=== PATIENT | male | born 1960 | race Caucasian/White ===

== ENCOUNTER 2017-12-13 16:54 | Emergency (ER) | payer OTHER ==
[2017-12-13 18:28] VITALS: BP 116/62; PULSE 91; RESP 16; TEMP 97.8; O2SAT 98
[2017-12-13] MEDS ORDERED: ACETAMINOPHEN/HYDROcodone 325 MG/10 MG TAB PO ONE (18:45)
--- NOTE | 2017-12-13 19:02 | PD ---
HPI Chief Complaint: Psychiatric Symptoms Time Seen by Provider: 18:27 Travel History International Travel<30 days: No Contact w/Intl Traveler<30days: No Traveled to known affect area: No History of Present Illness HPI 57-year-old male that presents to the ED for evaluation of Collins act. Patient was Collins acted by police after apparently he made suicidal statements to nursing staff that went to visit him at his home. Per patient his been in and out of [facility] normal and age secondary to having GI bleeds as well as stomach cancer. Per patient he was just released yesterday had home health given to him so he can have follow-up. Patient was seen today by the home health nurse and patient stated that he felt the present that he will hang himself with a rope that is outside. Per patient he stated that this was a joke. Per patient he knows he feels depressed secondary to his significant illness. Per patient he does not have a plan to actually and his life. He denies any fevers chills or sweats. He states that he's had transfusions recently and states that he denies any active bleeding at this time. He denies any chest pain or shortness of breath. Per patient he currently is not undergoing any chemotherapy. He does state that he takes Lortab for pain and he would like to have a dose of this as he does not have his medications with him secondary to his Collins act. He voices no complaints. Per patient this is all a misunderstanding. He denies any drug abuse or alcohol recently. [facility] Social History Tobacco Use: Yes Allergies-Medications (Allergen,Severity, Reaction): Coded Allergies: No Known Allergies (Unverified , 12/13/17) Review of Systems Except as stated in HPI: all other systems reviewed are Neg Physical Exam Narrative GENERAL: SKIN: Warm and dry. HEAD: Atraumatic. Normocephalic. EYES: Pupils equal and round. No scleral icterus. No injection or drainage. ENT: No nasal bleeding or discharge. Mucous membranes pink and moist. Tongue is midline. No uvula deviation. NECK: Trachea midline. No JVD. CARDIOVASCULAR: Regular rate and rhythm. No murmurs, S3, S4. RESPIRATORY: No accessory muscle use. Clear to auscultation. Breath sounds equal bilaterally. GASTROINTESTINAL: Abdomen soft, non-tender, nondistended. Hepatic and splenic margins not palpable. MUSCULOSKELETAL: Extremities without clubbing, cyanosis, or edema. No obvious deformities. Full range of motion of the upper and lower extremities bilaterally. 2+ pulses bilaterally. NEUROLOGICAL: Awake and alert. No obvious cranial nerve deficits. Motor grossly within normal limits. Five out of 5 muscle strength in the arms and legs. Normal speech. PSYCHIATRIC: Appropriate mood and affect; insight and judgment normal. Data Data Last Documented VS Vital Signs Date Time Temp Pulse Resp B/P (MAP) Pulse Ox O2 Delivery O2 Flow Rate FiO2 12/13/17 18:28 97.8 91 16 116/62 (80) 98 Room Air Orders Orders Complete Blood Count With Diff (12/13/17 18:16) Comprehensive Metabolic Panel (12/13/17 18:16) Thyroid Stimulating Hormone (12/13/17 18:16) Psych Screen (12/13/17 18:16) Drug Screen, Random Urine (12/13/17 18:16) Alcohol (Ethanol) (12/13/17 18:16) Salicylates (Aspirin) (12/13/17 18:16) Tylenol (Acetaminophen) (12/13/17 18:16) Acetamin-Hydrocod 325-10 Mg ([place] 10-32 (12/13/17 18:45) Labs Laboratory Tests Test 12/13/17 19:35 12/13/17 19:45 White Blood Count 5.1 TH/MM3 Red Blood Count 3.10 MIL/MM3 Hemoglobin 11.7 GM/DL Hematocrit 33.0 % Mean Corpuscular Volume 106.4 FL Mean Corpuscular Hemoglobin 37.7 PG Mean Corpuscular Hemoglobin Concent 35.4 % Red Cell Distribution Width 13.0 % Platelet Count 176 TH/MM3 Mean Platelet Volume 8.4 FL Neutrophils (%) (Auto) 66.7 % Lymphocytes (%) (Auto) 20.8 % Monocytes (%) (Auto) 6.3 % Eosinophils (%) (Auto) 5.5 % Basophils (%) (Auto) 0.7 % Neutrophils # (Auto) 3.4 TH/MM3 Lymphocytes # (Auto) 1.1 TH/MM3 Monocytes # (Auto) 0.3 TH/MM3 Eosinophils # (Auto) 0.3 TH/MM3 Basophils # (Auto) 0.0 TH/MM3 CBC Comment DIFF FINAL Differential Comment MDM Medical Decision Making Medical Screen Exam Complete: Yes Emergency Medical Condition: Yes Medical Record Reviewed: Yes Interpretation(s) CBC Diagram 12/13/17 19:45 Differential Diagnosis Depression versus suicidal ideation versus anxiety versus adjustment disorder versus mood disorder versus bipolar disorder versus schizophrenia versus paranoid disorder versus psychosis versus substance abuse versus alcohol abuse versus alcohol induced psychosis versus homicidality addition versus cutting versus personality disorder Narrative Course 57-year-old male that presents to the ED for evaluation of psych. Patient was properly examined and was found to have signs and symptoms consistent psychiatric illness. No sign of acute medical distress. Patient does appear to have a significant medical history including cancer per patient and ulcers. Labs were ordered. Patient will be medically clear. Okay to be seen by psych. Mental health screening was discussed with the patient. Diagnosis Primary Impression: Depression Qualified Codes: F33.1 - Major depressive disorder, recurrent, moderate Jeramie Mckeon Dec 13, 2017 19:02
[2017-12-13 20:24] LABS: AUTOMATED NEUTROPHIL # 3.4 TH/MM3 (1.8-7.7); BASOPHIL % 0.7 % (0.0-2.0); EOSINOPHIL # 0.3 TH/MM3 (0-0.4); EOSINOPHIL % 5.5 % (0.0-4.0); HEMOGLOBIN 11.7 GM/DL (13.0-17.0); LYMPH % 20.8 % (9.0-44.0); LYMPHOCYTE # 1.1 TH/MM3 (1.0-4.8); MEAN CELL VOLUME 106.4 FL (80.0-100.0); MEAN CORPUSCULAR HEMOGLOBIN 37.7 PG (27.0-34.0); MEAN CORPUSCULAR HGB CONC 35.4 % (32.0-36.0); MEAN PLATELET VOLUME 8.4 FL (7.0-11.0); MONO % 6.3 % (0.0-8.0); MONOCYTE # 0.3 TH/MM3 (0-0.9); NEUT % 66.7 % (16.0-70.0); PLATELET COUNT 176 TH/MM3 (150-450); WHITE BLOOD COUNT 5.1 TH/MM3 (4.0-11.0)
[2017-12-13 20:38] LABS: ALBUMIN 3.2 GM/DL (3.4-5.0); AST (GOT) 86 U/L (15-37); BLOOD UREA NITROGEN 4 MG/DL (7-18); CALCIUM 8.4 MG/DL (8.5-10.1); CHLORIDE 100 MEQ/L (98-107); CREATININE 0.73 MG/DL (0.60-1.30); GLOMERULAR FILTRATION RATE 112 ML/MIN (>89); GLUCOSE,RANDOM 85 MG/DL (74-106); SODIUM (NA) 132 MEQ/L (136-145)
[2017-12-13 20:40] LABS: ALT (GPT) 38 U/L (12-78)
[2017-12-13 20:49] LABS: ACETAMINOPHEN LESS THAN 2.0 MCG/ML (10.0-30.0); ALKALINE PHOSPHATASE 116 U/L (45-117); TOTAL BILIRUBIN ADULT 0.4 MG/DL (0.2-1.0); TOTAL PROTEIN 6.6 GM/DL (6.4-8.2)
[2017-12-13 23:47] VITALS: BP 126/72; PULSE 81; RESP 18; TEMP 98.9; O2SAT 96
[2017-12-14 10:25] VITALS: BP 157/76; PULSE 75; RESP 18; O2SAT 97
[2017-12-14] MEDS ORDERED: ACETAMINOPHEN/HYDROcodone 325 MG/10 MG TAB PO ONE (12:15)
--- NOTE | 2017-12-14 13:52 | PD ---
History of Present Illness Chief Complaint: Psychiatric Symptoms Time Seen by Provider: 13:45 Travel History International Travel<30 Days: No Contact w/Intl Traveler<30days: No Known affected area: No Legal Status Legal Status: Collins Act Collins Act Signed By: Lise Collins Act Comment: 12/13/2017 04:14 PM OFC. Morrsi BOYLE #[phone] History of Present Illness: 57-year-old male, recently hospitalized and diagnosed with stomach cancer, Karina acted after joking that he could hang himself. Apparently he made this joke with home health care nurses and they immediately called law enforcement, who Karina acted the patient. Patient states he was with his girlfriend at the time and both he and she were trying to convince the nurses and law enforcement that he was joking. He denies any suicidal or homicidal ideation, plan or intent at this time. He has no psychotic symptoms and his cognition is intact. He is verbally ana maria for safety and he is competent to do so. Psychiatric History Psychiatric History Hx Psychiatric Treatment: Denies History of Inpatient Treatment: No Guns or firearms in home: No Social History Hx Alcohol Use: Yes Hx Tobacco Use: Yes Hx Substance Use: Yes (alcohol) Substance Use Type: Alcohol Hx of Substance Use Treatment: No Allergies-Medications (Allergen,Severity, Reaction): Coded Allergies: No Known Allergies (Unverified , 12/13/17) Review of Systems Psychiatric: COMPLAINS OF: Anxiety Except as stated in HPI: all other systems reviewed are Neg Mental Status Examination Appearance: Appropriate Consciousness: Alert Orientation: x4 Motor Activity: Normal gait Speech: Unremarkable Language: Adequate Fund of Knowledge: Adequate Attention and Concentration: Adequate Memory: Unremarkable Mood: Anxious Affect: Appropriate Thought Process & Associations: Intact Thought Content: Appropriate Hallucination Type: None Delusion Type: None Suicidal Ideation: No Suicidal Plan: No Suicidal Intention: No Homicidal Ideation: No Homicidal Plan: No Homicidal Intention: No Insight: Adequate Judgment: Adequate MDM Medical Decision Making Medical Record Reviewed: Yes Assessment/Plan Patient interviewed at bedside. Electronic medical record reviewed. Case discussed with nurse Bahena and nurse Scotty. Patient does not meet criteria for Collins act and he does not meet criteria for involuntary psychiatric hospitalization. He would like to go home and this physician feels he is competent to make medical decisions. Patient's toxicology screen is noted to be positive for opiates and alcohol. Orders Orders Complete Blood Count With Diff (12/13/17 18:16) Comprehensive Metabolic Panel (12/13/17 18:16) Thyroid Stimulating Hormone (12/13/17 18:16) Psych Screen (12/13/17 18:16) Drug Screen, Random Urine (12/13/17 18:16) Alcohol (Ethanol) (12/13/17 18:16) Salicylates (Aspirin) (12/13/17 18:16) Tylenol (Acetaminophen) (12/13/17 18:16) Acetamin-Hydrocod 325-10 Mg ([place] 10-32 (12/13/17 18:45) Diet Regular Basic (12/14/17 Breakfast) Diet Regular Basic (12/14/17 Lunch) Acetamin-Hydrocod 325-10 Mg ([place] 10-32 (12/14/17 12:15) Results Vital Signs Date Time Temp Pulse Resp B/P (MAP) Pulse Ox O2 Delivery O2 Flow Rate FiO2 12/14/17 10:25 75 18 157/76 (103) 97 Room Air 12/13/17 23:47 98.9 81 18 126/72 (90) 96 Room Air 12/13/17 18:28 97.8 91 16 116/62 (80) 98 Room Air Laboratory Tests Test 12/13/17 19:35 12/13/17 19:45 Urine Opiates Screen POS Urine Barbiturates Screen NEG Urine Amphetamines Screen NEG Urine Benzodiazepines Screen NEG Urine Cocaine Screen NEG Urine Cannabinoids Screen NEG White Blood Count 5.1 Red Blood Count 3.10 Hemoglobin 11.7 Hematocrit 33.0 Mean Corpuscular Volume 106.4 Mean Corpuscular Hemoglobin 37.7 Mean Corpuscular Hemoglobin Concent 35.4 Red Cell Distribution Width 13.0 Platelet Count 176 Mean Platelet Volume 8.4 Neutrophils (%) (Auto) 66.7 Lymphocytes (%) (Auto) 20.8 Monocytes (%) (Auto) 6.3 Eosinophils (%) (Auto) 5.5 Basophils (%) (Auto) 0.7 Neutrophils # (Auto) 3.4 Lymphocytes # (Auto) 1.1 Monocytes # (Auto) 0.3 Eosinophils # (Auto) 0.3 Basophils # (Auto) 0.0 CBC Comment DIFF FINAL Differential Comment Blood Urea Nitrogen 4 Creatinine 0.73 Random Glucose 85 Total Protein 6.6 Albumin 3.2 Calcium Level 8.4 Alkaline Phosphatase 116 Aspartate Amino Transf (AST/SGOT) 86 Alanine Aminotransferase (ALT/SGPT) 38 Total Bilirubin 0.4 Sodium Level 132 Potassium Level 3.5 Chloride Level 100 Carbon Dioxide Level 23.0 Anion Gap 9 Estimat Glomerular Filtration Rate 112 Thyroid Stimulating Hormone 3rd Gen 1.220 Salicylates Level 9.6 Acetaminophen Level LESS THAN 2.0 Ethyl Alcohol Level 135 Diagnosis Primary Impression: Adjustment disorder with mixed disturbance of emotions and conduct Jason Brady MD Dec 14, 2017 13:52
--- NOTE | 2017-12-14 14:04 | PD ---
Physical Exam Time Seen by Provider: 14:[address] Brady has evaluated the patient, with Collins act, and cleared the patient for discharge. Data Data Last Documented VS Vital Signs Date Time Temp Pulse Resp B/P (MAP) Pulse Ox O2 Delivery O2 Flow Rate FiO2 12/14/17 10:25 75 18 157/76 (103) 97 Room Air 12/13/17 23:47 98.9 Orders Orders Complete Blood Count With Diff (12/13/17 18:16) Comprehensive Metabolic Panel (12/13/17 18:16) Thyroid Stimulating Hormone (12/13/17 18:16) Psych Screen (12/13/17 18:16) Drug Screen, Random Urine (12/13/17 18:16) Alcohol (Ethanol) (12/13/17 18:16) Salicylates (Aspirin) (12/13/17 18:16) Tylenol (Acetaminophen) (12/13/17 18:16) Acetamin-Hydrocod 325-10 Mg ([place] 10-32 (12/13/17 18:45) Diet Regular Basic (12/14/17 Breakfast) Diet Regular Basic (12/14/17 Lunch) Acetamin-Hydrocod 325-10 Mg ([place] 10-32 (12/14/17 12:15) Labs Laboratory Tests Test 12/13/17 19:35 12/13/17 19:45 Urine Opiates Screen POS Urine Barbiturates Screen NEG Urine Amphetamines Screen NEG Urine Benzodiazepines Screen NEG Urine Cocaine Screen NEG Urine Cannabinoids Screen NEG White Blood Count 5.1 TH/MM3 Red Blood Count 3.10 MIL/MM3 Hemoglobin 11.7 GM/DL Hematocrit 33.0 % Mean Corpuscular Volume 106.4 FL Mean Corpuscular Hemoglobin 37.7 PG Mean Corpuscular Hemoglobin Concent 35.4 % Red Cell Distribution Width 13.0 % Platelet Count 176 TH/MM3 Mean Platelet Volume 8.4 FL Neutrophils (%) (Auto) 66.7 % Lymphocytes (%) (Auto) 20.8 % Monocytes (%) (Auto) 6.3 % Eosinophils (%) (Auto) 5.5 % Basophils (%) (Auto) 0.7 % Neutrophils # (Auto) 3.4 TH/MM3 Lymphocytes # (Auto) 1.1 TH/MM3 Monocytes # (Auto) 0.3 TH/MM3 Eosinophils # (Auto) 0.3 TH/MM3 Basophils # (Auto) 0.0 TH/MM3 CBC Comment DIFF FINAL Differential Comment Blood Urea Nitrogen 4 MG/DL Creatinine 0.73 MG/DL Random Glucose 85 MG/DL Total Protein 6.6 GM/DL Albumin 3.2 GM/DL Calcium Level 8.4 MG/DL Alkaline Phosphatase 116 U/L Aspartate Amino Transf (AST/SGOT) 86 U/L Alanine Aminotransferase (ALT/SGPT) 38 U/L Total Bilirubin 0.4 MG/DL Sodium Level 132 MEQ/L Potassium Level 3.5 MEQ/L Chloride Level 100 MEQ/L Carbon Dioxide Level 23.0 MEQ/L Anion Gap 9 MEQ/L Estimat Glomerular Filtration Rate 112 ML/MIN Thyroid Stimulating Hormone 3rd Gen 1.220 uIU/ML Salicylates Level 9.6 MG/DL Acetaminophen Level LESS THAN 2.0 MCG/ML Ethyl Alcohol Level 135 MG/DL MDM Supervised Visit with PAT: No Narrative Course Dr. Brady has evaluated the patient, with Karina arias, and cleared the patient for discharge. Patient contracts safety. Denies suicidal or homicidal ideations. Patient will be provided community resource packet to /LUAN for follow-up. Has friends and family for support. Patient was medically cleared by alternate provider prior to psych screening. Patient has been evaluated by psychiatry and and is now cleared for discharge. Diagnosis Primary Impression: Adjustment disorder with mixed disturbance of emotions and conduct Referrals: LUAN (Out patient) [facility] Primary Care Physician Psychiatrist Terrance [facility]AS [facility] Patient Instructions: Disruptive Mood Dysregulation Disorder (ED), General Instructions, Mood Disorders (ED) Additional Instruction: Contract safety to your self and others Follow-up with psychiatry Follow-up with primary care provider Follow-up with Ousmane Jones Return to the emergency department immediately with worsening of symptoms Med/Other Pt SpecificInfo: No Change to Meds, No Meds Exist/No RX given Disposition: 01 DISCHARGE HOME Condition: Stable Laine Moralez Dec 14, 2017 14:04
== END 2017-12-14 14:57 | disposition home or self-care (01) ==
LOC: NEDAMB 16:54 → NEPJ 12-14 14:57
DX: F43.25 Adjustment disorder with mixed disturbance of emotions and conduct (principal); Z72.0 Tobacco use
CPT/HCPCS: 80053; 80307; 84443; 85025; 99283

== ENCOUNTER 2017-12-16 20:50 | Emergency (ER) | payer SELFPAY ==
[~2017-12-16] VITALS: Ht 177.8 cm; Wt 61.0 kg
[2017-12-16 21:07] VITALS: BP 165/90; PULSE 83; RESP 16; TEMP 98.7; O2SAT 96
[2017-12-16] MEDS ORDERED: SODIUM CHLOR 0.9% 1000 ML INJ 1,000 ML IV SCH (21:19)
[2017-12-16] MEDS ORDERED: HYDR-3583 PO (21:22)
[2017-12-16] MEDS ORDERED: PANT40TA3 PO (21:22)
--- NOTE | 2017-12-16 21:23 | PD ---
HPI Chief Complaint: GI Complaint Time Seen by Provider: 21:19 Travel History International Travel<30 days: No Contact w/Intl Traveler<30days: No Traveled to known affect area: No History of Present Illness HPI 57-year-old male patient with history of alcoholism, gastritis, opiate use, recently diagnosed with a GI malignancy for which she is currently being evaluated for further treatment, seen at [facility] yesterday for nausea and vomiting and black stools, was released, and is here today because of an ongoing nausea, vomiting, body aches, diarrhea, and states he did have black stools as well and states he had red blood in the stools. He states that he had ran out of his Lortabs as well. He apparently has had a recent refill the medications and has ran out as well. Modifying Factors: None Associated Signs & Symptoms: Nausea, vomiting, body aches, diarrhea, black stools Risk Factors: Gastritis, alcoholism, gastric cancer PFSH Past Medical History Diminished Hearing: No Gastrointestinal Disorders: Yes (pt states gastritis and stomach ca.) Tetanus Vaccination: > 5 Years Influenza Vaccination: No Past Surgical History Surgical History: No Previous Surgery Social History Alcohol Use: Yes (daily "a few beers today") Tobacco Use: Yes Substance Use: Yes (alcohol) Allergies-Medications (Allergen,Severity, Reaction): Coded Allergies: No Known Allergies (Unverified , 12/16/17) Reported Meds & Prescriptions Reported Meds & Active Scripts Active Reported Hydrocodone-Acetaminophen 10-325 mg Tab 1 Tab PO Q6H PRN Pantoprazole (Pantoprazole Sodium) 40 Mg Tab 40 Mg PO BID Review of Systems Except as stated in HPI: all other systems reviewed are Neg Physical Exam Narrative GENERAL: Well-developed middle-aged white male patient currently in mild distress. Awake and oriented 3. SKIN: Focused skin assessment warm/dry. HEAD: Atraumatic. Normocephalic. EYES: Pupils equal and round. No scleral icterus. No injection or drainage. ENT: No nasal bleeding or discharge. Mucous membranes pink and moist. NECK: Trachea midline. No JVD. Supple. CARDIOVASCULAR: Regular rate and rhythm. No murmur appreciated. RESPIRATORY: No accessory muscle use. Clear to auscultation. Breath sounds equal bilaterally. GASTROINTESTINAL: Abdomen soft, non-tender, nondistended. Hepatic and splenic margins not palpable. MUSCULOSKELETAL: No obvious deformities. No clubbing. No cyanosis. No edema. NEUROLOGICAL: Awake and alert. No obvious cranial nerve deficits. Motor grossly within normal limits. Normal speech. PSYCHIATRIC: Appropriate mood and affect; insight and judgment normal. Data Data Last Documented VS Vital Signs Date Time Temp Pulse Resp B/P (MAP) Pulse Ox O2 Delivery O2 Flow Rate FiO2 12/16/17 21:07 98.7 83 16 165/90 (115) 96 Orders Orders Complete Blood Count With Diff (12/16/17 21:19) Comprehensive Metabolic Panel (12/16/17 21:19) Lipase (12/16/17 21:19) Urinalysis - C+S If Indicated (12/16/17 21:19) Abdomen, Flat & Upright (12/16/17 ) Iv Access Insert/Monitor (12/16/17 21:19) Ecg Monitoring (12/16/17 21:19) Oximetry (12/16/17 21:19) Ondansetron Inj (Zofran Inj) (12/16/17 21:30) Pantoprazole Inj (Protonix Inj) (12/16/17 21:30) Sodium Chlor 0.9% 1000 Ml Inj (Ns 1000 M (12/16/17 21:19) Sodium Chloride 0.9% Flush (Ns Flush) (12/16/17 21:30) Acetaminophen (Tylenol) (12/16/17 22:15) Sodium Chlor 0.9% 1000 Ml Inj (Ns 1000 M (12/16/17 23:30) Morphine Inj (Morphine Inj) (12/16/17 23:30) Labs Laboratory Tests Test 12/16/17 21:30 12/16/17 22:10 White Blood Count 4.5 TH/MM3 Red Blood Count 3.24 MIL/MM3 Hemoglobin 12.2 GM/DL Hematocrit 34.7 % Mean Corpuscular Volume 107.0 FL Mean Corpuscular Hemoglobin 37.5 PG Mean Corpuscular Hemoglobin Concent 35.1 % Red Cell Distribution Width 13.2 % Platelet Count 334 TH/MM3 Mean Platelet Volume 7.9 FL Neutrophils (%) (Auto) 80.4 % Lymphocytes (%) (Auto) 15.5 % Monocytes (%) (Auto) 3.1 % Eosinophils (%) (Auto) 0.2 % Basophils (%) (Auto) 0.8 % Neutrophils # (Auto) 3.6 TH/MM3 Lymphocytes # (Auto) 0.7 TH/MM3 Monocytes # (Auto) 0.1 TH/MM3 Eosinophils # (Auto) 0.0 TH/MM3 Basophils # (Auto) 0.0 TH/MM3 CBC Comment DIFF FINAL Differential Comment Blood Urea Nitrogen 4 MG/DL Creatinine 0.71 MG/DL Random Glucose 92 MG/DL Total Protein 6.6 GM/DL Albumin 3.3 GM/DL Calcium Level 8.4 MG/DL Alkaline Phosphatase 108 U/L Aspartate Amino Transf (AST/SGOT) 93 U/L Alanine Aminotransferase (ALT/SGPT) 47 U/L Total Bilirubin 0.3 MG/DL Sodium Level 128 MEQ/L Potassium Level 3.9 MEQ/L Chloride Level 96 MEQ/L Carbon Dioxide Level 20.3 MEQ/L Anion Gap 12 MEQ/L Estimat Glomerular Filtration Rate 115 ML/MIN Lipase 294 U/L Urine Color LIGHT-YELLOW Urine Turbidity CLEAR Urine pH 6.0 Urine Specific [place] 1.003 Urine Protein NEG mg/dL Urine Glucose (UA) NEG mg/dL Urine Ketones NEG mg/dL Urine Occult Blood NEG Urine Nitrite NEG Urine Bilirubin NEG Urine Urobilinogen LESS THAN 2.0 MG/DL Urine Leukocyte Esterase NEG Urine RBC 1 /hpf Urine Mucus FEW /lpf Microscopic Urinalysis Comment CULT NOT INDICATED MDM Medical Decision Making Medical Screen Exam Complete: Yes Emergency Medical Condition: Yes Medical Record Reviewed: Yes Interpretation(s) Laboratory Tests Test 12/16/17 21:30 12/16/17 22:10 Red Blood Count 3.24 MIL/MM3 (4.50-5.90) Hemoglobin 12.2 GM/DL (13.0-17.0) Hematocrit 34.7 % (39.0-51.0) Mean Corpuscular Volume 107.0 FL (80.0-100.0) Mean Corpuscular Hemoglobin 37.5 PG (27.0-34.0) Neutrophils (%) (Auto) 80.4 % (16.0-70.0) Lymphocytes # (Auto) 0.7 TH/MM3 (1.0-4.8) Blood Urea Nitrogen 4 MG/DL (7-18) Albumin 3.3 GM/DL (3.4-5.0) Calcium Level 8.4 MG/DL (8.5-10.1) Aspartate Amino Transf (AST/SGOT) 93 U/L (15-37) Sodium Level 128 MEQ/L (136-145) Chloride Level 96 MEQ/L (98-107) Carbon Dioxide Level 20.3 MEQ/L (21.0-32.0) Urine Mucus FEW /lpf (OCC) Last 24 hours Impressions Abdomen X-Ray 12/16/17 0000 Signed Impressions: Service Date/Time: Saturday, December 16, 2017 21:55 - CONCLUSION: Nonspecific bowel gas pattern with suggestion for possible ileus in the proper clinical setting. No point of obstruction seen. Sebastien Brooks MD Differential Diagnosis Nausea, vomiting, abdominal discomfort, diarrhea, black stools: GI bleed versus gastritis versus pancreatitis versus dehydration versus metabolic issues versus alcohol withdrawal versus opiate withdrawals Narrative Course Abdomen is fairly benign and x-ray did show some signs of ileus although I think that some of this may be secondary to opiate withdrawals. He was given IV fluids, Zofran in the ER, and Protonix. On reevaluation at 11:20 PM, he is much more comfortable and he is no longer vomiting. His sodium is low and it had been low in a previous visit as well. Additional IV fluids were given. Hemoccult was negative and I'm not suspecting a ongoing GI bleeding in this case. H&H is stable. Vital signs are stable. He does have several GI issues and will need follow-up for all of them. Patient has a GI doctor already that he is following up with and he should continue to see them. We have attempted to obtain his paperwork from the other facility as well but was not successful. At this point, my plan would be to release him with further symptomatic relief for nausea and vomiting. I suspect he may have an element of opiate withdrawal as well. Morphine was given per patient's multiple request. However , I have talked him about the fact that we will not be giving him any further pain medications and he will need to follow-up with his primary care physician and GI doctor regarding this problem. He should return for any worsening in vomiting or new symptoms as needed. The plan has been discussed with him and he states understanding. [facility] Point of Care Internal Pos. & Neg. Controls: Passed Fecal Specimen Occult Blood: Negative Diagnosis Primary Impression: Nausea and vomiting Additional Impression: Hyponatremia Med/Other Pt SpecificInfo: Prescription(s) given Scripts Ondansetron Odt (Zofran Odt) 4 Mg Tab 4 MG SL Q6HR Y for Nausea/Vomiting, #10 TAB 0 Refills Prov: Bebo Zacarias MD 12/16/17 Disposition: 01 DISCHARGE HOME Condition: Stable Bebo Zacarias MD Dec 16, 2017 21:23
[2017-12-16] MEDS ORDERED: SODIUM CHLORIDE 0.9% FLUSH 10 ML FLUSH IV FLUSH PRN (21:30)
[2017-12-16] MEDS ORDERED: PANTOPRAZOLE SODIUM 40 MG VIAL IVP ONE (21:30)
[2017-12-16] MEDS ORDERED: ONDANSETRON HCL 4 MG/2 ML VIAL IVP ONE (21:30)
[2017-12-16] MEDS ORDERED: ACETAMINOPHEN 325 MG TAB PO ONE (22:15)
--- NOTE | 2017-12-16 22:19 | RADRPT ---
EXAM DATE/TIME: 12/16/2017 21:55 [facility] COMPARISON: No previous studies available for comparison. INDICATIONS : Abdominal pain, vomiting MEDICAL HISTORY : None. SURGICAL HISTORY : None. ENCOUNTER: Initial ACUITY: 1 week PAIN SCORE: 0/10 LOCATION: abdomen FINDINGS: Air-filled small and large bowel of diffusely over limits of normal caliber noted suggesting an ileus . No abrupt caliber changes are seen. No free air. CONCLUSION: Nonspecific bowel gas pattern with suggestion for possible ileus in the proper clinical setting. No p oint of obstruction seen. Sebastien Brooks MD on December 16, 2017 at 22:15 Board Certified Radiologist. This report was verified electronically.
[2017-12-16 22:29] LABS: AUTOMATED NEUTROPHIL # 3.6 TH/MM3 (1.8-7.7); BASOPHIL % 0.8 % (0.0-2.0); EOSINOPHIL % 0.2 % (0.0-4.0); HEMATOCRIT 34.7 % (39.0-51.0); HEMOGLOBIN 12.2 GM/DL (13.0-17.0); LYMPH % 15.5 % (9.0-44.0); LYMPHOCYTE # 0.7 TH/MM3 (1.0-4.8); MEAN CORPUSCULAR HEMOGLOBIN 37.5 PG (27.0-34.0); MEAN CORPUSCULAR HGB CONC 35.1 % (32.0-36.0); MEAN PLATELET VOLUME 7.9 FL (7.0-11.0); MONO % 3.1 % (0.0-8.0); MONOCYTE # 0.1 TH/MM3 (0-0.9); NEUT % 80.4 % (16.0-70.0); PLATELET COUNT 334 TH/MM3 (150-450); RED BLOOD COUNT 3.24 MIL/MM3 (4.50-5.90); RED CELL DISTRIBUTION WIDTH 13.2 % (11.6-17.2); WHITE BLOOD COUNT 4.5 TH/MM3 (4.0-11.0)
[2017-12-16 22:39] LABS: BILIRUBIN, URINE NEG (NEG); BLOOD, URINE NEG (NEG); GLUCOSE,URINE NEG (NEG); KETONE, URINE NEG (NEG); MUCUS URINE FEW /lpf (OCC); NITRITE,URINE NEG (NEG); URINE COLOR LIGHT-YELLOW (YELLW/STRAW); URINE LEUKOCYTE ESTERASE NEG (NEG)
[2017-12-16 22:46] LABS: ALBUMIN 3.3 GM/DL (3.4-5.0); AST (GOT) 93 U/L (15-37); BICARBONATE 20.3 MEQ/L (21.0-32.0); BLOOD UREA NITROGEN 4 MG/DL (7-18); CALCIUM 8.4 MG/DL (8.5-10.1); CHLORIDE 96 MEQ/L (98-107); CREATININE 0.71 MG/DL (0.60-1.30); GLOMERULAR FILTRATION RATE 115 ML/MIN (>89); GLUCOSE,RANDOM 92 MG/DL (74-106); LIPASE 294 U/L (73-393); SODIUM (NA) 128 MEQ/L (136-145)
[2017-12-16 22:47] LABS: ALT (GPT) 47 U/L (12-78)
[2017-12-16 22:49] LABS: ALKALINE PHOSPHATASE 108 U/L (45-117); TOTAL BILIRUBIN ADULT 0.3 MG/DL (0.2-1.0); TOTAL PROTEIN 6.6 GM/DL (6.4-8.2)
[2017-12-16] MEDS ORDERED: SODIUM CHLOR 0.9% 1000 ML INJ 1,000 ML IV ONE (23:30)
[2017-12-16] MEDS ORDERED: MORPHINE SULFATE 2 MG/ML INJ IV PUSH ONE (23:30)
[2017-12-16] MEDS ORDERED: ZOFR4TAB3 SL (23:32)
== END 2017-12-17 01:42 | disposition home or self-care (01) ==
LOC: NEPC 20:50
DX: C16.9 Malignant neoplasm of stomach, unspecified (principal); R11.2 Nausea with vomiting, unspecified; E87.1 Hypo-osmolality and hyponatremia
CPT/HCPCS: 74019; 80053; 81001; 83690; 85025; 96361; 96374; 96375; 99284; C9113; J2270; J2405; J7030

== ENCOUNTER 2017-12-24 21:51 | Emergency (ER) | payer SELFPAY ==
[~2017-12-24] VITALS: Ht 170.2 cm; Wt 60.0 kg
[~2017-12-24 21:51] MED LIST: HYDR-3583 PO; PANT40TA3 PO; ZOFR4TAB3 SL
[2017-12-24 22:01] VITALS: BP 138/87; PULSE 87; RESP 18; O2SAT 98
--- NOTE | 2017-12-24 22:11 | PD ---
HPI Chief Complaint: Abdominal Pain Time Seen by Provider: 22:07 Travel History International Travel<30 days: No Contact w/Intl Traveler<30days: No Traveled to known affect area: No History of Present Illness HPI 57 YO M with PMH of alcoholism, gastritis, opiate use, recently diagnosed gastric CA presents to the ED via EMS for evaluation of 3 day history of nausea , vomiting, melena. Patient states last bowel movement was yesterday, dark and sticky. He endorses last episode of coffee-ground emesis early this morning. Also complains of 10 /10 pain, states that "every bone in my body aches." He has to be prompted to explain his abdominal pain. He endorses drinking a few beers today and states that he took 10 aspirin tablets to treat his pain. States that he took a Lortab which is prescribed by his chronic pain provider but is out of the medication. He states that he was evaluated for the same symptoms at [facility] and discharged last night. He denies illicit drug use. He states that he has a focuser but is unable to provide his name. PFSH Past Medical History Diminished Hearing: No Gastrointestinal Disorders: Yes (pt states gastritis and stomach ca.) Social History Alcohol Use: Yes (daily "a few beers today") Tobacco Use: Yes Substance Use: Yes (alcohol) Allergies-Medications (Allergen,Severity, Reaction): Coded Allergies: No Known Allergies (Unverified , 12/16/17) Reported Meds & Prescriptions Reported Meds & Active Scripts Active Zofran Odt (Ondansetron Odt) 4 Mg Tab 4 Mg SL Q6HR PRN Reported Hydrocodone-Acetaminophen 10-325 mg Tab 1 Tab PO Q6H PRN Pantoprazole (Pantoprazole Sodium) 40 Mg Tab 40 Mg PO BID Review of Systems Except as stated in HPI: all other systems reviewed are Neg Physical Exam Narrative GENERAL: Well-nourished, well-developed white male in no acute distress. SKIN: Focused skin assessment warm/dry. HEAD: Normocephalic. EYES: No scleral icterus. No injection or drainage. NECK: Supple, trachea midline. No JVD or lymphadenopathy. CARDIOVASCULAR: Regular rate and rhythm without murmurs, gallops, or rubs. RESPIRATORY: Breath sounds equal bilaterally. Wheezing in bilateral lung tejeda. No accessory muscle use. GASTROINTESTINAL: Abdomen soft, non-tender, nondistended. Active bowel sounds. No epigastric tenderness to palpation. RECTAL EXAM: No masses or tenderness, stool is brown. Guaiac negative. MUSCULOSKELETAL: No cyanosis, or edema. BACK: Nontender without obvious deformity. No CVA tenderness. Data Data Last Documented VS Vital Signs Date Time Temp Pulse Resp B/P (MAP) Pulse Ox O2 Delivery O2 Flow Rate FiO2 12/25/17 00:19 73 18 139/79 (99) 100 Room Air Orders Orders Salicylates (Aspirin) (12/24/17 22:19) Acetamin-Hydrocod 325-5 Mg ([place] 5-325 (12/24/17 23:00) Ed Discharge Order (12/24/17 23:41) Labs Laboratory Tests Test 12/24/17 22:26 Salicylates Level 19.5 MG/DL MDM Medical Decision Making Medical Screen Exam Complete: Yes Emergency Medical Condition: Yes Differential Diagnosis Malingering versus chronic pain versus opiate withdrawal versus other Narrative Course 57 YO M with PMH of alcoholism, gastritis, opiate use, recently diagnosed gastric CA presents to the ED via EMS for evaluation of 3 day history of nausea , vomiting, melena. LBM yesterday, dark and sticky. Last episode of coffee- ground emesis early this morning. Endorses drinking a few beers today and states that he took 10 aspirin tablets to treat his pain. States that he took a Lortab which is prescribed by his chronic pain provider but is out of the medication. He states that he was evaluated for the same symptoms at [facility] and discharged last night. He denies illicit drug use. He states that he has a focuser but is unable to provide his name. Vitals reviewed. On exam the patient is in no distress. Abdominal exam is completely benign. Stool is brown, guaiac-negative on rectal exam. I reviewed the patient 's record and he presented approximately one week ago with similar complaints. I reviewed E[facility]SE and found no evidence of recent pain medication prescription. He has a bottle at bedside for #120 10mg [place], prescribed in mid November. I suspect malingering 2/2 pain medication misuse. We'll draw a salicylate level before discharge. The patient is requesting morphine. On recheck he is sleeping. He's had no further episodes of emesis and is tolerating PO liquids. He is stable and discharged to follow up with his focuser. HemaPrompt Point of Care Internal Pos. & Neg. Controls: Passed Fecal Specimen Occult Blood: Negative Diagnosis Primary Impression: Chronic abdominal pain Additional Impression: Misuse of analgesic Referrals: Progress Worker Patient Instructions: Abdominal Pain (ED), General Instructions Additional Instructions: Take Zofran as prescribed. Follow up with your focuser. DO NOT TAKE ASPIRIN as it can worsen GI bleeding. Return to the ED for any urgent or emergent medical condition. Med/Other Pt SpecificInfo: Prescription(s) given Disposition: DISCHARGE HOME Condition: Stable Mary Schaefer Dec 24, 2017 22:11
[2017-12-24] MEDS ORDERED: ACETAMINOPHEN/HYDROcodone 325 MG/5 MG TAB PO ONE (23:00)
[2017-12-25 00:19] VITALS: BP 139/79; PULSE 73; RESP 18; O2SAT 100
== END 2017-12-25 00:31 | disposition home or self-care (01) ==
LOC: NEPE 21:51
DX: R10.9 Unspecified abdominal pain (principal); G89.29 Other chronic pain; F55.8 Abuse of other non-psychoactive substances; R11.2 Nausea with vomiting, unspecified; K92.1 Melena; C16.9 Malignant neoplasm of stomach, unspecified; Z87.19 Personal history of other diseases of the digestive system; Z72.0 Tobacco use; Z79.899 Other long term (current) drug therapy
CPT/HCPCS: 80307; 99283

== ENCOUNTER 2018-01-28 19:43 | Emergency (ER) | payer SELFPAY ==
[~2018-01-28] VITALS: Ht 180.3 cm; Wt 65.0 kg
[2018-01-28 20:17] VITALS: BP_SYST 148; BP_SYST 154; BP_DIAS 83; BP_DIAS 99; PULSE 128; PULSE 93; RESP 16; TEMP 97.8; TEMP 98.5; O2SAT 98; O2SAT 99
[2018-01-28] MEDS ORDERED: SODIUM CHLORIDE 0.9% FLUSH 10 ML FLUSH IV FLUSH PRN (21:30)
[2018-01-28] MEDS ORDERED: ALUMINUM/MAGNESIUM/SIMETH 30 ML CUP PO ONE (21:30)
[2018-01-28] MEDS ORDERED: PANTOPRAZOLE SODIUM 40 MG VIAL IVP ONE (21:30)
[2018-01-28] MEDS ORDERED: LIDOCAINE VISCOUS 2% SOLN 15 ML UDC PO ONE (21:30)
[2018-01-28 21:34] VITALS: BP 160/97; PULSE 85; RESP 16; O2SAT 84
[2018-01-28] MEDS ORDERED: LEVE500T8 PO (21:34)
--- NOTE | 2018-01-28 21:41 | PD ---
HPI Chief Complaint: Abdominal Pain Time Seen by Provider: 21:13 Travel History International Travel<30 days: No Contact w/Intl Traveler<30days: No Traveled to known affect area: No History of Present Illness HPI Patient is a 57-year-old male presenting to the emergency evaluation of abdominal pain, dark stools, nausea, vomiting. Patient states that the abdominal pain has been intermittent over the last 3 months. He reports that it started getting worse a few days ago when he ran out of his Protonix. He states his pain is a 10 out of 10 reports as aching and cramping. He reports dark emesis as well. Patient stated that he has endoscopy 1 month ago at [facility], he states he had holes in his stomach. Symptom onset is gradual yet chronic appearing in nature. Symptom severity is mild to moderate, there are no alleviating factors. Pain is exacerbated with alcohol. Patient states he was told not to drink any alcohol and he reports that he is doing better. He states he had one beer today. PFSH Past Medical History Anxiety: Yes Cancer: Yes (STOMACH CA) Diabetes: Yes Gastrointestinal Disorders: Yes (pt states gastritis and stomach ca.) GERD: Yes Influenza Vaccination: No Social History Alcohol Use: Yes (daily "a few beers today") Tobacco Use: Yes Substance Use: Yes (alcohol) Allergies-Medications (Allergen,Severity, Reaction): Coded Allergies: No Known Allergies (Unverified , 01/28/18) Reported Meds & Prescriptions Reported Meds & Active Scripts Active Zofran Odt (Ondansetron Odt) 4 Mg Tab 4 Mg SL Q6HR PRN Reported Levetiracetam 500 Mg Tab 500 Mg PO BID Hydrocodone-Acetaminophen 10-325 mg Tab 1 Tab PO Q6H PRN Pantoprazole (Pantoprazole Sodium) 40 Mg Tab 40 Mg PO BID Review of Systems Except as stated in HPI: all other systems reviewed are Neg Gastrointestinal: Positive: Nausea, Vomiting, Abdominal Pain, Other (Melena) Physical Exam Narrative GENERAL: Well-developed, well-nourished, alert male. Presenting in no acute distress. SKIN: Warm and dry. HEAD: Atraumatic. Normocephalic. EYES: Pupils equal and round. No scleral icterus. No injection or drainage. ENT: No nasal bleeding or discharge. Mucous membranes pink and moist. NECK: Trachea midline. No JVD. CARDIOVASCULAR: Regular rate and rhythm. RESPIRATORY: No accessory muscle use. Clear to auscultation. Breath sounds equal bilaterally. GASTROINTESTINAL: Abdomen soft, nontender, nondistended. Hepatic and splenic margins not palpable. Positive bowel sounds, no rebound, no guarding. RECTAL EXAM: No masses or tenderness, stool is brown. MUSCULOSKELETAL: Extremities without clubbing, cyanosis, or edema. No obvious deformities. NEUROLOGICAL: Awake and alert. No obvious cranial nerve deficits. Motor grossly within normal limits. Five out of 5 muscle strength in the arms and legs. Normal speech. PSYCHIATRIC: Appropriate mood and affect; insight and judgment normal. Data Data Last Documented VS Vital Signs Date Time Temp Pulse Resp B/P (MAP) Pulse Ox O2 Delivery O2 Flow Rate FiO2 01/28/18 21:34 85 16 160/97 (118) 84 Room Air 01/28/18 20:17 98.5 Orders Orders Complete Blood Count With Diff (01/28/18 21:24) Comprehensive Metabolic Panel (01/28/18 21:24) Lipase (01/28/18 21:24) Prothrombin Time / Inr (Pt) (01/28/18 21:24) Act Partial Throm Time (Ptt) (01/28/18 21:24) Iv Access Insert/Monitor (01/28/18 21:24) Ecg Monitoring (01/28/18 21:24) Oximetry (01/28/18 21:24) Pantoprazole Inj (Protonix Inj) (01/28/18 21:30) Sodium Chloride 0.9% Flush (Ns Flush) (01/28/18 21:30) Al-Mag Hy-Si 40-40-4 Mg/Ml Liq (Mag-Al P (01/28/18 21:30) Lidocaine 2% Viscous (Xylocaine 2% Visco (01/28/18 21:30) Ct Abd/Pel W Iv Contrast(Rout) (01/28/18 ) Labs Laboratory Tests Test 01/28/18 21:36 White Blood Count 9.4 TH/MM3 Red Blood Count 3.01 MIL/MM3 Hemoglobin 11.1 GM/DL Hematocrit 31.9 % Mean Corpuscular Volume 105.9 FL Mean Corpuscular Hemoglobin 36.9 PG Mean Corpuscular Hemoglobin Concent 34.9 % Red Cell Distribution Width 12.9 % Platelet Count 248 TH/MM3 Mean Platelet Volume 7.3 FL Neutrophils (%) (Auto) 80.9 % Lymphocytes (%) (Auto) 10.5 % Monocytes (%) (Auto) 5.7 % Eosinophils (%) (Auto) 2.6 % Basophils (%) (Auto) 0.3 % Neutrophils # (Auto) 7.6 TH/MM3 Lymphocytes # (Auto) 1.0 TH/MM3 Monocytes # (Auto) 0.5 TH/MM3 Eosinophils # (Auto) 0.2 TH/MM3 Basophils # (Auto) 0.0 TH/MM3 CBC Comment DIFF FINAL Differential Comment Prothrombin Time 9.8 SEC Prothromb Time International Ratio 1.0 RATIO Activated Partial Thromboplast Time 26.4 SEC Blood Urea Nitrogen 3 MG/DL Creatinine 0.79 MG/DL Random Glucose 74 MG/DL Total Protein 6.4 GM/DL Albumin 3.2 GM/DL Calcium Level 8.2 MG/DL Alkaline Phosphatase 93 U/L Aspartate Amino Transf (AST/SGOT) 79 U/L Alanine Aminotransferase (ALT/SGPT) 38 U/L Total Bilirubin 0.3 MG/DL Sodium Level 137 MEQ/L Potassium Level 3.4 MEQ/L Chloride Level 105 MEQ/L Carbon Dioxide Level 24.6 MEQ/L Anion Gap 7 MEQ/L Estimat Glomerular Filtration Rate 102 ML/MIN Lipase 218 U/L MDM Medical Decision Making Medical Screen Exam Complete: Yes Emergency Medical Condition: Yes Interpretation(s) Vital Signs Date Time Temp Pulse Resp B/P (MAP) Pulse Ox O2 Delivery O2 Flow Rate FiO2 01/28/18 21:34 85 16 160/97 (118) 84 Room Air 01/28/18 20:17 98.5 93 16 148/83 (104) 98 Differential Diagnosis GI bleed versus anemia versus metabolic abnormality versus malingering versus other Narrative Course Patient is a 57-year-old male presented to the emergency room for evaluation of abdominal pain, nausea, vomiting and dark tarry like stools. Patient reports that this is chronic in nature however it has been exacerbated for the last several days because he is out of his medications. Stools positive for occult blood. Labs and imaging ordered and pending. CBC with a hemoglobin of 11.1/31.9, this is slightly lower than prior in November. Chemistry with no acute findings. Lipase is 218 Coags are unremarkable Patient was given Zofran, Protonix, GI cocktail. He reports improvement in his symptoms. Discussed with my attending physician, we will obtain a CT scan of the abdomen and pelvis. This test is pending, care patient transferred to my attending physician at the end of my shift. She will determine patient's disposition based on imaging. HemaPrompt Point of Care Fecal Specimen Occult Blood: Positive Bhavya Naranjo Jan 28, 2018 21:41
[2018-01-28 22:01] LABS: AUTOMATED NEUTROPHIL # 7.6 TH/MM3 (1.8-7.7); BASOPHIL % 0.3 % (0.0-2.0); EOSINOPHIL # 0.2 TH/MM3 (0-0.4); EOSINOPHIL % 2.6 % (0.0-4.0); HEMATOCRIT 31.9 % (39.0-51.0); HEMOGLOBIN 11.1 GM/DL (13.0-17.0); LYMPH % 10.5 % (9.0-44.0); MEAN CELL VOLUME 105.9 FL (80.0-100.0); MEAN CORPUSCULAR HEMOGLOBIN 36.9 PG (27.0-34.0); MEAN CORPUSCULAR HGB CONC 34.9 % (32.0-36.0); MEAN PLATELET VOLUME 7.3 FL (7.0-11.0); MONO % 5.7 % (0.0-8.0); MONOCYTE # 0.5 TH/MM3 (0-0.9); NEUT % 80.9 % (16.0-70.0); PLATELET COUNT 248 TH/MM3 (150-450); RED BLOOD COUNT 3.01 MIL/MM3 (4.50-5.90); RED CELL DISTRIBUTION WIDTH 12.9 % (11.6-17.2); WHITE BLOOD COUNT 9.4 TH/MM3 (4.0-11.0)
[2018-01-28 22:26] LABS: ALBUMIN 3.2 GM/DL (3.4-5.0); AST (GOT) 79 U/L (15-37); BICARBONATE 24.6 MEQ/L (21.0-32.0); BLOOD UREA NITROGEN 3 MG/DL (7-18); CALCIUM 8.2 MG/DL (8.5-10.1); CHLORIDE 105 MEQ/L (98-107); CREATININE 0.79 MG/DL (0.60-1.30); GLOMERULAR FILTRATION RATE 102 ML/MIN (>89); GLUCOSE,RANDOM 74 MG/DL (74-106); SODIUM (NA) 137 MEQ/L (136-145)
[2018-01-28 22:27] LABS: ALT (GPT) 38 U/L (12-78)
[2018-01-28 22:29] LABS: ALKALINE PHOSPHATASE 93 U/L (45-117); TOTAL BILIRUBIN ADULT 0.3 MG/DL (0.2-1.0); TOTAL PROTEIN 6.4 GM/DL (6.4-8.2)
[2018-01-28 22:33] LABS: PROTHROMBIN TIME - PATIENT 9.8 SEC (9.8-11.6)
[2018-01-28 23:08] VITALS: BP 162/98; PULSE 90; RESP 16; O2SAT 97
[2018-01-28] MEDS ORDERED: IOHEXOL 350 MG/ML 10 ML VIAL (for RAD DIAG) IVCONTRAST ONE (23:20)
--- NOTE | 2018-01-28 23:28 | RADRPT ---
EXAM DATE/TIME: 01/28/2018 23:16 [facility] COMPARISON: No previous studies available for comparison. INDICATIONS : Abdominal pain. IV CONTRAST: 82 cc Omnipaque 350 (iohexol) IV ORAL CONTRAST: No oral contrast ingested. RADIATION DOSE: 5.73 CTDIvol (mGy) MEDICAL HISTORY : Gastritis, ETOH abuse, Diabetes SURGICAL HISTORY : None. ENCOUNTER: Initial ACUITY: 1 day PAIN SCALE: 5/10 LOCATION: abdomen TECHNIQUE: Volumetric scanning of the abdomen and pelvis was performed. Using automated exposure control and ad justment of the mA and/or kV according to patient size, radiation dose was kept as low as reasonably achievable to obtain optimal diagnostic quality images. DICOM format image data is available electro nically for review and comparison. FINDINGS: LOWER LUNGS: The visualized lower lungs are clear. There is circumferential wall thickening involving the lower th oracic esophagus. LIVER: Homogeneous density without lesion. There is no dilation of the biliary tree. No calcified gallston es. SPLEEN: Normal size without lesion. PANCREAS: Within normal limits. KIDNEYS: Normal in size and shape. There is no mass, stone or hydronephrosis. ADRENAL GLANDS: Within normal limits. VASCULAR: There is no aortic aneurysm. BOWEL/MESENTERY: The stomach, small bowel, and colon demonstrate no acute abnormality. There is no free intraperitone al air or fluid. ABDOMINAL WALL: Within normal limits. RETROPERITONEUM: There is no lymphadenopathy. BLADDER: No wall thickening or mass. REPRODUCTIVE: Within normal limits. INGUINAL: There is no lymphadenopathy or hernia. MUSCULOSKELETAL: Within normal limits for patient age. CONCLUSION: 1. Wall thickening involving the lower thoracic esophagus. Although this could relate to acute inflam mation I cannot completely exclude an infiltrating mass. 2. Otherwise, unremarkable exam. Jaun Nguyen Jr., MD on January 28, 2018 at 23:24 Board Certified Radiologist. This report was verified electronically.
--- NOTE | 2018-01-29 00:40 | PD ---
Physical Exam Narrative I, Dr. Garcia, have reviewed the advance practice practitioner's documentation and am in agreement, met with the patient face to face, made the diagnosis, and the medical decision making was done by me. *My assessment and Findings: Gastritis vs. pancreatitis vs. peptic ulcer disease vs. colitis 57yo M with abdominal pain for 3 months. Labs reviewed, no leukocytosis. H/H low at 11.1/31.9, this is at baseline. CMP unremarkable. Lipase normal. CT a/ p showed wall thickening involving lower thoracic esophagus. Although this could be related to acute inflammation, I cannot completely exclude an infiltrating mass. Otherwise, unremarkable exam. Pt just had an endoscopy a month ago and did not show a mass so I doubt it is an infiltrating mass. However, pt has GI physician to follow up with so informed him about result and gave him a copy of his CT report. Pt given pantoprazole, GI cocktail. Pt is tolerating PO and requesting lortab for pain. Pt given 1 dose of lortab and pain has resolved. He has pain management that he follows as outpatient. Denies any chest pain or sob. Return precautions given. Data Data Last Documented VS Vital Signs Date Time Temp Pulse Resp B/P (MAP) Pulse Ox O2 Delivery O2 Flow Rate FiO2 01/29/18 00:54 93 16 178/99 (125) 97 Room Air 01/28/18 20:17 98.5 Orders Orders Complete Blood Count With Diff (01/28/18 21:24) Comprehensive Metabolic Panel (01/28/18 21:24) Lipase (01/28/18 21:24) Prothrombin Time / Inr (Pt) (01/28/18 21:24) Act Partial Throm Time (Ptt) (01/28/18 21:24) Iv Access Insert/Monitor (01/28/18 21:24) Ecg Monitoring (01/28/18 21:24) Oximetry (01/28/18 21:24) Pantoprazole Inj (Protonix Inj) (01/28/18 21:30) Sodium Chloride 0.9% Flush (Ns Flush) (01/28/18 21:30) Al-Mag Hy-Si 40-40-4 Mg/Ml Liq (Mag-Al P (01/28/18 21:30) Lidocaine 2% Viscous (Xylocaine 2% Visco (01/28/18 21:30) Ct Abd/Pel W Iv Contrast(Rout) (01/28/18 ) Iohexol 350 Inj (Omnipaque 350 Inj) (01/28/18 23:20) Acetamin-Hydrocod 325-10 Mg ([place] 10-32 (01/29/18 00:45) Ondansetron Inj (Zofran Inj) (01/29/18 00:45) Labs Laboratory Tests Test 01/28/18 21:36 White Blood Count 9.4 TH/MM3 Red Blood Count 3.01 MIL/MM3 Hemoglobin 11.1 GM/DL Hematocrit 31.9 % Mean Corpuscular Volume 105.9 FL Mean Corpuscular Hemoglobin 36.9 PG Mean Corpuscular Hemoglobin Concent 34.9 % Red Cell Distribution Width 12.9 % Platelet Count 248 TH/MM3 Mean Platelet Volume 7.3 FL Neutrophils (%) (Auto) 80.9 % Lymphocytes (%) (Auto) 10.5 % Monocytes (%) (Auto) 5.7 % Eosinophils (%) (Auto) 2.6 % Basophils (%) (Auto) 0.3 % Neutrophils # (Auto) 7.6 TH/MM3 Lymphocytes # (Auto) 1.0 TH/MM3 Monocytes # (Auto) 0.5 TH/MM3 Eosinophils # (Auto) 0.2 TH/MM3 Basophils # (Auto) 0.0 TH/MM3 CBC Comment DIFF FINAL Differential Comment Prothrombin Time 9.8 SEC Prothromb Time International Ratio 1.0 RATIO Activated Partial Thromboplast Time 26.4 SEC Blood Urea Nitrogen 3 MG/DL Creatinine 0.79 MG/DL Random Glucose 74 MG/DL Total Protein 6.4 GM/DL Albumin 3.2 GM/DL Calcium Level 8.2 MG/DL Alkaline Phosphatase 93 U/L Aspartate Amino Transf (AST/SGOT) 79 U/L Alanine Aminotransferase (ALT/SGPT) 38 U/L Total Bilirubin 0.3 MG/DL Sodium Level 137 MEQ/L Potassium Level 3.4 MEQ/L Chloride Level 105 MEQ/L Carbon Dioxide Level 24.6 MEQ/L Anion Gap 7 MEQ/L Estimat Glomerular Filtration Rate 102 ML/MIN Lipase 218 U/L [facility] Supervised Visit with PAT: Yes Diagnosis Primary Impression: Abdominal pain Qualified Codes: R10.84 - Generalized abdominal pain Patient Instructions: General Instructions Departure Forms: Tests/Procedures Additional Instruction: Please follow up with your macaroni press operator as soon as possible for possible infiltrating mass in lower esophagus seen on CT scan. Please return to the ED if symptoms worsen. Med/Other Pt SpecificInfo: No Change to Meds Disposition: 01 DISCHARGE HOME Condition: Stable RadhaSavannah DO Jan 29, 2018 00:40
[2018-01-29] MEDS ORDERED: ACETAMINOPHEN/HYDROcodone 325 MG/10 MG TAB PO ONE (00:45)
[2018-01-29] MEDS ORDERED: ONDANSETRON HCL 4 MG/2 ML VIAL IV PUSH ONE (00:45)
[2018-01-29 00:54] VITALS: BP 178/99; PULSE 93; RESP 16; O2SAT 97
== END 2018-01-29 02:41 | disposition home or self-care (01) ==
LOC: NEPC 19:43
DX: R10.84 Generalized abdominal pain (principal); R11.2 Nausea with vomiting, unspecified; K21.9 Gastro-esophageal reflux disease without esophagitis; Z72.0 Tobacco use
CPT/HCPCS: 74177; 80053; 83690; 85025; 85610; 85730; 96374; 96375; 99284; C9113; J2405; Q9967

== ENCOUNTER 2018-02-04 20:19 | Inpatient (IN) | payer SELFPAY ==
[~2018-02-04] VITALS: Ht 180.3 cm; Wt 72.9 kg
[~2018-02-04 20:19] MED LIST changes: +GADODIAMIDE PF 287 MG/ML 5 ML VIAL (for RAD MRI) IV PUSH ONE; +LEVE500T8 PO
[2018-02-04 20:40] VITALS: BP 155/100; PULSE 89; RESP 18; TEMP 98; O2SAT 98
--- NOTE | 2018-02-04 20:53 | PD ---
HPI Chief Complaint: General Weakness Time Seen by Provider: 20:53 Travel History International Travel<30 days: No Contact w/Intl Traveler<30days: No Traveled to known affect area: No History of Present Illness HPI 57-year-old male came to the emergency room brought in by EMS for syncopal episode. Patient says that he fell and hit his head real hard 3 days ago from a truck as he was helping some friends unload. He also bruised the back of his legs during the fall. Since then he has been dizzy and passing out. Patient drinks alcohol but says for past few days he's been trying to minimize his consumption to 1 beer a day. He has history of gastric ulcer and GI bleed and has been asked not to drink alcohol. He supposed to be on Protonix and some other medications but has ran out of the medications. He also ran out of his pain medication. He is asking for pain medication now although when I went in the room patient was fast asleep and it took me a while to wake him up and answer questions. Vital signs are relatively stable. Once patient is awake he is answering questions appropriately. He is complaining of bilateral lower extremity pain although he has been ambulatory in the past 3 days. He says his pain is getting worse as the days of going by. REPLACED BY [facility] Past Medical History Narrative Medical List of his past medical, surgical, social and family history is reviewed from the nursing note. Anxiety: Yes Cancer: Yes (STOMACH CA) Diabetes: Yes Patient Takes Glucophage: No Diminished Hearing: No Gastrointestinal Disorders: Yes (pt states gastritis and stomach ca.) GERD: Yes Tetanus Vaccination: < 5 Years Influenza Vaccination: No Past Surgical History Other Surgery: Yes ("they cauterizes holes in my stomach") Social History Alcohol Use: Yes (daily) Tobacco Use: Yes Substance Use: Yes (alcohol) Allergies-Medications (Allergen,Severity, Reaction): Coded Allergies: No Known Allergies (Unverified , 02/04/18) Comments No known drug allergies. Reported Meds & Prescriptions Reported Meds & Active Scripts Active Zofran Odt (Ondansetron Odt) 4 Mg Tab 4 Mg SL Q6HR PRN Reported Levetiracetam 500 Mg Tab 500 Mg PO BID Hydrocodone-Acetaminophen 10-325 mg Tab 1 Tab PO Q6H PRN Pantoprazole (Pantoprazole Sodium) 40 Mg Tab 40 Mg PO BID Narrative Medication List of his home medications reviewed from the nursing note. Review of Systems Except as stated in HPI: all other systems reviewed are Neg Neurologic: Positive: Dizziness, Syncope Physical Exam Narrative GENERAL: Fast sleep but woke up after calling his name few times. No obvious distress. Answering questions appropriately SKIN: Focused skin assessment warm/dry. Ecchymosis on the posterior aspect of both lower extremity HEAD: Atraumatic. Normocephalic. EYES: Pupils equal and round. No scleral icterus. No injection or drainage. ENT: No nasal bleeding or discharge. Mucous membranes pink and moist. NECK: Trachea midline. No JVD. CARDIOVASCULAR: Regular rate and rhythm. No murmur appreciated. RESPIRATORY: No accessory muscle use. Clear to auscultation. Breath sounds equal bilaterally. GASTROINTESTINAL: Abdomen soft, non-tender, nondistended. Hepatic and splenic margins not palpable. MUSCULOSKELETAL: No obvious deformities. No clubbing. No cyanosis. No edema. NEUROLOGICAL: GCS of 15. No obvious cranial nerve deficits. Motor grossly within normal limits. Normal speech. PSYCHIATRIC: Appropriate mood and affect; insight and judgment normal. Data Data Last Documented VS Orders Orders Complete Blood Count With Diff (02/04/18 21:05) Basic Metabolic Panel (Bmp) (02/04/18 21:05) Creatine Kinase (Cpk) (02/04/18 21:05) Ct Brain W/O Iv Contrast(Rout) (02/04/18 ) Sodium Chlorid 0.9% 500 Ml Inj (Ns 500 M (02/04/18 21:15) Alcohol (Ethanol) (02/04/18 21:05) Type And Screen (02/04/18 21:05) Prothrombin Time / Inr (Pt) (02/04/18 21:05) Electrocardiogram (02/04/18 ) Troponin I (02/04/18 23:15) Blood Glucose (02/04/18 23:15) Mri Brain W&W/O Contrast (02/05/18 ) Mra Brain W/O Contrast (Cow) (02/05/18 ) Gadodiamide Pf Inj (Omniscan Pf Inj) (02/04/18 01:45) Admit Order (Ed Use Only) (02/05/18 03:39) Labs Laboratory Tests Test 02/04/18 21:20 White Blood Count 8.1 TH/MM3 Red Blood Count 2.96 MIL/MM3 Hemoglobin 10.9 GM/DL Hematocrit 31.2 % Mean Corpuscular Volume 105.2 FL Mean Corpuscular Hemoglobin 36.7 PG Mean Corpuscular Hemoglobin Concent 34.9 % Red Cell Distribution Width 12.9 % Platelet Count 283 TH/MM3 Mean Platelet Volume 7.7 FL Neutrophils (%) (Auto) 72.3 % Lymphocytes (%) (Auto) 15.9 % Monocytes (%) (Auto) 6.6 % Eosinophils (%) (Auto) 3.9 % Basophils (%) (Auto) 1.3 % Neutrophils # (Auto) 5.8 TH/MM3 Lymphocytes # (Auto) 1.3 TH/MM3 Monocytes # (Auto) 0.5 TH/MM3 Eosinophils # (Auto) 0.3 TH/MM3 Basophils # (Auto) 0.1 TH/MM3 CBC Comment DIFF FINAL Differential Comment Prothrombin Time 10.1 SEC Prothromb Time International Ratio 1.0 RATIO Blood Urea Nitrogen 2 MG/DL Creatinine 0.68 MG/DL Random Glucose 70 MG/DL Calcium Level 8.2 MG/DL Sodium Level 138 MEQ/L Potassium Level 3.6 MEQ/L Chloride Level 104 MEQ/L Carbon Dioxide Level 19.6 MEQ/L Anion Gap 14 MEQ/L Estimat Glomerular Filtration Rate 121 ML/MIN Total Creatine Kinase 284 U/L Troponin I LESS THAN 0.02 NG/ML Ethyl Alcohol Level 73 MG/DL MDM Medical Decision Making Medical Screen Exam Complete: Yes Emergency Medical Condition: Yes Medical Record Reviewed: Yes Interpretation(s) Twelve-lead EKG was reviewed by me. Normal sinus rhythm, normal axis, nonspecific ST-T wave changes. Heart rate of 89 bpm. Differential Diagnosis Intracranial bleed, left right abnormality, EtOH intoxication Narrative Course 11:11 PM blood test results of back and the blood glucoses mildly low. Patient is getting IV fluid bolus and he's been given some orange juice. A repeat blood glucose will be done in half an hour. Awaiting for head CT to be done and resulted. If the CAT scan is negative patient will be discharged home. 12:[address] scan is finally done and read as some hypodensity which is questioned as a possible mass and the radiologist has recommended an MRI. This has been ordered. Awaiting for the MRI to be done and resulted. 3:19 AM MRI is suggestive of 2 subacute hematomas. Since patient is still symptomatic and having recurrent syncopal episode I would like to admit him at this point. Awaiting for the hospitalist and the neurosurgeon to call back. Procedures EKG Prior to Arrival: No Physician Communication Physician Communication Dr. López Diagnosis Primary Impression: Syncope Qualified Codes: R55 - Syncope and collapse Additional Impression: Subdural hematoma Admitting Information Admitting Physician Requests: Admit Godfrey Iniguez MD Feb 04, 2018 20:53
[2018-02-04] MEDS ORDERED: SODIUM CHLORID 0.9% 500 ML INJ 500 ML IV ONE (21:15)
[2018-02-04 21:59] LABS: AUTOMATED NEUTROPHIL # 5.8 TH/MM3 (1.8-7.7); BASOPHIL # 0.1 TH/MM3 (0-0.2); BASOPHIL % 1.3 % (0.0-2.0); EOSINOPHIL # 0.3 TH/MM3 (0-0.4); EOSINOPHIL % 3.9 % (0.0-4.0); HEMATOCRIT 31.2 % (39.0-51.0); HEMOGLOBIN 10.9 GM/DL (13.0-17.0); LYMPH % 15.9 % (9.0-44.0); LYMPHOCYTE # 1.3 TH/MM3 (1.0-4.8); MEAN CELL VOLUME 105.2 FL (80.0-100.0); MEAN CORPUSCULAR HEMOGLOBIN 36.7 PG (27.0-34.0); MEAN CORPUSCULAR HGB CONC 34.9 % (32.0-36.0); MEAN PLATELET VOLUME 7.7 FL (7.0-11.0); MONO % 6.6 % (0.0-8.0); MONOCYTE # 0.5 TH/MM3 (0-0.9); NEUT % 72.3 % (16.0-70.0); PLATELET COUNT 283 TH/MM3 (150-450); RED BLOOD COUNT 2.96 MIL/MM3 (4.50-5.90); RED CELL DISTRIBUTION WIDTH 12.9 % (11.6-17.2); WHITE BLOOD COUNT 8.1 TH/MM3 (4.0-11.0)
[2018-02-04 22:12] LABS: PROTHROMBIN TIME - PATIENT 10.1 SEC (9.8-11.6)
[2018-02-04 22:33] LABS: BICARBONATE 19.6 MEQ/L (21.0-32.0); CALCIUM 8.2 MG/DL (8.5-10.1); CREATININE 0.68 MG/DL (0.60-1.30)
[2018-02-04 23:31] VITALS: BP 135/80; PULSE 76; RESP 16; TEMP 98; O2SAT 95
[2018-02-05] VITALS (11 sets, daily range): BP systolic 127–199; BP diastolic 82–112; PULSE 60–92; RESP 16–20; TEMP 97.5–97.8; O2SAT 95–99
--- NOTE | 2018-02-05 00:31 | RADRPT ---
EXAM DATE/TIME: 02/05/2018 00:09 [facility] COMPARISON: No previous studies available for comparison. INDICATIONS : Syncope. RADIATION DOSE: 34.70 CTDIvol (mGy) MEDICAL HISTORY : Diabetes mellitus type 2. Substance abuse SURGICAL HISTORY : None. ENCOUNTER: Initial ACUITY: 1 day PAIN SCALE: 0/10 LOCATION: cranial TECHNIQUE: Multiple contiguous axial images were obtained of the head. Using automated exposure control and adj ustment of the mA and/or kV according to patient size, radiation dose was kept as low as reasonably a chievable to obtain optimal diagnostic quality images. DICOM format image data is available electro nically for review and comparison. FINDINGS: CEREBRUM: The ventricles are normal in size and are symmetric in appearance. There is focal asymmetric hypoden sity in the cortex of the low convexity left frontoparietal region measuring up to 2 cm in size. The re is no effacement of the frontal horn or effacement of the adjacent sulci. No evidence of acute bl ood products. No extra-axial fluid collections. There is good shoemaker-white matter differentiation in the remainder of the supratentorial brain. In the suprasellar cistern, there is a 1.2 cm spontaneous ly hyperdense area in the midline which could represent an enlarged pituitary or aneurysm. POSTERIOR FOSSA: The cerebellum and brainstem are intact. The 4th ventricle is midline. The cerebellopontine angle i s unremarkable. EXTRACRANIAL: The visualized portion of the orbits is intact. SKULL: The calvaria is intact. No evidence of skull fracture. CONCLUSION: 1. Asymmetric hypodensity in the low convexity frontoparietal cortex. Recommend MRI imaging to inclu de diffusion-weighted sequences and intravenous contrast to evaluate for possible mass or stroke.. 2. 1.2 cm round area of homogeneous hyperdensity in the suprasellar midline, differential considerati ons include aneurysm and pituitary. This can also be further evaluated during MRI. Jaun Albright MD on February 05, 2018 at 0:22 Board Certified Radiologist. This report was verified electronically.
--- NOTE | 2018-02-05 03:15 | RADRPT ---
EXAM DATE/TIME: 02/05/2018 01:35 [facility] COMPARISON: MRA BRAIN W/O CONTRAST, February 05, 2018, 1:35. CT BRAIN W/O CONTRAST, February 05, 2018, 0:09. INDICATIONS : Abnormal CT scan. Hx of head trauma 3 days ago. CONTRAST: 12 cc Omniscan (gadodiamide) IV MEDICAL HISTORY : Gastroesophageal reflux disease. Diabetes mellitus type 2. SURGICAL HISTORY : Ulcer. ENCOUNTER: Initial ACUITY: 3 day PAIN SCORE: 5/10 LOCATION: head TECHNIQUE: Multiplanar, multisequence MRI of the brain was performed both prior to and following the administrat ion of paramagnetic contrast. FINDINGS: CEREBRUM: There are 2 focal signal abnormalities, located in anterior left temporal tip measuring 1.3 cm and in the left frontoparietal supraorbital region measuring 1.7 cm. There is evidence of restricted diffu florentin in both of these lesions and there is evidence of T1 shortening and T2 prolongation. This combi nation of signal alteration suggests hematomas in the right subacute phase with a combination of both intracellular and extracellular methemoglobin. There is a mild amount of surrounding edema about th e frontoparietal hematoma and no edema about the temporal hematoma. The ventricles are normal in siz e. No evidence of midline shift. The pituitary gland has an abnormal appearance, measures 1.5 cm in superior/inferior extent, extends out of the sella and comes in contact with the optic chiasm; signa l characteristics are moderately bright on T1 and intermediate on T2. On the postcontrast scan it is difficult to confirm the presence of contrast enhancement in the left hematomas or the pituitary bec ause of the T1 shortening on the noncontrast T1 sequences. POSTERIOR FOSSA: The cerebellum and brainstem are intact. The 4th ventricle is midline. The cerebellopontine angle is unremarkable. The cerebellar tonsils are normal in position. EXTRACRANIAL: The visualized portions of the orbits and paranasal sinuses are unremarkable. Moderate severity T2 p rolongation throughout the left mastoids no signal abnormality in the right mastoids. CONCLUSION: 1. 2 focal abnormalities on the left side, temporal tip and frontoparietal region, both exhibiting si milar signal alterations that suggest late subacute hematomas. 2. Abnormal appearance to the pituitary gland with enlargement into the suprasellar cistern, T1 short ening and intermediate signal on T2 suggesting either pituitary hemorrhage or mass. 3. Left mastoid disease. Jaun Albright MD on February 05, 2018 at 2:52 Board Certified Radiologist. This report was verified electronically.
--- NOTE | 2018-02-05 03:16 | RADRPT ---
EXAM DATE/TIME: 02/05/2018 01:35 [facility] COMPARISON: No previous studies available for comparison. INDICATIONS : Abnormal CT scan. Hx of head trauma 3 days ago. MEDICAL HISTORY : Gastroesophageal reflux disease. Diabetes mellitus type 2. SURGICAL HISTORY : Ulcer. ENCOUNTER: Initial ACUITY: 3 day PAIN SCORE: 5/10 LOCATION: head Please note a normal MRA of the brain does not entirely exclude the possibility of a small aneurysm, nor the possibility of distal intracranial vessel disease. TECHNIQUE: 3D time of flight MRA was performed. Source images, multiplanar STS MIP, and 3D volume MIP reconstru ctions were reviewed. FINDINGS: There is excellent visualization of the major intracranial arteries out to the second-order branch ve ssels. There is no evidence for aneurysm, vessel truncation or stenosis, and no evidence for vascula r malformation. No flow is seen in either PCOM or in the anterior to indicating artery. The sellar mass comes in contact with the inferior margin of the A1 segment bilaterally, but does not cause disp lacement. CONCLUSION: No evidence of aneurysm or vessel truncation. Jaun Albright MD on February 05, 2018 at 3:14 Board Certified Radiologist. This report was verified electronically.
[2018-02-05] MEDS ORDERED: ACETAMINOPHEN 325 MG TAB PO PRN (04:15)
[2018-02-05] MEDS ORDERED: HALOPERIDOL LACTATE 5 MG/ML AMP IM PRN (04:15)
[2018-02-05] MEDS ORDERED: LORazepam 2 MG/ML VIAL IV PUSH PRN ×3 (04:15)
[2018-02-05] MEDS ORDERED: NALOXONE HCL 0.4 MG/ML AMP IV PUSH PRN (04:15)
[2018-02-05] MEDS ORDERED: FLUMAZENIL 0.5 MG/5 ML VIAL IV PUSH PRN (04:15)
--- NOTE | 2018-02-05 05:02 | HHI.HP ---
[facility] No Primary Care Physician Admission Diagnosis Recurrent syncope, subacute intracranial hematoma Diagnoses: Travel History International Travel<30 Days: No Contact w/Intl Traveler <30 Da: No Traveled to Known Affected Are: No History of Present Illness 57-year-old male with a past medical history significant for history of recent GI bleed, seizure disorder, chronic back pain and alcohol abuse presents to the emergency department for evaluation of dizziness, frequent falls and loss of consciousness. The patient reports that 3 days ago he fell out of a truck and hit his head while helping some of his friends move. He states that since that time he has been consistently dizzy and passing out frequently. The patient reports he was at a friend's house earlier in the day when he passed out and she called 911. He denies any chest pain or shortness of breath. No nausea/ vomiting/diarrhea. No lateralizing signs/symptoms. Review of Systems Except as stated in HPI: all other systems reviewed are Neg Past Family Social History Past Medical History Seizure disorder History of GI bleed Chronic back pain Alcohol abuse Past Surgical History EGD Reported Medications Reported Meds & Active Scripts Active Zofran Odt (Ondansetron Odt) 4 Mg Tab 4 Mg SL Q6HR PRN Reported Levetiracetam 500 Mg Tab 500 Mg PO BID Hydrocodone-Acetaminophen 10-325 mg Tab 1 Tab PO Q6H PRN Pantoprazole (Pantoprazole Sodium) 40 Mg Tab 40 Mg PO BID Allergies: Coded Allergies: No Known Allergies (Unverified , 02/04/18) Family History Father with diabetes mellitus Social History Smokes approximately 2 packs per day. Drinks 2-3 beers daily which has decreased over the past week from an 18 pack per day. Denies illicit drugs. Physical Exam Vital Signs Vital Signs Date Time Temp Pulse Resp B/P (MAP) Pulse Ox O2 Delivery O2 Flow Rate FiO2 02/04/18 23:31 98.0 76 16 135/80 (98) 95 Room Air 02/04/18 20:40 98.0 89 18 155/100 (118) 98 Physical Exam GENERAL: Thin, male lying in bed, sleepy SKIN: Bruising on the bilateral hamstrings, no active wounds are bleeding HEAD: Atraumatic. Normocephalic. EYES: Pupils sluggish. Extraocular motions intact. No scleral icterus. No injection or drainage. ENT: Nose without bleeding, purulent drainage or septal hematoma. Throat without erythema, tonsillar hypertrophy or exudate. Uvula midline. Airway patent. NECK: Trachea midline. No JVD or lymphadenopathy. Supple, nontender, no meningeal signs. CARDIOVASCULAR: Regular rate and rhythm without murmurs, gallops, or rubs. RESPIRATORY: Clear to auscultation. Breath sounds equal bilaterally. No wheezes , rales, or rhonchi. GASTROINTESTINAL: Abdomen soft, non-tender, nondistended. No hepato-splenomegaly , or palpable masses. MUSCULOSKELETAL: Extremities without clubbing, cyanosis, or edema. No joint tenderness, effusion, or edema noted. No calf tenderness. NEUROLOGICAL: Awake and alert. Cranial nerves II through XII intact. Motor and sensory grossly within normal limits. Normal speech. Laboratory Laboratory Tests Test 02/04/18 21:20 White Blood Count 8.1 Red Blood Count 2.96 Hemoglobin 10.9 Hematocrit 31.2 Mean Corpuscular Volume 105.2 Mean Corpuscular Hemoglobin 36.7 Mean Corpuscular Hemoglobin Concent 34.9 Red Cell Distribution Width 12.9 Platelet Count 283 Mean Platelet Volume 7.7 Neutrophils (%) (Auto) 72.3 Lymphocytes (%) (Auto) 15.9 Monocytes (%) (Auto) 6.6 Eosinophils (%) (Auto) 3.9 Basophils (%) (Auto) 1.3 Neutrophils # (Auto) 5.8 Lymphocytes # (Auto) 1.3 Monocytes # (Auto) 0.5 Eosinophils # (Auto) 0.3 Basophils # (Auto) 0.1 CBC Comment DIFF FINAL Differential Comment Prothrombin Time 10.1 Prothromb Time International Ratio 1.0 Blood Urea Nitrogen 2 Creatinine 0.68 Random Glucose 70 Calcium Level 8.2 Sodium Level 138 Potassium Level 3.6 Chloride Level 104 Carbon Dioxide Level 19.6 Anion Gap 14 Estimat Glomerular Filtration Rate 121 Total Creatine Kinase 284 Troponin I LESS THAN 0.02 Ethyl Alcohol Level 73 Result Diagram: 02/04/18211902/04/182119 Caprini VTE Risk Assessment Caprini VTE Risk Assessment: No/Low Risk (score <= 1) Caprini Risk Assessment Model Point Value = 1 Point Value = 2 Point Value = 3 Point Value = 5 Age 41-60 Minor surgery BMI > 25 kg/m2 Swollen legs Varicose veins or History of unexplained or recurrent spontaneous Oral contraceptives or hormone replacement Sepsis (< 1 month) Serious lung disease, including pneumonia (< 1 month) Abnormal pulmonary function Acute myocardial infarction Congestive heart failure (< 1 month) History of inflammatory bowel disease Medical patient at bed rest Age 61-74 Arthroscopic surgery Major open surgery (> 45 min) Laparoscopic surgery (> 45 min) Malignancy Confined to bed (> 72 hours) Immobilizing plaster cast Central venous access Age >= 75 History of VTE Family history of VTE Factor V Leiden Prothrombin [id number] Lupus anticoagulant Anticardiolipin antibodies Elevated serum homocysteine Heparin-induced thrombocytopenia Other congenital or acquired thrombophilia Stroke (< 1 month) Elective arthroplasty Hip, pelvis, or leg fracture Acute spinal cord injury (< 1 month) Prophylaxis Regimen Total Risk Factor Score Risk Level Prophylaxis Regimen 0-1 Low Early ambulation 2 Moderate Order ONE of the following: *Sequential Compression Device (SCD) *Heparin 5000 units SQ BID 3-4 Higher Order ONE of the following medications: *Heparin 5000 units SQ TID *Enoxaparin/Lovenox 40 mg SQ daily (WT < 150 kg, CrCl > 30 mL/min) *Enoxaparin/Lovenox 30 mg SQ daily (WT < 150 kg, CrCl > 10-29 mL/min) *Enoxaparin/Lovenox 30 mg SQ BID (WT < 150 kg, CrCl > 30 mL/min) AND/OR *Sequential Compression Device (SCD) 5 or more Highest Order ONE of the following medications: *Heparin 5000 units SQ TID (Preferred with Epidurals) *Enoxaparin/Lovenox 40 mg SQ daily (WT < 150 kg, CrCl > 30 mL/min) *Enoxaparin/Lovenox 30 mg SQ daily (WT < 150 kg, CrCl > 10-29 mL/min) *Enoxaparin/Lovenox 30 mg SQ BID (WT < 150 kg, CrCl > 30 mL/min) AND *Sequential Compression Device (SCD) Assessment and Plan Assessment and Plan Assessment/plan: 1. Syncope/dizziness/left sided subacute hematomas CT of the head significant for hypodensity in the frontoparietal cortex, MRI recommended MRI brain showed 2 focal abnormalities on the left side suggestive of subacute hematomas with an abnormal appearance of the pituitary gland consistent with the pituitary hemorrhage versus mass Neurosurgery consulted, appreciate recommendations Neuro checks Seizure precautions 2. Alcohol abuse Thiamine CIWA protocol Monitor for signs of withdrawal 3. History of GI bleed Continue home Protonix 4. Seizure disorder Continue home Keppra Seizure precautions 5. Chronic pain Holding home pain medications as patient lethargic at this time FEN NPO Electrolytes: Monitor and replete when necessary NS at 80 cc/hour Holding pharmacologic anticoagulation for subacute hemorrhage Physician Certification 2 Midnight Certification Type: Admission for Inpatient Services Order for Inpatient Services The services are ordered in accordance with Medicare regulations or non- Medicare payer requirements, as applicable. In the case of services not specified as inpatient-only, they are appropriately provided as inpatient services in accordance with the 2-midnight benchmark. Estimated LOS (days): 2 2 days is the estimated time the patient will need to remain in the hospital, assuming treatment plan goals are met and no additional complications. Post-Hospital Plan: Not yet determined Marta Lance MD Feb 05, 2018 05:02
[2018-02-05] MEDS: ONDANSETRON HCL 4 MG/2 ML VIAL IVP PRN (05:09)
[2018-02-05] MEDS: SODIUM CHLOR 0.9% 1000 ML INJ 1,000 ML IV SCH ×2 (05:13→06:45)
[2018-02-05] MEDS: THIAMINE INJ 100 MG in SODIUM CHLORIDE 0.9% INJ 100 ML IV SCH (06:45)
[2018-02-05] MEDS: SODIUM CHLORIDE 0.9% FLUSH 10 ML FLUSH IV FLUSH SCH ×2 (07:59→21:38)
[2018-02-05] MEDS: LORazepam 2 MG/ML VIAL IV PUSH PRN ×3 (08:03→10:52)
[2018-02-05] MEDS: levETIRAcetam 500 MG TAB PO SCH ×2 (09:12→21:38)
[2018-02-05] MEDS: PANTOPRAZOLE SOD 40 MG DELAYED RELEASE TAB PO SCH ×2 (09:12→21:38)
--- NOTE | 2018-02-05 11:24 | EKG ---
Date Performed: 02/04/2018 Time Performed: 23:25:02 PTAGE: 57 years EKG: Sinus rhythm NORMAL ECG NO PREVIOUS TRACING DOCTOR: Cora Martines Interpretating Date/Time 02/05/2018 11:22:47
[2018-02-05] MEDS ORDERED: IOHEXOL 350 MG/ML 10 ML VIAL (for RAD DIAG) IVCONTRAST ONE (11:50)
--- NOTE | 2018-02-05 12:06 | RADRPT ---
EXAM DATE/TIME: 02/05/2018 11:33 [facility] COMPARISON: No previous studies available for comparison. INDICATIONS : Neoplasm. IV CONTRAST: 83 cc Omnipaque 350 (iohexol) IV ; Cumulative dose for multiple exams. RADIATION DOSE: 13.64 CTDIvol (mGy) ; Combined studies - Thorax/Abdomen/Pelvis MEDICAL HISTORY : Carcinoma, gastric. SURGICAL HISTORY : None. ENCOUNTER: Initial ACUITY: 1 day PAIN SCALE: Non-responsive LOCATION: chest TECHNIQUE: Volumetric scanning of the chest was performed. Using automated exposure control and adjustment of t he mA and/or kV according to patient size, radiation dose was kept as low as reasonably achievable to obtain optimal diagnostic quality images. DICOM format image data is available electronically for review and comparison. Follow-up recommendations for detected pulmonary nodules are based at a minimum on nodule size and pa tient risk factors according to Fleischner Society Guidelines. FINDINGS: LUNGS: There is a nonspecific 1 cm nodular infiltrate/density in the right upper lung. Otherwise, the lungs are clear and well-aerated. No acute pulmonary infiltrates are demonstrated. There are some bullous c hanges in both apices, right greater than left. PLEURA: There is no pleural thickening or pleural effusion. MEDIASTINUM: The heart and great vessels demonstrate no acute abnormality. There is no mediastinal or hilar lymph adenopathy. AXILLAE: Within normal limits. No lymphadenopathy. SKELETAL: Primary or degenerative changes. MISCELLANEOUS: The visualized upper abdominal organs demonstrate no acute abnormality. CONCLUSION: 1. There is a nonspecific 1 cm nodular density/infiltrate in the right upper lung. Recommend PET/CT t o evaluate for focal hypermetabolic activity. 2. There are bullous changes in both apices, right greater than left. 3. Otherwise, the rest of the CT thorax is grossly unremarkable for patient's age.. Brian Sierra MD on February 05, 2018 at 11:59 Board Certified Radiologist. This report was verified electronically.
--- NOTE | 2018-02-05 12:08 | RADRPT ---
EXAM DATE/TIME: 02/05/2018 11:33 [facility] COMPARISON: CT ABDOMEN & PELVIS W CONTRAST, January 28, 2018, 23:16. INDICATIONS : Neoplasm IV CONTRAST: 83 cc Omnipaque 350 (iohexol) IV ; Cumulative dose for multiple exams. ORAL CONTRAST: No oral contrast ingested. RADIATION DOSE: 13.46 CTDIvol (mGy) ; Combined studies - Thorax/Abdomen/Pelvis MEDICAL HISTORY : Carcinoma, gastric. SURGICAL HISTORY : None. ENCOUNTER: Initial ACUITY: 1 day PAIN SCALE: Non-responsive LOCATION: abdomen TECHNIQUE: Volumetric scanning of the abdomen and pelvis was performed. Using automated exposure control and ad justment of the mA and/or kV according to patient size, radiation dose was kept as low as reasonably achievable to obtain optimal diagnostic quality images. DICOM format image data is available electro nically for review and comparison. FINDINGS: LOWER LUNGS: The visualized lower lungs are clear. LIVER: Homogeneous density without lesion. There is no dilation of the biliary tree. No calcified gallston es. SPLEEN: Normal size without lesion. PANCREAS: Within normal limits. KIDNEYS: Normal in size and shape. There is no mass, stone or hydronephrosis. ADRENAL GLANDS: Within normal limits. VASCULAR: There is no aortic aneurysm. BOWEL/MESENTERY: The stomach, small bowel, and colon demonstrate no acute abnormality. There is no free intraperitone al air or fluid. On the previous exam there was some apparent thickening involving the distal esophag us. This is not definitely present on today's study. ABDOMINAL WALL: Within normal limits. RETROPERITONEUM: There is no lymphadenopathy. BLADDER: No wall thickening or mass. REPRODUCTIVE: Within normal limits. INGUINAL: There is no lymphadenopathy or hernia. MUSCULOSKELETAL: Within normal limits for patient age. CONCLUSION: Essentially unremarkable and stable CT scan of the abdomen and pelvis compared to the prior examinati on of 01/28/2018. The previously noted possible thickening involving the distal esophagus is not demon strated on today's study. No new or significant changes are demonstrated. Brian Sierra MD on February 05, 2018 at 12:05 Board Certified Radiologist. This report was verified electronically.
--- NOTE | 2018-02-05 15:23 | PD.CONS ---
(Rob Sheehan) HPI Service Neurosurgery Consult Requested By Marta Lance MD Reason for Consult Subacute hematomas with pituitary hemorrhage vs mass Primary Care Physician No Primary Care Physician History of Present Illness The patient is a poor historian. He does confirm that he fell three days ago and since then he has had headaches, dizziness and has been falling. He denies any fall before that. He did not report any syncope but in the EMR it is noted that he did pass out earlier. He states that he is having trouble keeping track of everything since the fall. (Rob Sheehan) Review of Systems HEENT: Pain to the left side of the head. Difficulty seeing but unable to say whether blurry or double vision or something else. NEUROLOGICAL: Headache, dizziness, frequent falls, confusion. All other systems negative. (Rob Sheehan) Past Family Social History Allergies: Coded Allergies: No Known Allergies (Unverified , 02/04/18) Past Medical History Seizure disorder History of GI bleed Chronic low back pain Alcohol abuse Past Surgical History EGD Reported Medications Levetiracetam 500 Mg Tab 500 Mg PO BID Hydrocodone-Acetaminophen 10-325 mg Tab 1 Tab PO Q6H PRN Pantoprazole (Pantoprazole Sodium) 40 Mg Tab 40 Mg PO BID Active Ordered Medications Current Medications Medications (Trade) Dose Ordered Sig/Marilyn Route Start Time Stop Time Status Last Admin (NS Flush) 2 ml UNSCH PRN IV FLUSH 02/05/18 04:15 (NS Flush) 2 ml BID IV FLUSH 02/05/18 09:00 (Tylenol) 650 mg Q4H PRN PO 02/05/18 04:15 (Zofran Inj) 4 mg Q6H PRN IVP 02/05/18 04:15 02/05/18 05:09 (Narcan Inj) 0.4 mg UNSCH PRN IV PUSH 02/05/18 04:15 Thiamine HCl 100 mg/Sodium Chloride 101 ml @ 100 mls/hr Q24H IV 02/05/18 06:15 02/08/18 06:14 02/05/18 06:45 (Romazicon Inj) 0.2 mg Q1M PRN IV PUSH 02/05/18 04:15 (Ativan) 1 mg Q4H PRN PO 02/05/18 04:15 (Ativan Inj) 1 mg Q4H PRN IV PUSH 02/05/18 04:15 (Ativan) 2 mg Q2H PRN PO 02/05/18 04:15 (Ativan Inj) 2 mg Q2H PRN IV PUSH 02/05/18 04:15 02/05/18 05:09 (Ativan Inj) 2 mg Q1H PRN IV PUSH 02/05/18 04:15 02/05/18 10:52 (Ativan Inj) 2 mg Q15M PRN IV PUSH 02/05/18 04:15 (Haldol Inj) 2 mg Q15M PRN IM 02/05/18 04:15 (Keppra) 500 mg BID PO 02/05/18 09:00 02/05/18 09:12 (Protonix) 40 mg BID PO 02/05/18 09:00 02/05/18 09:12 Sodium Chloride 1,000 ml @ 80 mls/hr [id number] IV 02/05/18 05:00 02/05/18 06:45 Family History Diabetes - Father Social History Smokes approximately 2 PPD. Drinks 2-3 beers/day, down from 18/day. Denies any illicit drug use. (Rob Sheehan) Physical Exam Vital Signs Vital Signs Date Time Temp Pulse Resp B/P (MAP) Pulse Ox O2 Delivery O2 Flow Rate FiO2 02/05/18 12:35 70 02/05/18 08:23 02/05/18 08:18 97.5 87 20 182/103 (129) 98 02/05/18 07:53 92 18 138/94 (109) 98 Room Air 02/05/18 05:09 90 16 130/89 (103) 97 Room Air 02/05/18 02:05 86 16 127/82 (97) 97 Room Air 02/04/18 23:31 98.0 76 16 135/80 (98) 95 Room Air 02/04/18 20:40 98.0 89 18 155/100 (118) 98 Physical Exam GENERAL: Thin male who appears slightly older than his stated age. His affect is flat. He does require some coaxing in order to interact. He is not in any apparent distress. HEENT: Left parietoccipital region mildly TTP. PERRLA 3 mm sluggish, EOM appear intact. TMs clear, no otorrhea, no external canal lesions noted. Nares moist & pink, no rhinorrhea. MMM & pink, tongue midline to protrusion, no evident oral lesions. NECK: Midline cervical spine NTTP. Neck supple. No JVD. Trachea midline. CARDIOVASCULAR: S1S2 w/RRR w/o M/G/R, cap refill < 2 sec. RESPIRATORY: CTAB w/o W/R/R, equal excursion, nonlaboured, on RA. GASTROINTESTINAL: Abdomen soft, nontender, no palpable masses or organomegaly, positive bowel sounds. MUSCULOSKELETAL: ESCAMILLA purposefully. Extremities NTTP. No evident clubbing or deformity. NEUROLOGICAL: Asleep but awakens to voice. Oriented to person, being in hospital and year, unable to state which hospital and what month. Voice intermittently garbled. Moderate dysarthria. Slow to respond to questions. Unable to find some words. Follows some simple commands with coaxing and demonstration but others he doesn' t do correctly. Apparent double vision to right eye o/w CN II through XII appear grossly intact. Unable to describe what his vision is like. He did say at one point he saw two fingers when only one was held. Second time tested he said "I think I see one" when one finger was held up. Sensation intact to light touch to all extremities. Motor strength appears to be strong to all major flexion & extension muscle groups although patient in have some difficulty in understanding commands when being tested. Laboratory Laboratory Tests Test 02/04/18 21:20 White Blood Count 8.1 Red Blood Count 2.96 Hemoglobin 10.9 Hematocrit 31.2 Mean Corpuscular Volume 105.2 Mean Corpuscular Hemoglobin 36.7 Mean Corpuscular Hemoglobin Concent 34.9 Red Cell Distribution Width 12.9 Platelet Count 283 Mean Platelet Volume 7.7 Neutrophils (%) (Auto) 72.3 Lymphocytes (%) (Auto) 15.9 Monocytes (%) (Auto) 6.6 Eosinophils (%) (Auto) 3.9 Basophils (%) (Auto) 1.3 Neutrophils # (Auto) 5.8 Lymphocytes # (Auto) 1.3 Monocytes # (Auto) 0.5 Eosinophils # (Auto) 0.3 Basophils # (Auto) 0.1 CBC Comment DIFF FINAL Differential Comment Prothrombin Time 10.1 Prothromb Time International Ratio 1.0 Blood Urea Nitrogen 2 Creatinine 0.68 Random Glucose 70 Calcium Level 8.2 Sodium Level 138 Potassium Level 3.6 Chloride Level 104 Carbon Dioxide Level 19.6 Anion Gap 14 Estimat Glomerular Filtration Rate 121 Total Creatine Kinase 284 Troponin I LESS THAN 0.02 Ethyl Alcohol Level 73 (SissyRobzaida CALI) Result Diagram: 02/04/18211902/04/182119 Imaging Recent Impressions Head Magnetic Resonance Angiography 02/05/18 0000 Signed Impressions: Service Date/Time: Monday, February 05, 2018 01:35 - CONCLUSION: No evidence of aneurysm or vessel truncation. Jaun Albright MD Chest CT 02/05/18 0000 Signed Impressions: Service Date/Time: Monday, February 05, 2018 11:33 - CONCLUSION: 1. There is a nonspecific 1 cm nodular density/infiltrate in the right upper lung. Recommend PET/CT to evaluate for focal hypermetabolic activity. 2. There are bullous changes in both apices, right greater than left. 3. Otherwise, the rest of the CT thorax is grossly unremarkable for patient's age.. Brian Sierra MD Brain MRI 02/05/18 0000 Signed Impressions: Service Date/Time: Monday, February 05, 2018 01:35 - CONCLUSION: 1. 2 focal abnormalities on the left side, temporal tip and frontoparietal region, both exhibiting similar signal alterations that suggest late subacute hematomas. 2. Abnormal appearance to the pituitary gland with enlargement into the suprasellar cistern, T1 shortening and intermediate signal on T2 suggesting either pituitary hemorrhage or mass. 3. Left mastoid disease. Jaun Albright MD Abdomen/Pelvis CT 02/05/18 0000 Signed Impressions: Service Date/Time: Monday, February 05, 2018 11:33 - CONCLUSION: Essentially unremarkable and stable CT scan of the abdomen and pelvis compared to the prior examination of 01/28/2018. The previously noted possible thickening involving the distal esophagus is not demonstrated on today's study. No new or significant changes are demonstrated. Brian Sierra MD Head CT 02/04/18 0000 Signed Impressions: Service Date/Time: Monday, February 05, 2018 00:09 - CONCLUSION: 1. Asymmetric hypodensity in the low convexity frontoparietal cortex. Recommend MRI imaging to include diffusion-weighted sequences and intravenous contrast to evaluate for possible mass or stroke.. 2. 1.2 cm round area of homogeneous hyperdensity in the suprasellar midline, differential considerations include aneurysm and pituitary. This can also be further evaluated during MRI. Jaun Albright MD (Rob Sheehan) Assessment and Plan Assessment and Plan Impression: Fall from pickup truck Left-sided late subacute subdural haematomas Abnormal appearing pituitary gland w/enlargement on MRI Pituitary haemorrhage vs mass Patient w/confusion and slow thought processes. Visual difficulty to right eye, diplopia possibly, but unable to ascertain since patient is not able to really describe. Plan: Primary management per Hospitalist. Neuro checks. Stat CT brain for any decline in neuro status. Hold pharmacologic DVT prophylaxis. Mechanical DVT prophylaxis. Mobilise patient w/assistance. Physical Therapy eval & tx. CT brain w/o contrast now. (Rob Sheehan) Attending Statement The exam, history, and the medical decision-making described in the above note were completed with the assistance of the mid-level provider. I reviewed and agree with the findings presented. I attest that I had a [id number] encounter with the patient on the same day, and personally performed and documented my assessment and findings in the medical record. Patient's examination today as noted above. Moderate lethargy and dysarthria. No significant focal sensory or motor deficit The patient's CT and MRI imaging studies have been reviewed by the undersigned Appears to have subacute left frontotemporal parenchymal hemorrhages with relatively mild mass effect. Pituitary lesion appears to be also most likely a hemorrhage, cannot totally rule out neoplasm. Nothing on CT scan of the chest and abdomen report to indicate metastatic lesions. Continue close monitoring of neurologic function Advance diet and activity as tolerated Follow-up CT scan of the head in the next few days to assess for evolution of apparent hemorrhages. At risk for alcohol withdrawal. (Ricki López MD) Rob Sheehan Feb 05, 2018 15:23 Ricki López MD Feb 05, 2018 23:05
[2018-02-05] MEDS: LORazepam 2 MG TAB PO PRN ×3 (15:53→21:38)
--- NOTE | 2018-02-05 16:34 | HHI.PR ---
Subjective Remarks The patient complains of a headache, dizziness. States he has pain in his back and legs. Objective Vitals Vital Signs Date Time Temp Pulse Resp B/P (MAP) Pulse Ox O2 Delivery O2 Flow Rate FiO2 02/05/18 12:35 70 02/05/18 08:23 02/05/18 08:18 97.5 87 20 182/103 (129) 98 02/05/18 07:53 92 18 138/94 (109) 98 Room Air 02/05/18 05:09 90 16 130/89 (103) 97 Room Air 02/05/18 02:05 86 16 127/82 (97) 97 Room Air 02/04/18 23:31 98.0 76 16 135/80 (98) 95 Room Air 02/04/18 20:40 98.0 89 18 155/100 (118) 98 I/O 02/04/18 02/04/18 02/04/18 02/05/18 02/05/18 02/05/18 06:59 14:59 22:59 06:59 14:59 22:59 Intake Total 1600 ml Output Total 420 ml Balance 1180 ml Intake IV Total 1600 ml Output Urine Total 420 ml # Voids 1 Result Diagram: 02/04/18211902/04/182119 Imaging Last Impressions Head Magnetic Resonance Angiography 02/05/18 0000 Signed Impressions: Service Date/Time: Monday, February 05, 2018 01:35 - CONCLUSION: No evidence of aneurysm or vessel truncation. Jaun Albright MD Chest CT 02/05/18 0000 Signed Impressions: Service Date/Time: Monday, February 05, 2018 11:33 - CONCLUSION: 1. There is a nonspecific 1 cm nodular density/infiltrate in the right upper lung. Recommend PET/CT to evaluate for focal hypermetabolic activity. 2. There are bullous changes in both apices, right greater than left. 3. Otherwise, the rest of the CT thorax is grossly unremarkable for patient's age.. Brian Sierra MD Brain MRI 02/05/18 0000 Signed Impressions: Service Date/Time: Monday, February 05, 2018 01:35 - CONCLUSION: 1. 2 focal abnormalities on the left side, temporal tip and frontoparietal region, both exhibiting similar signal alterations that suggest late subacute hematomas. 2. Abnormal appearance to the pituitary gland with enlargement into the suprasellar cistern, T1 shortening and intermediate signal on T2 suggesting either pituitary hemorrhage or mass. 3. Left mastoid disease. Jaun Albright MD Abdomen/Pelvis CT 02/05/18 0000 Signed Impressions: Service Date/Time: Monday, February 05, 2018 11:33 - CONCLUSION: Essentially unremarkable and stable CT scan of the abdomen and pelvis compared to the prior examination of 01/28/2018. The previously noted possible thickening involving the distal esophagus is not demonstrated on today's study. No new or significant changes are demonstrated. Brian Sierra MD Head CT 02/04/18 0000 Signed Impressions: Service Date/Time: Monday, February 05, 2018 00:09 - CONCLUSION: 1. Asymmetric hypodensity in the low convexity frontoparietal cortex. Recommend MRI imaging to include diffusion-weighted sequences and intravenous contrast to evaluate for possible mass or stroke.. 2. 1.2 cm round area of homogeneous hyperdensity in the suprasellar midline, differential considerations include aneurysm and pituitary. This can also be further evaluated during MRI. Jaun Albright MD Objective Remarks AAox3 nad Bruises in BL thighs Clear lungs BL S1S2 RRR, no MRG abdomen is soft, nt, nt Cranial nerves II through XII grossly intact, muscle strength 5.5 in all extremities. Sensation intact in all extremities. Medications and IVs Current Medications Medications (Trade) Dose Ordered Sig/Marilyn Route Start Time Stop Time Status Last Admin (NS Flush) 2 ml UNSCH PRN IV FLUSH 02/05/18 04:15 (NS Flush) 2 ml BID IV FLUSH 02/05/18 09:00 (Tylenol) 650 mg Q4H PRN PO 02/05/18 04:15 (Zofran Inj) 4 mg Q6H PRN IVP 02/05/18 04:15 02/05/18 05:09 (Narcan Inj) 0.4 mg UNSCH PRN IV PUSH 02/05/18 04:15 Thiamine HCl 100 mg/Sodium Chloride 101 ml @ 100 mls/hr Q24H IV 02/05/18 06:15 02/08/18 06:14 02/05/18 06:45 (Romazicon Inj) 0.2 mg Q1M PRN IV PUSH 02/05/18 04:15 (Ativan) 1 mg Q4H PRN PO 02/05/18 04:15 (Ativan Inj) 1 mg Q4H PRN IV PUSH 02/05/18 04:15 (Ativan) 2 mg Q2H PRN PO 02/05/18 04:15 02/05/18 15:53 (Ativan Inj) 2 mg Q2H PRN IV PUSH 02/05/18 04:15 02/05/18 05:09 (Ativan Inj) 2 mg Q1H PRN IV PUSH 02/05/18 04:15 02/05/18 10:52 (Ativan Inj) 2 mg Q15M PRN IV PUSH 02/05/18 04:15 (Haldol Inj) 2 mg Q15M PRN IM 02/05/18 04:15 (Keppra) 500 mg BID PO 02/05/18 09:00 02/05/18 09:12 (Protonix) 40 mg BID PO 02/05/18 09:00 02/05/18 09:12 Sodium Chloride 1,000 ml @ 80 mls/hr [id number] IV 02/05/18 05:00 02/05/18 06:45 (Catapres) 0.1 mg Q6H PRN PO 02/05/18 16:15 UNV A/P Problem List: (1) Syncope ICD Code: R55 - Syncope and collapse Status: Acute Plan: CT of the head significant for hypodensity in the frontoparietal cortex, MRI recommended MRI brain showed 2 focal abnormalities on the left side suggestive of subacute hematomas with an abnormal appearance of the pituitary gland consistent with the pituitary hemorrhage versus mass Neurosurgery consulted, appreciate recommendations Neuro checks Seizure precautions (2) Subdural hematoma ICD Code: I62.00 - Nontraumatic subdural hemorrhage, unspecified Status: Acute (3) Alcohol abuse ICD Code: F10.10 - Alcohol abuse, uncomplicated Plan: Thiamine [place] protocol Monitor for signs of withdrawal (4) Seizure disorder ICD Code: G40.909 - Epilepsy, unspecified, not intractable, without status epilepticus (5) Chronic pain ICD Code: G89.29 - Other chronic pain Plan: The patient states that he sees a pain management doctor as an outpatient. Patient is not complaining of pain in the back and lower extremities. (6) HTN (hypertension) ICD Code: I10 - Essential (primary) hypertension Plan: The patient now has severe elevated blood pressure with a systolic blood pressure in the 180s. This could be secondary to pain I will resume home pain medications. I will also start on clonidine 0.1 mg p.o. every 6 hours as needed as needed for systolic blood pressure more than 160. Assessment and Plan DVT prophylaxis: SCDs, no chemoprophylaxis given subdural hematomas. Problem Qualifiers (1) Syncope: Qualified Codes: R55 - Syncope and collapse (2) Chronic pain: Qualified Codes: G89.4 - Chronic pain syndrome (3) HTN (hypertension): Qualified Codes: I10 - Essential (primary) hypertension Eliceo Suggs MD Feb 05, 2018 16:34
[2018-02-05] MEDS: cloNIDine HCL 0.1 MG TAB PO PRN ×2 (17:28→23:58)
--- NOTE | 2018-02-05 17:29 | RADRPT ---
EXAM DATE/TIME: 02/05/2018 17:04 [facility] COMPARISON: MRI BRAIN W & W/O CONTRAST, February 05, 2018, 1:35. CT BRAIN W/O CONTRAST, February 05, 2018, 0:09. INDICATIONS : Altered mental status. Evaluate hematomas. RADIATION DOSE: 56.35 CTDIvol (mGy) MEDICAL HISTORY : Diabetes. Carcinoma, gastric. SURGICAL HISTORY : None. ENCOUNTER: Subsequent ACUITY: 2 days PAIN SCALE: 0/10 LOCATION: cranial TECHNIQUE: Multiple contiguous axial images were obtained of the head. Using automated exposure control and adj ustment of the mA and/or kV according to patient size, radiation dose was kept as low as reasonably a chievable to obtain optimal diagnostic quality images. DICOM format image data is available electro nically for review and comparison. FINDINGS: Ventricles are normal size. There is no parenchymal hemorrhage, acute infarction or mass lesion. Th ere are no extra-axial fluid collections appreciated. Posterior fossa is unremarkable with midline fourth ventricle Prominent hyperdense mass is seen in the pituitary fossa measuring 1.2 cm probably prominent pituitar y. The pituitary hemorrhage cannot be excluded. MRI could be used for further evaluation. CONCLUSION: Abnormal pituitary unchanged from 02/05/18. This could be post posttraumatic. Kaden Leggett MD FACR on February 05, 2018 at 17:23 Board Certified Radiologist. This report was verified electronically.
[2018-02-05] MEDS: LORazepam 1 MG TAB PO PRN (23:58)
[2018-02-06] VITALS (7 sets, daily range): BP systolic 108–176; BP diastolic 18–98; PULSE 67–96; RESP 16–20; TEMP 97.4–98.8; O2SAT 95–99
[2018-02-06] MEDS: LORazepam 1 MG TAB PO PRN ×4 (03:18→21:59)
[2018-02-06] MEDS: SODIUM CHLOR 0.9% 1000 ML INJ 1,000 ML IV SCH ×2 (03:18→09:18)
[2018-02-06] MEDS: THIAMINE INJ 100 MG in SODIUM CHLORIDE 0.9% INJ 100 ML IV SCH (06:06)
[2018-02-06 07:45] LABS: AUTOMATED NEUTROPHIL # 3.8 TH/MM3 (1.8-7.7); BASOPHIL # 0.1 TH/MM3 (0-0.2); BASOPHIL % 1.4 % (0.0-2.0); EOSINOPHIL # 0.4 TH/MM3 (0-0.4); EOSINOPHIL % 6.6 % (0.0-4.0); HEMATOCRIT 32.5 % (39.0-51.0); HEMOGLOBIN 11.1 GM/DL (13.0-17.0); LYMPH % 17.8 % (9.0-44.0); MEAN CELL VOLUME 106.6 FL (80.0-100.0); MEAN CORPUSCULAR HEMOGLOBIN 36.4 PG (27.0-34.0); MEAN CORPUSCULAR HGB CONC 34.1 % (32.0-36.0); MEAN PLATELET VOLUME 7.6 FL (7.0-11.0); MONO % 5.5 % (0.0-8.0); MONOCYTE # 0.3 TH/MM3 (0-0.9); NEUT % 68.7 % (16.0-70.0); PLATELET COUNT 279 TH/MM3 (150-450); RED BLOOD COUNT 3.05 MIL/MM3 (4.50-5.90); RED CELL DISTRIBUTION WIDTH 13.1 % (11.6-17.2); WHITE BLOOD COUNT 5.6 TH/MM3 (4.0-11.0)
[2018-02-06] MEDS: SODIUM CHLORIDE 0.9% FLUSH 10 ML FLUSH IV FLUSH SCH ×2 (08:18→21:00)
[2018-02-06 08:27] LABS: ALBUMIN 2.6 GM/DL (3.4-5.0); AST (GOT) 26 U/L (15-37); BICARBONATE 22.3 MEQ/L (21.0-32.0); BLOOD UREA NITROGEN 4 MG/DL (7-18); CALCIUM 8.3 MG/DL (8.5-10.1); CHLORIDE 111 MEQ/L (98-107); CREATININE 0.68 MG/DL (0.60-1.30); GLOMERULAR FILTRATION RATE 121 ML/MIN (>89); GLUCOSE,RANDOM 71 MG/DL (74-106); SODIUM (NA) 143 MEQ/L (136-145)
[2018-02-06 08:28] LABS: ALT (GPT) 24 U/L (12-78)
[2018-02-06 08:30] LABS: ALKALINE PHOSPHATASE 88 U/L (45-117); TOTAL BILIRUBIN ADULT 0.6 MG/DL (0.2-1.0); TOTAL PROTEIN 5.4 GM/DL (6.4-8.2)
[2018-02-06] MEDS: PANTOPRAZOLE SOD 40 MG DELAYED RELEASE TAB PO SCH ×2 (09:18→20:43)
[2018-02-06] MEDS: levETIRAcetam 500 MG TAB PO SCH ×2 (09:18→20:43)
--- NOTE | 2018-02-06 16:21 | HHI.PR ---
Subjective Remarks Deferred entry, the patient was seen at 12:15 p.m. The patient states he feels very dizzy and states that he is heading the spinning. The patient also complains of headache. Complains also to diffuse body aches. Objective Vitals Vital Signs Date Time Temp Pulse Resp B/P (MAP) Pulse Ox O2 Delivery O2 Flow Rate FiO2 02/06/18 12:00 97.7 87 20 140/98 (112) 95 02/06/18 08:00 97.4 77 20 163/93 (116) 98 02/06/18 04:00 97.9 69 16 176/87 (116) 97 02/06/18 04:00 Room Air 02/06/18 03:41 67 02/06/18 00:00 98.1 81 16 163/97 (119) 99 02/06/18 00:00 Room Air 02/05/18 23:42 80 02/05/18 20:00 97.6 61 16 159/87 (111) 95 02/05/18 20:00 Room Air 02/05/18 19:47 60 I/O 02/05/18 02/05/18 02/05/18 02/06/18 02/06/18 02/06/18 07:00 15:00 23:00 07:00 15:00 23:00 Intake Total 1600 ml 0 ml 240 ml Output Total 420 ml 400 ml 200 ml Balance 1180 ml -400 ml 40 ml Intake Oral 0 ml 240 ml IV Total 1600 ml Output Urine Total 420 ml 400 ml 200 ml # Voids 1 2 # Bowel Movements 0 Result Diagram: 02/06/18 0605 02/06/18 0605 Imaging Last Impressions Head Magnetic Resonance Angiography 02/05/18 0000 Signed Impressions: Service Date/Time: Monday, February 05, 2018 01:35 - CONCLUSION: No evidence of aneurysm or vessel truncation. Jaun Albright MD Head CT 02/05/18 0000 Signed Impressions: Service Date/Time: Monday, February 05, 2018 17:04 - CONCLUSION: Abnormal pituitary unchanged from 02/05/18. This could be post posttraumatic. Kaden Leggett MD FACR Chest CT 02/05/18 0000 Signed Impressions: Service Date/Time: Monday, February 05, 2018 11:33 - CONCLUSION: 1. There is a nonspecific 1 cm nodular density/infiltrate in the right upper lung. Recommend PET/CT to evaluate for focal hypermetabolic activity. 2. There are bullous changes in both apices, right greater than left. 3. Otherwise, the rest of the CT thorax is grossly unremarkable for patient's age.. Brian Sierra MD Brain MRI 02/05/18 0000 Signed Impressions: Service Date/Time: Monday, February 05, 2018 01:35 - CONCLUSION: 1. 2 focal abnormalities on the left side, temporal tip and frontoparietal region, both exhibiting similar signal alterations that suggest late subacute hematomas. 2. Abnormal appearance to the pituitary gland with enlargement into the suprasellar cistern, T1 shortening and intermediate signal on T2 suggesting either pituitary hemorrhage or mass. 3. Left mastoid disease. Jaun Albright MD Abdomen/Pelvis CT 02/05/18 0000 Signed Impressions: Service Date/Time: Monday, February 05, 2018 11:33 - CONCLUSION: Essentially unremarkable and stable CT scan of the abdomen and pelvis compared to the prior examination of 01/28/2018. The previously noted possible thickening involving the distal esophagus is not demonstrated on today's study. No new or significant changes are demonstrated. Brian Sierra MD Objective Remarks AAox3 nad Bruises in BL thighs Clear lungs BL S1S2 RRR, no MRG abdomen is soft, nt, nt Cranial nerves II through XII grossly intact, muscle strength 5.5 in all extremities. Sensation intact in all extremities. Medications and IVs Current Medications Medications (Trade) Dose Ordered Sig/Marilyn Route Start Time Stop Time Status Last Admin (NS Flush) 2 ml UNSCH PRN IV FLUSH 02/05/18 04:15 (NS Flush) 2 ml BID IV FLUSH 02/05/18 09:00 02/06/18 08:18 (Tylenol) 650 mg Q4H PRN PO 02/05/18 04:15 02/06/18 09:20 (Zofran Inj) 4 mg Q6H PRN IVP 02/05/18 04:15 02/05/18 05:09 (Narcan Inj) 0.4 mg UNSCH PRN IV PUSH 02/05/18 04:15 Thiamine HCl 100 mg/Sodium Chloride 101 ml @ 100 mls/hr Q24H IV 02/05/18 06:15 02/08/18 06:14 02/06/18 06:06 (Romazicon Inj) 0.2 mg Q1M PRN IV PUSH 02/05/18 04:15 (Ativan) 1 mg Q4H PRN PO 02/05/18 04:15 02/06/18 06:06 (Ativan Inj) 1 mg Q4H PRN IV PUSH 02/05/18 04:15 (Ativan) 2 mg Q2H PRN PO 02/05/18 04:15 02/05/18 21:38 (Ativan Inj) 2 mg Q2H PRN IV PUSH 02/05/18 04:15 02/05/18 05:09 (Ativan Inj) 2 mg Q1H PRN IV PUSH 02/05/18 04:15 02/05/18 10:52 (Ativan Inj) 2 mg Q15M PRN IV PUSH 02/05/18 04:15 (Haldol Inj) 2 mg Q15M PRN IM 02/05/18 04:15 (Keppra) 500 mg BID PO 02/05/18 09:00 02/06/18 09:18 (Protonix) 40 mg BID PO 02/05/18 09:00 02/06/18 09:18 Sodium Chloride 1,000 ml @ 80 mls/hr [id number] IV 02/05/18 05:00 02/06/18 09:18 (Catapres) 0.1 mg Q6H PRN PO 02/05/18 16:15 02/05/18 23:58 Urinary Catheter: No Vascular Central Line Catheter: No A/P Problem List: (1) Syncope ICD Code: R55 - Syncope and collapse Status: Acute (2) Subdural hematoma ICD Code: I62.00 - Nontraumatic subdural hemorrhage, unspecified Status: Acute (3) Alcohol abuse ICD Code: F10.10 - Alcohol abuse, uncomplicated (4) Seizure disorder ICD Code: G40.909 - Epilepsy, unspecified, not intractable, without status epilepticus (5) Chronic pain ICD Code: G89.29 - Other chronic pain Plan: The patient states that he sees a pain management doctor as an outpatient. Patient is not complaining of pain in the back and lower extremities. Resume [place]. (6) HTN (hypertension) ICD Code: I10 - Essential (primary) hypertension Plan: The patient now has severe elevated blood pressure with a systolic blood pressure in the 180s. This could be secondary to pain I will resume home pain medications. I will also start on clonidine 0.1 mg p.o. every 6 hours as needed as needed for systolic blood pressure more than 160. Assessment and Plan 1) Syncope Plan: CT of the head significant for hypodensity in the frontoparietal cortex, MRI recommended MRI brain showed 2 focal abnormalities on the left side suggestive of subacute hematomas with an abnormal appearance of the pituitary gland consistent with the pituitary hemorrhage versus mass Neurosurgery consulted, appreciate recommendations Neuro checks Seizure precautions 02/06 as part of the syncope evaluation I will order carotid Dopplers and 2D echocardiogram. (2) Subdural hematoma ICD Code: I62.00 - Nontraumatic subdural hemorrhage, unspecified Status: Acute Patient states he hit his head on the floor when he passed out. Neurosurgery following. Follow-up recommendations. (3) Alcohol abuse Plan: Thiamine CIWA protocol Monitor for signs of withdrawal (4) Seizure disorder 02/06 no evidence of seizure disorder. Continue Keppra 500 mg p.o. twice daily. (5) Chronic pain Plan: The patient states that he sees a pain management doctor as an outpatient. Patient is not complaining of pain in the back and lower extremities. (6) HTN (hypertension) Plan: The patient now has severe elevated blood pressure with a systolic blood pressure in the 180s. This could be secondary to pain I will resume home pain medications. I will also start on clonidine 0.1 mg p.o. every 6 hours as needed as needed for systolic blood pressure more than 160. 02/06 blood pressure still seems to be severely elevated in the 160s. Continue clonidine as needed. Will resume home [place]. DVT prophylaxis: SCDs, no chemoprophylaxis given subdural hematomas. Discharge Planning Continue to monitor on the medical floor. Needs neurosurgery clearance. Problem Qualifiers (1) Syncope: Qualified Codes: R55 - Syncope and collapse (2) Chronic pain: Qualified Codes: G89.4 - Chronic pain syndrome (3) HTN (hypertension): Qualified Codes: I10 - Essential (primary) hypertension Eliceo Suggs MD Feb 06, 2018 16:21
[2018-02-06] MEDS: ACETAMINOPHEN/HYDROcodone 325 MG/5 MG TAB PO PRN ×2 (16:47→20:44)
[2018-02-06] MEDS: ONDANSETRON HCL 4 MG/2 ML VIAL IVP PRN (18:40)
--- NOTE | 2018-02-06 18:42 | HHI.NSPN ---
History Chief Complaint: Headache and dizziness Interval History 02/05: The patient is a poor historian. He does confirm that he fell three days ago and since then he has had headaches, dizziness and has been falling. He denies any fall before that. He did not report any syncope but in the EMR it is noted that he did pass out earlier. He states that he is having trouble keeping track of everything since the fall. 02/06: When seen this evening the patient is awake and alert. He is more interactive and readily verbalises. He is confused as to time but understands he is in the hospital for evaluation due to his frequent falls recently. He does say he has a headache and intermittent dizziness. He also has had nausea that was relieved with Zofran. He denies any pain, numbness, tingling or weakness to the extremities but does say he has difficulty ambulating. No sensorimotor deficits are noted upon examination. His speech is slow and moderately dysarthritic. The patient believes that he had his MRI and CT done today and not yesterday. Exam Results 02/05/18 02/05/18 02/06/18 02/06/18 02/07/18 02/07/18 06:00 18:00 06:00 18:00 06:00 18:00 Intake Total 1600 ml 240 ml Output Total 820 ml 200 ml Balance 780 ml 40 ml Intake Oral 0 ml 240 ml IV Total 1600 ml Output Urine Total 820 ml 200 ml # Voids 1 2 # Bowel Movements 0 Vital Signs Date Time Temp Pulse Resp B/P (MAP) Pulse Ox O2 Delivery O2 Flow Rate FiO2 02/06/18 12:00 97.7 87 20 140/98 (112) 95 02/06/18 08:00 97.4 77 20 163/93 (116) 98 02/06/18 04:00 97.9 69 16 176/87 (116) 97 02/06/18 04:00 Room Air 02/06/18 03:41 67 02/06/18 00:00 98.1 81 16 163/97 (119) 99 02/06/18 00:00 Room Air 02/05/18 23:42 80 02/05/18 20:00 97.6 61 16 159/87 (111) 95 02/05/18 20:00 Room Air 02/05/18 19:47 60 02/05/18 16:00 97.6 73 20 194/112 (139) 97 02/05/18 15:30 74 02/05/18 12:35 70 02/05/18 12:00 97.8 78 20 199/106 (137) 99 02/05/18 08:23 02/05/18 08:18 97.5 87 20 182/103 (129) 98 02/05/18 07:53 92 18 138/94 (109) 98 Room Air 02/05/18 05:09 90 16 130/89 (103) 97 Room Air 02/05/18 02:05 86 16 127/82 (97) 97 Room Air 02/04/18 23:31 98.0 76 16 135/80 (98) 95 Room Air 02/04/18 20:40 98.0 89 18 155/100 (118) 98 Physical Examination GENERAL: Awake & alert sitting up in bed watching TV. His affect slightly flat and he readily interacts. He is not in any apparent distress. HEENT: Left parietoccipital region mildly TTP. PERRLA 3 mm sluggish, EOMI. MMM & pink, tongue midline to protrusion. MUSCULOSKELETAL: ESCAMILLA purposefully. Extremities NTTP. Ecchymosis to the right posterior thigh. No evident clubbing or deformity. NEUROLOGICAL: AA&O to person & place, but not time, thinks it is December 2016 and not sure who the president is, " Rosemary or the other miracle." Speech clear and essentially appropriate. Slow thought process and moderate dysarthria. Thinks that he had his MRI and CT done today and not yesterday. Follows simple commands but does require demonstration at times. CN II through XII appear grossly intact. Sensation intact to light touch to all extremities. Motor strength is 5/5 to all major flexion & extension muscle groups of the extremities, to include wrist flexors & extensors and hand intrinsics & extrinsics. Lab, Micro, Other Results Recent Impressions Head Magnetic Resonance Angiography 02/05/18 0000 Signed Impressions: Service Date/Time: Monday, February 05, 2018 01:35 - CONCLUSION: No evidence of aneurysm or vessel truncation. Jaun Albright MD Head CT 02/05/18 0000 Signed Impressions: Service Date/Time: Monday, February 05, 2018 17:04 - CONCLUSION: Abnormal pituitary unchanged from 02/05/18. This could be post posttraumatic. Kaden Leggett MD FACR Chest CT 02/05/18 0000 Signed Impressions: Service Date/Time: Monday, February 05, 2018 11:33 - CONCLUSION: 1. There is a nonspecific 1 cm nodular density/infiltrate in the right upper lung. Recommend PET/CT to evaluate for focal hypermetabolic activity. 2. There are bullous changes in both apices, right greater than left. 3. Otherwise, the rest of the CT thorax is grossly unremarkable for patient's age.. Brian Sierra MD Brain MRI 02/05/18 0000 Signed Impressions: Service Date/Time: Monday, February 05, 2018 01:35 - CONCLUSION: 1. 2 focal abnormalities on the left side, temporal tip and frontoparietal region, both exhibiting similar signal alterations that suggest late subacute hematomas. 2. Abnormal appearance to the pituitary gland with enlargement into the suprasellar cistern, T1 shortening and intermediate signal on T2 suggesting either pituitary hemorrhage or mass. 3. Left mastoid disease. Jaun Albright MD Abdomen/Pelvis CT 02/05/18 0000 Signed Impressions: Service Date/Time: Monday, February 05, 2018 11:33 - CONCLUSION: Essentially unremarkable and stable CT scan of the abdomen and pelvis compared to the prior examination of 01/28/2018. The previously noted possible thickening involving the distal esophagus is not demonstrated on today's study. No new or significant changes are demonstrated. Brian Sierra MD Head CT 02/04/18 0000 Signed Impressions: Service Date/Time: Monday, February 05, 2018 00:09 - CONCLUSION: 1. Asymmetric hypodensity in the low convexity frontoparietal cortex. Recommend MRI imaging to include diffusion-weighted sequences and intravenous contrast to evaluate for possible mass or stroke.. 2. 1.2 cm round area of homogeneous hyperdensity in the suprasellar midline, differential considerations include aneurysm and pituitary. This can also be further evaluated during MRI. Jaun Albright MD Laboratory Tests Test 02/04/18 21:20 02/05/18 18:16 02/06/18 06:05 White Blood Count 8.1 TH/MM3 5.6 TH/MM3 Red Blood Count 2.96 MIL/MM3 3.05 MIL/MM3 Hemoglobin 10.9 GM/DL 11.1 GM/DL Hematocrit 31.2 % 32.5 % Mean Corpuscular Volume 105.2 FL 106.6 FL Mean Corpuscular Hemoglobin 36.7 PG 36.4 PG Mean Corpuscular Hemoglobin Concent 34.9 % 34.1 % Red Cell Distribution Width 12.9 % 13.1 % Platelet Count 283 TH/MM3 279 TH/MM3 Mean Platelet Volume 7.7 FL 7.6 FL Neutrophils (%) (Auto) 72.3 % 68.7 % Lymphocytes (%) (Auto) 15.9 % 17.8 % Monocytes (%) (Auto) 6.6 % 5.5 % Eosinophils (%) (Auto) 3.9 % 6.6 % Basophils (%) (Auto) 1.3 % 1.4 % Neutrophils # (Auto) 5.8 TH/MM3 3.8 TH/MM3 Lymphocytes # (Auto) 1.3 TH/MM3 1.0 TH/MM3 Monocytes # (Auto) 0.5 TH/MM3 0.3 TH/MM3 Eosinophils # (Auto) 0.3 TH/MM3 0.4 TH/MM3 Basophils # (Auto) 0.1 TH/MM3 0.1 TH/MM3 CBC Comment DIFF FINAL DIFF FINAL Differential Comment Prothrombin Time 10.1 SEC Prothromb Time International Ratio 1.0 RATIO Blood Urea Nitrogen 2 MG/DL 4 MG/DL Creatinine 0.68 MG/DL 0.68 MG/DL Random Glucose 70 MG/DL 71 MG/DL Calcium Level 8.2 MG/DL 8.3 MG/DL Sodium Level 138 MEQ/L 143 MEQ/L Potassium Level 3.6 MEQ/L 3.9 MEQ/L Chloride Level 104 MEQ/L 111 MEQ/L Carbon Dioxide Level 19.6 MEQ/L 22.3 MEQ/L Anion Gap 14 MEQ/L 10 MEQ/L Estimat Glomerular Filtration Rate 121 ML/MIN 121 ML/MIN Total Creatine Kinase 284 U/L Troponin I LESS THAN 0.02 NG/ML Ethyl Alcohol Level 73 MG/DL Thyroid Stimulating Hormone 3rd Gen 1.720 uIU/ML Random Cortisol 13.1 MCG/DL Total Protein 5.4 GM/DL Albumin 2.6 GM/DL Alkaline Phosphatase 88 U/L Aspartate Amino Transf (AST/SGOT) 26 U/L Alanine Aminotransferase (ALT/SGPT) 24 U/L Total Bilirubin 0.6 MG/DL Medical Decision Making Impression and Plan Impression: Fall from pickup truck Left-sided late subacute subdural haematomas Abnormal appearing pituitary gland w/enlargement on MRI Pituitary haemorrhage vs mass Per Dr López, appears to have subacute left frontotemporal parenchymal hemorrhages with relatively mild mass effect. Pituitary lesion appears to be also most likely a hemorrhage, cannot totally rule out neoplasm. Patient more awake and alert today. Still with confusion but understands he is in the hospital due to frequent falls after the fall from a pickup truck. No evident sensorimotor deficits. Still with moderate dysarthria. Plan: Primary management per Hospitalist. Neuro checks. Stat CT brain for any decline in neuro status. Hold pharmacologic DVT prophylaxis. Mechanical DVT prophylaxis. Mobilise patient w/assistance. Physical Therapy eval & tx. Repeat CT scan in a few days. Rob Sheehan Feb 06, 2018 18:42
[2018-02-07] VITALS: BP 136/99; PULSE 71; PULSE 82; RESP 20; TEMP 98; O2SAT 98
[2018-02-07] MEDS: ACETAMINOPHEN/HYDROcodone 325 MG/5 MG TAB PO PRN ×6 (01:05→21:46)
[2018-02-07] MEDS: LORazepam 1 MG TAB PO PRN ×3 (02:20→21:45)
[2018-02-07] MEDS: cloNIDine HCL 0.1 MG TAB PO PRN ×2 (03:42→18:58)
[2018-02-07 04:00] VITALS: BP 166/104; PULSE 75; PULSE 77; RESP 20; TEMP 97.7; O2SAT 96
[2018-02-07] MEDS: THIAMINE INJ 100 MG in SODIUM CHLORIDE 0.9% INJ 100 ML IV SCH (05:02)
[2018-02-07] MEDS: SODIUM CHLOR 0.9% 1000 ML INJ 1,000 ML IV SCH ×2 (07:00→21:46)
[2018-02-07 08:00] VITALS: BP 161/98; PULSE 68; RESP 18; TEMP 97.6; O2SAT 98
[2018-02-07] MEDS: SODIUM CHLORIDE 0.9% FLUSH 10 ML FLUSH IV FLUSH SCH ×2 (09:00→21:00)
[2018-02-07] MEDS: PANTOPRAZOLE SOD 40 MG DELAYED RELEASE TAB PO SCH ×2 (09:23→21:46)
[2018-02-07] MEDS: levETIRAcetam 500 MG TAB PO SCH ×2 (09:23→21:46)
[2018-02-07 12:00] VITALS: BP 148/85; PULSE 75; PULSE 81; RESP 18; TEMP 98.8; O2SAT 97
[2018-02-07 16:00] VITALS: BP 163/95; PULSE 75; PULSE 85; RESP 18; TEMP 97.5; O2SAT 95
--- NOTE | 2018-02-07 16:33 | HHI.NSPN ---
(SissyRob) History Chief Complaint: Headache and dizziness (Negrito Sheehanzaida CALI) Interval History 02/05: The patient is a poor historian. He does confirm that he fell three days ago and since then he has had headaches, dizziness and has been falling. He denies any fall before that. He did not report any syncope but in the EMR it is noted that he did pass out earlier. He states that he is having trouble keeping track of everything since the fall. 02/06: When seen this evening the patient is awake and alert. He is more interactive and readily verbalises. He is confused as to time but understands he is in the hospital for evaluation due to his frequent falls recently. He does say he has a headache and intermittent dizziness. He also has had nausea that was relieved with Zofran. He denies any pain, numbness, tingling or weakness to the extremities but does say he has difficulty ambulating. No sensorimotor deficits are noted upon examination. His speech is slow and moderately dysarthritic. The patient believes that he had his MRI and CT done today and not yesterday. 02/07: This afternoon the patient is awake and alert watching TV in bed. He complains of a headache and said his blood pressure was up. He also had some dizziness when he gets up. He asked for a nicotine patch since he is a smoker. His neuro exam remains unchanged from yesterday. (SissyRob CALI) Exam Results 02/05/18 02/05/18 02/06/18 02/06/18 02/07/18 02/07/18 06:00 18:00 06:00 18:00 06:00 18:00 Intake Total 1600 ml 240 ml 0 ml 1001 ml 280 ml Output Total 820 ml 200 ml 600 ml Balance 780 ml 40 ml 0 ml 1001 ml -320 ml Intake Oral 0 ml 240 ml 0 ml 280 ml IV Total 1600 ml 1001 ml Output Urine Total 820 ml 200 ml 600 ml # Voids 1 2 2 # Bowel Movements 0 0 0 Vital Signs Date Time Temp Pulse Resp B/P (MAP) Pulse Ox O2 Delivery O2 Flow Rate FiO2 02/07/18 12:00 98.8 75 18 148/85 (106) 97 02/07/18 08:00 68 02/07/18 08:00 97.6 68 18 161/98 (119) 98 02/07/18 07:00 Room Air 02/07/18 04:00 77 02/07/18 04:00 Room Air 02/07/18 04:00 97.7 75 20 166/104 (124) 96 02/07/18 00:18 Room Air 02/07/18 00:00 71 02/07/18 00:00 98.0 82 20 136/99 (111) 98 02/06/18 20:00 97.7 94 19 108/18 (48) 95 02/06/18 20:00 96 02/06/18 16:00 98.8 92 20 127/87 (100) 97 02/06/18 16:00 94 02/06/18 12:00 75 02/06/18 12:00 97.7 87 20 140/98 (112) 95 02/06/18 08:00 71 02/06/18 08:00 97.4 77 20 163/93 (116) 98 02/06/18 04:00 97.9 69 16 176/87 (116) 97 02/06/18 04:00 Room Air 02/06/18 03:41 67 02/06/18 00:00 98.1 81 16 163/97 (119) 99 02/06/18 00:00 Room Air 02/05/18 23:42 80 02/05/18 20:00 97.6 61 16 159/87 (111) 95 02/05/18 20:00 Room Air 02/05/18 19:47 60 02/05/18 16:00 97.6 73 20 194/112 (139) 97 02/05/18 15:30 74 02/05/18 12:35 70 02/05/18 12:00 97.8 78 20 199/106 (137) 99 02/05/18 08:23 02/05/18 08:18 97.5 87 20 182/103 (129) 98 02/05/18 07:53 92 18 138/94 (109) 98 Room Air 02/05/18 05:09 90 16 130/89 (103) 97 Room Air 02/05/18 02:05 86 16 127/82 (97) 97 Room Air 02/04/18 23:31 98.0 76 16 135/80 (98) 95 Room Air 02/04/18 20:40 98.0 89 18 155/100 (118) 98 (Rob Sheehan) Results GENERAL: Awake & alert sitting up in bed watching TV. His affect is slightly flat. Readily interacts. No apparent distress. HEENT: Left parietoccipital region mildly TTP. PERRLA 3 mm sluggish, EOMI. MMM & pink, tongue midline to protrusion. MUSCULOSKELETAL: ESCAMILLA purposefully. Extremities NTTP. Ecchymosis to the right posterior thigh. No evident clubbing or deformity. NEUROLOGICAL: AA&O to person & place, but not time. Speech clear and essentially appropriate. Slow thought process and moderate dysarthria. Follows simple commands. States some facial numbness to left zoroastrianism o/w CN II through XII appear grossly intact. Sensation intact to light touch to all extremities. Motor strength is 5/5 to all major flexion & extension muscle groups of the extremities. Skin warm and dry (Kash Aguirre MD) Physical Examination GENERAL: Awake & alert sitting up in bed watching TV. His affect is slightly flat. Readily interacts. No apparent distress. HEENT: Left parietoccipital region mildly TTP. PERRLA 3 mm sluggish, EOMI. MMM & pink, tongue midline to protrusion. MUSCULOSKELETAL: ESCAMILLA purposefully. Extremities NTTP. Ecchymosis to the right posterior thigh. No evident clubbing or deformity. NEUROLOGICAL: AA&O to person & place, but not time. Speech clear and essentially appropriate. Slow thought process and moderate dysarthria. Follows simple commands. States some facial numbness to left zoroastrianism o/w CN II through XII appear grossly intact. Sensation intact to light touch to all extremities. Motor strength is 5/5 to all major flexion & extension muscle groups of the extremities. (Rob Sheehan) Lab, Micro, Other Results Recent Impressions Head Magnetic Resonance Angiography 02/05/18 0000 Signed Impressions: Service Date/Time: Monday, February 05, 2018 01:35 - CONCLUSION: No evidence of aneurysm or vessel truncation. Jaun Albright MD Head CT 02/05/18 0000 Signed Impressions: Service Date/Time: Monday, February 05, 2018 17:04 - CONCLUSION: Abnormal pituitary unchanged from 02/05/18. This could be post posttraumatic. Kaden Leggett MD FACR Chest CT 02/05/18 0000 Signed Impressions: Service Date/Time: Monday, February 05, 2018 11:33 - CONCLUSION: 1. There is a nonspecific 1 cm nodular density/infiltrate in the right upper lung. Recommend PET/CT to evaluate for focal hypermetabolic activity. 2. There are bullous changes in both apices, right greater than left. 3. Otherwise, the rest of the CT thorax is grossly unremarkable for patient's age.. Brian Sierra MD Brain MRI 02/05/18 0000 Signed Impressions: Service Date/Time: Monday, February 05, 2018 01:35 - CONCLUSION: 1. 2 focal abnormalities on the left side, temporal tip and frontoparietal region, both exhibiting similar signal alterations that suggest late subacute hematomas. 2. Abnormal appearance to the pituitary gland with enlargement into the suprasellar cistern, T1 shortening and intermediate signal on T2 suggesting either pituitary hemorrhage or mass. 3. Left mastoid disease. Jaun Albright MD Abdomen/Pelvis CT 02/05/18 0000 Signed Impressions: Service Date/Time: Monday, February 05, 2018 11:33 - CONCLUSION: Essentially unremarkable and stable CT scan of the abdomen and pelvis compared to the prior examination of 01/28/2018. The previously noted possible thickening involving the distal esophagus is not demonstrated on today's study. No new or significant changes are demonstrated. Brian Sierra MD Laboratory Tests Test 02/04/18 21:20 02/05/18 18:16 02/06/18 06:05 White Blood Count 8.1 TH/MM3 5.6 TH/MM3 Red Blood Count 2.96 MIL/MM3 3.05 MIL/MM3 Hemoglobin 10.9 GM/DL 11.1 GM/DL Hematocrit 31.2 % 32.5 % Mean Corpuscular Volume 105.2 FL 106.6 FL Mean Corpuscular Hemoglobin 36.7 PG 36.4 PG Mean Corpuscular Hemoglobin Concent 34.9 % 34.1 % Red Cell Distribution Width 12.9 % 13.1 % Platelet Count 283 TH/MM3 279 TH/MM3 Mean Platelet Volume 7.7 FL 7.6 FL Neutrophils (%) (Auto) 72.3 % 68.7 % Lymphocytes (%) (Auto) 15.9 % 17.8 % Monocytes (%) (Auto) 6.6 % 5.5 % Eosinophils (%) (Auto) 3.9 % 6.6 % Basophils (%) (Auto) 1.3 % 1.4 % Neutrophils # (Auto) 5.8 TH/MM3 3.8 TH/MM3 Lymphocytes # (Auto) 1.3 TH/MM3 1.0 TH/MM3 Monocytes # (Auto) 0.5 TH/MM3 0.3 TH/MM3 Eosinophils # (Auto) 0.3 TH/MM3 0.4 TH/MM3 Basophils # (Auto) 0.1 TH/MM3 0.1 TH/MM3 CBC Comment DIFF FINAL DIFF FINAL Differential Comment Prothrombin Time 10.1 SEC Prothromb Time International Ratio 1.0 RATIO Blood Urea Nitrogen 2 MG/DL 4 MG/DL Creatinine 0.68 MG/DL 0.68 MG/DL Random Glucose 70 MG/DL 71 MG/DL Calcium Level 8.2 MG/DL 8.3 MG/DL Sodium Level 138 MEQ/L 143 MEQ/L Potassium Level 3.6 MEQ/L 3.9 MEQ/L Chloride Level 104 MEQ/L 111 MEQ/L Carbon Dioxide Level 19.6 MEQ/L 22.3 MEQ/L Anion Gap 14 MEQ/L 10 MEQ/L Estimat Glomerular Filtration Rate 121 ML/MIN 121 ML/MIN Total Creatine Kinase 284 U/L Troponin I LESS THAN 0.02 NG/ML Ethyl Alcohol Level 73 MG/DL Thyroid Stimulating Hormone 3rd Gen 1.720 uIU/ML Random Cortisol 13.1 MCG/DL Total Protein 5.4 GM/DL Albumin 2.6 GM/DL Alkaline Phosphatase 88 U/L Aspartate Amino Transf (AST/SGOT) 26 U/L Alanine Aminotransferase (ALT/SGPT) 24 U/L Total Bilirubin 0.6 MG/DL (Rob Sheehan) Lab, Micro, Other Results Current Medications Sodium Chloride 500 ml @ 500 mls/hr BOLUS ONCE IV Last administered on at 21:37; Start 02/04/18 at 21:15; Stop 02/04/18 at 22:14; Status DC Gadodiamide (Omniscan Pf Inj) 12 ml STK-MED ONCE IV PUSH Last administered on at 01:45; Start 02/04/18 at 01:45; Stop 02/05/18 at 02:20; Status DC Sodium Chloride (NS Flush) 2 ml UNSCH PRN IV FLUSH FLUSH AFTER USING IV ACCESS ; Start 02/05/18 at 04:15 Sodium Chloride (NS Flush) 2 ml BID IV FLUSH Last administered on 02/10/18at 10: 34; Start 02/05/18 at 09:00 Acetaminophen (Tylenol) 650 mg Q4H PRN PO TEMP > 100.4 Last administered on at 09:20; Start 02/05/18 at 04:15 Ondansetron HCl (Zofran Inj) 4 mg Q6H PRN IVP NAUSEA OR VOMITING Last administered on 02/10/18at 10:30; Start 02/05/18 at 04:15 Naloxone HCl (Narcan Inj) 0.4 mg UNSCH PRN IV PUSH SEE LABEL COMMENTS; Start at 04:15 Thiamine HCl 100 mg/Sodium Chloride 101 ml @ 100 mls/hr Q24H IV Last administered on 02/07/18at 05:02; Start 02/05/18 at 06:15; Stop 02/08/18 at 06:14 ; Status DC Flumazenil (Romazicon Inj) 0.2 mg Q1M PRN IV PUSH SEE LABEL COMMENTS; Start at 04:15 Lorazepam (Ativan) 1 mg Q4H PRN PO CIWA 8 - 10 Last administered on 02/08/18at 06:09; Start 02/05/18 at 04:15 Lorazepam (Ativan Inj) 1 mg Q4H PRN IV PUSH CIWA 8 - 10; Start 02/05/18 at 04: 15 Lorazepam (Ativan) 2 mg Q2H PRN PO CIWA 11-14 Last administered on 02/05/18at 21 :38; Start 02/05/18 at 04:15 Lorazepam (Ativan Inj) 2 mg Q2H PRN IV PUSH CIWA 11-14 Last administered on at 05:09; Start 02/05/18 at 04:15 Lorazepam (Ativan Inj) 2 mg Q1H PRN IV PUSH CIWA 15-20 Last administered on at 10:52; Start 02/05/18 at 04:15 Lorazepam (Ativan Inj) 2 mg Q15M PRN IV PUSH CIWA > 20; Start 02/05/18 at 04:15 Haloperidol Lactate (Haldol Inj) 2 mg Q15M PRN IM SEE LABEL COMMENTS; Start at 04:15 Levetriacetam (Keppra) 500 mg BID PO Last administered on 02/10/18at 10:33; Start 02/05/18 at 09:00 Pantoprazole Sodium (Protonix) 40 mg BID PO Last administered on 02/10/18at 10: 33; Start 02/05/18 at 09:00 Sodium Chloride 1,000 ml @ 80 mls/hr [id number] IV Last administered on at 21:04; Start 02/05/18 at 05:00; Stop 02/09/18 at 00:46; Status DC Iohexol (Omnipaque 350 Inj) 83 ml STK-MED ONCE IVCONTRAST Last administered on 02/05/18at 11:50; Start 02/05/18 at 11:50; Stop 02/05/18 at 11:51; Status DC Clonidine (Catapres) 0.1 mg Q6H PRN PO SYS BP GREATER THAN 160 MMHG Last administered on 02/09/18at 09:10; Start 02/05/18 at 16:15 Acetaminophen/ Hydrocodone Bitart ([place] 5-325 Mg) 1 tab Q4H PRN PO PAIN SCALE 1 TO 4; Start 02/06/18 at 16:30 Acetaminophen/ Hydrocodone Bitart ([place] 5-325 Mg) 2 tab Q4H PRN PO PAIN SCALE 5 TO 10 Last administered on 02/10/18at 10:33; Start 02/06/18 at 16:30 Pneumococcal Polyvalent Vaccine (Pneumovax-23 Inj) 25 mcg ONCE ONCE IM ; Start 02/08/18 at 10:00; Stop 02/08/18 at 10:01; Status DC Influenza Virus Vaccine (Flu (Quadrivalent) Vaccine Inj) 0.5 ml ONCE ONCE IM ; Start 02/08/18 at 10:00; Stop 02/08/18 at 10:01; Status DC Nicotine (Habitrol 14 Mg Patch.24 Hr) 1 patch DAILY T-DERMAL Last administered on 02/10/18 10:36; Start 02/08/18 at 09:00 Miscellaneous Information 1 HS T-DERMAL Last administered on 02/09/18 21:33; Start 02/07/18 at 21:00 Amlodipine Besylate (Norvasc) 5 mg DAILY PO Last administered on 02/09/18 09: 10; Start 02/09/18 at 09:00; Stop 02/09/18 at 11:39; Status DC Amlodipine Besylate (Norvasc) 10 mg DAILY PO Last administered on 02/10/18 10: 33; Start 02/10/18 at 09:00 Amlodipine Besylate (Norvasc) 5 mg ONCE ONCE PO Last administered on 12:03; Start 02/09/18 at 11:45; Stop 02/09/18 at 11:57; Status DC Ketorolac Tromethamine (Toradol) 10 mg Q6H PRN PO HEADACHE; Start 02/09/18 at 11:45; Stop 02/09/18 at 12:11; Status DC Lisinopril (Prinivil) 20 mg DAILY PO Last administered on 02/10/18 10:33; Start 02/09/18 at 12:00 Morphine Sulfate (Morphine Inj) 4 mg ONCE ONCE IV PUSH Last administered on 13:01; Start 02/09/18 at 12:15; Stop 02/09/18 at 12:19; Status DC Meclizine HCl (Antivert) 25 mg ONCE ONCE PO Last administered on 02/10/18 13: 11; Start 02/10/18 at 13:00; Stop 02/10/18 at 13:03; Status DC Prochlorperazine Edisylate (Compazine Inj) 5 mg ONCE ONCE IV PUSH Last administered on 02/10/18 13:15; Start 02/10/18 at 13:00; Stop 02/10/18 at 13:03 ; Status DC Prochlorperazine Edisylate (Compazine Inj) 5 mg Q4H PRN IV PUSH NAUSEA OR VOMITING; Start 02/10/18 at 13:00 Polyethylene Glycol (Miralax) 17 gm ONCE ONCE PO Last administered on 3/24/ 18at 13:11; Start 02/10/18 at 13:00; Stop 02/10/18 at 13:03; Status DC (Kash Aguirre MD) Medical Decision Making Impression and Plan Impression: Fall from pickup truck Left-sided late subacute subdural haematomas Abnormal appearing pituitary gland w/enlargement on MRI Pituitary haemorrhage vs mass Per Dr López, appears to have subacute left frontotemporal parenchymal hemorrhages with relatively mild mass effect. Pituitary lesion appears to be also most likely a hemorrhage, cannot totally rule out neoplasm. Patient doing well. Confusion still present. Headache. No evident sensorimotor deficits. Still with moderate dysarthria. Intermittent hypertension. Plan: Primary management per Hospitalist. Neuro checks. Stat CT brain for any decline in neuro status. Hold pharmacologic DVT prophylaxis. Mechanical DVT prophylaxis. Mobilise patient w/assistance. Physical Therapy eval & tx. Repeat CT brain in AM. Nicoderm patch QD. (Rob Sheehan) Attending Statement As above Neuro. Continue neuro checks in a serial fashion. Pulmonary. Continue aggressive pulmonary toilette, nasotracheal suction, and breathing treatments with nebulizers. Daily PT and OT Renal. Continue to monitor closely urine output, BUN and creatinine Endocrine. Continue to Monitor serial Acu checks and SSI as needed in detail ID continue to monitor for signs of infection Continue Protonix for stress ulcer prophylaxis Continue Sal hose and SCD's for DVT prophylaxis Further recommendations will be provided depending on the patient's clinical evaluation and follow up studies. The exam, history, and the medical decision-making described in the above note were completed with the assistance of the mid-level provider. I reviewed and agree with the findings presented. I attest that I had a [id number] encounter with the patient on the same day, and personally performed and documented my assessment and findings in the medical record. (Kash Aguirre MD) Rob Sheehan Feb 07, 2018 16:33 Kash Aguirre MD Feb 10, 2018 14:58
--- NOTE | 2018-02-07 17:45 | HHI.PR ---
Subjective Remarks Deferred entry, patient seen earlier at 11:20 AM. The patient denies chest pain or shortness of breath. States that still has headache however it has improved, describes it as throbbing. States felt very dizzy upon standing and trying to walk to the bathroom. Objective Vitals Vital Signs Date Time Temp Pulse Resp B/P (MAP) Pulse Ox O2 Delivery O2 Flow Rate FiO2 02/07/18 16:00 97.5 85 18 163/95 (117) 95 02/07/18 12:00 98.8 75 18 148/85 (106) 97 02/07/18 08:00 68 02/07/18 08:00 97.6 68 18 161/98 (119) 98 02/07/18 07:00 Room Air 02/07/18 04:00 77 02/07/18 04:00 Room Air 02/07/18 04:00 97.7 75 20 166/104 (124) 96 02/07/18 00:18 Room Air 02/07/18 00:00 71 02/07/18 00:00 98.0 82 20 136/99 (111) 98 02/06/18 20:00 97.7 94 19 108/18 (48) 95 02/06/18 20:00 96 I/O 02/06/18 02/06/18 02/06/18 02/07/18 02/07/18 02/07/18 07:00 15:00 23:00 07:00 15:00 23:00 Intake Total 240 ml 0 ml 1281 ml Output Total 200 ml 600 ml Balance 40 ml 0 ml 681 ml Intake Oral 240 ml 0 ml 280 ml IV Total 1001 ml Output Urine Total 200 ml 600 ml # Voids 2 2 # Bowel Movements 0 0 Result Diagram: 02/06/18 0605 02/06/18 0605 Imaging Last Impressions Head Magnetic Resonance Angiography 02/05/18 0000 Signed Impressions: Service Date/Time: Monday, February 05, 2018 01:35 - CONCLUSION: No evidence of aneurysm or vessel truncation. Jaun Albright MD Head CT 02/05/18 0000 Signed Impressions: Service Date/Time: Monday, February 05, 2018 17:04 - CONCLUSION: Abnormal pituitary unchanged from 02/05/18. This could be post posttraumatic. Kaden Leggett MD FACR Chest CT 02/05/18 0000 Signed Impressions: Service Date/Time: Monday, February 05, 2018 11:33 - CONCLUSION: 1. There is a nonspecific 1 cm nodular density/infiltrate in the right upper lung. Recommend PET/CT to evaluate for focal hypermetabolic activity. 2. There are bullous changes in both apices, right greater than left. 3. Otherwise, the rest of the CT thorax is grossly unremarkable for patient's age.. Brian Sierra MD Brain MRI 02/05/18 0000 Signed Impressions: Service Date/Time: Monday, February 05, 2018 01:35 - CONCLUSION: 1. 2 focal abnormalities on the left side, temporal tip and frontoparietal region, both exhibiting similar signal alterations that suggest late subacute hematomas. 2. Abnormal appearance to the pituitary gland with enlargement into the suprasellar cistern, T1 shortening and intermediate signal on T2 suggesting either pituitary hemorrhage or mass. 3. Left mastoid disease. Jaun Albright MD Abdomen/Pelvis CT 02/05/18 0000 Signed Impressions: Service Date/Time: Monday, February 05, 2018 11:33 - CONCLUSION: Essentially unremarkable and stable CT scan of the abdomen and pelvis compared to the prior examination of 01/28/2018. The previously noted possible thickening involving the distal esophagus is not demonstrated on today's study. No new or significant changes are demonstrated. Brian Sierra MD Objective Remarks AAox3 nad Bruises in BL thighs Clear lungs BL S1S2 RRR, no MRG abdomen is soft, nt, nt Cranial nerves II through XII grossly intact, muscle strength 5.5 in all extremities. Sensation intact in all extremities. Medications and IVs Current Medications Medications (Trade) Dose Ordered Sig/Marilyn Route Start Time Stop Time Status Last Admin (NS Flush) 2 ml UNSCH PRN IV FLUSH 02/05/18 04:15 (NS Flush) 2 ml BID IV FLUSH 02/05/18 09:00 02/06/18 21:00 (Tylenol) 650 mg Q4H PRN PO 02/05/18 04:15 02/06/18 09:20 (Zofran Inj) 4 mg Q6H PRN IVP 02/05/18 04:15 02/06/18 18:40 (Narcan Inj) 0.4 mg UNSCH PRN IV PUSH 02/05/18 04:15 Thiamine HCl 100 mg/Sodium Chloride 101 ml @ 100 mls/hr Q24H IV 02/05/18 06:15 02/08/18 06:14 02/07/18 05:02 (Romazicon Inj) 0.2 mg Q1M PRN IV PUSH 02/05/18 04:15 (Ativan) 1 mg Q4H PRN PO 02/05/18 04:15 02/07/18 09:57 (Ativan Inj) 1 mg Q4H PRN IV PUSH 02/05/18 04:15 (Ativan) 2 mg Q2H PRN PO 02/05/18 04:15 02/05/18 21:38 (Ativan Inj) 2 mg Q2H PRN IV PUSH 02/05/18 04:15 02/05/18 05:09 (Ativan Inj) 2 mg Q1H PRN IV PUSH 02/05/18 04:15 02/05/18 10:52 (Ativan Inj) 2 mg Q15M PRN IV PUSH 02/05/18 04:15 (Haldol Inj) 2 mg Q15M PRN IM 02/05/18 04:15 (Keppra) 500 mg BID PO 02/05/18 09:00 02/07/18 09:23 (Protonix) 40 mg BID PO 02/05/18 09:00 02/07/18 09:23 Sodium Chloride 1,000 ml @ 80 mls/hr [id number] IV 02/05/18 05:00 02/07/18 07:00 (Catapres) 0.1 mg Q6H PRN PO 02/05/18 16:15 02/07/18 03:42 ([place] 5-325 Mg) 1 tab Q4H PRN PO 02/06/18 16:30 ([place] 5-325 Mg) 2 tab Q4H PRN PO 02/06/18 16:30 02/07/18 13:56 (Pneumovax-23 Inj) 25 mcg ONCE ONCE IM 02/08/18 10:00 02/08/18 10:01 (Flu (Quadrivalent) Vaccine Inj) 0.5 ml ONCE ONCE IM 02/08/18 10:00 02/08/18 10:01 (Habitrol 14 Mg Patch.24 Hr) 1 patch DAILY T-DERMAL 3/22/18 09:00 Miscellaneous Information 1 HS T-DERMAL 02/07/18 21:00 A/P Problem List: (1) Syncope ICD Code: R55 - Syncope and collapse Status: Acute (2) Subdural hematoma ICD Code: I62.00 - Nontraumatic subdural hemorrhage, unspecified Status: Acute (3) Alcohol abuse ICD Code: F10.10 - Alcohol abuse, uncomplicated (4) Seizure disorder ICD Code: G40.909 - Epilepsy, unspecified, not intractable, without status epilepticus (5) Chronic pain ICD Code: G89.29 - Other chronic pain (6) HTN (hypertension) ICD Code: I10 - Essential (primary) hypertension (7) Concussion ICD Code: S06.0X9A - Concussion with loss of consciousness of unspecified duration, initial encounter Plan: Patient suffered a concussion from traumatic injury after syncopal episode. Continue with [place] for headaches. Continue to monitor neurological status. (8) Abnormal chest CT ICD Code: R93.8 - Abnormal findings on diagnostic imaging of other specified body structures Plan: CT abdomen and pelvis and CT of the chest were obtained to look for neoplasm. CT abdomen and pelvis is unremarkable as described above. CT of the chest however reviewed by me showed a nonspecific 1 cm nodular density /infiltrate in the right upper lung. There are bullous changes in both apices, right greater than left. We will order a PET/CT scan to look for hypermetabolic activity. Assessment and Plan 1) Syncope Plan: CT of the head significant for hypodensity in the frontoparietal cortex, MRI recommended MRI brain showed 2 focal abnormalities on the left side suggestive of subacute hematomas with an abnormal appearance of the pituitary gland consistent with the pituitary hemorrhage versus mass Neurosurgery consulted, appreciate recommendations Neuro checks Seizure precautions 02/07 as part of the syncope evaluation I will order carotid Dopplers and 2D echocardiogram. (2) Subdural hematoma ICD Code: I62.00 - Nontraumatic subdural hemorrhage, unspecified Status: Acute Patient states he hit his head on the floor when he passed out. Neurosurgery following. Follow-up recommendations. 02/[address] of the brain without IV contrast in a.m. (3) Alcohol abuse Plan: Thiamine CIWA protocol Monitor for signs of withdrawal -no evidence of alcohol withdrawal now. (4) Seizure disorder 02/06 no evidence of seizure disorder. Continue Keppra 500 mg p.o. twice daily. (5) Chronic pain Plan: The patient states that he sees a pain management doctor as an outpatient. Patient is not complaining of pain in the back and lower extremities. Continue [place]. (6) HTN (hypertension) Plan: The patient now has severe elevated blood pressure with a systolic blood pressure in the 180s. This could be secondary to pain I will resume home pain medications. I will also start on clonidine 0.1 mg p.o. every 6 hours as needed as needed for systolic blood pressure more than 160. 02/06 blood pressure still seems to be severely elevated in the 160s. Continue clonidine as needed. Will resume home [place]. 02/07 blood pressure still elevated. Start the patient on amlodipine 5 mg p.o. daily since systolic blood pressure has been severely elevated in the 160 systolic. Continue clonidine as needed. DVT prophylaxis: SCDs, no chemoprophylaxis given subdural hematomas. Discharge Planning Continue to monitor on the medical floor. Needs neurosurgery clearance. Problem Qualifiers (1) Syncope: Qualified Codes: R55 - Syncope and collapse (2) Chronic pain: Qualified Codes: G89.4 - Chronic pain syndrome (3) HTN (hypertension): Qualified Codes: I10 - Essential (primary) hypertension (4) Concussion: Eliceo Suggs MD Feb 07, 2018 17:45
[2018-02-07] MEDS: ONDANSETRON HCL 4 MG/2 ML VIAL IVP PRN (18:11)
[2018-02-07 20:00] VITALS: BP 158/104; PULSE 79; PULSE 88; RESP 18; TEMP 98; O2SAT 98
[2018-02-07] MEDS: REMOVE OLD PATCH T-DERMAL SCH (21:00)
--- NOTE | 2018-02-07 23:41 | RADRPT ---
EXAM DATE/TIME: 02/07/2018 22:21 [facility] COMPARISON: No previous studies available for comparison. INDICATIONS : Syncope. MEDICAL HISTORY : Seizures. Migraines. COPD. Dyspnea. Carcinoma, stomach. Gastritis. Sciatica. Hypoglycemia. GERD. Depr ession. Anxiety. SURGICAL HISTORY : Stomach hole cauterization. Blood transfusions. ENCOUNTER: Initial ACUITY: 1 day PAIN SCORE: 1/10 LOCATION: Bilateral neck PEAK SYSTOLIC VELOCITIES (cm/sec): ICA/CCA RATIO: Right: 1.3 Left: 1.0 ICA: Right: 99 Left: 103 CCA: Right: 74 Left: 110 ECA: Right: 84 Left: 126 VERTEBRAL: Right: 62 antegrade Left: 57 antegrade Elevated flow velocities and ICA/CCA ratios have been found to correlate with increased degrees of vessel stenosis, calculated as percentage of diameter relative to a normal segment of distal ICA/CCA FINDINGS: RIGHT CAROTID: Mild calcified plaque in the carotid bulb and proximal internal carotid artery. The waveforms are wi thin normal limits. LEFT CAROTID: Mild calcified plaque in the carotid bulb. The waveforms are within normal limits. VERTEBRAL ARTERIES: Antegrade flow is seen in both vertebral arteries. MISCELLANEOUS: None. CONCLUSION: Bilateral carotid plaque with hemodynamic parameters characteristic of less than 50% stenosis. Jaun Albright MD on February 07, 2018 at 23:38 Board Certified Radiologist. This report was verified electronically.
[2018-02-08] VITALS (7 sets, daily range): BP systolic 138–160; BP diastolic 87–104; PULSE 63–81; RESP 16–18; TEMP 97.2–98.1; O2SAT 97–99
[2018-02-08] MEDS: LORazepam 1 MG TAB PO PRN ×2 (01:47→06:09)
[2018-02-08] MEDS: ACETAMINOPHEN/HYDROcodone 325 MG/5 MG TAB PO PRN ×6 (01:47→22:42)
[2018-02-08] MEDS: cloNIDine HCL 0.1 MG TAB PO PRN ×2 (01:47→09:42)
[2018-02-08] MEDS: ONDANSETRON HCL 4 MG/2 ML VIAL IVP PRN ×3 (06:38→15:55)
[2018-02-08] MEDS: SODIUM CHLOR 0.9% 1000 ML INJ 1,000 ML IV SCH ×2 (08:00→21:04)
--- NOTE | 2018-02-08 09:17 | RADRPT ---
EXAM DATE/TIME: 02/08/2018 08:37 [facility] COMPARISON: MRI BRAIN W & W/O CONTRAST, February 05, 2018, 1:35. CT BRAIN W/O CONTRAST, February 05, 2018, 17:04. INDICATIONS : Follow uup subdural hematoma. RADIATION DOSE: 35.55 CTDIvol (mGy) MEDICAL HISTORY : Chronic obstructive pulmonary disease. Seizures. SURGICAL HISTORY : None. ENCOUNTER: Subsequent ACUITY: 3 days PAIN SCALE: 0/10 LOCATION: cranial TECHNIQUE: Multiple contiguous axial images were obtained of the head. Using automated exposure control and adj ustment of the mA and/or kV according to patient size, radiation dose was kept as low as reasonably a chievable to obtain optimal diagnostic quality images. DICOM format image data is available electro nically for review and comparison. FINDINGS: Evolving contusion in the anterior left temporal region and in the posterior floor of the left anteri or cranial fossa are noted. 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 No new acute findings are prese nt. CONCLUSION: Evolving left frontal and temporal parenchymal injuries. Pituitary mass. Sebastien Reed MD on February 08, 2018 at 9:11 Board Certified Radiologist. This report was verified electronically.
[2018-02-08] MEDS: PANTOPRAZOLE SOD 40 MG DELAYED RELEASE TAB PO SCH ×2 (09:43→21:03)
[2018-02-08] MEDS: levETIRAcetam 500 MG TAB PO SCH ×2 (09:43→21:03)
[2018-02-08] MEDS: SODIUM CHLORIDE 0.9% FLUSH 10 ML FLUSH IV FLUSH SCH ×2 (09:43→21:00)
[2018-02-08] MEDS: NICOTINE 14 MG/24 HR PATCH T-DERMAL SCH (09:44)
[2018-02-08] MEDS ORDERED: INFLUENZA VIRUS VACCINE (QUADRIVALENT) 0.5 ML SYR IM ONE (10:00)
[2018-02-08] MEDS ORDERED: PNEUMOCOCCAL POLYVALENT INJ 25 MCG/0.5 ML SYR IM ONE (10:00)
--- NOTE | 2018-02-08 14:19 | HHI.PR ---
Subjective Remarks still c/o headache and dizziness. Denies cp/sob Objective Vitals Vital Signs Date Time Temp Pulse Resp B/P (MAP) Pulse Ox O2 Delivery O2 Flow Rate FiO2 02/08/18 12:00 97.8 81 18 138/94 (109) 99 02/08/18 08:00 97.3 71 18 150/95 (113) 97 02/08/18 04:00 Room Air 02/08/18 04:00 97.2 63 18 160/104 (122) 97 02/08/18 04:00 65 02/08/18 00:00 97.8 75 18 160/102 (121) 97 02/08/18 00:00 72 02/08/18 00:00 Room Air 02/07/18 20:00 Room Air 02/07/18 20:00 79 02/07/18 20:00 98.0 88 18 158/104 (122) 98 02/07/18 16:00 97.5 85 18 163/95 (117) 95 02/07/18 16:00 75 I/O 02/07/18 02/07/18 02/07/18 02/08/18 02/08/18 02/08/18 07:00 15:00 23:00 07:00 15:00 23:00 Intake Total 1281 ml 2560 ml 701 ml Output Total 600 ml Balance 681 ml 2560 ml 701 ml Intake Oral 280 ml 600 ml IV Total 1001 ml 1960 ml 701 ml Output Urine Total 600 ml # Voids 4 # Bowel Movements 0 Result Diagram: 02/06/18 0605 02/06/18 0605 Objective Remarks AAox3 nad Bruises in BL thighs Clear lungs BL S1S2 RRR, no MRG abdomen is soft, nt, nt Cranial nerves II through XII grossly intact, muscle strength 5.5 in all extremities. Sensation intact in all extremities. Medications and IVs Current Medications Medications (Trade) Dose Ordered Sig/Marilyn Route Start Time Stop Time Status Last Admin (NS Flush) 2 ml UNSCH PRN IV FLUSH 02/05/18 04:15 (NS Flush) 2 ml BID IV FLUSH 02/05/18 09:00 02/08/18 09:43 (Tylenol) 650 mg Q4H PRN PO 02/05/18 04:15 02/06/18 09:20 (Zofran Inj) 4 mg Q6H PRN IVP 02/05/18 04:15 02/08/18 15:55 (Narcan Inj) 0.4 mg UNSCH PRN IV PUSH 02/05/18 04:15 (Romazicon Inj) 0.2 mg Q1M PRN IV PUSH 02/05/18 04:15 (Ativan) 1 mg Q4H PRN PO 02/05/18 04:15 02/08/18 06:09 (Ativan Inj) 1 mg Q4H PRN IV PUSH 02/05/18 04:15 (Ativan) 2 mg Q2H PRN PO 02/05/18 04:15 02/05/18 21:38 (Ativan Inj) 2 mg Q2H PRN IV PUSH 02/05/18 04:15 02/05/18 05:09 (Ativan Inj) 2 mg Q1H PRN IV PUSH 02/05/18 04:15 02/05/18 10:52 (Ativan Inj) 2 mg Q15M PRN IV PUSH 02/05/18 04:15 (Haldol Inj) 2 mg Q15M PRN IM 02/05/18 04:15 (Keppra) 500 mg BID PO 02/05/18 09:00 02/08/18 21:03 (Protonix) 40 mg BID PO 02/05/18 09:00 02/08/18 21:03 Sodium Chloride 1,000 ml @ 80 mls/hr [id number] IV 02/05/18 05:00 02/08/18 21:04 (Catapres) 0.1 mg Q6H PRN PO 02/05/18 16:15 02/08/18 09:42 ([place] 5-325 Mg) 1 tab Q4H PRN PO 02/06/18 16:30 ([place] 5-325 Mg) 2 tab Q4H PRN PO 02/06/18 16:30 02/08/18 22:42 (Habitrol 14 Mg Patch.24 Hr) 1 patch DAILY T-DERMAL 02/08/18 09:00 02/08/18 09:44 Miscellaneous Information 1 HS T-DERMAL 02/07/18 21:00 02/08/18 21:06 A/P Problem List: (1) Syncope ICD Code: R55 - Syncope and collapse Status: Acute (2) Subdural hematoma ICD Code: I62.00 - Nontraumatic subdural hemorrhage, unspecified Status: Acute (3) Alcohol abuse ICD Code: F10.10 - Alcohol abuse, uncomplicated (4) Seizure disorder ICD Code: G40.909 - Epilepsy, unspecified, not intractable, without status epilepticus (5) Chronic pain ICD Code: G89.29 - Other chronic pain (6) HTN (hypertension) ICD Code: I10 - Essential (primary) hypertension (7) Concussion ICD Code: S06.0X9A - Concussion with loss of consciousness of unspecified duration, initial encounter Plan: Patient suffered a concussion from traumatic injury after syncopal episode. Continue with [place] for headaches. Continue to monitor neurological status. (8) Abnormal chest CT ICD Code: R93.8 - Abnormal findings on diagnostic imaging of other specified body structures Plan: CT abdomen and pelvis and CT of the chest were obtained to look for neoplasm. CT abdomen and pelvis is unremarkable as described above. CT of the chest however reviewed by me showed a nonspecific 1 cm nodular density /infiltrate in the right upper lung. There are bullous changes in both apices, right greater than left. 02/08 PET scan not available at this institution. Patient will need to have it as an outpatient. Assessment and Plan 1) Syncope Plan: CT of the head significant for hypodensity in the frontoparietal cortex, MRI recommended MRI brain showed 2 focal abnormalities on the left side suggestive of subacute hematomas with an abnormal appearance of the pituitary gland consistent with the pituitary hemorrhage versus mass Neurosurgery consulted, appreciate recommendations Neuro checks Seizure precautions 02/07 as part of the syncope evaluation I will order carotid Dopplers and 2D echocardiogram. 02/08 BL carotids with plaques with less than 50% stenosis. 2D echo with normal ef 60 - 65% and trace TR. (2) Subdural hematoma ICD Code: I62.00 - Nontraumatic subdural hemorrhage, unspecified Status: Acute Patient states he hit his head on the floor when he passed out. Neurosurgery following. Follow-up recommendations. 02/[address] of the brain without IV contrast in a.m. 02/[address] shows evolving left frontal and temporal parenchymal injuries. (3) Alcohol abuse Plan: Thiamine [place] protocol Monitor for signs of withdrawal -no evidence of alcohol withdrawal now. (4) Seizure disorder 02/06 no evidence of seizure disorder. Continue Keppra 500 mg p.o. twice daily. (5) Chronic pain Plan: The patient states that he sees a pain management doctor as an outpatient. Patient is not complaining of pain in the back and lower extremities. Continue [place]. (6) HTN (hypertension) Plan: The patient now has severe elevated blood pressure with a systolic blood pressure in the 180s. This could be secondary to pain I will resume home pain medications. I will also start on clonidine 0.1 mg p.o. every 6 hours as needed as needed for systolic blood pressure more than 160. 02/06 blood pressure still seems to be severely elevated in the 160s. Continue clonidine as needed. Will resume home [place]. 02/08 blood pressure still elevated. Start the patient on amlodipine 5 mg p.o. daily since systolic blood pressure has been severely elevated in the 160 systolic. Continue clonidine as needed. DVT prophylaxis: SCDs, no chemoprophylaxis given subdural hematomas. Discharge Planning Continue to monitor on the medical floor. Needs neurosurgery clearance. Problem Qualifiers (1) Syncope: Qualified Codes: R55 - Syncope and collapse (2) Chronic pain: Qualified Codes: G89.4 - Chronic pain syndrome (3) HTN (hypertension): Qualified Codes: I10 - Essential (primary) hypertension (4) Concussion: Eliceo Suggs MD Feb 08, 2018 14:19
--- NOTE | 2018-02-08 14:58 | ECHRPT ---
Indication: Syncope CONCLUSIONS Normal left ventricular size. Wall thickness is normal. The left ventricular systolic function is normal with an estimated ejection fraction in the range of 60-65%. Trace mitral valve regurgitation. There is trace tricuspid valve regurgitation. BP: 160 / 104 HR: 65 Rhythm: MEASUREMENTS (Male / Female) Normal Values Technical Quality:Good 2D ECHO LV Diastolic Diameter PLAX 4.5 cm 4.2 - 5.9 / 3.9 - 5.3 cm LV Systolic Diameter PLAX 3.2 cm IVS Diastolic Thickness 1.0 cm 0.6 - 1.0 / 0.6 - 0.9 cm LVPW Diastolic Thickness 0.8 cm 0.6 - 1.0 / 0.6 - 0.9 cm LV Relative Wall Thickness 0.4 M-MODE Aortic Root Diameter MM 3.6 cm AV Cusp Separation MM 1.9 cm DOPPLER Mitral E Point Velocity 70.6 cm/s Mitral A Point Velocity 71.1 cm/s Mitral E to A Ratio 1.0 TR Peak Velocity 231.0 cm/s TR Peak Gradient 21.3 mmHg FINDINGS LEFT VENTRICLE Normal left ventricular size. Wall thickness is normal. The left ventricular systolic function is normal with an estimated ejection fraction in the range of 60-65%. RIGHT VENTRICLE Normal right ventricular size and systolic function. LEFT ATRIUM The left atrial size is normal. RIGHT ATRIUM The right atrial size is normal. ATRIAL SEPTUM Normal atrial septal thickness without atrial level shunting by limited color doppler interrogation. AORTA The aortic root and proximal ascending aorta are normal in size on limited imaging. MITRAL VALVE Trace mitral valve regurgitation. AORTIC VALVE Trileaflet aortic valve. No aortic valve stenosis or regurgitation. TRICUSPID VALVE There is trace tricuspid valve regurgitation. PULMONARY VALVE The pulmonary valve is not well visualized. VESSELS The inferior vena cava is normal in size. PERICARDIUM No pericardial effusion. Shen Pittman MD, FACC, [facility] [place] (Electronically Signed) Final Date:08 February 2018 14:58
[2018-02-08] MEDS: REMOVE OLD PATCH T-DERMAL SCH (21:06)
[2018-02-09] VITALS (11 sets, daily range): BP systolic 145–194; BP diastolic 87–94; PULSE 60–73; RESP 16–19; TEMP 97.5–98.5; O2SAT 97–99
[2018-02-09] MEDS: ACETAMINOPHEN/HYDROcodone 325 MG/5 MG TAB PO PRN ×6 (02:49→22:49)
[2018-02-09] MEDS ORDERED: amLODIPine BESYLATE 5 MG TAB PO SCH (09:00)
[2018-02-09] MEDS: levETIRAcetam 500 MG TAB PO SCH ×2 (09:10→21:32)
[2018-02-09] MEDS: PANTOPRAZOLE SOD 40 MG DELAYED RELEASE TAB PO SCH ×2 (09:10→21:32)
[2018-02-09] MEDS: cloNIDine HCL 0.1 MG TAB PO PRN (09:10)
[2018-02-09] MEDS: NICOTINE 14 MG/24 HR PATCH T-DERMAL SCH (09:10)
[2018-02-09] MEDS: SODIUM CHLORIDE 0.9% FLUSH 10 ML FLUSH IV FLUSH SCH ×2 (09:11→21:33)
[2018-02-09] MEDS: ONDANSETRON HCL 4 MG/2 ML VIAL IVP PRN ×2 (09:17→18:23)
[2018-02-09] MEDS ORDERED: amLODIPine BESYLATE 5 MG TAB PO ONE (11:45)
[2018-02-09] MEDS ORDERED: KETOROLAC TROMETHAMINE 10 MG TAB PO PRN (11:45)
[2018-02-09] MEDS: LISINOPRIL 20 MG TAB PO SCH (12:03)
[2018-02-09] MEDS ORDERED: MORPHINE SULFATE 4 MG/ML INJ IV PUSH ONE (12:15)
--- NOTE | 2018-02-09 17:11 | HHI.NSPN ---
History Chief Complaint: Headache and dizziness Interval History Patient reports severe headache on the right side of the head. Feels it was due to elevated blood pressure at 193/103. He was given medication to lower his blood pressure now feels improved. Denies any other issues. Reports she walked to the bathroom with physical therapy with a walker. System Review Comments No change Exam Results Vital Signs Date Time Temp Pulse Resp B/P (MAP) Pulse Ox O2 Delivery O2 Flow Rate FiO2 02/09/18 12:06 66 02/09/18 12:00 99 Nasal Cannula 02/09/18 12:00 97.5 18 154/89 (110) Intake and Output 02/09/18 02/09/18 02/10/18 08:00 16:00 00:00 Intake Total 1095 ml Output Total 1200 ml Balance -105 ml Physical Examination Alert and awake. Sitting in bed. Follows commands well. Fluent speech. Oriented 3. Moves all extremities well Lab, Micro, Other Results Previous MRI and CT reviewed Medical Decision Making Impression and Plan Patient appears stable and somewhat improved. Plan as per Dr. López. Continue neurological observation Erwin Wilburn MD Feb 09, 2018 17:11
--- NOTE | 2018-02-09 17:42 | HHI.PR ---
Subjective Remarks Deferred entry, the patient seen earlier at 11:30 AM. The patient states that he is still experiencing throbbing frontal headache which does not allow him to sleep well at night. The patient states he did not sleep much last night. Nursing reported blood patient with severely elevated blood pressure in the 190 systolic. Patient is a febrile. Denies nausea vomiting, double vision, blurry vision. Objective Vitals Vital Signs Date Time Temp Pulse Resp B/P (MAP) Pulse Ox O2 Delivery O2 Flow Rate FiO2 02/09/18 12:06 66 02/09/18 12:00 99 Nasal Cannula 02/09/18 12:00 97.5 64 18 154/89 (110) 99 02/09/18 08:00 97.6 63 18 194/94 (127) 98 02/09/18 08:00 98 Room Air 02/09/18 07:58 73 02/09/18 04:00 64 02/09/18 03:44 97.7 60 16 152/87 (108) 98 02/09/18 00:35 98.5 70 16 157/92 (113) 98 02/09/18 00:01 70 02/08/18 21:00 98.1 76 16 153/87 (109) 97 02/08/18 20:34 72 02/08/18 19:00 Room Air I/O 02/08/18 02/08/18 02/08/18 02/09/18 02/09/18 02/09/18 07:00 15:00 23:00 07:00 15:00 23:00 Intake Total 701 ml 1096 ml 1095 ml Output Total 960 ml 1200 ml Balance 701 ml 136 ml -105 ml Intake Oral 1096 ml 480 ml IV Total 701 ml 615 ml Output Urine Total 960 ml 1200 ml # Bowel Movements 1 1 0 Result Diagram: 02/06/18 0605 02/06/18 0605 Imaging Last [address] 02/08/18 0600 Signed Impressions: Service Date/Time: January 08:37 - CONCLUSION: Evolving left frontal and temporal parenchymal injuries. Pituitary mass. Sebastien Reed MD Carotid Artery Ultrasound 02/07/18 0000 Signed Impressions: Service Date/Time: Wednesday, February 07, 2018 22:21 - CONCLUSION: Bilateral carotid plaque with hemodynamic parameters characteristic of less than 50%% stenosis. Jaun Albright MD Objective Remarks AAox3 nad Bruises in BL thighs Clear lungs BL S1S2 RRR, no MRG abdomen is soft, nt, nt Cranial nerves II through XII grossly intact, muscle strength 5.5 in all extremities. Sensation intact in all extremities. Procedures None Medications and IVs Current Medications Medications (Trade) Dose Ordered Sig/Marilyn Route Start Time Stop Time Status Last Admin (NS Flush) 2 ml UNSCH PRN IV FLUSH 02/05/18 04:15 (NS Flush) 2 ml BID IV FLUSH 02/05/18 09:00 02/09/18 09:11 (Tylenol) 650 mg Q4H PRN PO 02/05/18 04:15 02/06/18 09:20 (Zofran Inj) 4 mg Q6H PRN IVP 02/05/18 04:15 02/09/18 09:17 (Narcan Inj) 0.4 mg UNSCH PRN IV PUSH 02/05/18 04:15 (Romazicon Inj) 0.2 mg Q1M PRN IV PUSH 02/05/18 04:15 (Ativan) 1 mg Q4H PRN PO 02/05/18 04:15 02/08/18 06:09 (Ativan Inj) 1 mg Q4H PRN IV PUSH 02/05/18 04:15 (Ativan) 2 mg Q2H PRN PO 02/05/18 04:15 02/05/18 21:38 (Ativan Inj) 2 mg Q2H PRN IV PUSH 02/05/18 04:15 02/05/18 05:09 (Ativan Inj) 2 mg Q1H PRN IV PUSH 02/05/18 04:15 02/05/18 10:52 (Ativan Inj) 2 mg Q15M PRN IV PUSH 02/05/18 04:15 (Haldol Inj) 2 mg Q15M PRN IM 02/05/18 04:15 (Keppra) 500 mg BID PO 02/05/18 09:00 02/09/18 09:10 (Protonix) 40 mg BID PO 02/05/18 09:00 02/09/18 09:10 (Catapres) 0.1 mg Q6H PRN PO 02/05/18 16:15 02/09/18 09:10 ([place] 5-325 Mg) 1 tab Q4H PRN PO 02/06/18 16:30 ([place] 5-325 Mg) 2 tab Q4H PRN PO 02/06/18 16:30 02/09/18 14:24 (Habitrol 14 Mg Patch.24 Hr) 1 patch DAILY T-DERMAL 02/08/18 09:00 02/09/18 09:10 Miscellaneous Information 1 HS T-DERMAL 02/07/18 21:00 02/08/18 21:06 (Norvasc) 10 mg DAILY PO 02/10/18 09:00 (Prinivil) 20 mg DAILY PO 02/09/18 12:00 02/09/18 12:03 A/P Problem List: (1) Syncope ICD Code: R55 - Syncope and collapse Status: Acute (2) Subdural hematoma ICD Code: I62.00 - Nontraumatic subdural hemorrhage, unspecified Status: Acute (3) Alcohol abuse ICD Code: F10.10 - Alcohol abuse, uncomplicated (4) Seizure disorder ICD Code: G40.909 - Epilepsy, unspecified, not intractable, without status epilepticus (5) Chronic pain ICD Code: G89.29 - Other chronic pain (6) HTN (hypertension) ICD Code: I10 - Essential (primary) hypertension (7) Concussion ICD Code: S06.0X9A - Concussion with loss of consciousness of unspecified duration, initial encounter Plan: Patient suffered a concussion from traumatic injury after syncopal episode. Continue with [place] for headaches. Continue to monitor neurological status. 02/09 and ketorolac for headaches. Patient still with pounding headaches and some dizziness which is improving slowly. (8) Abnormal chest CT ICD Code: R93.8 - Abnormal findings on diagnostic imaging of other specified body structures Plan: CT abdomen and pelvis and CT of the chest were obtained to look for neoplasm. CT abdomen and pelvis is unremarkable as described above. CT of the chest however reviewed by me showed a nonspecific 1 cm nodular density /infiltrate in the right upper lung. There are bullous changes in both apices, right greater than left. 02/08 PET scan not available at this institution. Patient will need to have it as an outpatient. Assessment and Plan 1) Syncope Plan: CT of the head significant for hypodensity in the frontoparietal cortex, MRI recommended MRI brain showed 2 focal abnormalities on the left side suggestive of subacute hematomas with an abnormal appearance of the pituitary gland consistent with the pituitary hemorrhage versus mass Neurosurgery consulted, appreciate recommendations Neuro checks Seizure precautions 02/07 as part of the syncope evaluation I will order carotid Dopplers and 2D echocardiogram. 02/08 BL carotids with plaques with less than 50% stenosis. 2D echo with normal ef 60 - 65% and trace TR. (2) Subdural hematoma ICD Code: I62.00 - Nontraumatic subdural hemorrhage, unspecified Status: Acute Patient states he hit his head on the floor when he passed out. Neurosurgery following. Follow-up recommendations. 02/[address] of the brain without IV contrast in a.m. 02/[address] shows evolving left frontal and temporal parenchymal injuries. 02/09 continue management of subdural hematoma as per neurosurgery recommendations. (3) Alcohol abuse Plan: Thiamine [facility] protocol Monitor for signs of withdrawal -no evidence of alcohol withdrawal now. (4) Seizure disorder 02/06 no evidence of seizure disorder. Continue Keppra 500 mg p.o. twice daily. (5) Chronic pain Plan: The patient states that he sees a pain management doctor as an outpatient. Patient is not complaining of pain in the back and lower extremities. Continue [place]. (6) HTN (hypertension) Plan: The patient now has severe elevated blood pressure with a systolic blood pressure in the 180s. This could be secondary to pain I will resume home pain medications. I will also start on clonidine 0.1 mg p.o. every 6 hours as needed as needed for systolic blood pressure more than 160. 02/06 blood pressure still seems to be severely elevated in the 160s. Continue clonidine as needed. Will resume home [place]. 02/08 blood pressure still elevated. Start the patient on amlodipine 5 mg p.o. daily since systolic blood pressure has been severely elevated in the 160 systolic. Continue clonidine as needed. 02/09 blood pressure severely elevated with a systolic blood pressure in the 190s. Likely secondary to intracranial hemorrhage as well as headache. I will give 1 dose of 4 mg of IV morphine and start the patient on ketorolac. 10 mg p.o. every 6 hours for pain control. I will also increase amlodipine to 10 mg p.o. daily and start the patient on lisinopril 20 mg p.o. daily. Continue to monitor vital signs. DVT prophylaxis: SCDs, no chemoprophylaxis given subdural hematomas. Discharge Planning Continue to monitor on the medical floor. Needs neurosurgery clearance. Problem Qualifiers (1) Syncope: Qualified Codes: R55 - Syncope and collapse (2) Chronic pain: Qualified Codes: G89.4 - Chronic pain syndrome (3) HTN (hypertension): Qualified Codes: I10 - Essential (primary) hypertension (4) Concussion: Eliceo Suggs MD Feb 09, 2018 17:42
[2018-02-09] MEDS: REMOVE OLD PATCH T-DERMAL SCH (21:33)
[2018-02-10] VITALS (10 sets, daily range): BP systolic 117–160; BP diastolic 78–91; PULSE 54–97; RESP 18–20; TEMP 97.4–98.1; O2SAT 96–100
[2018-02-10] MEDS: ACETAMINOPHEN/HYDROcodone 325 MG/5 MG TAB PO PRN ×6 (02:52→23:34)
[2018-02-10] MEDS: ONDANSETRON HCL 4 MG/2 ML VIAL IVP PRN ×3 (03:17→19:13)
[2018-02-10 10:08] LABS: HEMATOCRIT 31.8 % (39.0-51.0); HEMOGLOBIN 11.1 GM/DL (13.0-17.0); MEAN CELL VOLUME 105.3 FL (80.0-100.0); MEAN CORPUSCULAR HEMOGLOBIN 36.6 PG (27.0-34.0); MEAN CORPUSCULAR HGB CONC 34.8 % (32.0-36.0); MEAN PLATELET VOLUME 7.9 FL (7.0-11.0); PLATELET COUNT 269 TH/MM3 (150-450); RED BLOOD COUNT 3.02 MIL/MM3 (4.50-5.90); RED CELL DISTRIBUTION WIDTH 12.7 % (11.6-17.2); WHITE BLOOD COUNT 4.3 TH/MM3 (4.0-11.0)
[2018-02-10 10:21] LABS: BICARBONATE 27.2 MEQ/L (21.0-32.0); CALCIUM 8.2 MG/DL (8.5-10.1); CREATININE 0.7 MG/DL (0.60-1.30); MAGNESIUM 1.8 MG/DL (1.5-2.5); PHOSPHORUS 3.7 MG/DL (2.5-4.9)
[2018-02-10] MEDS: levETIRAcetam 500 MG TAB PO SCH ×2 (10:33→20:24)
[2018-02-10] MEDS: PANTOPRAZOLE SOD 40 MG DELAYED RELEASE TAB PO SCH ×2 (10:33→20:24)
[2018-02-10] MEDS: LISINOPRIL 20 MG TAB PO SCH (10:33)
[2018-02-10] MEDS: SODIUM CHLORIDE 0.9% FLUSH 10 ML FLUSH IV FLUSH SCH ×2 (10:34→20:24)
[2018-02-10] MEDS: NICOTINE 14 MG/24 HR PATCH T-DERMAL SCH (10:36)
[2018-02-10] MEDS ORDERED: MECLIZINE HCL 25 MG TAB PO ONE (13:00)
[2018-02-10] MEDS ORDERED: POLYETHYLENE GLYCOL 17 GM PKG PO ONE (13:00)
[2018-02-10] MEDS ORDERED: PROCHLORPERAZINE INJ 10 MG/2 ML VIAL IV PUSH ONE (13:00)
--- NOTE | 2018-02-10 15:06 | HHI.PR ---
Subjective Remarks The patient was initially sleeping I entered the room. I had to wake him up. Patient complains of headache which he states is 9/10 in intensity. Patient also complained of dizziness. The patient complaint after I saw the patient with nausea. RN states that patient was very nauseous and was given IV Zofran earlier today. The patient is afebrile. Objective Vitals Vital Signs Date Time Temp Pulse Resp B/P (MAP) Pulse Ox O2 Delivery O2 Flow Rate FiO2 02/10/18 08:00 97.6 61 20 139/79 (99) 98 02/10/18 08:00 57 02/10/18 04:15 54 02/10/18 04:00 97.4 61 18 143/82 (102) 97 02/10/18 00:03 62 02/10/18 00:00 96 Room Air 02/10/18 00:00 97.7 67 18 129/78 (95) 96 02/09/18 20:00 97.6 63 17 155/87 (109) 97 02/09/18 19:59 68 02/09/18 19:00 97 Room Air 02/09/18 16:00 97.9 67 19 145/87 (106) 99 I/O 02/09/18 02/09/18 02/09/18 02/10/18 02/10/18 02/10/18 07:00 15:00 23:00 07:00 15:00 23:00 Intake Total 1095 ml 1300 ml 240 ml Output Total 1200 ml 2750 ml 1450 ml Balance -105 ml -1450 ml -1210 ml Intake Oral 480 ml 1300 ml 240 ml IV Total 615 ml Output Urine Total 1200 ml 2750 ml 1450 ml # Voids 2 # Bowel Movements 0 0 Result Diagram: 02/10/18 0917 02/10/18 0917 Imaging Last Impressions Head CT 02/08/18 0600 Signed Impressions: Service Date/Time: January 08:37 - CONCLUSION: Evolving left frontal and temporal parenchymal injuries. Pituitary mass. Sebastien Reed MD Carotid Artery Ultrasound 02/07/18 0000 Signed Impressions: Service Date/Time: Wednesday, February 07, 2018 22:21 - CONCLUSION: Bilateral carotid plaque with hemodynamic parameters characteristic of less than 50%% stenosis. Jaun Albright MD Head Magnetic Resonance Angiography 02/05/18 0000 Signed Impressions: Service Date/Time: Monday, February 05, 2018 01:35 - CONCLUSION: No evidence of aneurysm or vessel truncation. Jaun Albright MD Chest CT 02/05/18 0000 Signed Impressions: Service Date/Time: Monday, February 05, 2018 11:33 - CONCLUSION: 1. There is a nonspecific 1 cm nodular density/infiltrate in the right upper lung. Recommend PET/CT to evaluate for focal hypermetabolic activity. 2. There are bullous changes in both apices, right greater than left. 3. Otherwise, the rest of the CT thorax is grossly unremarkable for patient's age.. Brian Sierra MD Brain MRI 02/05/18 0000 Signed Impressions: Service Date/Time: Monday, February 05, 2018 01:35 - CONCLUSION: 1. 2 focal abnormalities on the left side, temporal tip and frontoparietal region, both exhibiting similar signal alterations that suggest late subacute hematomas. 2. Abnormal appearance to the pituitary gland with enlargement into the suprasellar cistern, T1 shortening and intermediate signal on T2 suggesting either pituitary hemorrhage or mass. 3. Left mastoid disease. Jaun Albright MD Abdomen/Pelvis CT 02/05/18 0000 Signed Impressions: Service Date/Time: Monday, February 05, 2018 11:33 - CONCLUSION: Essentially unremarkable and stable CT scan of the abdomen and pelvis compared to the prior examination of 01/28/2018. The previously noted possible thickening involving the distal esophagus is not demonstrated on today's study. No new or significant changes are demonstrated. Brian Sierra MD Objective Remarks AAox3 nad Bruises in BL thighs Clear lungs BL S1S2 RRR, no MRG abdomen is soft, nt, nt Cranial nerves II through XII grossly intact, muscle strength 5.5 in all extremities. Sensation intact in all extremities. Procedures None Medications and IVs Current Medications Medications (Trade) Dose Ordered Sig/Marilyn Route Start Time Stop Time Status Last Admin (NS Flush) 2 ml UNSCH PRN IV FLUSH 02/05/18 04:15 (NS Flush) 2 ml BID IV FLUSH 02/05/18 09:00 02/10/18 10:34 (Tylenol) 650 mg Q4H PRN PO 02/05/18 04:15 02/06/18 09:20 (Zofran Inj) 4 mg Q6H PRN IVP 02/05/18 04:15 02/10/18 10:30 (Narcan Inj) 0.4 mg UNSCH PRN IV PUSH 02/05/18 04:15 (Romazicon Inj) 0.2 mg Q1M PRN IV PUSH 02/05/18 04:15 (Ativan) 1 mg Q4H PRN PO 02/05/18 04:15 02/08/18 06:09 (Ativan Inj) 1 mg Q4H PRN IV PUSH 02/05/18 04:15 (Ativan) 2 mg Q2H PRN PO 02/05/18 04:15 02/05/18 21:38 (Ativan Inj) 2 mg Q2H PRN IV PUSH 02/05/18 04:15 02/05/18 05:09 (Ativan Inj) 2 mg Q1H PRN IV PUSH 02/05/18 04:15 02/05/18 10:52 (Ativan Inj) 2 mg Q15M PRN IV PUSH 02/05/18 04:15 (Haldol Inj) 2 mg Q15M PRN IM 02/05/18 04:15 (Keppra) 500 mg BID PO 02/05/18 09:00 02/10/18 10:33 (Protonix) 40 mg BID PO 02/05/18 09:00 02/10/18 10:33 (Catapres) 0.1 mg Q6H PRN PO 02/05/18 16:15 02/09/18 09:10 (Ilfeld 5-325 Mg) 1 tab Q4H PRN PO 02/06/18 16:30 (Ilfeld 5-325 Mg) 2 tab Q4H PRN PO 02/06/18 16:30 02/10/18 10:33 (Habitrol 14 Mg Patch.24 Hr) 1 patch DAILY T-DERMAL 02/08/18 09:00 02/10/18 10:36 Miscellaneous Information 1 HS T-DERMAL 02/07/18 21:00 02/09/18 21:33 (Norvasc) 10 mg DAILY PO 02/10/18 09:00 02/10/18 10:33 (Prinivil) 20 mg DAILY PO 02/09/18 12:00 02/10/18 10:33 (Compazine Inj) 5 mg Q4H PRN IV PUSH 02/10/18 13:00 A/P Problem List: (1) Syncope ICD Code: R55 - Syncope and collapse Status: Acute (2) Subdural hematoma ICD Code: I62.00 - Nontraumatic subdural hemorrhage, unspecified Status: Acute (3) Alcohol abuse ICD Code: F10.10 - Alcohol abuse, uncomplicated (4) Seizure disorder ICD Code: G40.909 - Epilepsy, unspecified, not intractable, without status epilepticus (5) Chronic pain ICD Code: G89.29 - Other chronic pain (6) HTN (hypertension) ICD Code: I10 - Essential (primary) hypertension (7) Concussion ICD Code: S06.0X9A - Concussion with loss of consciousness of unspecified duration, initial encounter Plan: Patient suffered a concussion from traumatic injury after syncopal episode. Continue with Ilfeld for headaches. Continue to monitor neurological status. (8) Abnormal chest CT ICD Code: R93.8 - Abnormal findings on diagnostic imaging of other specified body structures Plan: CT abdomen and pelvis and CT of the chest were obtained to look for neoplasm. CT abdomen and pelvis is unremarkable as described above. CT of the chest however reviewed by me showed a nonspecific 1 cm nodular density /infiltrate in the right upper lung. There are bullous changes in both apices, right greater than left. 02/08 PET scan not available at this institution. Patient will need to have it as an outpatient. (9) Nausea ICD Code: R11.0 - Nausea Status: Acute Plan: The patient is nauseous despite being administered IV Zofran. I will add IV Compazine as needed for nausea. Assessment and Plan 1) Syncope Plan: CT of the head significant for hypodensity in the frontoparietal cortex, MRI recommended MRI brain showed 2 focal abnormalities on the left side suggestive of subacute hematomas with an abnormal appearance of the pituitary gland consistent with the pituitary hemorrhage versus mass Neurosurgery consulted, appreciate recommendations Neuro checks Seizure precautions 02/07 as part of the syncope evaluation I will order carotid Dopplers and 2D echocardiogram. 02/08 BL carotids with plaques with less than 50% stenosis. 2D echo with normal ef 60 - 65% and trace TR. (2) Subdural hematoma ICD Code: I62.00 - Nontraumatic subdural hemorrhage, unspecified Status: Acute Patient states he hit his head on the floor when he passed out. Neurosurgery following. Follow-up recommendations. 02/[address] of the brain without IV contrast in a.m. 02/[address] shows evolving left frontal and temporal parenchymal injuries. 02/09 continue management of subdural hematoma as per neurosurgery recommendations. (3) Alcohol abuse Plan: Thiamine [facility] protocol Monitor for signs of withdrawal -no evidence of alcohol withdrawal now. (4) Seizure disorder 02/06 no evidence of seizure disorder. Continue Keppra 500 mg p.o. twice daily. (5) Chronic pain Plan: The patient states that he sees a pain management doctor as an outpatient. Patient is not complaining of pain in the back and lower extremities. Continue Ilfeld. (6) HTN (hypertension) Plan: The patient now has severe elevated blood pressure with a systolic blood pressure in the 180s. This could be secondary to pain I will resume home pain medications. I will also start on clonidine 0.1 mg p.o. every 6 hours as needed as needed for systolic blood pressure more than 160. 02/06 blood pressure still seems to be severely elevated in the 160s. Continue clonidine as needed. Will resume home Ilfeld. 02/08 blood pressure still elevated. Start the patient on amlodipine 5 mg p.o. daily since systolic blood pressure has been severely elevated in the 160 systolic. Continue clonidine as needed. 02/09 blood pressure severely elevated with a systolic blood pressure in the 190s. Likely secondary to intracranial hemorrhage as well as headache. I will give 1 dose of 4 mg of IV morphine and start the patient on ketorolac. 10 mg p.o. every 6 hours for pain control. I will also increase amlodipine to 10 mg p.o. daily and start the patient on lisinopril 20 mg p.o. daily. Continue to monitor vital signs. 02/10 BP with improved control.. Continue amlodipine 10 mg p.o. daily, lisinopril 20 mg p.o. daily. Continue to monitor vital signs. DVT prophylaxis: SCDs, no chemoprophylaxis given subdural hematomas. Discharge Planning Continue to monitor on the medical floor. Needs neurosurgery clearance. Problem Qualifiers (1) Syncope: Qualified Codes: R55 - Syncope and collapse (2) Chronic pain: Qualified Codes: G89.4 - Chronic pain syndrome (3) HTN (hypertension): Qualified Codes: I10 - Essential (primary) hypertension (4) Concussion: Eliceo Suggs MD Feb 10, 2018 15:06
[2018-02-10] MEDS: REMOVE OLD PATCH T-DERMAL SCH (20:24)
[2018-02-10] MEDS: PROCHLORPERAZINE INJ 10 MG/2 ML VIAL IV PUSH PRN (20:25)
[2018-02-11] VITALS (9 sets, daily range): BP systolic 92–147; BP diastolic 63–79; PULSE 59–79; RESP 18–20; TEMP 97.8–98.4; O2SAT 96–99
[2018-02-11] MEDS: ACETAMINOPHEN/HYDROcodone 325 MG/5 MG TAB PO PRN ×5 (04:00→21:18)
[2018-02-11] MEDS: levETIRAcetam 500 MG TAB PO SCH ×2 (08:36→21:18)
[2018-02-11] MEDS: NICOTINE 14 MG/24 HR PATCH T-DERMAL SCH (08:36)
[2018-02-11] MEDS: LISINOPRIL 20 MG TAB PO SCH (08:36)
[2018-02-11] MEDS: PANTOPRAZOLE SOD 40 MG DELAYED RELEASE TAB PO SCH ×2 (08:37→21:18)
[2018-02-11] MEDS: PROCHLORPERAZINE INJ 10 MG/2 ML VIAL IV PUSH PRN ×3 (08:38→17:11)
[2018-02-11] MEDS: SODIUM CHLORIDE 0.9% FLUSH 10 ML FLUSH IV FLUSH SCH ×2 (08:41→21:17)
--- NOTE | 2018-02-11 12:53 | HHI.PR ---
Subjective Remarks States dizziness and headache are much improved Denies cp/sob Objective Vitals Vital Signs Date Time Temp Pulse Resp B/P (MAP) Pulse Ox O2 Delivery O2 Flow Rate FiO2 02/11/18 08:00 98.0 74 20 139/79 (99) 97 02/11/18 08:00 62 02/11/18 04:00 Room Air 02/11/18 04:00 98.4 60 20 111/73 (86) 99 02/11/18 02:39 59 02/11/18 00:00 97.8 61 20 94/63 (73) 96 02/11/18 00:00 Room Air 02/10/18 23:45 66 02/10/18 20:00 97.8 65 20 117/83 (94) 99 02/10/18 20:00 Room Air 02/10/18 19:44 67 02/10/18 16:00 Room Air 02/10/18 16:00 60 02/10/18 16:00 98.1 97 20 119/91 (100) 99 I/O 02/10/18 02/10/18 02/10/18 02/11/18 02/11/18 02/11/18 07:00 15:00 23:00 07:00 15:00 23:00 Intake Total 240 ml 0 ml Output Total 1450 ml 875 ml 600 ml Balance -1210 ml -875 ml -600 ml Intake Oral 240 ml 0 ml Output Urine Total 1450 ml 875 ml 600 ml # Bowel Movements 0 0 Result Diagram: 02/10/1891602/10/1817 Objective Remarks AAox3 nad Bruises in BL thighs Clear lungs BL S1S2 RRR, no MRG abdomen is soft, nt, nt Cranial nerves II through XII grossly intact, muscle strength 5.5 in all extremities. Sensation intact in all extremities. Procedures None Medications and IVs Current Medications Medications (Trade) Dose Ordered Sig/Marilyn Route Start Time Stop Time Status Last Admin (NS Flush) 2 ml UNSCH PRN IV FLUSH 02/05/18 04:15 (NS Flush) 2 ml BID IV FLUSH 02/05/18 09:00 02/11/18 21:17 (Tylenol) 650 mg Q4H PRN PO 02/05/18 04:15 02/06/18 09:20 (Zofran Inj) 4 mg Q6H PRN IVP 02/05/18 04:15 02/10/18 19:13 (Narcan Inj) 0.4 mg UNSCH PRN IV PUSH 02/05/18 04:15 (Romazicon Inj) 0.2 mg Q1M PRN IV PUSH 02/05/18 04:15 (Ativan) 1 mg Q4H PRN PO 02/05/18 04:15 02/08/18 06:09 (Ativan Inj) 1 mg Q4H PRN IV PUSH 02/05/18 04:15 (Ativan) 2 mg Q2H PRN PO 02/05/18 04:15 02/05/18 21:38 (Ativan Inj) 2 mg Q2H PRN IV PUSH 02/05/18 04:15 02/05/18 05:09 (Ativan Inj) 2 mg Q1H PRN IV PUSH 02/05/18 04:15 02/05/18 10:52 (Ativan Inj) 2 mg Q15M PRN IV PUSH 02/05/18 04:15 (Haldol Inj) 2 mg Q15M PRN IM 02/05/18 04:15 (Keppra) 500 mg BID PO 02/05/18 09:00 02/11/18 21:18 (Protonix) 40 mg BID PO 02/05/18 09:00 02/11/18 21:18 (Catapres) 0.1 mg Q6H PRN PO 02/05/18 16:15 02/09/18 09:10 (Latexo 5-325 Mg) 1 tab Q4H PRN PO 02/06/18 16:30 (Latexo 5-325 Mg) 2 tab Q4H PRN PO 02/06/18 16:30 02/11/18 21:18 (Habitrol 14 Mg Patch.24 Hr) 1 patch DAILY T-DERMAL 02/08/18 09:00 02/11/18 08:36 Miscellaneous Information 1 HS T-DERMAL 02/07/18 21:00 02/11/18 21:00 (Norvasc) 10 mg DAILY PO 02/10/18 09:00 02/11/18 08:36 (Compazine Inj) 5 mg Q4H PRN IV PUSH 02/10/18 13:00 02/11/18 17:11 (Varsha-Colace) 1 tab BID PO 02/11/18 21:15 02/11/18 21:23 (Milk Of Magnesia Liq) 30 ml Q12H PRN PO 02/11/18 21:15 (Senokot) 17.2 mg Q12H PRN PO 02/11/18 21:15 02/11/18 22:27 (Dulcolax Supp) 10 mg DAILY PRN RECTAL 02/11/18 21:15 A/P Problem List: (1) Syncope ICD Code: R55 - Syncope and collapse Status: Acute (2) Subdural hematoma ICD Code: I62.00 - Nontraumatic subdural hemorrhage, unspecified Status: Acute (3) Alcohol abuse ICD Code: F10.10 - Alcohol abuse, uncomplicated (4) Seizure disorder ICD Code: G40.909 - Epilepsy, unspecified, not intractable, without status epilepticus (5) Chronic pain ICD Code: G89.29 - Other chronic pain (6) HTN (hypertension) ICD Code: I10 - Essential (primary) hypertension (7) Concussion ICD Code: S06.0X9A - Concussion with loss of consciousness of unspecified duration, initial encounter Plan: Patient suffered a concussion from traumatic injury after syncopal episode. Continue with Latexo for headaches. Continue to monitor neurological status. (8) Abnormal chest CT ICD Code: R93.8 - Abnormal findings on diagnostic imaging of other specified body structures Plan: CT abdomen and pelvis and CT of the chest were obtained to look for neoplasm. CT abdomen and pelvis is unremarkable as described above. CT of the chest however reviewed by me showed a nonspecific 1 cm nodular density /infiltrate in the right upper lung. There are bullous changes in both apices, right greater than left. 02/08 PET scan not available at this institution. Patient will need to have it as an outpatient. (9) Nausea ICD Code: R11.0 - Nausea Status: Acute Plan: The patient is nauseous despite being administered IV Zofran. I will add IV Compazine as needed for nausea. 02/11 Nausea much improved with Compazine. Continue. Assessment and Plan 1) Syncope Plan: CT of the head significant for hypodensity in the frontoparietal cortex, MRI recommended MRI brain showed 2 focal abnormalities on the left side suggestive of subacute hematomas with an abnormal appearance of the pituitary gland consistent with the pituitary hemorrhage versus mass Neurosurgery consulted, appreciate recommendations Neuro checks Seizure precautions 02/07 as part of the syncope evaluation I will order carotid Dopplers and 2D echocardiogram. 02/08 BL carotids with plaques with less than 50% stenosis. 2D echo with normal ef 60 - 65% and trace TR. (2) Subdural hematoma ICD Code: I62.00 - Nontraumatic subdural hemorrhage, unspecified Status: Acute Patient states he hit his head on the floor when he passed out. Neurosurgery following. Follow-up recommendations. 02/[address] of the brain without IV contrast in a.m. 02/[address] shows evolving left frontal and temporal parenchymal injuries. 02/11 Continue management of subdural hematoma as per neurosurgery recommendations. (3) Alcohol abuse Plan: Thiamine [facility] protocol Monitor for signs of withdrawal -no evidence of alcohol withdrawal now. (4) Seizure disorder 02/06 no evidence of seizure disorder. Continue Keppra 500 mg p.o. twice daily. (5) Chronic pain Plan: The patient states that he sees a pain management doctor as an outpatient. Patient is not complaining of pain in the back and lower extremities. Continue Latexo. (6) HTN (hypertension) Plan: The patient now has severe elevated blood pressure with a systolic blood pressure in the 180s. This could be secondary to pain I will resume home pain medications. I will also start on clonidine 0.1 mg p.o. every 6 hours as needed as needed for systolic blood pressure more than 160. 02/06 blood pressure still seems to be severely elevated in the 160s. Continue clonidine as needed. Will resume home Latexo. 02/08 blood pressure still elevated. Start the patient on amlodipine 5 mg p.o. daily since systolic blood pressure has been severely elevated in the 160 systolic. Continue clonidine as needed. 02/09 blood pressure severely elevated with a systolic blood pressure in the 190s. Likely secondary to intracranial hemorrhage as well as headache. I will give 1 dose of 4 mg of IV morphine and start the patient on ketorolac. 10 mg p.o. every 6 hours for pain control. I will also increase amlodipine to 10 mg p.o. daily and start the patient on lisinopril 20 mg p.o. daily. Continue to monitor vital signs. 02/10 BP with improved control.. Continue amlodipine 10 mg p.o. daily, lisinopril 20 mg p.o. daily. Continue to monitor vital signs. 02/11 BP on the lower side. DC Lisinopril. DVT prophylaxis: SCDs, no chemoprophylaxis given subdural hematomas. Discharge Planning Continue to monitor on the medical floor. Needs neurosurgery clearance. Problem Qualifiers (1) Syncope: Qualified Codes: R55 - Syncope and collapse (2) Chronic pain: Qualified Codes: G89.4 - Chronic pain syndrome (3) HTN (hypertension): Qualified Codes: I10 - Essential (primary) hypertension (4) Concussion: Eliceo Suggs MD Feb 11, 2018 12:53
--- NOTE | 2018-02-11 15:32 | HHI.NSPN ---
History Chief Complaint: Headache and dizziness Interval History Patient reports he is improved since switching to a different antiemetic. Continues to have some dizzy spells but otherwise reports he is doing well Exam Results Vital Signs Date Time Temp Pulse Resp B/P (MAP) Pulse Ox O2 Delivery O2 Flow Rate FiO2 02/11/18 08:00 98.0 74 20 139/79 (99) 97 02/11/18 04:00 Room Air Intake and Output 02/11/18 02/11/18 02/12/18 08:00 16:00 00:00 Output Total 600 ml Balance -600 ml Physical Examination Alert and awake. Sitting in bed. Follows commands well. Fluent speech. Oriented 3. Moves all extremities well Medical Decision Making Impression and Plan Patient appears stable and somewhat improved. Would increase mobilization Plan as per Dr. López. Continue neurological observation Erwin Wilburn MD Feb 11, 2018 15:32
[2018-02-11] MEDS: REMOVE OLD PATCH T-DERMAL SCH (21:00)
[2018-02-11] MEDS ORDERED: SENNOSIDES 8.6 MG TAB PO PRN (21:15)
[2018-02-11] MEDS ORDERED: MAGNESIUM HYDROXIDE SUSP 30 ML CUP PO PRN (21:15)
[2018-02-11] MEDS ORDERED: BISACODYL 10 MG SUPP RECTAL PRN (21:15)
[2018-02-11] MEDS ORDERED: BISACODYL 10 MG SUPP RECTAL ONE (21:15)
[2018-02-11] MEDS: DOCUSATE SODIUM 50 MG/SENNA 8.6 MG TAB PO SCH (21:23)
[2018-02-12] VITALS (9 sets, daily range): BP systolic 102–107; BP diastolic 57–67; PULSE 63–73; RESP 17; TEMP 97.8–98.6; O2SAT 97–98
[2018-02-12] MEDS: PROCHLORPERAZINE INJ 10 MG/2 ML VIAL IV PUSH PRN ×5 (01:38→18:16)
[2018-02-12] MEDS: ACETAMINOPHEN/HYDROcodone 325 MG/5 MG TAB PO PRN ×7 (01:38→22:07)
[2018-02-12] MEDS: SODIUM CHLORIDE 0.9% FLUSH 10 ML FLUSH IV FLUSH PRN (06:00)
[2018-02-12] MEDS: SODIUM CHLORIDE 0.9% FLUSH 10 ML FLUSH IV FLUSH SCH ×2 (09:00→20:22)
[2018-02-12] MEDS: PANTOPRAZOLE SOD 40 MG DELAYED RELEASE TAB PO SCH ×2 (09:58→20:20)
[2018-02-12] MEDS: levETIRAcetam 500 MG TAB PO SCH ×2 (09:58→20:20)
[2018-02-12] MEDS: DOCUSATE SODIUM 50 MG/SENNA 8.6 MG TAB PO SCH ×2 (09:58→20:20)
[2018-02-12] MEDS: NICOTINE 14 MG/24 HR PATCH T-DERMAL SCH (09:59)
--- NOTE | 2018-02-12 15:15 | HHI.PR ---
Subjective Remarks Denies nausea, c/o headache but much better stable vital signs Objective Vitals Vital Signs Date Time Temp Pulse Resp B/P (MAP) Pulse Ox O2 Delivery O2 Flow Rate FiO2 02/12/18 12:02 97.8 73 17 102/57 (72) 97 02/12/18 08:05 98.6 65 17 104/62 (76) 97 02/12/18 08:00 Room Air 02/12/18 03:42 66 02/12/18 00:03 65 02/11/18 23:53 97.9 67 20 147/77 (100) 99 02/11/18 23:53 Room Air 02/11/18 20:00 98.2 75 18 117/68 (84) 98 02/11/18 20:00 Room Air 02/11/18 19:34 78 02/11/18 16:00 74 02/11/18 16:00 98.2 79 20 111/65 (80) 99 02/11/18 16:00 Room Air I/O 02/11/18 02/11/18 02/11/18 02/12/18 02/12/18 02/12/18 07:00 15:00 23:00 07:00 15:00 23:00 Intake Total 480 ml 840 ml Output Total 600 ml 200 ml 750 ml Balance -600 ml 280 ml 90 ml Intake Oral 480 ml 840 ml Output Urine Total 600 ml 200 ml 750 ml # Bowel Movements 0 1 Result Diagram: 02/10/18 0917 02/10/18 0917 Imaging Last Impressions Head CT 02/08/18 0600 Signed Impressions: Service Date/Time: January 08:37 - CONCLUSION: Evolving left frontal and temporal parenchymal injuries. Pituitary mass. Sebastien Reed MD Carotid Artery Ultrasound 02/07/18 0000 Signed Impressions: Service Date/Time: Wednesday, February 07, 2018 22:21 - CONCLUSION: Bilateral carotid plaque with hemodynamic parameters characteristic of less than 50%% stenosis. Jaun Albright MD Head Magnetic Resonance Angiography 02/05/18 0000 Signed Impressions: Service Date/Time: Monday, February 05, 2018 01:35 - CONCLUSION: No evidence of aneurysm or vessel truncation. Jaun Albright MD Chest CT 02/05/18 0000 Signed Impressions: Service Date/Time: Monday, February 05, 2018 11:33 - CONCLUSION: 1. There is a nonspecific 1 cm nodular density/infiltrate in the right upper lung. Recommend PET/CT to evaluate for focal hypermetabolic activity. 2. There are bullous changes in both apices, right greater than left. 3. Otherwise, the rest of the CT thorax is grossly unremarkable for patient's age.. Brian Sierra MD Brain MRI 02/05/18 0000 Signed Impressions: Service Date/Time: Monday, February 05, 2018 01:35 - CONCLUSION: 1. 2 focal abnormalities on the left side, temporal tip and frontoparietal region, both exhibiting similar signal alterations that suggest late subacute hematomas. 2. Abnormal appearance to the pituitary gland with enlargement into the suprasellar cistern, T1 shortening and intermediate signal on T2 suggesting either pituitary hemorrhage or mass. 3. Left mastoid disease. aJun Albright MD Abdomen/Pelvis CT 02/05/18 0000 Signed Impressions: Service Date/Time: Monday, February 05, 2018 11:33 - CONCLUSION: Essentially unremarkable and stable CT scan of the abdomen and pelvis compared to the prior examination of 01/28/2018. The previously noted possible thickening involving the distal esophagus is not demonstrated on today's study. No new or significant changes are demonstrated. Brian Sierra MD Objective Remarks AAox3 nad Bruises in BL thighs Clear lungs BL S1S2 RRR, no MRG abdomen is soft, nt, nt Cranial nerves II through XII grossly intact, muscle strength 5.5 in all extremities. Sensation intact in all extremities. Procedures None Medications and IVs Current Medications Medications (Trade) Dose Ordered Sig/Marilyn Route Start Time Stop Time Status Last Admin (NS Flush) 2 ml UNSCH PRN IV FLUSH 02/05/18 04:15 02/12/18 06:00 (NS Flush) 2 ml BID IV FLUSH 02/05/18 09:00 02/12/18 09:00 (Tylenol) 650 mg Q4H PRN PO 02/05/18 04:15 02/06/18 09:20 (Zofran Inj) 4 mg Q6H PRN IVP 02/05/18 04:15 02/10/18 19:13 (Narcan Inj) 0.4 mg UNSCH PRN IV PUSH 02/05/18 04:15 (Romazicon Inj) 0.2 mg Q1M PRN IV PUSH 02/05/18 04:15 (Ativan) 1 mg Q4H PRN PO 02/05/18 04:15 02/08/18 06:09 (Ativan Inj) 1 mg Q4H PRN IV PUSH 02/05/18 04:15 (Ativan) 2 mg Q2H PRN PO 02/05/18 04:15 02/05/18 21:38 (Ativan Inj) 2 mg Q2H PRN IV PUSH 02/05/18 04:15 02/05/18 05:09 (Ativan Inj) 2 mg Q1H PRN IV PUSH 02/05/18 04:15 02/05/18 10:52 (Ativan Inj) 2 mg Q15M PRN IV PUSH 02/05/18 04:15 (Haldol Inj) 2 mg Q15M PRN IM 02/05/18 04:15 (Keppra) 500 mg BID PO 02/05/18 09:00 02/12/18 09:58 (Protonix) 40 mg BID PO 02/05/18 09:00 02/12/18 09:58 (Catapres) 0.1 mg Q6H PRN PO 02/05/18 16:15 02/09/18 09:10 ([place] 5-325 Mg) 1 tab Q4H PRN PO 02/06/18 16:30 ([place] 5-325 Mg) 2 tab Q4H PRN PO 02/06/18 16:30 02/12/18 14:21 (Habitrol 14 Mg Patch.24 Hr) 1 patch DAILY T-DERMAL 02/08/18 09:00 02/12/18 09:59 Miscellaneous Information 1 HS T-DERMAL 02/07/18 21:00 02/11/18 21:00 (Norvasc) 10 mg DAILY PO 02/10/18 09:00 02/11/18 08:36 (Compazine Inj) 5 mg Q4H PRN IV PUSH 02/10/18 13:00 02/12/18 14:21 (Varsha-Colace) 1 tab BID PO 02/11/18 21:15 02/12/18 09:58 (Milk Of Magnesia Liq) 30 ml Q12H PRN PO 02/11/18 21:15 (Senokot) 17.2 mg Q12H PRN PO 02/11/18 21:15 02/11/18 22:27 (Dulcolax Supp) 10 mg DAILY PRN RECTAL 02/11/18 21:15 A/P Problem List: (1) Syncope ICD Code: R55 - Syncope and collapse Status: Acute (2) Subdural hematoma ICD Code: I62.00 - Nontraumatic subdural hemorrhage, unspecified Status: Acute (3) Alcohol abuse ICD Code: F10.10 - Alcohol abuse, uncomplicated (4) Seizure disorder ICD Code: G40.909 - Epilepsy, unspecified, not intractable, without status epilepticus (5) Chronic pain ICD Code: G89.29 - Other chronic pain (6) HTN (hypertension) ICD Code: I10 - Essential (primary) hypertension (7) Concussion ICD Code: S06.0X9A - Concussion with loss of consciousness of unspecified duration, initial encounter (8) Abnormal chest CT ICD Code: R93.8 - Abnormal findings on diagnostic imaging of other specified body structures (9) Nausea ICD Code: R11.0 - Nausea Status: Acute Assessment and Plan 1) Syncope Plan: CT of the head significant for hypodensity in the frontoparietal cortex, MRI recommended MRI brain showed 2 focal abnormalities on the left side suggestive of subacute hematomas with an abnormal appearance of the pituitary gland consistent with the pituitary hemorrhage versus mass Neurosurgery consulted, appreciate recommendations Neuro checks Seizure precautions 02/07 as part of the syncope evaluation I will order carotid Dopplers and 2D echocardiogram. 02/08 BL carotids with plaques with less than 50% stenosis. 2D echo with normal ef 60 - 65% and trace TR. (2) Subdural hematoma ICD Code: I62.00 - Nontraumatic subdural hemorrhage, unspecified Status: Acute Patient states he hit his head on the floor when he passed out. Neurosurgery following. Follow-up recommendations. 02/[address] of the brain without IV contrast in a.m. 02/[address] shows evolving left frontal and temporal parenchymal injuries. 02/11 Continue management of subdural hematoma as per neurosurgery recommendations. 02/[address] of the head. (3) Alcohol abuse Plan: Thiamine [place] protocol Monitor for signs of withdrawal -no evidence of alcohol withdrawal now. (4) Seizure disorder 02/06 no evidence of seizure disorder. Continue Keppra 500 mg p.o. twice daily. (5) Chronic pain Plan: The patient states that he sees a pain management doctor as an outpatient. Patient is not complaining of pain in the back and lower extremities. Continue [place]. (6) HTN (hypertension) Plan: The patient now has severe elevated blood pressure with a systolic blood pressure in the 180s. This could be secondary to pain I will resume home pain medications. I will also start on clonidine 0.1 mg p.o. every 6 hours as needed as needed for systolic blood pressure more than 160. 02/06 blood pressure still seems to be severely elevated in the 160s. Continue clonidine as needed. Will resume home [place]a. 02/08 blood pressure still elevated. Start the patient on amlodipine 5 mg p.o. daily since systolic blood pressure has been severely elevated in the 160 systolic. Continue clonidine as needed. 02/09 blood pressure severely elevated with a systolic blood pressure in the 190s. Likely secondary to intracranial hemorrhage as well as headache. I will give 1 dose of 4 mg of IV morphine and start the patient on ketorolac. 10 mg p.o. every 6 hours for pain control. I will also increase amlodipine to 10 mg p.o. daily and start the patient on lisinopril 20 mg p.o. daily. Continue to monitor vital signs. 02/10 BP with improved control.. Continue amlodipine 10 mg p.o. daily, lisinopril 20 mg p.o. daily. Continue to monitor vital signs. 02/11 BP on the lower side. DC Lisinopril. 02/12 BP more stable, Continue amlodipine at same dose. (7) Concussion Plan: Patient suffered a concussion from traumatic injury after syncopal episode. Continue with [place] for headaches. Continue to monitor neurological status. (8) Abnormal chest CT Plan: CT abdomen and pelvis and CT of the chest were obtained to look for neoplasm. CT abdomen and pelvis is unremarkable as described above. CT of the chest however reviewed by me showed a nonspecific 1 cm nodular density /infiltrate in the right upper lung. There are bullous changes in both apices, right greater than left. 02/08 PET scan not available at this institution. Patient will need to have it as an outpatient. (9) Nausea Plan: The patient is nauseous despite being administered IV Zofran. I will add IV Compazine as needed for nausea. Nausea much improved with Compazine. Continue. DVT prophylaxis: SCDs, no chemoprophylaxis given subdural hematomas. Discharge Planning Continue to monitor on the medical floor. Needs neurosurgery clearance. Problem Qualifiers (1) Syncope: Qualified Codes: R55 - Syncope and collapse (2) Chronic pain: Qualified Codes: G89.4 - Chronic pain syndrome (3) HTN (hypertension): Qualified Codes: I10 - Essential (primary) hypertension (4) Concussion: Eliceo Suggs MD Feb 12, 2018 15:15
[2018-02-12] MEDS: REMOVE OLD PATCH T-DERMAL SCH (20:21)
--- NOTE | 2018-02-12 21:27 | RADRPT ---
EXAM DATE/TIME: 02/12/2018 20:32 [facility] COMPARISON: No previous studies available for comparison. INDICATIONS : Evaluate hemorrhage. RADIATION DOSE: 35.01 CTDIvol (mGy) MEDICAL HISTORY : Seizures. Carcinoma, gastric. SURGICAL HISTORY : None. ENCOUNTER: Initial ACUITY: 1 day PAIN SCALE: 4/10 LOCATION: cranial TECHNIQUE: Multiple contiguous axial images were obtained of the head. Using automated exposure control and adj ustment of the mA and/or kV according to patient size, radiation dose was kept as low as reasonably a chievable to obtain optimal diagnostic quality images. DICOM format image data is available electro nically for review and comparison. FINDINGS: Comparison is February 05 and . No acute hemorrhage is identified. There is some encephalomalacia in t he left frontal lobe. No pituitary mass is stable. No new intracranial hemorrhage or mass effect. CONCLUSION: 1. No new intracranial hemorrhage. Probable encephalomalacia in the left frontal lobe. Stable pituita ry mass measuring 11 mm diameter. Wayne Mcintyre MD on February 12, 2018 at 21:19 Board Certified Radiologist. This report was verified electronically.
[2018-02-13] VITALS (9 sets, daily range): BP systolic 112–132; BP diastolic 61–79; PULSE 67–82; RESP 14–20; TEMP 97.6–98.5; O2SAT 96–99
[2018-02-13] MEDS: ACETAMINOPHEN/HYDROcodone 325 MG/5 MG TAB PO PRN ×6 (02:02→21:51)
[2018-02-13] MEDS: DOCUSATE SODIUM 50 MG/SENNA 8.6 MG TAB PO SCH ×2 (09:55→21:51)
[2018-02-13] MEDS: NICOTINE 14 MG/24 HR PATCH T-DERMAL SCH (09:56)
[2018-02-13] MEDS: SODIUM CHLORIDE 0.9% FLUSH 10 ML FLUSH IV FLUSH SCH ×2 (09:56→21:52)
[2018-02-13] MEDS: PANTOPRAZOLE SOD 40 MG DELAYED RELEASE TAB PO SCH ×2 (09:56→21:51)
[2018-02-13] MEDS: levETIRAcetam 500 MG TAB PO SCH ×2 (09:56→21:51)
--- NOTE | 2018-02-13 15:09 | RADRPT ---
EXAM DATE/TIME: 02/13/2018 13:22 [facility] COMPARISON: No previous studies available for comparison. INDICATIONS : Left arm pain. MEDICAL HISTORY : Seizure. ETOH. SURGICAL HISTORY : EGD. ENCOUNTER: Initial ACUITY: 3 days PAIN SCORE: 8/10 LOCATION: Left arm. FINDINGS: Examination is positive for deep venous thrombosis in the cephalic vein of the distal arm and proxima l forearm. The subclavian, axillary, brachial and basilic veins are patent. CONCLUSION: 1. Positive for deep venous thrombosis in the left cephalic vein. Wayne Mcintyre MD on February 13, 2018 at 14:55 Board Certified Radiologist. This report was verified electronically.
--- NOTE | 2018-02-13 16:27 | HHI.PR ---
Subjective Remarks Patient seen earlier at 11:30 AM. Patient states headache is better dizziness resolved Patient however c/o left arm pain Objective Vitals Vital Signs Date Time Temp Pulse Resp B/P (MAP) Pulse Ox O2 Delivery O2 Flow Rate FiO2 02/13/18 12:00 67 02/13/18 08:00 Room Air 02/13/18 08:00 67 02/13/18 08:00 98.0 73 20 132/79 (96) 96 02/13/18 04:02 Room Air 02/13/18 04:02 82 02/13/18 04:00 98.5 79 16 121/76 (91) 98 02/13/18 00:00 97.6 70 16 112/61 (78) 97 02/13/18 00:00 72 02/13/18 00:00 Room Air 02/12/18 20:00 97.9 67 17 102/59 (73) 98 02/12/18 20:00 Room Air 02/12/18 20:00 65 I/O 02/12/18 02/12/18 02/12/18 02/13/18 02/13/18 02/13/18 06:59 14:59 22:59 06:59 14:59 22:59 Intake Total 840 ml 720 ml 720 ml Output Total 750 ml 700 ml 600 ml Balance 90 ml 20 ml 120 ml Intake Oral 840 ml 720 ml 720 ml Output Urine Total 750 ml 700 ml 600 ml # Bowel Movements 1 0 1 Result Diagram: 02/10/18 0917 02/10/18 0917 Imaging Last Impressions Head CT 02/12/18 0000 Signed Impressions: Service Date/Time: Monday, February 12, 2018 20:32 - CONCLUSION: 1. No new intracranial hemorrhage. Probable encephalomalacia in the left frontal lobe. 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 Wayne Mcintyre MD Carotid Artery Ultrasound 02/07/18 0000 Signed Impressions: Service Date/Time: Wednesday, February 07, 2018 22:21 - CONCLUSION: Bilateral carotid plaque with hemodynamic parameters characteristic of less than 50%% stenosis. Jaun Albright MD Head Magnetic Resonance Angiography 02/05/18 0000 Signed Impressions: Service Date/Time: Monday, February 05, 2018 01:35 - CONCLUSION: No evidence of aneurysm or vessel truncation. Jaun Albright MD Chest CT 02/05/18 0000 Signed Impressions: Service Date/Time: Monday, February 05, 2018 11:33 - CONCLUSION: 1. There is a nonspecific 1 cm nodular density/infiltrate in the right upper lung. Recommend PET/CT to evaluate for focal hypermetabolic activity. 2. There are bullous changes in both apices, right greater than left. 3. Otherwise, the rest of the CT thorax is grossly unremarkable for patient's age.. Brian Sierra MD Brain MRI 02/05/18 0000 Signed Impressions: Service Date/Time: Monday, February 05, 2018 01:35 - CONCLUSION: 1. 2 focal abnormalities on the left side, temporal tip and frontoparietal region, both exhibiting similar signal alterations that suggest late subacute hematomas. 2. Abnormal appearance to the pituitary gland with enlargement into the suprasellar cistern, T1 shortening and intermediate signal on T2 suggesting either pituitary hemorrhage or mass. 3. Left mastoid disease. Jaun Albright MD Abdomen/Pelvis CT 02/05/18 0000 Signed Impressions: Service Date/Time: Monday, February 05, 2018 11:33 - CONCLUSION: Essentially unremarkable and stable CT scan of the abdomen and pelvis compared to the prior examination of 01/28/2018. The previously noted possible thickening involving the distal esophagus is not demonstrated on today's study. No new or significant changes are demonstrated. Brian Sierra MD Objective Remarks AAox3 nad Bruises in BL thighs Clear lungs BL S1S2 RRR, no MRG abdomen is soft, nt, nt Cranial nerves II through XII grossly intact, muscle strength 5.5 in all extremities. Sensation intact in all extremities. Procedures None Medications and IVs Current Medications Medications (Trade) Dose Ordered Sig/Marilyn Route Start Time Stop Time Status Last Admin (NS Flush) 2 ml UNSCH PRN IV FLUSH 02/05/18 04:15 02/12/18 06:00 (NS Flush) 2 ml BID IV FLUSH 02/05/18 09:00 02/13/18 09:56 (Tylenol) 650 mg Q4H PRN PO 02/05/18 04:15 02/06/18 09:20 (Zofran Inj) 4 mg Q6H PRN IVP 02/05/18 04:15 02/10/18 19:13 (Narcan Inj) 0.4 mg UNSCH PRN IV PUSH 02/05/18 04:15 (Romazicon Inj) 0.2 mg Q1M PRN IV PUSH 02/05/18 04:15 (Ativan) 1 mg Q4H PRN PO 02/05/18 04:15 02/08/18 06:09 (Ativan Inj) 1 mg Q4H PRN IV PUSH 02/05/18 04:15 (Ativan) 2 mg Q2H PRN PO 02/05/18 04:15 02/05/18 21:38 (Ativan Inj) 2 mg Q2H PRN IV PUSH 02/05/18 04:15 02/05/18 05:09 (Ativan Inj) 2 mg Q1H PRN IV PUSH 02/05/18 04:15 02/05/18 10:52 (Ativan Inj) 2 mg Q15M PRN IV PUSH 02/05/18 04:15 (Haldol Inj) 2 mg Q15M PRN IM 02/05/18 04:15 (Keppra) 500 mg BID PO 02/05/18 09:00 02/13/18 09:56 (Protonix) 40 mg BID PO 02/05/18 09:00 02/13/18 09:56 (Catapres) 0.1 mg Q6H PRN PO 02/05/18 16:15 02/09/18 09:10 ([place] 5-325 Mg) 1 tab Q4H PRN PO 02/06/18 16:30 ([place] 5-325 Mg) 2 tab Q4H PRN PO 02/06/18 16:30 02/13/18 14:04 (Habitrol 14 Mg Patch.24 Hr) 1 patch DAILY T-DERMAL 02/08/18 09:00 02/13/18 09:56 Miscellaneous Information 1 HS T-DERMAL 02/07/18 21:00 02/12/18 20:21 (Norvasc) 10 mg DAILY PO 02/10/18 09:00 02/13/18 09:55 (Compazine Inj) 5 mg Q4H PRN IV PUSH 02/10/18 13:00 02/12/18 18:16 (Varsha-Colace) 1 tab BID PO 02/11/18 21:15 3/27/18 09:55 (Milk Of Magnesia Liq) 30 ml Q12H PRN PO 02/11/18 21:15 (Senokot) 17.2 mg Q12H PRN PO 02/11/18 21:15 02/11/18 22:27 (Dulcolax Supp) 10 mg DAILY PRN RECTAL 02/11/18 21:15 A/P Problem List: (1) Syncope ICD Code: R55 - Syncope and collapse Status: Resolved (2) Subdural hematoma ICD Code: I62.00 - Nontraumatic subdural hemorrhage, unspecified Status: Acute (3) Alcohol abuse ICD Code: F10.10 - Alcohol abuse, uncomplicated (4) Seizure disorder ICD Code: G40.909 - Epilepsy, unspecified, not intractable, without status epilepticus (5) Chronic pain ICD Code: G89.29 - Other chronic pain (6) HTN (hypertension) ICD Code: I10 - Essential (primary) hypertension (7) Concussion ICD Code: S06.0X9A - Concussion with loss of consciousness of unspecified duration, initial encounter (8) Abnormal chest CT ICD Code: R93.8 - Abnormal findings on diagnostic imaging of other specified body structures (9) Nausea ICD Code: R11.0 - Nausea Status: Acute (10) Left arm pain ICD Code: M79.602 - Pain in left arm Plan: Patient complaining of left arm pain. Order a left venous Doppler ultrasound to rule out DVT. Assessment and Plan 1) Syncope Plan: CT of the head significant for hypodensity in the frontoparietal cortex, MRI recommended MRI brain showed 2 focal abnormalities on the left side suggestive of subacute hematomas with an abnormal appearance of the pituitary gland consistent with the pituitary hemorrhage versus mass Neurosurgery consulted, appreciate recommendations Neuro checks Seizure precautions 02/07 as part of the syncope evaluation I will order carotid Dopplers and 2D echocardiogram. 02/08 BL carotids with plaques with less than 50% stenosis. 2D echo with normal ef 60 - 65% and trace TR. (2) Subdural hematoma ICD Code: I62.00 - Nontraumatic subdural hemorrhage, unspecified Status: Acute Patient states he hit his head on the floor when he passed out. Neurosurgery following. Follow-up recommendations. 02/[address] of the brain without IV contrast in a.m. 02/[address] shows evolving left frontal and temporal parenchymal injuries. 02/11 Continue management of subdural hematoma as per neurosurgery recommendations. 02/[address] of the head does not show any new intracranial hemorrhage. Probable encephalomalacia in the left frontal lobe. Stable pituitary mass measuring 11 mm in diameter. (3) Alcohol abuse Plan: Thiamine [facility] protocol Monitor for signs of withdrawal -no evidence of alcohol withdrawal now. (4) Seizure disorder 02/06 no evidence of seizure disorder. Continue Keppra 500 mg p.o. twice daily. (5) Chronic pain Plan: The patient states that he sees a pain management doctor as an outpatient. Patient is not complaining of pain in the back and lower extremities. Continue [place]. (6) HTN (hypertension) Plan: The patient now has severe elevated blood pressure with a systolic blood pressure in the 180s. This could be secondary to pain I will resume home pain medications. I will also start on clonidine 0.1 mg p.o. every 6 hours as needed as needed for systolic blood pressure more than 160. 02/06 blood pressure still seems to be severely elevated in the 160s. Continue clonidine as needed. Will resume home [place]. 02/08 blood pressure still elevated. Start the patient on amlodipine 5 mg p.o. daily since systolic blood pressure has been severely elevated in the 160 systolic. Continue clonidine as needed. 02/09 blood pressure severely elevated with a systolic blood pressure in the 190s. Likely secondary to intracranial hemorrhage as well as headache. I will give 1 dose of 4 mg of IV morphine and start the patient on ketorolac. 10 mg p.o. every 6 hours for pain control. I will also increase amlodipine to 10 mg p.o. daily and start the patient on lisinopril 20 mg p.o. daily. Continue to monitor vital signs. 02/10 BP with improved control.. Continue amlodipine 10 mg p.o. daily, lisinopril 20 mg p.o. daily. Continue to monitor vital signs. 02/11 BP on the lower side. DC Lisinopril. 02/12 BP more stable, Continue amlodipine at same dose. (7) Concussion Plan: Patient suffered a concussion from traumatic injury after syncopal episode. Continue with [place] for headaches. Continue to monitor neurological status. (8) Abnormal chest CT Plan: CT abdomen and pelvis and CT of the chest were obtained to look for neoplasm. CT abdomen and pelvis is unremarkable as described above. CT of the chest however reviewed by me showed a nonspecific 1 cm nodular density /infiltrate in the right upper lung. There are bullous changes in both apices, right greater than left. 02/08 PET scan not available at this institution. Patient will need to have it as an outpatient. (9) Nausea Plan: The patient is nauseous despite being administered IV Zofran. I will add IV Compazine as needed for nausea. Nausea much improved with Compazine. Continue. DVT prophylaxis: SCDs, no chemoprophylaxis given subdural hematomas. Discharge Planning Continue to monitor on the medical floor. Needs neurosurgery clearance. Problem Qualifiers (1) Syncope: Qualified Codes: R55 - Syncope and collapse (2) Chronic pain: Qualified Codes: G89.4 - Chronic pain syndrome (3) HTN (hypertension): Qualified Codes: I10 - Essential (primary) hypertension (4) Concussion: Eliceo Suggs MD Feb 13, 2018 16:27
--- NOTE | 2018-02-13 18:04 | HHI.NSPN ---
History Chief Complaint: Left forearm pain Interval History 02/05: The patient is a poor historian. He does confirm that he fell three days ago and since then he has had headaches, dizziness and has been falling. He denies any fall before that. He did not report any syncope but in the EMR it is noted that he did pass out earlier. He states that he is having trouble keeping track of everything since the fall. 02/06: When seen this evening the patient is awake and alert. He is more interactive and readily verbalises. He is confused as to time but understands he is in the hospital for evaluation due to his frequent falls recently. He does say he has a headache and intermittent dizziness. He also has had nausea that was relieved with Zofran. He denies any pain, numbness, tingling or weakness to the extremities but does say he has difficulty ambulating. No sensorimotor deficits are noted upon examination. His speech is slow and moderately dysarthritic. The patient believes that he had his MRI and CT done today and not yesterday. 02/07: This afternoon the patient is awake and alert watching TV in bed. He complains of a headache and said his blood pressure was up. He also had some dizziness when he gets up. He asked for a nicotine patch since he is a smoker. His neuro exam remains unchanged from yesterday. 02/09: Patient reports severe headache on the right side of the head. Feels it was due to elevated blood pressure at 193/103. He was given medication to lower his blood pressure now feels improved. Denies any other issues. Reports she walked to the bathroom with physical therapy with a walker. 02/11: Patient reports he is improved since switching to a different antiemetic. Continues to have some dizzy spells but otherwise reports he is doing well 02/13: Spoke with Dr Edward regarding the patient having a DVT and he would like to anticoagulate the patient. A repeat CT brain was obtained yesterday which was reviewed w/o any haemorrhage noted. When seen this evening the patient is awake and alert sitting on the edge of the bed. He denies any headache, dizziness or nausea. He has pain to the left forearm where he has a DVT. He denies any numbness, tingling or other pain to the extremities. He states that he is up and ambulating the hallway with a wheeled walker. He is oriented and his thought process is quicker. There are no changes noted in his sensorimotor examination. Exam Results 02/11/18 02/11/18 02/12/18 02/12/18 02/13/18 02/13/18 06:00 18:00 06:00 18:00 06:00 18:00 Intake Total 480 ml 840 ml 1440 ml Output Total 600 ml 200 ml 750 ml 1300 ml Balance -600 ml 280 ml 90 ml 140 ml Intake Oral 480 ml 840 ml 1440 ml Output Urine Total 600 ml 200 ml 750 ml 1300 ml # Bowel Movements 0 1 1 Vital Signs Date Time Temp Pulse Resp B/P (MAP) Pulse Ox O2 Delivery O2 Flow Rate FiO2 02/13/18 16:15 98.1 80 14 121/76 (91) 99 02/13/18 12:00 67 02/13/18 08:00 Room Air 02/13/18 08:00 67 02/13/18 08:00 98.0 73 20 132/79 (96) 96 02/13/18 04:02 Room Air 02/13/18 04:02 82 02/13/18 04:00 98.5 79 16 121/76 (91) 98 02/13/18 00:00 97.6 70 16 112/61 (78) 97 02/13/18 00:00 72 02/13/18 00:00 Room Air 02/12/18 20:00 97.9 67 17 102/59 (73) 98 02/12/18 20:00 Room Air 02/12/18 20:00 65 02/12/18 16:05 97.9 71 17 107/67 (80) 98 02/12/18 16:00 71 02/12/18 12:02 97.8 73 17 102/57 (72) 97 02/12/18 12:00 67 02/12/18 08:05 98.6 65 17 104/62 (76) 97 02/12/18 08:00 Room Air 02/12/18 08:00 63 02/12/18 03:42 66 3/26/18 00:03 65 02/11/18 23:53 97.9 67 20 147/77 (100) 99 02/11/18 23:53 Room Air 02/11/18 20:00 98.2 75 18 117/68 (84) 98 02/11/18 20:00 Room Air 02/11/18 19:34 78 02/11/18 16:00 74 02/11/18 16:00 98.2 79 20 111/65 (80) 99 02/11/18 16:00 Room Air 02/11/18 12:00 Room Air 02/11/18 12:00 77 02/11/18 12:00 98.0 73 20 101/65 (77) 99 02/11/18 08:00 98.0 74 20 139/79 (99) 97 02/11/18 08:00 Room Air 02/11/18 08:00 62 02/11/18 04:00 Room Air 02/11/18 04:00 98.4 60 20 111/73 (86) 99 02/11/18 02:39 59 02/11/18 00:00 97.8 61 20 94/63 (73) 96 02/11/18 00:00 Room Air 02/10/18 23:45 66 02/10/18 20:00 97.8 65 20 117/83 (94) 99 02/10/18 20:00 Room Air 02/10/18 19:44 67 Physical Examination GENERAL: Awake & alert sitting on the edge of the bed. His affect is slightly flat. Readily interacts. No apparent distress. HEENT: Left parietoccipital region mildly TTP. PERRLA 3 mm sluggish, EOMI. MMM & pink, tongue midline to protrusion. MUSCULOSKELETAL: ESCAMILLA purposefully. Left forearm TTP o/w extremities NTTP. No evident clubbing or deformity. NEUROLOGICAL: AA&O x3. Speech clear & appropriate. Thought process quicker. Follows simple commands. States some facial numbness to left evangelical o/w CN II through XII appear grossly intact. Sensation intact to light touch to all extremities. Motor strength is 5/5 to all major flexion & extension muscle groups of the extremities. Lab, Micro, Other Results Recent Impressions Upper Extremity Ultrasound 02/13/18 0000 Signed Impressions: Service Date/Time: Tuesday, February 13, 2018 13:22 - CONCLUSION: 1. Positive for deep venous thrombosis in the left cephalic vein. Wayne Mcintyre MD Head CT 02/12/18 0000 Signed Impressions: Service Date/Time: Monday, February 12, 2018 20:32 - CONCLUSION: 1. No new intracranial hemorrhage. Probable encephalomalacia in the left frontal lobe. 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 Wayne Mcintyre MD Medical Decision Making Impression and Plan Impression: Fall from pickup truck Left-sided late subacute subdural haematomas Abnormal appearing pituitary gland w/enlargement on MRI Pituitary haemorrhage vs mass Per Dr López, appears to have subacute left frontotemporal parenchymal hemorrhages with relatively mild mass effect. Pituitary lesion appears to be also most likely a hemorrhage, cannot totally rule out neoplasm. Patient continues to do well. Confusion resolved. No evident sensorimotor deficits. CT unremarkable for any new haemorrhage. Probable encephalomalacia to left frontal lobe. Stable pituitary mass. Plan: Primary management per Hospitalist. Neuro checks. Stat CT brain for any decline in neuro status. Mechanical DVT prophylaxis. Mobilise patient w/assistance. Physical Therapy eval & tx. Nicoderm patch QD. Okay to start heparin for DVT. Rob Sheehan Feb 13, 2018 18:04
[2018-02-13] MEDS ORDERED: MORPHINE SULFATE 4 MG/ML INJ IV PUSH ONE (18:30)
[2018-02-13 20:30] LABS: HEMATOCRIT 35.2 % (39.0-51.0); HEMOGLOBIN 11.8 GM/DL (13.0-17.0); MEAN CELL VOLUME 106.6 FL (80.0-100.0); MEAN CORPUSCULAR HEMOGLOBIN 35.7 PG (27.0-34.0); MEAN CORPUSCULAR HGB CONC 33.5 % (32.0-36.0); MEAN PLATELET VOLUME 8.6 FL (7.0-11.0); PLATELET COUNT 288 TH/MM3 (150-450); RED CELL DISTRIBUTION WIDTH 12.8 % (11.6-17.2); WHITE BLOOD COUNT 7.9 TH/MM3 (4.0-11.0)
[2018-02-13 20:40] LABS: INTERNATIONAL NORMALIZED RATIO 0.9 RATIO; PROTHROMBIN TIME - PATIENT 9.6 SEC (9.8-11.6)
[2018-02-13] MEDS: REMOVE OLD PATCH T-DERMAL SCH (21:52)
[2018-02-13] MEDS: PROCHLORPERAZINE INJ 10 MG/2 ML VIAL IV PUSH PRN (21:52)
[2018-02-13] MEDS: HEPARIN-D5W 25,000 U/250 ML 250 ML IV PRN (22:05)
[2018-02-14] VITALS (10 sets, daily range): BP systolic 108–129; BP diastolic 67–75; PULSE 62–96; RESP 16–20; TEMP 97.3–98.1; O2SAT 98–100
[2018-02-14] MEDS: ACETAMINOPHEN/HYDROcodone 325 MG/5 MG TAB PO PRN ×6 (01:56→20:08)
[2018-02-14] MEDS: PROCHLORPERAZINE INJ 10 MG/2 ML VIAL IV PUSH PRN (06:37)
[2018-02-14] MEDS: levETIRAcetam 500 MG TAB PO SCH ×2 (08:45→20:09)
[2018-02-14] MEDS: PANTOPRAZOLE SOD 40 MG DELAYED RELEASE TAB PO SCH ×2 (08:46→20:07)
[2018-02-14] MEDS: NICOTINE 14 MG/24 HR PATCH T-DERMAL SCH (08:46)
[2018-02-14] MEDS: DOCUSATE SODIUM 50 MG/SENNA 8.6 MG TAB PO SCH ×2 (08:47→20:07)
[2018-02-14] MEDS: SODIUM CHLORIDE 0.9% FLUSH 10 ML FLUSH IV FLUSH SCH ×2 (08:47→20:09)
[2018-02-14] MEDS: MORPHINE SULFATE 2 MG/ML INJ IV PUSH PRN ×3 (13:02→22:10)
[2018-02-14] MEDS: HEPARIN-D5W 25,000 U/250 ML 250 ML IV PRN (13:52)
--- NOTE | 2018-02-14 14:14 | HHI.PR ---
Subjective Remarks Patient seen during PT session. The patient states he feels better, dizziness has completely resolved. Still has some headache but this is much improved. Patient states he has been ambulating very well. Denies chest pain or shortness of breath. Objective Vitals Vital Signs Date Time Temp Pulse Resp B/P (MAP) Pulse Ox O2 Delivery O2 Flow Rate FiO2 02/14/18 12:00 97.8 79 20 109/67 (81) 98 02/14/18 08:33 97.8 78 16 123/75 (91) 02/14/18 04:00 98.0 75 16 108/70 (83) 98 02/14/18 04:00 75 02/14/18 00:00 80 02/13/18 23:55 97.8 73 17 124/79 (94) 98 02/13/18 20:00 98.0 74 16 124/71 (88) 99 02/13/18 20:00 75 02/13/18 16:15 98.1 80 14 121/76 (91) 99 02/13/18 16:00 78 02/13/18 16:00 98.1 80 20 121/76 (91) 99 I/O 02/13/18 02/13/18 02/13/18 02/14/18 02/14/18 02/14/18 07:00 15:00 23:00 07:00 15:00 23:00 Intake Total 720 ml 1080 ml 440 ml 480 ml Output Total 600 ml 250 ml Balance 120 ml 830 ml 440 ml 480 ml Intake Oral 720 ml 1080 ml 440 ml 480 ml Output Urine Total 600 ml 250 ml # Voids 3 2 # Bowel Movements 1 0 0 Result Diagram: 02/13/18 1926 02/10/18 0917 Imaging Last Impressions Upper Extremity Ultrasound 02/13/18 0000 Signed Impressions: Service Date/Time: Tuesday, February 13, 2018 13:22 - CONCLUSION: 1. Positive for deep venous thrombosis in the left cephalic vein. Wayne Mcintyre MD Head CT 02/12/18 0000 Signed Impressions: Service Date/Time: Monday, February 12, 2018 20:32 - CONCLUSION: 1. No new intracranial hemorrhage. Probable encephalomalacia in the left frontal lobe. 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 Wayne Mcintyre MD Carotid Artery Ultrasound 02/07/18 0000 Signed Impressions: Service Date/Time: Wednesday, February 07, 2018 22:21 - CONCLUSION: Bilateral carotid plaque with hemodynamic parameters characteristic of less than 50%% stenosis. Jaun Albright MD Head Magnetic Resonance Angiography 02/05/18 0000 Signed Impressions: Service Date/Time: Monday, February 05, 2018 01:35 - CONCLUSION: No evidence of aneurysm or vessel truncation. Jaun Albright MD Chest CT 02/05/18 0000 Signed Impressions: Service Date/Time: Monday, February 05, 2018 11:33 - CONCLUSION: 1. There is a nonspecific 1 cm nodular density/infiltrate in the right upper lung. Recommend PET/CT to evaluate for focal hypermetabolic activity. 2. There are bullous changes in both apices, right greater than left. 3. Otherwise, the rest of the CT thorax is grossly unremarkable for patient's age.. Brian Sierra MD Brain MRI 02/05/18 0000 Signed Impressions: Service Date/Time: Monday, February 05, 2018 01:35 - CONCLUSION: 1. 2 focal abnormalities on the left side, temporal tip and frontoparietal region, both exhibiting similar signal alterations that suggest late subacute hematomas. 2. Abnormal appearance to the pituitary gland with enlargement into the suprasellar cistern, T1 shortening and intermediate signal on T2 suggesting either pituitary hemorrhage or mass. 3. Left mastoid disease. Jaun Albright MD Abdomen/Pelvis CT 02/05/18 0000 Signed Impressions: Service Date/Time: Monday, February 05, 2018 11:33 - CONCLUSION: Essentially unremarkable and stable CT scan of the abdomen and pelvis compared to the prior examination of 01/28/2018. The previously noted possible thickening involving the distal esophagus is not demonstrated on today's study. No new or significant changes are demonstrated. Brian Sierra MD Objective Remarks AAox3 nad Bruises in BL thighs Clear lungs BL S1S2 RRR, no MRG abdomen is soft, nt, nt Cranial nerves II through XII grossly intact, muscle strength 5.5 in all extremities. Sensation intact in all extremities. Left upper extremity with associated induration, tenderness, erythema and warmth , no fluid collection palpated. Procedures None Medications and IVs Current Medications Medications (Trade) Dose Ordered Sig/Marilyn Route Start Time Stop Time Status Last Admin (NS Flush) 2 ml UNSCH PRN IV FLUSH 02/05/18 04:15 02/12/18 06:00 (NS Flush) 2 ml BID IV FLUSH 02/05/18 09:00 02/13/18 21:52 (Tylenol) 650 mg Q4H PRN PO 02/05/18 04:15 02/06/18 09:20 (Zofran Inj) 4 mg Q6H PRN IVP 02/05/18 04:15 02/10/18 19:13 (Narcan Inj) 0.4 mg UNSCH PRN IV PUSH 02/05/18 04:15 (Romazicon Inj) 0.2 mg Q1M PRN IV PUSH 02/05/18 04:15 (Ativan) 1 mg Q4H PRN PO 02/05/18 04:15 02/08/18 06:09 (Ativan Inj) 1 mg Q4H PRN IV PUSH 02/05/18 04:15 (Ativan) 2 mg Q2H PRN PO 02/05/18 04:15 02/05/18 21:38 (Ativan Inj) 2 mg Q2H PRN IV PUSH 02/05/18 04:15 02/05/18 05:09 (Ativan Inj) 2 mg Q1H PRN IV PUSH 02/05/18 04:15 02/05/18 10:52 (Ativan Inj) 2 mg Q15M PRN IV PUSH 02/05/18 04:15 (Haldol Inj) 2 mg Q15M PRN IM 02/05/18 04:15 (Keppra) 500 mg BID PO 02/05/18 09:00 02/14/18 08:45 (Protonix) 40 mg BID PO 02/05/18 09:00 02/14/18 08:46 (Catapres) 0.1 mg Q6H PRN PO 02/05/18 16:15 02/09/18 09:10 ([place] 5-325 Mg) 1 tab Q4H PRN PO 02/06/18 16:30 ([place] 5-325 Mg) 2 tab Q4H PRN PO 02/06/18 16:30 02/14/18 10:40 (Habitrol 14 Mg Patch.24 Hr) 1 patch DAILY T-DERMAL 3/22/18 09:00 02/14/18 08:46 Miscellaneous Information 1 HS T-DERMAL 02/07/18 21:00 02/13/18 21:52 (Norvasc) 10 mg DAILY PO 02/10/18 09:00 02/14/18 08:46 (Compazine Inj) 5 mg Q4H PRN IV PUSH 02/10/18 13:00 02/14/18 06:37 (Varsha-Colace) 1 tab BID PO 02/11/18 21:15 02/14/18 08:47 (Milk Of Magnesia Liq) 30 ml Q12H PRN PO 02/11/18 21:15 (Senokot) 17.2 mg Q12H PRN PO 02/11/18 21:15 02/11/18 22:27 (Dulcolax Supp) 10 mg DAILY PRN RECTAL 02/11/18 21:15 Heparin Sodium/ Dextrose 250 ml @ 13 mls/hr TITRATE PRN IV 02/13/18 18:30 02/14/18 13:52 (Morphine Inj) 2 mg Q3H PRN IV PUSH 02/13/18 18:30 02/14/18 13:02 (Coumadin) 5 mg ONCE ONCE PO 02/14/18 16:00 02/14/18 16:01 Pharmacy Profile Note 0 ml @ 0 mls/hr UNSCH OTHER 02/14/18 11:30 (Coumadin) 5 mg DAILY@1600 PO 02/15/18 16:00 A/P Problem List: (1) Syncope ICD Code: R55 - Syncope and collapse Status: Resolved (2) Subdural hematoma ICD Code: I62.00 - Nontraumatic subdural hemorrhage, unspecified Status: Acute (3) Alcohol abuse ICD Code: F10.10 - Alcohol abuse, uncomplicated (4) Seizure disorder ICD Code: G40.909 - Epilepsy, unspecified, not intractable, without status epilepticus (5) Chronic pain ICD Code: G89.29 - Other chronic pain (6) HTN (hypertension) ICD Code: I10 - Essential (primary) hypertension (7) Concussion ICD Code: S06.0X9A - Concussion with loss of consciousness of unspecified duration, initial encounter (8) Abnormal chest CT ICD Code: R93.8 - Abnormal findings on diagnostic imaging of other specified body structures (9) Nausea ICD Code: R11.0 - Nausea Status: Acute (10) Left arm pain ICD Code: M79.602 - Pain in left arm (11) Deep vein thrombosis (DVT) of left upper extremity ICD Code: I82.622 - Acute embolism and thrombosis of deep veins of left upper extremity (12) Cellulitis ICD Code: L03.90 - Cellulitis, unspecified Plan: Left upper extremity also has some warmth and erythema. I will start the patient on IV cefazolin. Monitor for improvement and switch to oral antibiotics once more stable. Bessie [place] and morphine IV as needed for breakthrough pain for pain control. Assessment and Plan 1) Syncope Plan: CT of the head significant for hypodensity in the frontoparietal cortex, MRI recommended MRI brain showed 2 focal abnormalities on the left side suggestive of subacute hematomas with an abnormal appearance of the pituitary gland consistent with the pituitary hemorrhage versus mass. Neurosurgery consulted, recommended observation with frequent neuro checks and seizure precautions. Carotid Dopplers ordered showed less than 50% stenosis in bilateral carotids and 2D echo had normal EF with 60-65% and trace TR. (2) Subdural hematoma ICD Code: I62.00 - Nontraumatic subdural hemorrhage, unspecified Status: Acute Patient states he hit his head on the floor when he passed out. Neurosurgery following. Follow-up recommendations. 02/[address] of the brain without IV contrast in a.m. 02/[address] shows evolving left frontal and temporal parenchymal injuries. 02/11 Continue management of subdural hematoma as per neurosurgery recommendations. 02/[address] of the head does not show any new intracranial hemorrhage. Probable encephalomalacia in the left frontal lobe. Stable pituitary mass measuring 11 mm in diameter. (3) Alcohol abuse Plan: [facility] protocol Monitor for signs of withdrawal -no evidence of alcohol withdrawal now. (4) Seizure disorder 02/06 no evidence of seizure disorder. Continue Keppra 500 mg p.o. twice daily. (5) Chronic pain Plan: The patient states that he sees a pain management doctor as an outpatient. Patient is not complaining of pain in the back and lower extremities. Continue [place]. Controlled and stable. (6) HTN (hypertension) Plan: The patient now has severe elevated blood pressure with a systolic blood pressure in the 180s. This could be secondary to pain I will resume home pain medications. I will also start on clonidine 0.1 mg p.o. every 6 hours as needed as needed for systolic blood pressure more than 160. 02/06 blood pressure still seems to be severely elevated in the 160s. Continue clonidine as needed. Will resume home [place]. 02/08 blood pressure still elevated. Start the patient on amlodipine 5 mg p.o. daily since systolic blood pressure has been severely elevated in the 160 systolic. Continue clonidine as needed. 02/09 blood pressure severely elevated with a systolic blood pressure in the 190s. Likely secondary to intracranial hemorrhage as well as headache. I will give 1 dose of 4 mg of IV morphine and start the patient on ketorolac. 10 mg p.o. every 6 hours for pain control. I will also increase amlodipine to 10 mg p.o. daily and start the patient on lisinopril 20 mg p.o. daily. Continue to monitor vital signs. 02/10 BP with improved control.. Continue amlodipine 10 mg p.o. daily, lisinopril 20 mg p.o. daily. Continue to monitor vital signs. 02/11 BP on the lower side. DC Lisinopril. 02/12 BP more stable, Continue amlodipine at same dose. (7) Concussion Plan: Patient suffered a concussion from traumatic injury after syncopal episode. Continue with [place] for headaches. Continue to monitor neurological status. (8) Abnormal chest CT Plan: CT abdomen and pelvis and CT of the chest were obtained to look for neoplasm. CT abdomen and pelvis is unremarkable as described above. CT of the chest however reviewed by me showed a nonspecific 1 cm nodular density /infiltrate in the right upper lung. There are bullous changes in both apices, right greater than left. 02/08 PET scan not available at this institution. Patient will need to have it as an outpatient. (9) Nausea Plan: Nausea much improved. Continue IV Zofran, IV Compazine. (9) DVT of left upper extremity. Left upper extremity Doppler ultrasound showed a cephalic vein DVT. Neurosurgery clear patient to be on anticoagulation. Patient on IV heparin bridge to Coumadin. Goal INR 2-3. Pharmacy consulted. Patient would likely need anti-correlation for 6 months since DVT seems to be provoked by IV lines that were previously placed and cellulitis. DVT prophylaxis: SCDs, no chemoprophylaxis given subdural hematomas. Discharge Planning Patient presented with syncopal episode, found to have a mild subdural hematoma. Neurosurgery following. Patient developed left upper extremity DVT. Neurosurgery cleared patient to be started on the correlation, patient also started on IV cefazolin for associated cellulitis in the same left upper extremity. Discharge pending heparin bridge to Coumadin. Goal INR 2-3. Problem Qualifiers (1) Syncope: Qualified Codes: R55 - Syncope and collapse (2) Chronic pain: Qualified Codes: G89.4 - Chronic pain syndrome (3) HTN (hypertension): Qualified Codes: I10 - Essential (primary) hypertension (4) Concussion: (5) Cellulitis: Qualified Codes: L03.114 - Cellulitis of left upper limb Eliceo Suggs MD Feb 14, 2018 14:14
[2018-02-14] MEDS ORDERED: WARFARIN SOD 5 MG TAB PO ONE (16:00)
--- NOTE | 2018-02-14 18:02 | HHI.NSPN ---
History Chief Complaint: Left forearm pain Interval History 02/05: The patient is a poor historian. He does confirm that he fell three days ago and since then he has had headaches, dizziness and has been falling. He denies any fall before that. He did not report any syncope but in the EMR it is noted that he did pass out earlier. He states that he is having trouble keeping track of everything since the fall. 02/06: When seen this evening the patient is awake and alert. He is more interactive and readily verbalises. He is confused as to time but understands he is in the hospital for evaluation due to his frequent falls recently. He does say he has a headache and intermittent dizziness. He also has had nausea that was relieved with Zofran. He denies any pain, numbness, tingling or weakness to the extremities but does say he has difficulty ambulating. No sensorimotor deficits are noted upon examination. His speech is slow and moderately dysarthritic. The patient believes that he had his MRI and CT done today and not yesterday. 02/07: This afternoon the patient is awake and alert watching TV in bed. He complains of a headache and said his blood pressure was up. He also had some dizziness when he gets up. He asked for a nicotine patch since he is a smoker. His neuro exam remains unchanged from yesterday. 02/09: Patient reports severe headache on the right side of the head. Feels it was due to elevated blood pressure at 193/103. He was given medication to lower his blood pressure now feels improved. Denies any other issues. Reports she walked to the bathroom with physical therapy with a walker. 02/11: Patient reports he is improved since switching to a different antiemetic. Continues to have some dizzy spells but otherwise reports he is doing well 02/13: Spoke with Dr Edward regarding the patient having a DVT and he would like to anticoagulate the patient. A repeat CT brain was obtained yesterday which was reviewed w/o any haemorrhage noted. When seen this evening the patient is awake and alert sitting on the edge of the bed. He denies any headache, dizziness or nausea. He has pain to the left forearm where he has a DVT. He denies any numbness, tingling or other pain to the extremities. He states that he is up and ambulating the hallway with a wheeled walker. He is oriented and his thought process is quicker. There are no changes noted in his sensorimotor examination. 02/14: When seen this evening the patient is sitting on the couch in the room. He states that he has a "little bit" of a headache but just received his pain medication. He denies any dizziness or nausea. He has pain to the left forearm where he has the DVT, otherwise he has no extremity pain. He denies any numbness , tingling or weakness to the extremities. There is no change in his neuro exam. Exam Results 02/13/18 02/13/18 02/14/18 02/14/18 02/15/18 02/15/18 06:00 18:00 06:00 18:00 06:00 18:00 Intake Total 1440 ml 960 ml 560 ml 480 ml Output Total 1300 ml 250 ml Balance 140 ml 710 ml 560 ml 480 ml Intake Oral 1440 ml 960 ml 560 ml 480 ml Output Urine Total 1300 ml 250 ml # Voids 3 2 # Bowel Movements 1 0 0 Vital Signs Date Time Temp Pulse Resp B/P (MAP) Pulse Ox O2 Delivery O2 Flow Rate FiO2 02/14/18 12:00 97.8 79 20 109/67 (81) 98 02/14/18 08:33 97.8 78 16 123/75 (91) 02/14/18 04:00 98.0 75 16 108/70 (83) 98 02/14/18 04:00 75 02/14/18 00:00 80 02/13/18 23:55 97.8 73 17 124/79 (94) 98 02/13/18 20:00 98.0 74 16 124/71 (88) 99 02/13/18 20:00 75 02/13/18 16:15 98.1 80 14 121/76 (91) 99 02/13/18 16:00 78 02/13/18 16:00 98.1 80 20 121/76 (91) 99 02/13/18 12:00 98.4 71 20 115/68 (84) 98 02/13/18 12:00 67 02/13/18 08:00 Room Air 02/13/18 08:00 67 02/13/18 08:00 98.0 73 20 132/79 (96) 96 02/13/18 04:02 Room Air 02/13/18 04:02 82 02/13/18 04:00 98.5 79 16 121/76 (91) 98 02/13/18 00:00 97.8 73 17 124/79 (94) 98 02/13/18 00:00 97.6 70 16 112/61 (78) 97 02/13/18 00:00 72 02/13/18 00:00 Room Air 02/12/18 20:00 97.9 67 17 102/59 (73) 98 02/12/18 20:00 Room Air 02/12/18 20:00 65 02/12/18 16:05 97.9 71 17 107/67 (80) 98 02/12/18 16:00 71 02/12/18 12:02 97.8 73 17 102/57 (72) 97 02/12/18 12:00 67 02/12/18 08:05 98.6 65 17 104/62 (76) 97 02/12/18 08:00 Room Air 02/12/18 08:00 63 02/12/18 03:42 66 02/12/18 00:03 65 02/11/18 23:53 97.9 67 20 147/77 (100) 99 02/11/18 23:53 Room Air 02/11/18 20:00 98.2 75 18 117/68 (84) 98 02/11/18 20:00 Room Air 02/11/18 19:34 78 Physical Examination GENERAL: Awake & alert sitting on the couch. His affect is essentially normal. Readily interacts. No apparent distress. HEENT: Left parietoccipital region minimally TTP. PERRLA 2 mm, EOMI. MMM & pink , tongue midline to protrusion. MUSCULOSKELETAL: ESCAMILLA purposefully. Left forearm TTP o/w extremities NTTP. No evident clubbing or deformity. NEUROLOGICAL: AA&O x3. Speech clear & appropriate. Follows simple commands. States some facial numbness to left moravian o/w CN II through XII appear grossly intact. Sensation intact to light touch to all extremities. Motor strength is 5/5 to all major flexion & extension muscle groups of the extremities. Lab, Micro, Other Results Recent Impressions Upper Extremity Ultrasound 02/13/18 0000 Signed Impressions: Service Date/Time: Tuesday, February 13, 2018 13:22 - CONCLUSION: 1. Positive for deep venous thrombosis in the left cephalic vein. Wayne Mcintyre MD Head CT 02/12/18 0000 Signed Impressions: Service Date/Time: Monday, February 12, 2018 20:32 - CONCLUSION: 1. No new intracranial hemorrhage. Probable encephalomalacia in the left frontal lobe. 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 Wayne Mcintyre MD Laboratory Tests Test 02/13/18 19:26 02/14/18 01:00 02/14/18 09:30 White Blood Count 7.9 TH/MM3 Red Blood Count 3.30 MIL/MM3 Hemoglobin 11.8 GM/DL Hematocrit 35.2 % Mean Corpuscular Volume 106.6 FL Mean Corpuscular Hemoglobin 35.7 PG Mean Corpuscular Hemoglobin Concent 33.5 % Red Cell Distribution Width 12.8 % Platelet Count 288 TH/MM3 Mean Platelet Volume 8.6 FL Prothrombin Time 9.6 SEC Prothromb Time International Ratio 0.9 RATIO Activated Partial Thromboplast Time 31.0 SEC 47.9 SEC 60.2 SEC Medical Decision Making Impression and Plan Impression: Fall from pickup truck Left-sided late subacute subdural haematomas Abnormal appearing pituitary gland w/enlargement on MRI Pituitary haemorrhage vs mass Per Dr López, appears to have subacute left frontotemporal parenchymal hemorrhages with relatively mild mass effect. Pituitary lesion appears to be also most likely a hemorrhage, cannot totally rule out neoplasm. Patient doing well. No change in neuro status. CT unremarkable for any new haemorrhage. Probable encephalomalacia to left frontal lobe. Stable pituitary mass. Plan: Primary management per Hospitalist. Neuro checks. Stat CT brain for any decline in neuro status. Mechanical DVT prophylaxis. Mobilise patient w/assistance. Physical Therapy eval & tx. Nicoderm patch QD. Okay to heparin for DVT. Will intermittently follow while hospitalised. Rob Sheehan Feb 14, 2018 18:02
[2018-02-14] MEDS: REMOVE OLD PATCH T-DERMAL SCH (20:09)
[2018-02-14] MEDS: SODIUM CHLORIDE 0.9% FLUSH 10 ML FLUSH IV FLUSH PRN (22:10)
[2018-02-15] VITALS (11 sets, daily range): BP systolic 111–135; BP diastolic 60–93; PULSE 61–99; RESP 16–20; TEMP 97.3–98.6; O2SAT 96–99
[2018-02-15] MEDS: ACETAMINOPHEN/HYDROcodone 325 MG/5 MG TAB PO PRN ×6 (00:02→20:59)
[2018-02-15] MEDS: MORPHINE SULFATE 2 MG/ML INJ IV PUSH PRN ×6 (01:19→21:58)
--- NOTE | 2018-02-15 03:23 | HHI.PR ---
Subjective Remarks NOT SEEN Objective Vitals Vital Signs Date Time Temp Pulse Resp B/P (MAP) Pulse Ox O2 Delivery O2 Flow Rate FiO2 02/15/18 00:28 Room Air 02/15/18 00:20 75 02/15/18 00:00 98.6 69 20 134/79 (97) 96 02/14/18 20:18 80 02/14/18 20:12 98.1 79 18 129/71 (90) 100 02/14/18 16:02 96 02/14/18 16:00 97.3 69 19 113/69 (84) 100 02/14/18 12:00 97.8 79 20 109/67 (81) 98 02/14/18 11:57 71 02/14/18 08:33 97.8 78 16 123/75 (91) 02/14/18 07:49 62 02/14/18 04:00 98.0 75 16 108/70 (83) 98 02/14/18 04:00 75 I/O 02/14/18 02/14/18 02/14/18 02/15/18 02/15/18 02/15/18 07:00 15:00 23:00 07:00 15:00 23:00 Intake Total 440 ml 480 ml 480 ml Balance 440 ml 480 ml 480 ml Intake Oral 440 ml 480 ml 480 ml # Voids 2 3 # Bowel Movements 0 1 Result Diagram: 02/13/181925 Imaging Last Impressions Upper Extremity Ultrasound 02/13/18 0000 Signed Impressions: Service Date/Time: Tuesday, February 13, 2018 13:22 - CONCLUSION: 1. Positive for deep venous thrombosis in the left cephalic vein. Wayne Mcintyre MD Head CT 02/12/18 0000 Signed Impressions: Service Date/Time: Monday, February 12, 2018 20:32 - CONCLUSION: 1. No new intracranial hemorrhage. Probable encephalomalacia in the left frontal lobe. 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 Wayne Mcintyre MD Carotid Artery Ultrasound 02/07/18 0000 Signed Impressions: Service Date/Time: Wednesday, February 07, 2018 22:21 - CONCLUSION: Bilateral carotid plaque with hemodynamic parameters characteristic of less than 50%% stenosis. Jaun Albright MD Head Magnetic Resonance Angiography 02/05/18 0000 Signed Impressions: Service Date/Time: Monday, February 05, 2018 01:35 - CONCLUSION: No evidence of aneurysm or vessel truncation. Jaun Albright MD Chest CT 02/05/18 0000 Signed Impressions: Service Date/Time: Monday, February 05, 2018 11:33 - CONCLUSION: 1. There is a nonspecific 1 cm nodular density/infiltrate in the right upper lung. Recommend PET/CT to evaluate for focal hypermetabolic activity. 2. There are bullous changes in both apices, right greater than left. 3. Otherwise, the rest of the CT thorax is grossly unremarkable for patient's age.. Brian Sierra MD Brain MRI 02/05/18 0000 Signed Impressions: Service Date/Time: Monday, February 05, 2018 01:35 - CONCLUSION: 1. 2 focal abnormalities on the left side, temporal tip and frontoparietal region, both exhibiting similar signal alterations that suggest late subacute hematomas. 2. Abnormal appearance to the pituitary gland with enlargement into the suprasellar cistern, T1 shortening and intermediate signal on T2 suggesting either pituitary hemorrhage or mass. 3. Left mastoid disease. Jaun Albright MD Abdomen/Pelvis CT 02/05/18 0000 Signed Impressions: Service Date/Time: Monday, February 05, 2018 11:33 - CONCLUSION: Essentially unremarkable and stable CT scan of the abdomen and pelvis compared to the prior examination of 01/28/2018. The previously noted possible thickening involving the distal esophagus is not demonstrated on today's study. No new or significant changes are demonstrated. Brian Sierra MD Objective Remarks AAox3 nad Bruises in BL thighs Clear lungs BL S1S2 RRR, no MRG abdomen is soft, nt, nt Cranial nerves II through XII grossly intact, muscle strength 5.5 in all extremities. Sensation intact in all extremities. Left upper extremity with associated induration, tenderness, erythema and warmth , no fluid collection palpated. Procedures None A/P Problem List: (1) Syncope ICD Code: R55 - Syncope and collapse Status: Resolved (2) Subdural hematoma ICD Code: I62.00 - Nontraumatic subdural hemorrhage, unspecified Status: Acute (3) Alcohol abuse ICD Code: F10.10 - Alcohol abuse, uncomplicated (4) Seizure disorder ICD Code: G40.909 - Epilepsy, unspecified, not intractable, without status epilepticus (5) Chronic pain ICD Code: G89.29 - Other chronic pain (6) HTN (hypertension) ICD Code: I10 - Essential (primary) hypertension (7) Concussion ICD Code: S06.0X9A - Concussion with loss of consciousness of unspecified duration, initial encounter (8) Abnormal chest CT ICD Code: R93.8 - Abnormal findings on diagnostic imaging of other specified body structures (9) Nausea ICD Code: R11.0 - Nausea Status: Acute (10) Left arm pain ICD Code: M79.602 - Pain in left arm (11) Deep vein thrombosis (DVT) of left upper extremity ICD Code: I82.622 - Acute embolism and thrombosis of deep veins of left upper extremity (12) Cellulitis ICD Code: L03.90 - Cellulitis, unspecified Assessment and Plan 1) Syncope MRI brain showed 2 focal abnormalities on the left side suggestive of subacute hematomas with an abnormal appearance of the pituitary gland consistent with the pituitary hemorrhage versus mass. Neurosurgery consulted, recommended observation with frequent neuro checks and seizure precautions. Carotid Dopplers ordered showed less than 50% stenosis in bilateral carotids and 2D echo had normal EF with 60-65% and trace TR. Tele (2) Subdural hematoma Acute Patient states he hit his head on the floor when he passed out. Neurosurgery following. Follow-up recommendations. 02/[address] of the brain without IV contrast in a.m. 02/[address] shows evolving left frontal and temporal parenchymal injuries. 02/11 Continue management of subdural hematoma as per neurosurgery recommendations. 02/[address] of the head does not show any new intracranial hemorrhage. Probable encephalomalacia in the left frontal lobe. Stable pituitary mass measuring 11 mm in diameter. (3) Alcohol abuse [facility] protocol Monitor for signs of withdrawal -no evidence of alcohol withdrawal now. (4) Seizure disorder 02/06 no evidence of seizure disorder. Continue Keppra 500 mg p.o. twice daily. (5) Chronic pain Plan: The patient states that he sees a pain management doctor as an outpatient. Patient is not complaining of pain in the back and lower extremities. Continue [place]. Controlled and stable. (6) HTN (hypertension) BP more stable, Continue amlodipine (7) Concussion Plan: Patient suffered a concussion from traumatic injury after syncopal episode. Continue with [place] for headaches. Continue to monitor neurological status. (8) Abnormal chest CT Plan: CT abdomen and pelvis and CT of the chest were obtained to look for neoplasm. CT abdomen and pelvis is unremarkable as described above. CT of the chest however reviewed by me showed a nonspecific 1 cm nodular density /infiltrate in the right upper lung. There are bullous changes in both apices, right greater than left. 02/08 PET scan not available at this institution. Patient will need to have it as an outpatient. (9) Nausea Plan: Nausea much improved. Continue IV Zofran, IV Compazine. (9) DVT of left upper extremity. Left upper extremity Doppler ultrasound showed a cephalic vein DVT. Neurosurgery clear patient to be on anticoagulation. Patient on IV heparin bridge to Coumadin. Goal INR 2-3. Pharmacy consulted. Patient would likely need anti-correlation for 6 months since DVT seems to be provoked by IV lines that were previously placed DVT prophylaxis: SCDs, Coumadin Problem Qualifiers (1) Syncope: Qualified Codes: R55 - Syncope and collapse (2) Chronic pain: Qualified Codes: G89.4 - Chronic pain syndrome (3) HTN (hypertension): Qualified Codes: I10 - Essential (primary) hypertension (4) Concussion: (5) Cellulitis: Qualified Codes: L03.114 - Cellulitis of left upper limb Jonathan Valentin MD Feb 15, 2018 03:23
[2018-02-15] MEDS: HEPARIN-D5W 25,000 U/250 ML 250 ML IV PRN (06:25)
[2018-02-15] MEDS: levETIRAcetam 500 MG TAB PO SCH ×2 (08:44→20:58)
[2018-02-15] MEDS: PANTOPRAZOLE SOD 40 MG DELAYED RELEASE TAB PO SCH ×2 (08:44→20:58)
[2018-02-15] MEDS: DOCUSATE SODIUM 50 MG/SENNA 8.6 MG TAB PO SCH ×2 (08:45→20:59)
[2018-02-15] MEDS: SODIUM CHLORIDE 0.9% FLUSH 10 ML FLUSH IV FLUSH SCH ×2 (08:45→21:59)
[2018-02-15] MEDS: NICOTINE 14 MG/24 HR PATCH T-DERMAL SCH (08:46)
[2018-02-15 09:42] LABS: HEMATOCRIT 32.4 % (39.0-51.0); MEAN CELL VOLUME 105.3 FL (80.0-100.0); MEAN CORPUSCULAR HEMOGLOBIN 35.7 PG (27.0-34.0); MEAN CORPUSCULAR HGB CONC 33.9 % (32.0-36.0); MEAN PLATELET VOLUME 8.8 FL (7.0-11.0); PLATELET COUNT 280 TH/MM3 (150-450); RED BLOOD COUNT 3.08 MIL/MM3 (4.50-5.90); RED CELL DISTRIBUTION WIDTH 12.5 % (11.6-17.2); WHITE BLOOD COUNT 5.8 TH/MM3 (4.0-11.0)
[2018-02-15 09:55] LABS: INTERNATIONAL NORMALIZED RATIO 1.1 RATIO; PROTHROMBIN TIME - PATIENT 11.4 SEC (9.8-11.6)
[2018-02-15 10:06] LABS: CALCIUM 8.7 MG/DL (8.5-10.1); CREATININE 0.68 MG/DL (0.60-1.30)
--- NOTE | 2018-02-15 13:39 | HHI.PR ---
Subjective Remarks F/U LUE DVT. Doing ok tolerating heparin and coumadin. Coumadin teaching provided. Also educated on anticoagulation with novel agent discussed with case management. Will clarify with neurosurgery if okay to start Eliquis Objective Vitals Vital Signs Date Time Temp Pulse Resp B/P (MAP) Pulse Ox O2 Delivery O2 Flow Rate FiO2 02/15/18 12:00 98.2 78 16 119/74 (89) 98 02/15/18 08:00 61 02/15/18 08:00 97.4 84 16 128/60 (82) 99 02/15/18 04:01 75 02/15/18 04:00 97.3 66 20 111/61 (78) 98 02/15/18 00:28 Room Air 02/15/18 00:20 75 02/15/18 00:00 98.6 69 20 134/79 (97) 96 02/14/18 20:18 80 02/14/18 20:12 98.1 79 18 129/71 (90) 100 02/14/18 16:02 96 02/14/18 16:00 97.3 69 19 113/69 (84) 100 I/O 02/14/18 02/14/18 02/14/18 02/15/18 02/15/18 02/15/18 07:00 15:00 23:00 07:00 15:00 23:00 Intake Total 440 ml 480 ml 480 ml 500 ml Balance 440 ml 480 ml 480 ml 500 ml Intake Oral 440 ml 480 ml 480 ml 500 ml # Voids 2 3 3 # Bowel Movements 0 1 0 Result Diagram: 02/15/18 0850 02/15/18 0850 Imaging Last Impressions Upper Extremity Ultrasound 02/13/18 0000 Signed Impressions: Service Date/Time: Tuesday, February 13, 2018 13:22 - CONCLUSION: 1. Positive for deep venous thrombosis in the left cephalic vein. Wayne Mcintyre MD Head CT 02/12/18 0000 Signed Impressions: Service Date/Time: Monday, February 12, 2018 20:32 - CONCLUSION: 1. No new intracranial hemorrhage. Probable encephalomalacia in the left frontal lobe. 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 Wayne Mcintyre MD Carotid Artery Ultrasound 02/07/18 0000 Signed Impressions: Service Date/Time: Wednesday, February 07, 2018 22:21 - CONCLUSION: Bilateral carotid plaque with hemodynamic parameters characteristic of less than 50%% stenosis. Jaun Albright MD Head Magnetic Resonance Angiography 02/05/18 0000 Signed Impressions: Service Date/Time: Monday, February 05, 2018 01:35 - CONCLUSION: No evidence of aneurysm or vessel truncation. Jaun Albright MD Chest CT 02/05/18 0000 Signed Impressions: Service Date/Time: Monday, February 05, 2018 11:33 - CONCLUSION: 1. There is a nonspecific 1 cm nodular density/infiltrate in the right upper lung. Recommend PET/CT to evaluate for focal hypermetabolic activity. 2. There are bullous changes in both apices, right greater than left. 3. Otherwise, the rest of the CT thorax is grossly unremarkable for patient's age.. Brian Sierra MD Brain MRI 02/05/18 0000 Signed Impressions: Service Date/Time: Monday, February 05, 2018 01:35 - CONCLUSION: 1. 2 focal abnormalities on the left side, temporal tip and frontoparietal region, both exhibiting similar signal alterations that suggest late subacute hematomas. 2. Abnormal appearance to the pituitary gland with enlargement into the suprasellar cistern, T1 shortening and intermediate signal on T2 suggesting either pituitary hemorrhage or mass. 3. Left mastoid disease. Jaun Albright MD Abdomen/Pelvis CT 02/05/18 0000 Signed Impressions: Service Date/Time: Monday, February 05, 2018 11:33 - CONCLUSION: Essentially unremarkable and stable CT scan of the abdomen and pelvis compared to the prior examination of 01/28/2018. The previously noted possible thickening involving the distal esophagus is not demonstrated on today's study. No new or significant changes are demonstrated. Brian Sierra MD Objective Remarks AAox3 nad Bruises in BL thighs Clear lungs BL S1S2 RRR, no MRG abdomen is soft, nt, nt Cranial nerves II through XII grossly intact, muscle strength 5.5 in all extremities. Sensation intact in all extremities. Left upper extremity with improving induration, tenderness, erythema and warmth , no fluid collection palpated. Procedures None A/P Problem List: (1) Syncope ICD Code: R55 - Syncope and collapse Status: Resolved (2) Subdural hematoma ICD Code: I62.00 - Nontraumatic subdural hemorrhage, unspecified Status: Acute (3) Alcohol abuse ICD Code: F10.10 - Alcohol abuse, uncomplicated (4) Seizure disorder ICD Code: G40.909 - Epilepsy, unspecified, not intractable, without status epilepticus (5) Chronic pain ICD Code: G89.29 - Other chronic pain (6) HTN (hypertension) ICD Code: I10 - Essential (primary) hypertension (7) Concussion ICD Code: S06.0X9A - Concussion with loss of consciousness of unspecified duration, initial encounter (8) Abnormal chest CT ICD Code: R93.8 - Abnormal findings on diagnostic imaging of other specified body structures (9) Nausea ICD Code: R11.0 - Nausea Status: Acute (10) Left arm pain ICD Code: M79.602 - Pain in left arm (11) Deep vein thrombosis (DVT) of left upper extremity ICD Code: I82.622 - Acute embolism and thrombosis of deep veins of left upper extremity (12) Cellulitis ICD Code: L03.90 - Cellulitis, unspecified Assessment and Plan 1) Syncope after falling and hitting his head MRI brain showed 2 focal abnormalities on the left side suggestive of subacute hematomas with an abnormal appearance of the pituitary gland consistent with the pituitary hemorrhage versus mass. Neurosurgery consulted, recommended observation with frequent neuro checks and seizure precautions. Carotid Dopplers ordered showed less than 50% stenosis in bilateral carotids and 2D echo had normal EF with 60-65% and trace TR. Tele (2) Subdural hematoma Acute Patient states he hit his head on the floor when he passed out. Neurosurgery following. 02/[address] of the head does not show any new intracranial hemorrhage. Probable encephalomalacia in the left frontal lobe. 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 (3) Alcohol abuse [facility] protocol Monitor for signs of withdrawal -no evidence of alcohol withdrawal now. (4) Seizure disorder 02/06 no evidence of seizure disorder. Continue Keppra 500 mg p.o. twice daily. (5) Chronic pain Plan: The patient states that he sees a pain management doctor as an outpatient. Patient is not complaining of pain in the back and lower extremities. Continue [place]. Controlled and stable. (6) HTN (hypertension) BP more stable, Continue amlodipine (7) Concussion Plan: Patient suffered a concussion from traumatic injury after syncopal episode. Continue with Phillips for headaches. Continue to monitor neurological status. (8) Abnormal chest CT Plan: CT abdomen and pelvis and CT of the chest were obtained to look for neoplasm. CT abdomen and pelvis is unremarkable as described above. CT of the chest however reviewed by me showed a nonspecific 1 cm nodular density /infiltrate in the right upper lung. There are bullous changes in both apices, right greater than left. 02/08 PET scan not available at this institution. Patient will need to have it as an outpatient. (9) Nausea Plan: Nausea much improved. Continue IV Zofran, IV Compazine. (9) DVT of left upper extremity. Left upper extremity Doppler ultrasound showed a cephalic vein DVT. Neurosurgery clear patient to be on anticoagulation. Patient on IV heparin bridge to Coumadin. Goal INR 2-3. Pharmacy consulted. Patient would likely need anti-correlation for 6 months since DVT seems to be provoked by IV lines that were previously placed Patient prefers to be on noac will discuss with neurosurgery DVT prophylaxis: SCDs, Coumadin Discharge Planning Discharge when INR therapeutic or if patient started on Noac Problem Qualifiers (1) Syncope: Qualified Codes: R55 - Syncope and collapse (2) Chronic pain: Qualified Codes: G89.4 - Chronic pain syndrome (3) HTN (hypertension): Qualified Codes: I10 - Essential (primary) hypertension (4) Concussion: (5) Cellulitis: Qualified Codes: L03.114 - Cellulitis of left upper limb Jonathan Valentin MD Feb 15, 2018 13:39
[2018-02-15] MEDS ORDERED: WARFARIN SOD 5 MG TAB PO SCH (16:00)
[2018-02-15] MEDS: CEPHALEXIN MONOHYDRATE 500 MG CAP PO SCH ×2 (17:59→23:10)
[2018-02-15] MEDS ORDERED: AMLO10 PO (18:53)
[2018-02-15] MEDS ORDERED: CEPH500C PO (18:53)
--- NOTE | 2018-02-15 18:54 | HHI.DCPOC ---
Discharge Care Plan Diagnosis: (1) Deep vein thrombosis (DVT) of left upper extremity Your Health Problems Are: Difficulty with ADL Exercise Tolerance Goals to Promote Your Health * To prevent worsening of your condition and complications * To maintain your health at the optimal level Directions to Meet Your Goals Take your medications as prescribed Follow your dietary instruction Follow activity as directed Keep your appointments as scheduled Take your immunizations and boosters as scheduled If your symptoms worsen call your PCP, if no PCP go to Urgent Care Center or Emergency Room Smoking is Dangerous to Your Health. Avoid second hand smoke Call the 24-hour hour crisis hotline for domestic abuse at Jonathan Valentin MD Feb 15, 2018 18:54
[2018-02-15] MEDS ORDERED: APIX5TAB PO (18:58)
[2018-02-15] MEDS: REMOVE OLD PATCH T-DERMAL SCH (21:00)
[2018-02-16] MEDS: HEPARIN-D5W 25,000 U/250 ML 250 ML IV PRN ×2 (01:03→01:06)
[2018-02-16] MEDS: ACETAMINOPHEN/HYDROcodone 325 MG/5 MG TAB PO PRN ×3 (01:09→09:12)
[2018-02-16] MEDS: MORPHINE SULFATE 2 MG/ML INJ IV PUSH PRN ×3 (02:07→10:00)
[2018-02-16] MEDS: SODIUM CHLORIDE 0.9% FLUSH 10 ML FLUSH IV FLUSH PRN (02:07)
[2018-02-16 03:49] VITALS: PULSE 71
[2018-02-16] MEDS: CEPHALEXIN MONOHYDRATE 500 MG CAP PO SCH (04:59)
[2018-02-16 05:10] VITALS: BP 139/88; PULSE 71; RESP 18; TEMP 97.6; O2SAT 97
[2018-02-16] MEDS: ONDANSETRON HCL 4 MG/2 ML VIAL IVP PRN (06:33)
[2018-02-16 08:00] VITALS: BP 137/83; PULSE 70; PULSE 73; RESP 17; TEMP 97.7; O2SAT 98
[2018-02-16] MEDS ORDERED: APIXABAN 5 MG TABLET PO SCH (09:00)
[2018-02-16] MEDS: PANTOPRAZOLE SOD 40 MG DELAYED RELEASE TAB PO SCH (09:11)
[2018-02-16] MEDS: DOCUSATE SODIUM 50 MG/SENNA 8.6 MG TAB PO SCH (09:12)
[2018-02-16] MEDS: NICOTINE 14 MG/24 HR PATCH T-DERMAL SCH (09:12)
[2018-02-16] MEDS: levETIRAcetam 500 MG TAB PO SCH (09:12)
[2018-02-16] MEDS: SODIUM CHLORIDE 0.9% FLUSH 10 ML FLUSH IV FLUSH SCH (09:13)
--- NOTE | 2018-02-16 13:30 | HHI.DS ---
Discharge Summary Admission Date Feb 05, 2018 at 03:42 Discharge Date: Feb 16, 2018 Admitting Diagnosis Recurrent syncope, subacute intracranial hematoma (1) Syncope ICD Code: R55 - Syncope and collapse Diagnosis: Principal Status: Resolved (2) Subdural hematoma ICD Code: I62.00 - Nontraumatic subdural hemorrhage, unspecified Diagnosis: Principal Status: Acute (3) Alcohol abuse ICD Code: F10.10 - Alcohol abuse, uncomplicated Diagnosis: Principal (4) Seizure disorder ICD Code: G40.909 - Epilepsy, unspecified, not intractable, without status epilepticus Diagnosis: Principal (5) Chronic pain ICD Code: G89.29 - Other chronic pain Diagnosis: Principal (6) HTN (hypertension) ICD Code: I10 - Essential (primary) hypertension Diagnosis: Secondary (7) Concussion ICD Code: S06.0X9A - Concussion with loss of consciousness of unspecified duration, initial encounter Diagnosis: Principal (8) Abnormal chest CT ICD Code: R93.8 - Abnormal findings on diagnostic imaging of other specified body structures Diagnosis: Principal (9) Nausea ICD Code: R11.0 - Nausea Diagnosis: Principal Status: Acute (10) Left arm pain ICD Code: M79.602 - Pain in left arm Diagnosis: Principal (11) Deep vein thrombosis (DVT) of left upper extremity ICD Code: I82.622 - Acute embolism and thrombosis of deep veins of left upper extremity Diagnosis: Principal (12) Cellulitis ICD Code: L03.90 - Cellulitis, unspecified Diagnosis: Principal Procedures None Brief History - From Admission 57-year-old male with a past medical history significant for history of recent GI bleed, seizure disorder, chronic back pain and alcohol abuse presents to the emergency department for evaluation of dizziness, frequent falls and loss of consciousness. The patient reports that 3 days ago he fell out of a truck and hit his head while helping some of his friends move. He states that since that time he has been consistently dizzy and passing out frequently. The patient reports he was at a friend's house earlier in the day when he passed out and she called 911. He denies any chest pain or shortness of breath. No nausea/ vomiting/diarrhea. No lateralizing signs/symptoms. CBC/BMP: 02/15/18 0850 02/15/18 0850 Significant Findings Laboratory Tests Test 02/13/18 19:26 02/14/18 01:00 02/14/18 09:30 02/15/18 08:50 Red Blood Count 3.30 MIL/MM3 (4.50-5.90) 3.08 MIL/MM3 (4.50-5.90) Hemoglobin 11.8 GM/DL (13.0-17.0) 11.0 GM/DL (13.0-17.0) Hematocrit 35.2 % (39.0-51.0) 32.4 % (39.0-51.0) Mean Corpuscular Volume 106.6 FL (80.0-100.0) 105.3 FL (80.0-100.0) Mean Corpuscular Hemoglobin 35.7 PG (27.0-34.0) 35.7 PG (27.0-34.0) Prothrombin Time 9.6 SEC (9.8-11.6) Activated Partial Thromboplast Time 31.0 SEC (24.3-30.1) 47.9 SEC (24.3-30.1) 60.2 SEC (24.3-30.1) 67.4 SEC (24.3-30.1) Blood Urea Nitrogen 5 MG/DL (7-18) Chloride Level 108 MEQ/L (98-107) Imaging Last Impressions Upper Extremity Ultrasound 02/13/18 0000 Signed Impressions: Service Date/Time: Tuesday, February 13, 2018 13:22 - CONCLUSION: 1. Positive for deep venous thrombosis in the left cephalic vein. Wayne Mcintyre MD Head CT 02/12/18 0000 Signed Impressions: Service Date/Time: Monday, February 12, 2018 20:32 - CONCLUSION: 1. No new intracranial hemorrhage. Probable encephalomalacia in the left frontal lobe. 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 Wayne Mcintyre MD Carotid Artery Ultrasound 02/07/18 0000 Signed Impressions: Service Date/Time: Wednesday, February 07, 2018 22:21 - CONCLUSION: Bilateral carotid plaque with hemodynamic parameters characteristic of less than 50%% stenosis. Jaun Albright MD Head Magnetic Resonance Angiography 3/19/18 0000 Signed Impressions: Service Date/Time: Monday, February 05, 2018 01:35 - CONCLUSION: No evidence of aneurysm or vessel truncation. Jaun Albright MD Chest CT 02/05/18 Signed Impressions: Service Date/Time: Monday, February 05, 2018 11:33 - CONCLUSION: 1. There is a nonspecific 1 cm nodular density/infiltrate in the right upper lung. Recommend PET/CT to evaluate for focal hypermetabolic activity. 2. There are bullous changes in both apices, right greater than left. 3. Otherwise, the rest of the CT thorax is grossly unremarkable for patient's age.. Brian Sierra MD Brain MRI 02/05/18 Signed Impressions: Service Date/Time: Monday, February 05, 2018 01:35 - CONCLUSION: 1. 2 focal abnormalities on the left side, temporal tip and frontoparietal region, both exhibiting similar signal alterations that suggest late subacute hematomas. 2. Abnormal appearance to the pituitary gland with enlargement into the suprasellar cistern, T1 shortening and intermediate signal on T2 suggesting either pituitary hemorrhage or mass. 3. Left mastoid disease. Jaun Albright MD Abdomen/Pelvis CT 02/05/18 Signed Impressions: Service Date/Time: Monday, February 05, 2018 11:33 - CONCLUSION: Essentially unremarkable and stable CT scan of the abdomen and pelvis compared to the prior examination of 01/28/2018. The previously noted possible thickening involving the distal esophagus is not demonstrated on today's study. No new or significant changes are demonstrated. Brian Sierra MD PE at Discharge AAox3 nad Bruises in BL thighs Clear lungs BL S1S2 RRR, no MRG abdomen is soft, nt, nt Cranial nerves II through XII grossly intact, muscle strength 5.5 in all extremities. Sensation intact in all extremities. Left upper extremity with improving induration, tenderness, erythema and warmth , no fluid collection palpated. Hospital Course 1) Syncope after falling and hitting his head MRI brain showed 2 focal abnormalities on the left side suggestive of subacute hematomas with an abnormal appearance of the pituitary gland consistent with the pituitary hemorrhage versus mass. Neurosurgery consulted, recommended observation with frequent neuro checks and seizure precautions. Carotid Dopplers ordered showed less than 50% stenosis in bilateral carotids and 2D echo had normal EF with 60-65% and trace TR. Tele (2) Subdural hematoma Acute Patient states he hit his head on the floor when he passed out. Neurosurgery following. 02/[address] of the head does not show any new intracranial hemorrhage. Probable encephalomalacia in the left frontal lobe. 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 (3) Alcohol abuse [facility] protocol Monitor for signs of withdrawal -no evidence of alcohol withdrawal now. (4) Seizure disorder 02/06 no evidence of seizure disorder. Continue Keppra 500 mg p.o. twice daily. (5) Chronic pain Plan: The patient states that he sees a pain management doctor as an outpatient. Patient is not complaining of pain in the back and lower extremities. Continue [place]. Controlled and stable. (6) HTN (hypertension) BP more stable, Continue amlodipine (7) Concussion Plan: Patient suffered a concussion from traumatic injury after syncopal episode. Continue with [place] for headaches. Continue to monitor neurological status. (8) Abnormal chest CT Plan: CT abdomen and pelvis and CT of the chest were obtained to look for neoplasm. CT abdomen and pelvis is unremarkable as described above. CT of the chest however reviewed by me showed a nonspecific 1 cm nodular density /infiltrate in the right upper lung. There are bullous changes in both apices, right greater than left. 02/08 PET scan not available at this institution. Patient will need to have it as an outpatient. Prescription provided to the patient as well as follow-up with pulmonary (9) Nausea Plan: Nausea much improved. Continue IV Zofran, IV Compazine. (9) DVT of left upper extremity. Left upper extremity Doppler ultrasound showed a cephalic vein DVT. Neurosurgery clear patient to be on anticoagulation. Patient on IV heparin bridge to Coumadin. Goal INR 2-3. Pharmacy consulted. Patient would likely need anti-correlation for 6 months since DVT seems to be provoked by IV lines that were previously placed Patient prefers to be on noac and was started on Eliquis cleared by neurosurgery Cellulitis of the left upper extremity. Improved continue Keflex DVT prophylaxis: SCDs, Eliquis Pt Condition on Discharge: Stable Discharge Disposition: Discharge Home Discharge Time: > 30 minutes Discharge Instructions DIET: Follow Instructions for: Heart Healthy Diet Activities you can perform: Regular-No Restrictions Activities to Avoid: Driving Follow up Referrals: Neurosurgery - 1 Week PCP Follow-up - 1 Week PCP Follow-up @ [facility] Pulmonology - 1 Week New Orders: PET, WHOLE BODY - 1 Week New Medications: Apixaban (Eliquis) 5 Mg Tab 5 MG PO BID for Blood Clot Prevention, #60 TAB 0 Refills start 02/23/18 Apixaban (Eliquis) 5 Mg Tab 10 MG PO BID for Blood Clot Prevention, #13 TAB 0 Refills last dose 4/5 PM Amlodipine (Norvasc) 10 Mg Tab 10 MG PO DAILY for Blood Pressure Management, #30 TAB Cephalexin (Cephalexin) 500 Mg Cap 500 MG PO Q6HR for Infection, #32 CAP Continued Medications: Hydrocodone-Acetaminophen (Hydrocodone-Acetaminophen) 10-325 mg Tab 1 TAB PO Q6H PRN for PAIN, TAB 0 Refills Levetiracetam (Levetiracetam) 500 Mg Tab 500 MG PO BID for Control Seizures, #60 TAB 0 Refills Ondansetron Odt (Zofran Odt) 4 Mg Tab 4 MG SL Q6HR PRN for Nausea/Vomiting, #10 TAB 0 Refills Pantoprazole (Pantoprazole) 40 Mg Tab 40 MG PO BID for Reflux, #30 TAB 0 Refills Jonathan Valentin MD Feb 16, 2018 13:30
== END 2018-02-16 12:10 | disposition home or self-care (01) | DRG 86 ==
LOC: NEPC 20:19 → NEDA 02-05 03:42 → N04B 02-05 08:17
PROVIDERS: ADMIT Internal Medicine; ATTEND Internal Medicine
DX: S06.5X0A Traumatic subdural hemorrhage without loss of consciousness, initial encounter (principal); I82.612 Acute embolism and thrombosis of superficial veins of left upper extremity; G93.89 Other specified disorders of brain; L03.114 Cellulitis of left upper limb; I10 Essential (primary) hypertension; E11.9 Type 2 diabetes mellitus without complications; T82.868A Thrombosis due to vascular prosthetic devices, implants and grafts, initial encounter; F10.10 Alcohol abuse, uncomplicated; G89.4 Chronic pain syndrome; M54.5 Low back pain; G40.909 Epilepsy, unspecified, not intractable, without status epilepticus; R29.6 Repeated falls; W17.89XA Other fall from one level to another, initial encounter; F17.210 Nicotine dependence, cigarettes, uncomplicated; R47.1 Dysarthria and anarthria; H53.9 Unspecified visual disturbance; K21.9 Gastro-esophageal reflux disease without esophagitis; F41.9 Anxiety disorder, unspecified; M79.604 Pain in right leg; M79.605 Pain in left leg; R55 Syncope and collapse; Z85.028 Personal history of other malignant neoplasm of stomach
CPT/HCPCS: 70450; 70544; 70553; 71260; 74177; 80048; 80053; 80307; 82024; 82272; 82533; 82550; 83735; 84100; 84443; 84484; 85025; 85027; 85610; 85730; 86850; 86900; 86901; 93005; 93306; 93880; 93971; 96360; 96361; A9579; J0690; J0780; J1644; J2060; J2270; J2405; J3411; J7030; J7040; Q9967

== ENCOUNTER 2018-02-16 21:07 | Emergency (ER) | payer SELFPAY ==
[~2018-02-16] VITALS: Ht 180.3 cm; Wt 63.5 kg
[~2018-02-16 21:07] MED LIST changes: +AMLO10 PO; +APIX5TAB PO; +CEPH500C PO; -GADODIAMIDE PF 287 MG/ML 5 ML VIAL (for RAD MRI) IV PUSH ONE
[2018-02-16 22:38] VITALS: BP 90/58; PULSE 90; RESP 16; TEMP 98.2; O2SAT 100
--- NOTE | 2018-02-16 23:02 | PD ---
HPI Chief Complaint: Headache Time Seen by Provider: 22:48 Travel History International Travel<30 days: No Contact w/Intl Traveler<30days: No Traveled to known affect area: No History of Present Illness HPI 57-year-old male complains of headache, dizziness. Patient was admitted to [facility] February 05 and discharged this morning for diagnosis of syncope, subdural hematoma, alcohol abuse, seizure disorder, chronic pain, hypertension, concussion, DVT of left upper extremity. Patient was given prescription for Eliquis, Norvasc, cephalexin, hydrocodone 10, Keppra, Zofran, pantoprazole. Patient has not filled the prescription. Patient states that he having recurrent dizziness and fell and hit his head this afternoon. Patient denies loss of consciousness. Patient complains of headache in the back of the head. Patient denies any visual change. Patient denies any neck pain. Patient denies any chest pain or shortness of breath. Patient denies abdominal pain. Patient denies any focal weakness or numbness of the extremity. PFSH Past Medical History Hx Anticoagulant Therapy: Yes (eliquis) Arthritis: No Asthma: No Autoimmune Disease: No Anxiety: Yes Depression: Yes Heart Rhythm Problems: No Cancer: Yes (stomach cancer) Cardiovascular Problems: Yes (HTN) High Cholesterol: No Chemotherapy: No Chest Pain: No Congestive Heart Failure: No COPD: Yes Cerebrovascular Accident: No Diabetes: No (Hypoglycemic) Patient Takes Glucophage: No Diminished Hearing: No Endocrine: Yes (Hypoglycemia) Gastrointestinal Disorders: Yes (pt states gastritis and stomach ca.) GERD: Yes Genitourinary: No Headaches: Yes Hiatal Hernia: No Immune Disorder: No Kidney Stones: No Musculoskeletal: Yes Neurologic: Yes Psychiatric: Yes Reproductive: No Respiratory: Yes Migraines: Yes Radiation Therapy: No Renal Failure: No Seizures: Yes Sleep Apnea: No Thyroid Disease: No Ulcer: No Past Surgical History Abdominal Surgery: Yes (scope) AICD: No Arteriovenous Shunt: No Cardiac Surgery: No Ear Surgery: No Endocrine Surgery: No Eye Surgery: No Genitourinary Surgery: No Gynecologic Surgery: No Insulin Pump: No Joint Replacement: No Oral Surgery: No Pacemaker: No Thoracic Surgery: No Other Surgery: Yes ("they cauterizes holes in my stomach") Social History Alcohol Use: Yes (daily) Tobacco Use: Yes Substance Use: No Allergies-Medications (Allergen,Severity, Reaction): Coded Allergies: No Known Allergies (Unverified , 02/04/18) Reported Meds & Prescriptions Reported Meds & Active Scripts Active Eliquis (Apixaban) 5 Mg Tab 10 Mg PO BID last dose 02/22 PM Eliquis (Apixaban) 5 Mg Tab 5 Mg PO BID start 02/23/18 Norvasc (Amlodipine Besylate) 10 Mg Tab 10 Mg PO DAILY Cephalexin 500 Mg Cap 500 Mg PO Q6HR Zofran Odt (Ondansetron Odt) 4 Mg Tab 4 Mg SL Q6HR PRN Reported Levetiracetam 500 Mg Tab 500 Mg PO BID Hydrocodone-Acetaminophen 10-325 mg Tab 1 Tab PO Q6H PRN Pantoprazole (Pantoprazole Sodium) 40 Mg Tab 40 Mg PO BID Review of Systems General / Constitutional: No: Fever Eyes: No: Visual changes HENT: Positive: Headaches Cardiovascular: No: Chest Pain or Discomfort Respiratory: No: Shortness of Breath Gastrointestinal: No: Abdominal Pain Genitourinary: No: Dysuria Musculoskeletal: No: Pain Skin: No Rash Neurologic: No: Weakness Psychiatric: No: Depression Endocrine: No: Polydipsia Hematologic/Lymphatic: No: Easy Bruising Physical Exam Narrative GENERAL: Well-nourished, well-developed patient. SKIN: Focused skin assessment warm/dry. HEAD: Normocephalic. EYES: No scleral icterus. No injection or drainage. Pupils 2 mm equal reactive. NECK: Supple, trachea midline. No JVD or lymphadenopathy. CARDIOVASCULAR: Regular rate and rhythm without murmurs, gallops, or rubs. RESPIRATORY: Breath sounds equal bilaterally. No accessory muscle use. GASTROINTESTINAL: Abdomen soft, non-tender, nondistended. MUSCULOSKELETAL: No cyanosis, or edema. BACK: Nontender without obvious deformity. No CVA tenderness. Neurologic exam: Patient is awake alert oriented 3. No obvious focal neurological deficit. Data Data Last Documented VS Vital Signs Date Time Temp Pulse Resp B/P (MAP) Pulse Ox O2 Delivery O2 Flow Rate FiO2 02/16/18 22:38 98.2 90 16 90/58 (69) [address] Brain W/O Iv Contrast(Rout) (02/16/18 22:57) MDM Medical Decision Making Medical Screen Exam Complete: Yes Emergency Medical Condition: Yes Interpretation(s) 23:[address] scan the brain shows stable pituitary dense mass. Diffuse atrophy. No acute process. Differential Diagnosis Differential diagnosis including contusion, concussion, intracranial hemorrhage. Narrative Course 57-year-old male complains of headache. patient was discharged this morning from the hospital with diagnosis of subdural hematoma. Patient fell again this afternoon. Lortab 5/325, 1 tablet p.o. given. Diagnosis Primary Impression: Cephalgia Qualified Codes: R51 - Headache Additional Impression: Closed head injury Qualified Codes: S09.90XA - Unspecified injury of head, initial encounter Patient Instructions: General Instructions Additional Instructions: Continue with medications as directed. Follow-up with personal physician. Return if worse. Med/Other Pt SpecificInfo: No Change to Meds Disposition: 01 DISCHARGE HOME Condition: Stable Vega Hodge MD Feb 16, 2018 23:02
[2018-02-16] MEDS ORDERED: IOHEXOL 350 MG/ML 10 ML VIAL (for RAD DIAG) IVCONTRAST ONE (23:28)
--- NOTE | 2018-02-16 23:39 | RADRPT ---
EXAM DATE/TIME: 02/16/2018 23:19 [place] COMPARISON: CT BRAIN W/O CONTRAST, February 12, 2018, 20:32. CT BRAIN W/O CONTRAST, February 08, 2018, 8:37. INDICATIONS : Trauma, fall. RADIATION DOSE: 56.35 CTDIvol (mGy) MEDICAL HISTORY : Hypertension. Seizures. SURGICAL HISTORY : None. ENCOUNTER: Initial ACUITY: 1 day PAIN SCALE: 5/10 LOCATION: cranial TECHNIQUE: Multiple contiguous axial images were obtained of the head. Using automated exposure control and adj ustment of the mA and/or kV according to patient size, radiation dose was kept as low as reasonably a chievable to obtain optimal diagnostic quality images. DICOM format image data is available electro nically for review and comparison. FINDINGS: CEREBRUM: The ventricles are normal for age. No evidence of midline shift, mass lesion, hemorrhage or acute in farction. Old areas of ablation in the left frontal lobe. No extra-axial fluid collections are seen. Stable pituitary dense mass POSTERIOR FOSSA: The cerebellum and brainstem are intact. The 4th ventricle is midline. The cerebellopontine angle i s unremarkable. EXTRACRANIAL: The visualized portion of the orbits is intact. SKULL: The calvaria is intact. No evidence of skull fracture. CONCLUSION: Stable pituitary dense mass. Diffuse atrophy. Blayne Thompson MD on February 16, 2018 at 23:37 Board Certified Radiologist. This report was verified electronically.
[2018-02-16 23:46] VITALS: BP 127/73; PULSE 82; RESP 16; O2SAT 98
[2018-02-17] MEDS ORDERED: ACETAMINOPHEN/HYDROcodone 325 MG/5 MG TAB PO ONE
== END 2018-02-17 00:51 | disposition home or self-care (01) ==
LOC: NEPC 21:07
DX: S09.90XA Unspecified injury of head, initial encounter (principal); I10 Essential (primary) hypertension; K21.9 Gastro-esophageal reflux disease without esophagitis; W19.XXXA Unspecified fall, initial encounter; Z72.0 Tobacco use
CPT/HCPCS: 70450; 99283; Q9967

== ENCOUNTER 2018-02-19 16:01 | Emergency (ER) | payer SELFPAY ==
[~2018-02-19] VITALS: Ht 180.3 cm; Wt 65.9 kg
[2018-02-19 16:21] VITALS: BP 140/81; PULSE 94; RESP 20; TEMP 98.3; O2SAT 100
--- NOTE | 2018-02-19 19:04 | PD ---
Physical Exam Date Seen by Provider: Feb 19, 2018 Time Seen by Provider: 19:03 Narrative 57 year old male presents to the emergency department for evaluation after he states he had a syncopal episode this morning and hit his head. He states he has been dizzy and having syncopal episodes since a recent admission after a head injury. Patient was here 2 days ago and had CT brain done. He has not filled his prescriptions yet. Current pain is 7/10. Data Data Last Documented VS Vital Signs Date Time Temp Pulse Resp B/P (MAP) Pulse Ox O2 Delivery O2 Flow Rate FiO2 02/19/18 16:21 98.3 94 20 140/81 (100) 100 Orders Orders Complete Blood Count With Diff (02/19/18 16:23) Comprehensive Metabolic Panel (02/19/18 16:23) Magnesium (Mg) (02/19/18 16:23) Ckmb (Isoenzyme) Profile (02/19/18 16:23) Troponin I (02/19/18 16:23) Act Partial Throm Time (Ptt) (02/19/18 16:23) Prothrombin Time / Inr (Pt) (02/19/18 16:23) [facility] Supervised Visit with PAT: No Narrative Course 57 year old male presents to the emergency department for evaluation of dizziness, headache, syncope. Patient is initially seen in triage. Work up is initiated. He left AMA before he could be moved to a medical bed. Diagnosis Primary Impression: Left against medical advice Disposition: 07 AGAINST MEDICAL ADVICE Jesi Solorio Feb 19, 2018 19:04
== END 2018-02-19 19:22 | disposition left against medical advice (07) ==
LOC: NED 16:01
DX: R55 Syncope and collapse (principal)
CPT/HCPCS: 99281

== ENCOUNTER 2018-02-20 08:25 | Emergency (ER) | payer SELFPAY ==
[~2018-02-20] VITALS: Ht 180.3 cm; Wt 67.0 kg
[2018-02-20 08:42] VITALS: BP 127/77; PULSE 97; RESP 17; TEMP 98.2; O2SAT 100
[2018-02-20 08:57] VITALS: BP 130/76; PULSE 85; RESP 17; O2SAT 99
[2018-02-20] MEDS ORDERED: ONDANSETRON ODT 4 MG TAB PO ONE (09:30)
[2018-02-20] MEDS ORDERED: oxyCODONE/ACETAMINOPHEN 5 MG/325 MG TAB PO ONE (09:30)
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
== END 2018-02-20 10:41 | disposition left against medical advice (07) ==
LOC: NEPC 08:25
DX: R42 Dizziness and giddiness (principal); Z53.21 Procedure and treatment not carried out due to patient leaving prior to being seen by health care provider; R51 Headache; I10 Essential (primary) hypertension; J44.9 Chronic obstructive pulmonary disease, unspecified; Z72.0 Tobacco use; Z79.01 Long term (current) use of anticoagulants; G89.29 Other chronic pain
CPT/HCPCS: 99283

== ENCOUNTER 2018-02-27 15:32 | Emergency (ER) | payer SELFPAY ==
[2018-02-27 16:15] VITALS: BP 139/86; PULSE 70; RESP 16; TEMP 97.7; O2SAT 100
[2018-02-27] MEDS ORDERED: IBUPROFEN 800 MG TAB PO ONE (19:30)
--- NOTE | 2018-02-27 19:31 | PD ---
HPI Chief Complaint: Musculoskeletal Complaint Time Seen by Provider: 19:29 Travel History International Travel<30 days: No Contact w/Intl Traveler<30days: No Traveled to known affect area: No History of Present Illness HPI 57-year-old male presents emergency department for evaluation after a fall. Patient states he was carrying railroad ties when he fell approximately 10 feet , striking the back of his head. He does report loss of consciousness. States he also has left lower extremity hip pain. Patient was recently seen here for another fall. He tells me he does drink alcohol daily. Denies any nausea vomiting. No new focal deficits weakness. Denies any chest or tightness. No shortness of breath. No other symptoms to report. He does request Percocet 10. Stating these have been stolen and he follows up with pain management. PFSH Past Medical History Hx Anticoagulant Therapy: Yes (eliquis) Arthritis: No Asthma: No Autoimmune Disease: No Anxiety: Yes Depression: Yes Heart Rhythm Problems: No Cancer: Yes (stomach cancer) Cardiovascular Problems: Yes (HTN) High Cholesterol: No Chemotherapy: No Chest Pain: No Congestive Heart Failure: No COPD: Yes Cerebrovascular Accident: No Diminished Hearing: No Endocrine: Yes (Hypoglycemia) Gastrointestinal Disorders: Yes (pt states gastritis and stomach ca.) GERD: Yes Genitourinary: No Headaches: Yes Hiatal Hernia: No Immune Disorder: No Kidney Stones: No Musculoskeletal: Yes Neurologic: Yes Psychiatric: Yes Reproductive: No Respiratory: Yes Migraines: Yes Radiation Therapy: No Renal Failure: No Seizures: Yes Sleep Apnea: No Thyroid Disease: No Ulcer: No Past Surgical History Abdominal Surgery: Yes (scope) AICD: No Arteriovenous Shunt: No Cardiac Surgery: No Ear Surgery: No Endocrine Surgery: No Eye Surgery: No Genitourinary Surgery: No Gynecologic Surgery: No Insulin Pump: No Joint Replacement: No Oral Surgery: No Pacemaker: No Thoracic Surgery: No Other Surgery: Yes ("they cauterizes holes in my stomach") Social History Alcohol Use: No (STATES "QUIT") Tobacco Use: Yes Substance Use: No Allergies-Medications (Allergen,Severity, Reaction): Coded Allergies: No Known Allergies (Unverified , 02/27/18) Reported Meds & Prescriptions Reported Meds & Active Scripts Active Eliquis (Apixaban) 5 Mg Tab 10 Mg PO BID last dose 02/22 PM Eliquis (Apixaban) 5 Mg Tab 5 Mg PO BID start 02/23/18 Norvasc (Amlodipine Besylate) 10 Mg Tab 10 Mg PO DAILY Reported Levetiracetam 500 Mg Tab 500 Mg PO BID Hydrocodone-Acetaminophen 10-325 mg Tab 1 Tab PO Q6H PRN Pantoprazole (Pantoprazole Sodium) 40 Mg Tab 40 Mg PO BID Review of Systems Except as stated in HPI: all other systems reviewed are Neg Physical Exam Narrative GENERAL: Unkempt male patient, in no acute distress. SKIN: Focused skin assessment warm/dry. HEAD: No obvious trauma. Patient does report tenderness to palpation of the occipital scalp. Normocephalic. EYES: Pupils equal and round. No scleral icterus. No injection or drainage. ENT: No nasal bleeding or discharge. Mucous membranes pink and moist. NECK: Trachea midline. No JVD. No cervical spine tenderness to palpation. CARDIOVASCULAR: Regular rate and rhythm. No murmur appreciated. RESPIRATORY: No accessory muscle use. Clear to auscultation. Breath sounds equal bilaterally. GASTROINTESTINAL: Abdomen soft, non-tender, nondistended. Hepatic and splenic margins not palpable. MUSCULOSKELETAL: No obvious deformities. No clubbing. No cyanosis. No edema. NEUROLOGICAL: Awake and alert. No obvious cranial nerve deficits. Motor grossly within normal limits. Normal speech. Data Data Last Documented VS Vital Signs Date Time Temp Pulse Resp B/P (MAP) Pulse Ox O2 Delivery O2 Flow Rate FiO2 02/27/18 16:15 97.7 70 16 139/86 (103) 100 Orders Orders Blood Glucose (02/27/18 16:18) Ct Brain W/O Iv Contrast(Rout) (02/27/18 ) Hip, Uni(Ap&Lat) W Ap Pelvis (02/27/18 ) Ibuprofen (Motrin) (02/27/18 19:30) Ed Discharge Order (02/27/18 20:47) [facility] Medical Decision Making Medical Screen Exam Complete: Yes Emergency Medical Condition: Yes Medical Record Reviewed: Yes Differential Diagnosis Minor head injury versus skull fracture versus intracranial hemorrhage Narrative Course 57-year-old male presents emergency department for evaluation of a reported head injury and left hip pain. Patient is given ibuprofen for pain control. He has no focal deficits weakness. Last Impressions Hip and Pelvis X-Ray 02/27/18 0000 Signed Impressions: Service Date/Time: Tuesday, February 27, 2018 20:03 - CONCLUSION: Negative trauma study. Aquilino Muse MD Head CT 02/27/18 0000 Signed Impressions: Service Date/Time: Tuesday, February 27, 2018 20:31 - CONCLUSION: 1. No acute hemorrhage or mass effect. 2. Stable hyperdense pituitary mass again noted. 3. Mild to moderate atrophic change. 4. Focal encephalomalacia in the left frontal lobe are again noted. Aquilino Muse MD Findings are reviewed and discussed with the patient. He will be discharged home at this time. Diagnosis Primary Impression: Minor head injury Qualified Codes: S09.90XA - Unspecified injury of head, initial encounter Additional Impression: Hip pain, left Referrals: Primary Care Physician Patient Instructions: General Instructions, Head Injury (ED) Additional Instructions: Follow up with your primary care provider Return to the ED with any acute worsening of symptoms Med/Other Pt SpecificInfo: No Change to Meds Disposition: 01 DISCHARGE HOME Condition: Stable Cindy Olmstead Feb 27, 2018 19:31
--- NOTE | 2018-02-27 20:28 | RADRPT ---
EXAM DATE/TIME: 02/27/2018 20:03 [facility] COMPARISON: No previous studies available for comparison. INDICATIONS : Left hip pain after fall today. MEDICAL HISTORY : Hypertension. Seizures. SURGICAL HISTORY : None. ENCOUNTER: Initial ACUITY: 1 day PAIN SCORE: 8/10 LOCATION: Left hip. FINDINGS: Examination of the left hip was performed with AP Pelvis. The primary and secondary trabecular patte rn of the femoral neck is intact. The hip joint is of normal width without significant sclerosis or bony hypertrophy. The acetabulum is grossly intact. CONCLUSION: Negative trauma study. Aquilino Muse MD on February 27, 2018 at 20:25 Board Certified Radiologist. This report was verified electronically.
--- NOTE | 2018-02-27 20:45 | RADRPT ---
EXAM DATE/TIME: 02/27/2018 20:31 [facility] COMPARISON: CT BRAIN W/O CONTRAST, February 16, 2018, 23:19. INDICATIONS : Trauma, fell hit head on railroad tie. RADIATION DOSE: 56.35 CTDIvol (mGy) MEDICAL HISTORY : Seizures. Hypertension. Diabetes mellitus type 1.stomach cancer SURGICAL HISTORY : None. ENCOUNTER: Initial ACUITY: 1 day PAIN SCALE: 10/10 LOCATION: cranial TECHNIQUE: Multiple contiguous axial images were obtained of the head. Using automated exposure control and adj ustment of the mA and/or kV according to patient size, radiation dose was kept as low as reasonably a chievable to obtain optimal diagnostic quality images. DICOM format image data is available electro nically for review and comparison. FINDINGS: CEREBRUM: There is mild to moderate atrophic change again noted. Focal encephalomalacia is again noted in the l eft frontal lobe which is not as well-visualized. No evidence of midline shift, hemorrhage or acute i nfarction. No extra-axial fluid collections are seen. A hyperdense pituitary mass again noted withou t significant change. POSTERIOR FOSSA: The cerebellum and brainstem are intact. The 4th ventricle is midline. The cerebellopontine angle i s unremarkable. EXTRACRANIAL: The visualized portion of the orbits is intact. SKULL: The calvaria is intact. No evidence of skull fracture. CONCLUSION: 1. No acute hemorrhage or mass effect. 2. Stable hyperdense pituitary mass again noted. 3. Mild to moderate atrophic change. 4. Focal encephalomalacia in the left frontal lobe are again noted. Aquilino Muse MD on February 27, 2018 at 20:40 Board Certified Radiologist. This report was verified electronically.
== END 2018-02-27 21:02 | disposition home or self-care (01) ==
LOC: NEPD 15:32
DX: S09.90XA Unspecified injury of head, initial encounter (principal); M25.552 Pain in left hip; W17.89XA Other fall from one level to another, initial encounter; F41.9 Anxiety disorder, unspecified; F32.9 Major depressive disorder, single episode, unspecified; I10 Essential (primary) hypertension; J44.9 Chronic obstructive pulmonary disease, unspecified; K21.9 Gastro-esophageal reflux disease without esophagitis; Z72.0 Tobacco use
CPT/HCPCS: 70450; 73502

== ENCOUNTER 2018-06-25 10:16 | Observation (INO) ==
[2018-06-25] MEDS ORDERED: Sod Chloride 0.9% Inj 1,000 ML IV.SIG ONE (11:16)
--- NOTE | 2018-06-25 11:25 | ED ---
HPI General Chief complaint: Dizziness Stated complaint: Dizziness Time Seen by Provider: 06/25/18 11:14 History of Present Illness HPI narrative: 58-year-old male presents for evaluation after a fall. Reports that on May 26 he was carrying a heavy bag of laundry and he fell backwards, hitting the back of his head on the ground in the bag of laundry fell on top of him. He reports that he lost consciousness at that time. Since then he has had intermittent headaches, dizziness, he had a syncopal event today. He is also had lower back pain. He reports that he has chronic lower back pain with sciatic symptoms in his left leg but it is worse since the fall. Denies any bowel or bladder incontinence, saddle anesthesia, chest pain, shortness of breath, palpitations, abdominal pain. His primary concern during examination is requesting hydrocodone or morphine. He reports that he is on hydrocodone chronically for his chronic lower back pain but his workers compensation people want him to see a new pain management doctor instead of his previous pain management doctor Dr. Bal. He ran out of his hydrocodone pain medication a few days ago. Looking through his efore records he is prescribed hydrocodone on a monthly basis, most recently received 60 tablets on May 29, 2018. Endorses alcohol use today. Related Data Home Medications Medication Instructions Recorded Confirmed hydrocodone-acetaminophen [[place]] 1 tab PO Q6H PRN 06/25/18 06/25/18 ranitidine HCl 75 mg PO BID PRN 06/25/18 06/25/18 Allergies Allergy/AdvReac Type Severity Reaction Status Date / Time No Known Allergies Allergy Verified 06/25/18 10:29 Review of Systems Except as stated in HPI: all other systems reviewed are negative PMFSH Medical History Medical History Chronic pain (Acute) Frequent falls (Acute) Social History Social History Substance History: No History of Abuse Smoking Status: Current every day smoker Tobacco Type: Cigarettes How Often Do You Have a Drink Containing Alcohol: 4 or more times a week Recent Travel in [facility] within the Last 8 Weeks: No Recent Out of Country Travel within the Last 8 Weeks: No Immunization History Tetanus Immunization: <5 Years Hx Influenza Vaccine This Season: No Exam Narrative Exam Narrative: GENERAL: Well-developed well-nourished male in no acute distress awake and alert SKIN: Warm and dry. HEAD: Atraumatic. Normocephalic. EYES: Pupils equal and round. No scleral icterus. No injection or drainage. ENT: No nasal bleeding or discharge. Mucous membranes pink and moist. NECK: Trachea midline. No JVD. CARDIOVASCULAR: Regular rate and rhythm. No murmur appreciated. RESPIRATORY: No accessory muscle use. Clear to auscultation. Breath sounds equal bilaterally. GASTROINTESTINAL: Abdomen soft, non-tender, nondistended. Hepatic and splenic margins not palpable. MUSCULOSKELETAL: No obvious deformities. No clubbing. No cyanosis. No edema. NEUROLOGICAL: Awake and alert. No obvious cranial nerve deficits. Motor grossly within normal limits. Normal speech. PSYCHIATRIC: Appropriate mood and affect; insight and judgment normal. Course Initial Documented Vital Signs Temperature 98.1 F 06/25/18 10:22 Pulse Rate 67 06/25/18 10:22 Respiratory Rate 16 06/25/18 10:22 Blood Pressure 162/93 H 06/25/18 10:22 Pulse Oximetry 100 06/25/18 10:22 Last Documented Vital Signs Temperature 98.1 F 06/25/18 10:28 Pulse Rate 69 06/25/18 11:21 Respiratory Rate 16 06/25/18 10:28 Blood Pressure 162/93 H 06/25/18 10:28 Pulse Oximetry 100 06/25/18 10:28 Medical Decision Making MDM Narrative Medical decision making narrative: I reviewed the patient's records. He has been seen here a few additional times this year for evaluation of her closed head injuries. He reports that this is a new one that occurred on May 26. Also according to chart review he is on Eliquis for DVT treatment. Is unclear whether or not the patient has been compliant with the Eliquis. Lab work is been reviewed. Blood sugar is 66, the patient will be given food and juice. Alcohol level is 36. X-ray of the lumbar spine reveals compression deformity of L5 of indeterminate age, CT of the lumbar spine is been ordered.. EKG reveals sinus rhythm rate 64 normal axis. Upon reexamination the patient reports persistent dizziness, nausea. The nursing staff attempted to ambulate him but he was not able to take any steps by himself without severe dizziness and ataxia. Therefore the patient will be admitted for observation. Differential Diagnosis Differential Diagnosis: Concussion, closed head injury, subdural hematoma, opiate withdrawal, electrolyte abnormality, alcohol abuse Lab Data Result diagrams: 06/25/18 11:20 06/25/18 11:20 Lab Results 06/25/18 06/25/18 06/25/18 Range/Units 11:20 11:20 11:20 WBC 6.1 (4.0-11.0) th/mm3 RBC 3.35 L (4.50-5.90) mil/mm3 Hgb 12.1 L (13.0-17.0) gm/dL Hct 34.9 L (39.0-51.0) % MCV 104.1 H (80.0-100.0) fL MCH 36.1 H (27.0-34.0) pg MCHC 34.6 (32.0-36.0) % RDW 13.7 (11.6-17.2) % Plt Count 175 (150-450) th/mm3 MPV 8.2 (7.0-11.0) fL Neut % (Auto) 80.1 H (16.0-70.0) % Lymph % (Auto) 11.0 (9.0-44.0) % Motley % (Auto) 6.9 (0.0-8.0) % Eos % (Auto) 1.4 (0.0-4.0) % Baso % (Auto) 0.6 (0.0-2.0) % Neut # (Auto) 4.9 (1.8-7.7) th/mm3 Lymph # (Auto) 0.7 L (1.0-4.8) th/mm3 Motley # (Auto) 0.4 (0.0-0.9) th/mm3 Eos # (Auto) 0.1 (0.0-0.4) th/mm3 Baso # (Auto) 0.0 (0.0-0.2) th/mm3 WBC Differential . Differential Comment Auto diff final PT 10.4 (9.8-11.6) sec INR 1.0 Ratio APTT 28.9 (24.3-30.1) sec Sodium 133 L (136-145) meq/L Potassium 3.7 (3.5-5.1) meq/L Chloride 103 (98-107) meq/L Carbon Dioxide 22.9 (21.0-32.0) meq/L Anion Gap 7 (5-15) meq/L BUN 3 L (7-18) mg/dL Creatinine 0.69 (0.60-1.30) mg/dL Estimated GFR Greater than 89 (>89) mL/min Random Glucose 66 L (74-106) mg/dL Calcium 8.0 L (8.5-10.1) mg/dL Total Bilirubin 0.7 (0.2-1.0) mg/dL AST 47 H (15-37) U/L ALT 42 (12-78) U/L Alkaline Phosphatase 99 (45-117) U/L Total Creatine Kinase (39-308) U/L Troponin I Less than 0.02 L (0.02-0.05) ng/mL Total Protein 6.0 L (6.4-8.2) g/dL Albumin 3.0 L (3.4-5.0) g/dL Urine Opiates Screen (Neg) Ur Barbiturates Screen (Neg) Ur Amphetamines Screen (Neg) U Benzodiazepines Scrn (Neg) Urine Cocaine Screen (Neg) U Cannabinoids Screen (Neg) Serum Alcohol 36 H (0-5) mg/dL 06/25/18 06/25/18 Range/Units 11:20 11:56 WBC (4.0-11.0) th/mm3 RBC (4.50-5.90) mil/mm3 Hgb (13.0-17.0) gm/dL Hct (39.0-51.0) % MCV (80.0-100.0) fL MCH (27.0-34.0) pg MCHC (32.0-36.0) % RDW (11.6-17.2) % Plt Count (150-450) th/mm3 MPV (7.0-11.0) fL Neut % (Auto) (16.0-70.0) % Lymph % (Auto) (9.0-44.0) % Motley % (Auto) (0.0-8.0) % Eos % (Auto) (0.0-4.0) % Baso % (Auto) (0.0-2.0) % Neut # (Auto) (1.8-7.7) th/mm3 Lymph # (Auto) (1.0-4.8) th/mm3 Motley # (Auto) (0.0-0.9) th/mm3 Eos # (Auto) (0.0-0.4) th/mm3 Baso # (Auto) (0.0-0.2) th/mm3 WBC Differential Differential Comment PT (9.8-11.6) sec INR Ratio APTT (24.3-30.1) sec Sodium (136-145) meq/L Potassium (3.5-5.1) meq/L Chloride (98-107) meq/L Carbon Dioxide (21.0-32.0) meq/L Anion Gap (5-15) meq/L BUN (7-18) mg/dL Creatinine (0.60-1.30) mg/dL Estimated GFR (>89) mL/min Random Glucose (74-106) mg/dL Calcium (8.5-10.1) mg/dL Total Bilirubin (0.2-1.0) mg/dL AST (15-37) U/L ALT (12-78) U/L Alkaline Phosphatase (45-117) U/L Total Creatine Kinase 163 (39-308) U/L Troponin I (0.02-0.05) ng/mL Total Protein (6.4-8.2) g/dL Albumin (3.4-5.0) g/dL Urine Opiates Screen Neg (Neg) Ur Barbiturates Screen Neg (Neg) Ur Amphetamines Screen Neg (Neg) U Benzodiazepines Scrn Neg (Neg) Urine Cocaine Screen Neg (Neg) U Cannabinoids Screen Neg (Neg) Serum Alcohol (0-5) mg/dL Imaging Data Radiologist's impression: Chest X-Ray 06/25/18 11:16 CONCLUSION: No active disease. Head CT 06/25/18 11:16 CONCLUSION: 1. Stable sellar mass. No acute intracranial abnormalities. . Lumbar Spine X-Ray 06/25/18 11:18 CONCLUSION: Slight loss of height of L5 vertebral body, compression deformity of indeterminate age. Lumbar Spine CT 06/25/18 12:15 CONCLUSION: 1. No acute fracture. 2. Minimal degenerative retrolisthesis of L5 on S1. 3. Broad-based posterior disc bulges or protrusions in the lower lumbar spine as above but without significant central canal stenosis. Multilevel lateral recess and foraminal encroachment. Discharge Plan Discharge Disposition Patient Disposition: 30 Still Patient Discharge Condition Condition: Stable Discharge Details Diagnosis: Dizziness, Syncope Physicians Team ED Provider: Gisel Velez ED Midlevel Provider: Leo Lopez Primary Care Provider: Primary Care Lori Arriaga Attending Provider: Keaton Sierra Discharge Interventions Interventions: Vital Signs Last Done: 06/25/18 10:28 Status ED Status: Admitted Observation Patient
[2018-06-25 11:41] LABS: Baso % (Auto) 0.6 % (0.0-2.0); Eos # (Auto) 0.1 th/mm3 (0.0-0.4); Eos % (Auto) 1.4 % (0.0-4.0); Hematocrit 34.9 % (39.0-51.0); Hemoglobin 12.1 gm/dL (13.0-17.0); Lymph # (Auto) 0.7 th/mm3 (1.0-4.8); Mean Corpuscular HGB Conc 34.6 % (32.0-36.0); Mean Corpuscular Hemoglobin 36.1 pg (27.0-34.0); Mean Corpuscular Volume 104.1 fL (80.0-100.0); Mean Platelet Volume 8.2 fL (7.0-11.0); Mono # (Auto) 0.4 th/mm3 (0.0-0.9); Mono % (Auto) 6.9 % (0.0-8.0); Neut # (Auto) 4.9 th/mm3 (1.8-7.7); Neut % (Auto) 80.1 % (16.0-70.0); Platelet Count 175 th/mm3 (150-450); Red Blood Count 3.35 mil/mm3 (4.50-5.90); Red Cell Distribution Width 13.7 % (11.6-17.2); White Blood Count 6.1 th/mm3 (4.0-11.0)
--- NOTE | 2018-06-25 11:46 | XR ---
EXAM DATE: 06/25/2018 11:44 AM EDT AGE/SEX: 58 years / Male INDICATIONS: Patient states syncope. CLINICAL DATA: This is the patient's initial encounter. Patient reports that signs and symptoms have been present for 1 month and indicates a pain score of 10/10. MEDICAL/SURGICAL HISTORY: Diabetes mellitus type II. None. COMPARISON: No prior exams available for comparison. FINDINGS: A single AP view of the chest demonstrates the lungs to be symmetrically aerated without evidence of mass, infiltrate or effusion. The cardiomediastinal contours are unremarkable. Osseous structures a re intact. CONCLUSION: No active disease. Electronically signed by: Wayne Mcintyre MD 06/25/2018 11:45 AM EDT
[2018-06-25 11:51] LABS: Activated Partial Thrombo Time 28.9 sec (24.3-30.1); Prothrombin Time 10.4 sec (9.8-11.6)
--- NOTE | 2018-06-25 11:55 | XR ---
EXAM DATE: 06/25/2018 11:46 AM EDT AGE/SEX: 58 years / Male INDICATIONS: Patient states syncope with a fall today, lower back pain. CLINICAL DATA: This is the patient's initial encounter. Patient reports that signs and symptoms have been present for 1 day and indicates a pain score of 10/10. MEDICAL/SURGICAL HISTORY: Diabetes mellitus type II. None. COMPARISON: No prior exams available for comparison. FINDINGS: The vertebral bodies are in normal alignment with slight loss of height of L5. Disc spaces are mainta ined. There is osteopenia. Soft tissues are grossly intact. CONCLUSION: Slight loss of height of L5 vertebral body, compression deformity of indeterminate age. Electronically signed by: Konrad Godwin MD 06/25/2018 11:53 AM EDT
--- NOTE | 2018-06-25 11:56 | CT ---
EXAM DATE: 06/25/2018 11:48 AM EDT AGE/SEX: 58 years / Male INDICATIONS: Syncope, Cephalgia. CLINICAL DATA: This is the patient's initial encounter. Patient reports that signs and symptoms have been present for 1 day and indicates a pain score of 2/10. MEDICAL/SURGICAL HISTORY: None. None. RADIATION DOSE: 34.17 CTDI (mGy) COMPARISON: [facility], CT BRAIN W/O CONTRAST, 02/27/2018. . TECHNIQUE: CT of the head without contrast. Using automated exposure control and adjustment of the mA and/or kV according to patient size, radiation dose was kept as low as reasonably achievable to ob tain optimal diagnostic quality images. DICOM format image data is available electronically for revi ew and comparison. FINDINGS: Cerebrum: There is a 1.3 cm stable hyperdense pituitary mass compared with February 2018. No new intrac ranial mass, hemorrhage or shift. No hydrocephalus. Posterior Fossa: The cerebellum and brainstem are intact. The 4th ventricle is midline. The cerebe llopontine angle is unremarkable. Extracranial: The visualized portion of the orbits is intact. Skull: The calvaria is intact. No evidence of skull fracture. CONCLUSION: 1. Stable sellar mass. No acute intracranial abnormalities. . Electronically signed by: Wayne Mcintyre MD 06/25/2018 11:55 AM EDT
[2018-06-25 12:04] LABS: Alanine Aminotransferase 42 U/L (12-78); Alkaline Phosphatase 99 U/L (45-117); Anion Gap 7 meq/L (5-15); Aspartate Aminotransferase 47 U/L (15-37); Blood Urea Nitrogen 3 mg/dL (7-18); Carbon Dioxide 22.9 meq/L (21.0-32.0); Chloride 103 meq/L (98-107); Glomerular Filtration Rate Greater Than 89 mL/min (>89); Glucose,Random 66 mg/dL (74-106); Potassium 3.7 meq/L (3.5-5.1); Sodium 133 meq/L (136-145)
[2018-06-25 12:05] LABS: Alcohol 36 mg/dL (0-5)
[2018-06-25 12:13] LABS: Amphetamine Screen,Urine Neg (Neg); Barbiturate Screen,Urine Neg (Neg); Cannabinoid Screen,Urine Neg (Neg); Cocaine Screen,Urine Neg (Neg)
[2018-06-25 12:20] LABS: Opiate Screen,Urine Neg (Neg)
[2018-06-25] MEDS ORDERED: Bisacodyl 10 MG Supp RECTAL PRN (15:01)
[2018-06-25] MEDS ORDERED: Acetaminophen 500 MG Tablet PO PRN (15:03)
--- NOTE | 2018-06-25 15:07 | CT ---
EXAM DATE: 06/25/2018 2:49 PM EDT AGE/SEX: 58 years / Male INDICATIONS: Trauma, syncope episode. Patient fell. CLINICAL DATA: This is the patient's initial encounter. Patient reports that signs and symptoms have been present for 1 month and indicates a pain score of 9/10. MEDICAL/SURGICAL HISTORY: None. None. RADIATION DOSE: 30.18 CTDI (mGy) COMPARISON: No prior exams available for comparison. TECHNIQUE: Contiguous axial images were acquired with a multirow detector CT scanner without contras t. Multiplanar reconstructions in the sagittal and coronal plane were also performed. Using automate d exposure control and adjustment of the mA and/or kV according to patient size, radiation dose was k ept as low as reasonably achievable to obtain optimal diagnostic quality images. DICOM format image data is available electronically for review and comparison. FINDINGS: There is no acute fracture. Minimal degenerative retrolisthesis of L5 on S1. At C42-X4-T3-H7 there is no significant abnormality. At L3-4 there is a broad-based posterior disc bulge with lateral recess and mild foraminal encroachme nt bilaterally. At L5-S1 there is a broad-based mild disc protrusion and facet arthropathy with mild lateral recess e ncroachment and mild bilateral foraminal stenosis, worse on the left. CONCLUSION: 1. No acute fracture. 2. Minimal degenerative retrolisthesis of L5 on S1. 3. Broad-based posterior disc bulges or protrusions in the lower lumbar spine as above but without s ignificant central canal stenosis. Multilevel lateral recess and foraminal encroachment. Electronically signed by: Wayne Mcintyre MD 06/25/2018 3:06 PM EDT
[2018-06-25] MEDS ORDERED: LORazepam 1 MG Tablet PO PRN (15:16)
[2018-06-25] MEDS ORDERED: Haloperidol Inj 5 MG/ML Ampul IV.PUSH PRN (15:16)
--- NOTE | 2018-06-25 15:43 | P.HP ---
History of Present Illness Service: Hospitalist service Primary Care Physician: No Primary Care Physician Chief Complaint: Dizziness, lightheadedness, passing out History of Present Illness: Mr. Albarado is a 58-year-old male with a history of work-related fall in May 2018 who presents to the emergency department on 06/25/2018 due to persistent headache, dizziness, lightheadedness and multiple syncopal and near syncopal episodes. Patient has a history of chronic back pain but after his fall on May 26 he has been having more significant back pain. On May 26 he was carrying a heavy load of laundry and he fell backwards hitting his head. He has been referred to pain management doctor by his workman's comp. Due to his persistent dizziness and lightheadedness as well as syncopal episodes he decided to seek medical attention. At the time of this interview, patient complains of dizziness and lightheadedness even with slight movement especially when he sits up. He frequently requests pain medication. He takes Fernley 10/ 325 every 6 hours at home. He denies any chest pain, shortness of breath, fever or chills. Denies any changes in bowel or bladder habits. Upon arrival chest x-ray, head CT was unremarkable for any acute findings. Lumbar x-ray shows slight loss of height of L5 vertebral body. Past medical history: GERD, chronic back pain, recent fall Past surgical history: No significant past surgeries. Social history: Smokes 2 packs a day. He drinks about 2 beers a day but also sometimes drinks in the morning. Denies any illicit drug use. Family history: Mother with stroke, father has diabetes. - Diagnosis (1) Dizziness (2) Syncope [facility] - History History Provided By: Patient, Service Writer / EMT - Medical History Medical History: Medical History (Last Updated 06/25/18 @ 10:28 by Rocio Howell RN) Chronic pain Frequent falls - Tobacco History Tobacco Use In Past 30 Days: Yes Smoking Status: Current every day smoker Tobacco Type: Cigarettes - Alcohol History How Often Do You Have a Drink Containing Alcohol: 4 or more times a week - Substance Use History Substance History: No History of Abuse - Travel History Recent Travel in the [place] Within the Last 8 Weeks: No Recent Travel Out of the Country Within the Last 8 Weeks: No - Immunization History Tetanus Immunization: <5 Years Hx Influenza Vaccine This Season: No Medications and Allergies Active Medications: Active Medications Acetaminophen (Tylenol) 500 mg PO Q4H PRN PRN Reason: Fever, headache, pain 1-5 Al Hydroxide/Mg Hydroxide (Milk Of Magnesia Liq) 30 ml PO Q12H PRN PRN Reason: Mild Constipation Bisacodyl (Dulcolax Supp) 10 mg RECTAL DAILY PRN PRN Reason: SEVERE CONSITIPATION Flumazenil (Romazecon Inj) 0.2 mg IV.PUSH Q1M PRN PRN Reason: OVERSEDATION Haloperidol Lactate (Haldol Inj) 1 mg IV.PUSH Q15M PRN PRN Reason: for severe agitation Lactulose (Lactulose Liq) 30 ml PO DAILY PRN PRN Reason: SEVERE CONSITIPATION Lorazepam (Ativan) 1 mg PO Q4H PRN PRN Reason: for CIWA 8-10 Lorazepam (Ativan) 2 mg PO Q2H PRN PRN Reason: for CIWA 11-14 Lorazepam (Ativan Inj) 2 mg IV.PUSH Q2H PRN PRN Reason: for CIWA 11-14 Lorazepam (Ativan Inj) 2 mg IV.PUSH Q1H PRN PRN Reason: for CIWA 15-20 Lorazepam (Ativan Inj) 2 mg IV.PUSH Q15M PRN PRN Reason: for CIWA > 20 Lorazepam (Ativan Inj) 1 mg IV.PUSH Q4H PRN PRN Reason: for CIWA 8-10 Morphine Sulfate (Morphine Inj) 4 mg IV.PUSH ONCE ONE Stop: 06/25/18 16:01 Sennosides (Senokot) 17.2 mg PO Q12H PRN PRN Reason: Moderate Constipation Sodium Chloride (Ns Flush) 2 ml IV.FLUSH PRN PRN PRN Reason: FLUSH AFTER USING IV ACCESS Allergies Allergy/AdvReac Type Severity Reaction Status Date / Time No Known Allergies Allergy Verified 06/25/18 10:29 Home Medications Medication Instructions Recorded Confirmed Type hydrocodone-acetaminophen [Fernley] 1 tab PO Q6H PRN 06/25/18 06/25/18 History ranitidine HCl 75 mg PO BID PRN 06/25/18 06/25/18 History Exam Vital signs: Vital Signs 06/25/18 10:22 06/25/18 10:28 06/25/18 11:21 Temperature 98.1 F 98.1 F Pulse Rate 67 68 69 Respiratory Rate 16 16 Blood Pressure 162/93 H 162/93 H Pulse Oximetry 100 100 Intake & Output 06/24/18 06/25/18 06/25/18 18:59 06:59 18:59 Intake Total 1000 / 1000 Balance 1000 / 1000 Weight 63.503 kg Intake: IV 1000 / 1000 NS Inj 1,000 ML @ Wide Open IV. 1000 / 1000 SIG BOLUS ONE Rx#:[id number] Narrative: GENERAL: This is a well-nourished, well-developed patient, in no apparent distress. SKIN: No rashes, ecchymoses or lesions. Warm and dry. HEAD: Atraumatic. Normocephalic. No temporal or scalp tenderness. EYES: Pupils equal round and reactive. No injection or drainage. ENT: Nose without bleeding, purulent drainage or septal hematoma. Airway patent. NECK: Trachea midline. No lymphadenopathy. Supple, nontender, no meningeal signs. CARDIOVASCULAR: Regular rate and rhythm without murmurs, gallops, or rubs. No JVD. RESPIRATORY: Clear to auscultation. Breath sounds equal bilaterally. No wheezes , rales, or rhonchi. GASTROINTESTINAL: Abdomen soft, non-tender, nondistended. No guarding. MUSCULOSKELETAL: Extremities without clubbing, cyanosis, or edema. NEUROLOGICAL: Awake and alert. Cranial nerves II through XII intact. No focal neurological deficits. Normal speech. Results - Labs CBC & Chem 7: 06/25/18 11:20 06/25/18 11:20 Labs: Laboratory Results - last 24 hr 06/25/18 06/25/18 06/25/18 11:20 11:20 11:20 WBC 6.1 RBC 3.35 L Hgb 12.1 L Hct 34.9 L MCV 104.1 H MCH 36.1 H MCHC 34.6 RDW 13.7 Plt Count 175 MPV 8.2 Neut % (Auto) 80.1 H Lymph % (Auto) 11.0 Morrill % (Auto) 6.9 Eos % (Auto) 1.4 Baso % (Auto) 0.6 Neut # (Auto) 4.9 Lymph # (Auto) 0.7 L [place] # (Auto) 0.4 Eos # (Auto) 0.1 Baso # (Auto) 0.0 WBC Differential . Differential Comment Auto diff final PT 10.4 INR 1.0 APTT 28.9 Sodium 133 L Potassium 3.7 Chloride 103 Carbon Dioxide 22.9 Anion Gap 7 BUN 3 L Creatinine 0.69 Estimated GFR Greater than 89 Random Glucose 66 L Calcium 8.0 L Total Bilirubin 0.7 AST 47 H ALT 42 Alkaline Phosphatase 99 Total Creatine Kinase Troponin I Less than 0.02 L Total Protein 6.0 L Albumin 3.0 L Urine Opiates Screen Ur Barbiturates Screen Ur Amphetamines Screen U Benzodiazepines Scrn Urine Cocaine Screen U Cannabinoids Screen Serum Alcohol 36 H 06/25/18 06/25/18 11:20 11:56 WBC RBC Hgb Hct MCV MCH MCHC RDW Plt Count MPV Neut % (Auto) Lymph % (Auto) [place] % (Auto) Eos % (Auto) Baso % (Auto) Neut # (Auto) Lymph # (Auto) [place] # (Auto) Eos # (Auto) Baso # (Auto) WBC Differential Differential Comment PT INR APTT Sodium Potassium Chloride Carbon Dioxide Anion Gap BUN Creatinine Estimated GFR Random Glucose Calcium Total Bilirubin AST ALT Alkaline Phosphatase Total Creatine Kinase 163 Troponin I Total Protein Albumin Urine Opiates Screen Neg Ur Barbiturates Screen Neg Ur Amphetamines Screen Neg U Benzodiazepines Scrn Neg Urine Cocaine Screen Neg U Cannabinoids Screen Neg Serum Alcohol - Imaging Impressions Chest X-Ray 06/25/18 11:16 CONCLUSION: No active disease. Head CT 06/25/18 11:16 CONCLUSION: 1. Stable sellar mass. No acute intracranial abnormalities. . Lumbar Spine X-Ray 06/25/18 11:18 CONCLUSION: Slight loss of height of L5 vertebral body, compression deformity of indeterminate age. Lumbar Spine CT 06/25/18 12:15 CONCLUSION: 1. No acute fracture. 2. Minimal degenerative retrolisthesis of L5 on S1. 3. Broad-based posterior disc bulges or protrusions in the lower lumbar spine as above but without significant central canal stenosis. Multilevel lateral recess and foraminal encroachment. Caprini VTE Risk Assessment Caprini VTE Risk Assessment: No/Low Risk (score <= 1) Caprini Risk Assessment Model: Point Value = 1 Point Value = 2 Point Value = 3 Point Value = 5 Age 41-60 Minor surgery BMI > 25 kg/m2 Swollen legs Varicose veins or History of unexplained or recurrent spontaneous Oral contraceptives or hormone replacement Sepsis (< 1 month) Serious lung disease, including pneumonia (< 1 month) Abnormal pulmonary function Acute myocardial infarction Congestive heart failure (< 1 month) History of inflammatory bowel disease Medical patient at bed rest Age 61-74 Arthroscopic surgery Major open surgery (> 45 min) Laparoscopic surgery (> 45 min) Malignancy Confined to bed (> 72 hours) Immobilizing plaster cast Central venous access Age >= 75 History of VTE Family history of VTE Factor V Leiden Prothrombin [id number] Lupus anticoagulant Anticardiolipin antibodies Elevated serum homocysteine Heparin-induced thrombocytopenia Other congenital or acquired thrombophilia Stroke (< 1 month) Elective arthroplasty Hip, pelvis, or leg fracture Acute spinal cord injury (< 1 month) Prophylaxis Regimen: Total Risk Factor Score Risk Level Prophylaxis Regimen 0-1 Low Early ambulation 2 Moderate Order ONE of the following: *Sequential Compression Device (SCD) *Heparin 5000 units SQ BID 3-4 Higher Order ONE of the following medications: *Heparin 5000 units SQ TID *Enoxaparin/Lovenox 40 mg SQ daily (WT < 150 kg, CrCl > 30 mL/min) *Enoxaparin/Lovenox 30 mg SQ daily (WT < 150 kg, CrCl > 10-29 mL/min) *Enoxaparin/Lovenox 30 mg SQ BID (WT < 150 kg, CrCl > 30 mL/min) AND/OR *Sequential Compression Device (SCD) 5 or more Highest Order ONE of the following medications: *Heparin 5000 units SQ TID (Preferred with Epidurals) *Enoxaparin/Lovenox 40 mg SQ daily (WT < 150 kg, CrCl > 30 mL/min) *Enoxaparin/Lovenox 30 mg SQ daily (WT < 150 kg, CrCl > 10-29 mL/min) *Enoxaparin/Lovenox 30 mg SQ BID (WT < 150 kg, CrCl > 30 mL/min) AND *Sequential Compression Device (SCD) Assessment and Plan - Assessment (1) Dizziness Code(s): R42 - Dizziness and giddiness Status: Acute (2) Syncope Code(s): R55 - Syncope and collapse Status: Acute - Plan Mr. Albarado is a 58-year-old male with a history of chronic back pain and recent fall who presented to the emergency department on 06/25/2018 due to persistent dizziness, lightheadedness, syncope or near syncope. Frequent Syncope or near syncope Recent fall - work related Dizziness, lightheadedness Mild L5-S1 degenerative retrolisthesis - Patient's symptoms are concerning for neurological etiology and relation to recent fall - Will check Orthostatic BP. Keep patient on LR @100cc/hour - Will request a neurology consultation to evaluate for neurological etiology including posterior circulation issues. - May need MR studies including MRA, MRV Chronic back pain - Exacerbated by recent fall. - Patient is supposed to follow up with pain management referred by his Workman's comp - Will continue Fernley PRN and Morphine IV for breakthrough. GERD Hypertension - Possibly related to pain. Will continue Fernley and morphine for pain control. - Clonidine 0.1mg Q6hrs PRN for BP > 160/90 - Famotidine 20mg BID. Full code. SCDs.
[2018-06-25] MEDS ORDERED: Morphine Inj 4 MG/ML Vial IV.PUSH ONE (16:00)
--- NOTE | 2018-06-25 20:18 | MB ---
cc: Babak Tolentino MD DATE: 06/25/2018 HISTORY OF PRESENT ILLNESS: A 58-year-old right-handed man with a history of some low sugars, peptic ulcer disease, GI bleed about 6 months ago, and I believe in January, he fell and he said he was in the hospital for about 10 days. He actually had a left temporal lobe and frontal lobe contusion, as far as I can tell from the reports, and he has been dizzy ever since. He was back to work on 05/26/2018 when he had a bag fall on him of laundry. He fell back and hit his head again. He has been also dizzy since that time. He has had 2 episodes of loss of consciousness. It appears that he has had vertigo right before those. One was recently when he was on the toilet. He fell off and hit his head. He did wet himself, so it is unclear if he could have had a seizure. He is not quite sure if he passed out first and hit his head or if he got dizzy and then fell, hit his head and passed out. He has had some chronic low back pain and he is on morphine. SOCIAL HISTORY: He is a smoker and I have asked him to quit. He occasionally has a drink. 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 FAMILY HISTORY: Negative for cancer, seizure. Positive stroke in his mother. REVIEW OF SYSTEMS: He denies any hypertension, diabetes, hypercholesterolemia, NE, CABG, stent, angioplasty, A-Fib, Coumadin, renal, hepatic or pulmonary disease, thyroid disease, lupus, cancer, prior seizures, stroke. He has not had any odd smells, tastes or preston vu. He has not woken up, wet the bed or bit his tongue. No chest pain. MEDICATIONS AT HOME: Hampton and ranitidine. MEDICATIONS IN THE HOSPITAL: He is on Hampton, Pepcid, p.r.n. Haldol, p.r.n. Ativan, though he has not gotten any of that. PHYSICAL EXAMINATION: VITAL SIGNS: Afebrile, 73, 16, 115/89. NECK: There are no carotid bruits. HEART: Regular rate and rhythm. I do not detect a murmur. NEUROLOGIC: Pupils are equal. Visual tejeda are full. Extraocular movements are intact without nystagmus. Face is symmetric with normal sensation. Tongue is midline. There is no drift. He has normal strength in the upper and lower extremities bilaterally. DTRs are trace throughout. Toes are downgoing bilaterally. Pinprick is intact throughout. He is not ataxic on [id number]. He is very dizzy sitting up, however, staggers over on the bed and almost falls over. His Hallpike maneuver really was positive bilaterally, a bit more on the left than the right, and I did the Lasha maneuver x1, starting on the left and also starting on the right. He did feel somewhat better after that. LABORATORY DATA: CBC shows MCV of 104, otherwise essentially unremarkable. Urine drug screen was negative. Alcohol level was 36 with normal less than 5. Basic metabolic profile with sodium 133. LFTs normal. Troponin normal. Albumin 3. Calcium 8. Coags normal. He had a lumbar CT done. He has some diffuse bulging disks and some DJD. No spinal stenosis. CAT scan of the brain, pituitary enlarged but no change from several months prior in February. He has some diffuse atrophy and a large pituitary. His TSH was normal in January of this year. ACTH was normal at that time. He had an MRI of his brain done on 02/05/2018 that showed 2 focal abnormalities in the left temporal tip and frontoparietal region suggesting late subacute hematomas and the pituitary abnormality. Unfortunately, those films cannot be downloaded. MRA stebbins of Faye at that time was negative. A carotid ultrasound back in January was normal. He had an echocardiogram in January that was essentially normal. He evidently had a DVT in his left forearm at that time. He was felt to have a left-sided late subacute subdural hematoma. IMPRESSION: I think his main problem has been the vertigo, probably peripheral vestibulopathy from the fall, and we will recheck his Hallpike tomorrow. He needs some vesicular rehabilitation. Also, we will recheck an MRI of the brain with the abnormalities in the past and an electroencephalogram as maybe he has had some small seizures with the damage before in the temporal lobe, or at least what was described as that. We will call MRI and see if those films can be downloaded better. MD DEVAN Veras/ratna , 06:59 PM , 07:08 PM
[2018-06-25] MEDS: Famotidine 20 MG Tablet PO SCH (20:36)
[2018-06-25] MEDS: Morphine Inj 4 MG/ML Vial IV.PUSH PRN (20:36)
[2018-06-25] MEDS ORDERED: Gadobutrol PF 7.5 MMOL/7.5 ML Vial (for RAD) IV.SIG ONE (21:15)
--- NOTE | 2018-06-25 21:38 | MR ---
EXAM DATE: 06/25/2018 9:27 PM EDT AGE/SEX: 58 years / Male INDICATIONS: Dizziness. CLINICAL DATA: This is the patient's initial encounter. Patient reports that signs and symptoms have been present for 2 months and indicates a pain score of 7/10. MEDICAL/SURGICAL HISTORY: Diabetes mellitus type II. . Stomach sx. [place] [facility] [place], [place]/2018. [facility] [place] BRAIN [place] & W/O CONTRAST, 02/05/2018. . TECHNIQUE: Multiplanar, multisequence examination of the brain was performed without and with 7 ml Ga davist (gadobutrol) contrast as a single exam dose. FINDINGS: Cerebrum: The ventricles are normal for age. No evidence of midline shift, mass lesion, hemorrhage or acute infarction. No extraaxial fluid collections are seen. Prior MRI in January 2018 had demonstra lux signal abnormalities in the left frontal parietal and temporal tip characteristic of blood produc ts. There are no signal abnormalities in these areas on today's examination characteristic of resolve d hematomas. 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 This does, in contact with the optic chiasm but does not displace the optic chiasm. White Matter: No significant signal abnormalities are seen in the white matter. Posterior Fossa: The cerebellum and brainstem are intact. The 4th ventricle is midline. The cerebel lopontine angle is unremarkable. The cerebellar tonsils are normal in position. Diffusion Imaging: No focal areas of restricted diffusion are seen. No evidence of acute infarction . Extracranial: The visualized portions of the orbits and paranasal sinuses are unremarkable. Some T2 prolongation in the left mastoids is less severe than on prior MRI. Post Contrast: No abnormal areas of parenchymal or dural enhancement. No evidence of blood-brain ba rrier breakdown. CONCLUSION: 1. No acute findings in the brain. 2. 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 3. 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 Electronically signed by: Jaun Albright MD 06/25/2018 9:37 PM EDT
[2018-06-26] MEDS: Morphine Inj 4 MG/ML Vial IV.PUSH PRN ×2 (01:31→08:36)
--- NOTE | 2018-06-26 07:00 | P.PNNEU ---
Subjective Subjective Comments: No acute events reported sr Active Medications: Active Medications Acetaminophen (Tylenol) 500 mg PO Q4H PRN PRN Reason: Fever, headache, pain 1-5 Hydrocodone Bitart/Acetaminophen (Kingston 10/325) 1 tab PO Q6H PRN PRN Reason: Pain 6-10 Last Admin: 06/26/18 06:31 Dose: 1 tab Al Hydroxide/Mg Hydroxide (Milk Of Magnesia Liq) 30 ml PO Q12H PRN PRN Reason: Mild Constipation Bisacodyl (Dulcolax Supp) 10 mg RECTAL DAILY PRN PRN Reason: SEVERE CONSITIPATION Clonidine HCl (Catapres) 0.1 mg PO Q6H PRN PRN Reason: for BP > 160/90 Famotidine (Pepcid) 20 mg PO BID [facility] Last Admin: 06/25/18 20:36 Dose: 20 mg Flumazenil (Romazecon Inj) 0.2 mg IV.PUSH Q1M PRN PRN Reason: OVERSEDATION Haloperidol Lactate (Haldol Inj) 1 mg IV.PUSH Q15M PRN PRN Reason: for severe agitation Lactated Ringer's (Lr 1000 Ml Inj) 1,000 mls @ 100 mls/hr IV.CONT .Q10H [facility] Last Admin: 06/26/18 06:31 Dose: 100 mls/hr Lactulose (Lactulose Liq) 30 ml PO DAILY PRN PRN Reason: SEVERE CONSITIPATION Lorazepam (Ativan) 1 mg PO Q4H PRN PRN Reason: for CIWA 8-10 Lorazepam (Ativan) 2 mg PO Q2H PRN PRN Reason: for CIWA 11-14 Lorazepam (Ativan Inj) 2 mg IV.PUSH Q2H PRN PRN Reason: for CIWA 11-14 Lorazepam (Ativan Inj) 2 mg IV.PUSH Q1H PRN PRN Reason: for CIWA 15-20 Lorazepam (Ativan Inj) 2 mg IV.PUSH Q15M PRN PRN Reason: for CIWA > 20 Lorazepam (Ativan Inj) 1 mg IV.PUSH Q4H PRN PRN Reason: for CIWA 8-10 Morphine Sulfate (Morphine Inj) 4 mg IV.PUSH Q4H PRN PRN Reason: BREAKTHROUGH PAIN Last Admin: 06/26/18 01:31 Dose: 4 mg Sennosides (Senokot) 17.2 mg PO Q12H PRN PRN Reason: Moderate Constipation Sodium Chloride (Ns Flush) 2 ml IV.FLUSH PRN PRN PRN Reason: FLUSH AFTER USING IV ACCESS Allergies/Adverse Reactions: Allergies Allergy/AdvReac Type Severity Reaction Status Date / Time No Known Allergies Allergy Verified 06/25/18 10:29 Physical Exam Vital signs: Vital Signs 06/25/18 10:22 06/25/18 10:28 06/25/18 11:21 Temperature 98.1 F 98.1 F Pulse Rate 67 68 69 Respiratory Rate 16 16 Blood Pressure 162/93 H 162/93 H Pulse Oximetry 100 100 06/25/18 16:05 06/25/18 17:11 06/25/18 20:00 Temperature 98.1 F 98.5 F Pulse Rate 66 73 69 Respiratory Rate 16 16 16 Blood Pressure 170/95 H 115/89 129/77 Pulse Oximetry 98 100 99 06/25/18 23:52 06/26/18 03:06 Temperature 98.6 F Pulse Rate 70 81 Respiratory Rate 16 Blood Pressure 123/77 Pulse Oximetry 99 Intake & Output 06/25/18 06/25/18 06/26/18 06:59 18:59 06:59 Intake Total 1000 / 1000 1929 / 1930 Output Total 150 / 150 Balance 850 / 850 1929 / 193 Weight 66.4 kg Intake: IV 1000 / 1000 193 / 1930 LR 1000 mL Inj 1,000 ML @ 100 1930 / 1930 mls/hr IV.CONT .Q10H [facility] Rx#: [id number] NS Inj 1,000 ML @ Wide Open IV. 1000 / 1000 SIG BOLUS ONE Rx#:[id number] Output: Urine 150 / 150 Other: # Voids 1 2 Date of Last Bowel Movement 06/25/18 Weight On Admission 66.4 kg Narrative: still vertigo and nystag with bilat hallpike and eply done Objective Laboratory Results - last 24 hr 06/25/18 06/25/18 06/25/18 11:20 11:20 11:20 WBC 6.1 RBC 3.35 L Hgb 12.1 L Hct 34.9 L MCV 104.1 H MCH 36.1 H MCHC 34.6 RDW 13.7 Plt Count 175 MPV 8.2 Neut % (Auto) 80.1 H Lymph % (Auto) 11.0 [place] % (Auto) 6.9 Eos % (Auto) 1.4 Baso % (Auto) 0.6 Neut # (Auto) 4.9 Lymph # (Auto) 0.7 L [place] # (Auto) 0.4 Eos # (Auto) 0.1 Baso # (Auto) 0.0 WBC Differential . Differential Comment Auto diff final PT 10.4 INR 1.0 APTT 28.9 Sodium 133 L Potassium 3.7 Chloride 103 Carbon Dioxide 22.9 Anion Gap 7 BUN 3 L Creatinine 0.69 Estimated GFR Greater than 89 POC Glucose Random Glucose 66 L Calcium 8.0 L Total Bilirubin 0.7 AST 47 H ALT 42 Alkaline Phosphatase 99 Total Creatine Kinase Troponin I Less than 0.02 L Total Protein 6.0 L Albumin 3.0 L Urine Opiates Screen Ur Barbiturates Screen Ur Amphetamines Screen U Benzodiazepines Scrn Urine Cocaine Screen U Cannabinoids Screen Serum Alcohol 36 H 06/25/18 06/25/18 06/26/18 11:20 11:56 02:26 WBC RBC Hgb Hct MCV MCH MCHC RDW Plt Count MPV Neut % (Auto) Lymph % (Auto) [place] % (Auto) Eos % (Auto) Baso % (Auto) Neut # (Auto) Lymph # (Auto) [place] # (Auto) Eos # (Auto) Baso # (Auto) WBC Differential Differential Comment PT INR APTT Sodium Potassium Chloride Carbon Dioxide Anion Gap BUN Creatinine Estimated GFR POC Glucose 122 H Random Glucose Calcium Total Bilirubin AST ALT Alkaline Phosphatase Total Creatine Kinase 163 Troponin I Total Protein Albumin Urine Opiates Screen Neg Ur Barbiturates Screen Neg Ur Amphetamines Screen Neg U Benzodiazepines Scrn Neg Urine Cocaine Screen Neg U Cannabinoids Screen Neg Serum Alcohol Review/Management - Review/Management Plan: imp mri looks ok eeg pend and if done could dc he needs o/p vestibular rehab badly maybe social service liaison can hook him up with [facility] here in [facility] building or some kind of voucher? mri neg probably syncope with vertigo and falls but cannot say for sure not a sz nor straight syncope defer to med team if he needs to see cards no aed for now
--- NOTE | 2018-06-26 07:31 | ECG ---
Date Performed: 06/25/2018 Time Performed: 10:43:29 PTAGE: 58 years EKG: Sinus rhythm NORMAL ECG NO PREVIOUS TRACING DOCTOR: Agnieszka Milligan Interpretating Date/Time 06/26/2018 07:29:30
[2018-06-26] MEDS: Famotidine 20 MG Tablet PO SCH ×2 (08:36→20:07)
--- NOTE | 2018-06-26 10:10 | P.PN ---
Subjective Interval history: Follow up for dizziness, chronic back pain. Patient is currently resting in bed. He continues to have dizziness and lightheadedness. He also complains of persistence significant chronic back pain. No fever or chills. Tolerating diet well. Physical Exam Vital signs: Vital Signs 06/25/18 10:22 06/25/18 10:28 06/25/18 11:21 Temperature 98.1 F 98.1 F Pulse Rate 67 68 69 Respiratory Rate 16 16 Blood Pressure 162/93 H 162/93 H Pulse Oximetry 100 100 06/25/18 16:05 06/25/18 17:11 06/25/18 20:00 Temperature 98.1 F 98.5 F Pulse Rate 66 73 69 Respiratory Rate 16 16 16 Blood Pressure 170/95 H 115/89 129/77 Pulse Oximetry 98 100 99 06/25/18 23:52 06/26/18 03:06 06/26/18 07:47 Temperature 98.6 F 97.9 F Pulse Rate 70 81 66 Respiratory Rate 16 18 Blood Pressure 123/77 149/88 H Pulse Oximetry 99 99 Intake & Output 06/25/18 06/26/18 06/26/18 18:59 06:59 18:59 Intake Total 1000 / 1000 1930 / 1930 Output Total 150 / 150 Balance 850 / 850 1930 / 1930 Weight 66.4 kg Intake: IV 1000 / 1000 1930 / 1930 LR 1000 mL Inj 1,000 ML @ 100 1930 / 1930 mls/hr IV.CONT .Q10H SHAMIKA Rx#: [id number] NS Inj 1,000 ML @ Wide Open IV. 1000 / 1000 SIG BOLUS ONE Rx#:[id number] Output: Urine 150 / 150 Other: # Voids 1 2 Date of Last Bowel Movement 06/25/18 Weight On Admission 66.4 kg Narrative: GENERAL: Alert, oriented 3, NAD. SKIN: Warm and dry. HEAD: Normocephalic. EYES: No scleral icterus. No injection or drainage. NECK: Supple, trachea midline. No JVD or lymphadenopathy. CARDIOVASCULAR: Regular rate and rhythm without murmurs, gallops, or rubs. RESPIRATORY: Breath sounds equal bilaterally. No accessory muscle use. GASTROINTESTINAL: Abdomen soft, non-tender, nondistended. MUSCULOSKELETAL: No cyanosis, or edema. BACK: Nontender without obvious deformity. No CVA tenderness. Results - Labs CBC & Chem 7: 06/25/18 11:20 06/25/18 11:20 Laboratory Results - last 24 hr 06/25/18 06/25/18 06/25/18 11:20 11:20 11:20 WBC 6.1 RBC 3.35 L Hgb 12.1 L Hct 34.9 L MCV 104.1 H MCH 36.1 H MCHC 34.6 RDW 13.7 Plt Count 175 MPV 8.2 Neut % (Auto) 80.1 H Lymph % (Auto) 11.0 [place] % (Auto) 6.9 Eos % (Auto) 1.4 Baso % (Auto) 0.6 Neut # (Auto) 4.9 Lymph # (Auto) 0.7 L [place] # (Auto) 0.4 Eos # (Auto) 0.1 Baso # (Auto) 0.0 WBC Differential . Differential Comment Auto diff final PT 10.4 INR 1.0 APTT 28.9 Sodium 133 L Potassium 3.7 Chloride 103 Carbon Dioxide 22.9 Anion Gap 7 BUN 3 L Creatinine 0.69 Estimated GFR Greater than 89 POC Glucose Random Glucose 66 L Calcium 8.0 L Total Bilirubin 0.7 AST 47 H ALT 42 Alkaline Phosphatase 99 Total Creatine Kinase Troponin I Less than 0.02 L Total Protein 6.0 L Albumin 3.0 L Urine Opiates Screen Ur Barbiturates Screen Ur Amphetamines Screen U Benzodiazepines Scrn Urine Cocaine Screen U Cannabinoids Screen Serum Alcohol 36 H 06/25/18 06/25/18 06/26/18 11:20 11:56 02:26 WBC RBC Hgb Hct MCV MCH MCHC RDW Plt Count MPV Neut % (Auto) Lymph % (Auto) [place] % (Auto) Eos % (Auto) Baso % (Auto) Neut # (Auto) Lymph # (Auto) [place] # (Auto) Eos # (Auto) Baso # (Auto) WBC Differential Differential Comment PT INR APTT Sodium Potassium Chloride Carbon Dioxide Anion Gap BUN Creatinine Estimated GFR POC Glucose 122 H Random Glucose Calcium Total Bilirubin AST ALT Alkaline Phosphatase Total Creatine Kinase 163 Troponin I Total Protein Albumin Urine Opiates Screen Neg Ur Barbiturates Screen Neg Ur Amphetamines Screen Neg U Benzodiazepines Scrn Neg Urine Cocaine Screen Neg U Cannabinoids Screen Neg Serum Alcohol - Imaging Impressions Head MRI 06/25/18 00:00 CONCLUSION: 1. No acute findings in the brain. 2. 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 3. 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 Chest X-Ray 06/25/18 11:16 CONCLUSION: No active disease. Head CT 06/25/18 11:16 CONCLUSION: 1. Stable sellar mass. No acute intracranial abnormalities. . Lumbar Spine X-Ray 06/25/18 11:18 CONCLUSION: Slight loss of height of L5 vertebral body, compression deformity of indeterminate age. Lumbar Spine CT 06/25/18 12:15 CONCLUSION: 1. No acute fracture. 2. Minimal degenerative retrolisthesis of L5 on S1. 3. Broad-based posterior disc bulges or protrusions in the lower lumbar spine as above but without significant central canal stenosis. Multilevel lateral recess and foraminal encroachment. Assessment and Plan - Assessment (1) Dizziness Code(s): R42 - Dizziness and giddiness Status: Acute (2) Syncope Code(s): R55 - Syncope and collapse Status: Acute - Plan Mr. Albarado is a 58-year-old male with a history of chronic back pain and recent fall who presented to the emergency department on 06/25/2018 due to persistent dizziness, lightheadedness, syncope or near syncope. Frequent Syncope or near syncope Recent fall - work related Vertigo Mild L5-S1 degenerative retrolisthesis - Appreciate Neurology input. Dr. Tolentino ordered EEG and stated that patient can be d/c once EEG done. - Patient did not want to do EEG this morning because he was eating breakfast. 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 - will d/c IV fluid. - Patient will likely need vestibular rehab. Chronic back pain - Exacerbated by recent fall. - Patient is supposed to follow up with pain management referred by his Workman's comp - Will continue [place] PRN and Morphine IV for breakthrough. GERD Hypertension - Possibly related to pain. Will continue [place] and morphine for pain control. - Clonidine 0.1mg Q6hrs PRN for BP > 160/90 - Famotidine 20mg BID. Full code. SCDs.
--- NOTE | 2018-06-26 17:54 | MB ---
cc: Babak Tolentino MD DATE: 06/26/2018 EEG NUMBER: [id number] CLINICAL HISTORY: Fell back and hit his head, syncope. DESCRIPTION OF RECORDING: Recording shows symmetric 8-9 Hz, 60 microvolt posterior rhythm. Photic stimulation is performed without significant posterior driving. Hyperventilation is not performed. No epileptiform or seizure activity was noted. There were no hemisphere asymmetries. IMPRESSION: Normal awake electroencephalogram. No evidence for a focal or diffuse abnormality. Babak Tolentino MD DJM/KD , 05:46 PM , 05:50 PM
[2018-06-27] MEDS: Famotidine 20 MG Tablet PO SCH ×2 (09:22→20:29)
[2018-06-27] MEDS ORDERED: Morphine Sulfate Inj 2 MG/ML Vial IM ONE (13:00)
--- NOTE | 2018-06-27 16:55 | P.PN ---
Subjective Interval history: Follow up for dizziness, chronic back pain. Patient complains of persistent low back pain. He requests morphine IV. No fever or chills. He is still having dizziness and lightheadedness when he gets up. Physical Exam Vital signs: Vital Signs 06/26/18 17:15 06/26/18 20:00 06/27/18 00:00 Temperature 98.5 F 98.8 F Pulse Rate 73 79 66 Respiratory Rate 18 17 Blood Pressure 128/82 120/75 Pulse Oximetry 98 99 06/27/18 04:00 06/27/18 07:34 06/27/18 08:04 Temperature 98.4 F 97.8 F Pulse Rate 68 68 65 Respiratory Rate 17 18 Blood Pressure 115/76 128/80 Pulse Oximetry 98 99 06/27/18 12:00 Temperature 98.1 F Pulse Rate 62 Respiratory Rate 18 Blood Pressure 158/83 H Pulse Oximetry 95 Intake & Output 06/26/18 06/27/18 06/27/18 18:59 06:59 18:59 Intake Total 1000 / 1000 Output Total 1700 / 1700 400 / 400 Balance -700 / -700 -400 / -400 Intake: IV 1000 / 1000 LR 1000 mL Inj 1,000 ML @ 100 1000 / 1000 mls/hr IV.CONT .Q10H SHAMIKA Rx#: [id number] Output: Urine 1700 / 1700 400 / 400 Other: # Voids 2 Narrative: GENERAL: Alert, oriented 3, NAD. SKIN: Warm and dry. HEAD: Normocephalic. EYES: No scleral icterus. No injection or drainage. NECK: Supple, trachea midline. No JVD or lymphadenopathy. CARDIOVASCULAR: Regular rate and rhythm without murmurs, gallops, or rubs. RESPIRATORY: Breath sounds equal bilaterally. No accessory muscle use. GASTROINTESTINAL: Abdomen soft, non-tender, nondistended. MUSCULOSKELETAL: No cyanosis, or edema. BACK: Nontender without obvious deformity. No CVA tenderness. Results - Labs CBC & Chem 7: 06/25/18 11:20 06/25/18 11:20 Laboratory Results - last 24 hr 06/27/18 01:32 POC Glucose 92 - Imaging Head MRI 06/25/18 00:00 CONCLUSION: 1. No acute findings in the brain. 2. 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 3. 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 Chest X-Ray 06/25/18 11:16 CONCLUSION: No active disease. Head CT 06/25/18 11:16 CONCLUSION: 1. Stable sellar mass. No acute intracranial abnormalities. . Lumbar Spine X-Ray 06/25/18 11:18 CONCLUSION: Slight loss of height of L5 vertebral body, compression deformity of indeterminate age. Lumbar Spine CT 06/25/18 12:15 CONCLUSION: 1. No acute fracture. 2. Minimal degenerative retrolisthesis of L5 on S1. 3. Broad-based posterior disc bulges or protrusions in the lower lumbar spine as above but without significant central canal stenosis. Multilevel lateral recess and foraminal encroachment. Assessment and Plan - Assessment (1) Dizziness Code(s): R42 - Dizziness and giddiness Status: Acute (2) Syncope Code(s): R55 - Syncope and collapse Status: Acute - Plan Mr. Albarado is a 58-year-old male with a history of chronic back pain and recent fall who presented to the emergency department on 06/25/2018 due to persistent dizziness, lightheadedness, syncope or near syncope. Frequent Syncope or near syncope Recent fall - work related Vertigo Mild L5-S1 degenerative retrolisthesis - Appreciate Neurology input. Neurology recommended vestibular rehab. - PT recommends SNF. Chronic back pain - Exacerbated by recent fall. - Patient is supposed to follow up with pain management referred by his Workman's comp - Will continue [place] PRN and Morphine IM for breakthrough. GERD Hypertension - Possibly related to pain. Will continue [place] and morphine for pain control. - Clonidine 0.1mg Q6hrs PRN for BP > 160/90 - Famotidine 20mg BID. Full code. SCDs.
[2018-06-27] MEDS: Morphine Sulfate Inj 2 MG/ML Vial IM PRN (20:28)
[2018-06-28] MEDS: Morphine Sulfate Inj 2 MG/ML Vial IM PRN ×3 (00:33→22:53)
[2018-06-28] MEDS: Famotidine 20 MG Tablet PO SCH ×2 (08:35→20:41)
[2018-06-28] MEDS ORDERED: Morphine Inj 4 MG/ML Vial IM ONE (10:45)
--- NOTE | 2018-06-28 13:01 | P.PN ---
Subjective Interval history: Follow up for dizziness, chronic back pain. Patient complains of persistent dizziness. No fever, chills. He also complains of significant back pain. Wants morphine PRN before PT. Physical Exam Vital signs: Vital Signs 06/27/18 16:00 06/27/18 16:22 06/27/18 20:00 Temperature 98.3 F 98.1 F Pulse Rate 69 73 70 Respiratory Rate 18 16 Blood Pressure 125/78 142/74 H Pulse Oximetry 98 98 06/27/18 23:37 06/28/18 07:44 06/28/18 12:00 Temperature 98.5 F 98.2 F 98.0 F Pulse Rate 73 66 71 Respiratory Rate 16 16 16 Blood Pressure 166/104 H 158/85 H 168/95 H Pulse Oximetry 99 98 100 Intake & Output 06/27/18 06/28/18 06/28/18 18:59 06:59 18:59 Output Total 800 / 800 Balance -800 / -800 Output: Urine 800 / 800 Narrative: GENERAL: Alert, oriented 3, NAD. SKIN: Warm and dry. HEAD: Normocephalic. EYES: No scleral icterus. No injection or drainage. NECK: Supple, trachea midline. No JVD or lymphadenopathy. CARDIOVASCULAR: Regular rate and rhythm without murmurs, gallops, or rubs. RESPIRATORY: Breath sounds equal bilaterally. No accessory muscle use. GASTROINTESTINAL: Abdomen soft, non-tender, nondistended. MUSCULOSKELETAL: No cyanosis, or edema. BACK: Nontender without obvious deformity. No CVA tenderness. Results - Labs CBC & Chem 7: 06/25/18 11:20 06/25/18 11:20 Laboratory Results - last 24 hr 06/27/18 17:58 POC Glucose 91 Assessment and Plan - Assessment (1) Dizziness Code(s): R42 - Dizziness and giddiness Status: Acute (2) Syncope Code(s): R55 - Syncope and collapse Status: Acute - Plan Mr. Albarado is a 58-year-old male with a history of chronic back pain and recent fall who presented to the emergency department on 06/25/2018 due to persistent dizziness, lightheadedness, syncope or near syncope. Frequent Syncope or near syncope Recent fall - work related Vertigo Mild L5-S1 degenerative retrolisthesis - Appreciate Neurology input. Neurology recommended vestibular rehab. - PT recommends SNF. Not a safe discharge home due to Vertigo. - Continue working with PT. If he is improved, we can discharge him home with outpatient PT. - Obtaining outpatient vestibular rehab would be challenging. Chronic back pain - Exacerbated by recent fall. - Patient is supposed to follow up with pain management referred by his Workman's comp - Will continue [place] PRN and Morphine IM for breakthrough. GERD Hypertension - Possibly related to pain. Will continue [place] and morphine for pain control. - Clonidine 0.1mg Q6hrs PRN for BP > 160/90 - Famotidine 20mg BID. Full code. SCDs.
[2018-06-29] MEDS: Morphine Sulfate Inj 2 MG/ML Vial IM PRN ×4 (06:51→20:18)
[2018-06-29] MEDS: Famotidine 20 MG Tablet PO SCH ×2 (08:08→20:13)
--- NOTE | 2018-06-29 10:10 | P.PN ---
Subjective Interval history: Follow-up for dizziness, vertigo, chronic back pain. Patient reports feeling slightly better today, however still with dizziness and unsteady gait, worse upon ambulation. He reports continued low back pain, worse at the left lumbar region with radiation down the left leg. States he does not feel ready for discharge as he still feels very unsteady. He is also reporting nausea, no vomiting. He is requesting Zofran. Denies any abdominal pain. Denies any other medical complaints at this time. Physical Exam Vital signs: Vital Signs 06/28/18 12:00 06/28/18 15:34 06/28/18 19:32 Temperature 98.0 F 97.8 F 98.1 F Pulse Rate 71 91 H 91 H Respiratory Rate 16 18 Blood Pressure 168/95 H 111/65 122/75 Pulse Oximetry 100 99 98 06/29/18 00:00 06/29/18 03:27 06/29/18 04:00 Temperature 98 F 98.0 F 98 F Pulse Rate 70 71 71 Respiratory Rate 18 Blood Pressure 135/83 131/81 131/81 Pulse Oximetry 99 98 06/29/18 07:35 Temperature Pulse Rate Respiratory Rate 16 Blood Pressure Pulse Oximetry Intake & Output 06/28/18 06/29/18 06/29/18 18:59 06:59 18:59 Intake Total 280 / 280 Output Total 600 / 600 180 / 180 Balance -600 / -600 100 / 100 Intake: Oral 280 / 280 Output: Urine 600 / 600 180 / 180 Narrative: GENERAL: Well-nourished, well-developed middle-age male patient in [facility]. SKIN: Warm and dry. No rash. HEENT: Normocephalic. Atraumatic. Pupils equal and round. Has dizziness upon EOM testing, however no obvious nystagmus. NECK: Supple. Trachea midline. CARDIOVASCULAR: Regular rate and rhythm. No murmur appreciated. RESPIRATORY: No accessory muscle use. Clear to auscultation. Breath sounds equal bilaterally. GASTROINTESTINAL: Abdomen soft, non-tender, nondistended. Normoactive bowel sounds x4. MUSCULOSKELETAL: No obvious deformities. Extremities without clubbing, cyanosis , or edema. NEUROLOGICAL: Awake and alert. No obvious cranial nerve deficits. Motor grossly within normal limits. Moving all extremities spontaneously. Normal speech. Results - Labs CBC & Chem 7: 06/25/18 11:20 06/25/18 11:20 Laboratory Results - last 24 hr 06/28/18 23:52 POC Glucose 141 H - Imaging Head MRI 06/25/18 00:00 CONCLUSION: 1. No acute findings in the brain. 2. 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 3. 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 Chest X-Ray 06/25/18 11:16 CONCLUSION: No active disease. Head CT 06/25/18 11:16 CONCLUSION: 1. Stable sellar mass. No acute intracranial abnormalities. . Lumbar Spine X-Ray 06/25/18 11:18 CONCLUSION: Slight loss of height of L5 vertebral body, compression deformity of indeterminate age. Lumbar Spine CT 06/25/18 12:15 CONCLUSION: 1. No acute fracture. 2. Minimal degenerative retrolisthesis of L5 on S1. 3. Broad-based posterior disc bulges or protrusions in the lower lumbar spine as above but without significant central canal stenosis. Multilevel lateral recess and foraminal encroachment. Assessment and Plan - Assessment (1) Dizziness Code(s): R42 - Dizziness and giddiness Status: Acute (2) Syncope Code(s): R55 - Syncope and collapse Status: Acute - Plan 58-year-old male with a history of chronic back pain and recent fall who presented to the emergency department on 06/25/2018 due to persistent dizziness, lightheadedness, syncope or near syncope. Frequent Syncope or near syncope Recent fall - reportedly work related Vertigo Mild L5-S1 degenerative retrolisthesis - Appreciate Neurology input. Neurology recommended vestibular rehab. - Continue daily PT, recommends outpatient vestibular rehab and walker - Continue working with PT. If he is improved, we can discharge him home with outpatient PT. - Obtaining outpatient vestibular rehab would be challenging. - Continue on meclizine 25mg q8h scheduled, zofran prn - Symptoms improving Chronic back pain - Exacerbated by recent fall. - Patient is supposed to follow up with pain management referred by his Workman's comp - Will continue [place] PRN and Morphine IM for breakthrough. - Added Lidoderm patch GERD Hypertension - Possibly related to pain. Will continue [place] and morphine for pain control. - Clonidine 0.1mg Q6hrs PRN for BP > 160/90 - Famotidine 20mg BID. Full code. SCDs. Discharge Planning: Patient's symptoms improving, possible discharge tomorrow.
[2018-06-29] MEDS: Lidocaine 5% Patch T-DERMAL SCH (11:09)
[2018-06-30] MEDS: Morphine Sulfate Inj 2 MG/ML Vial IM PRN ×5 (02:52→22:03)
--- NOTE | 2018-06-30 08:51 | P.PN ---
Subjective Interval history: Follow-up for dizziness, vertigo, chronic back pain. The patient reports mild improvement compared to yesterday. He reports continued dizziness with head movements and ambulation. He has been able to ambulate with a walker without assistance. Denies any further nausea. He is tolerating oral intake. Reports continued low back pain with radiation down the left leg, unchanged compared to previous days. States he does not feel ready for discharge. Physical Exam Vital signs: Vital Signs 06/29/18 10:32 06/29/18 12:00 06/29/18 12:19 Temperature 98.2 F Pulse Rate 81 Respiratory Rate 16 20 16 Blood Pressure 152/89 H Pulse Oximetry 98 06/29/18 15:28 06/29/18 16:00 06/29/18 16:08 Temperature 98.8 F Pulse Rate 68 Respiratory Rate 16 18 16 Blood Pressure 138/92 H Pulse Oximetry 99 06/29/18 16:47 06/29/18 19:46 06/29/18 23:21 Temperature 98.1 F 98.1 F Pulse Rate 73 69 Respiratory Rate 16 16 20 Blood Pressure 134/82 132/82 Pulse Oximetry 98 99 06/30/18 04:00 06/30/18 08:00 Temperature 97.6 F 97.9 F Pulse Rate 61 65 Respiratory Rate 18 16 Blood Pressure 155/91 H 139/81 Pulse Oximetry 99 98 Intake & Output 06/29/18 06/30/18 06/30/18 18:59 06:59 18:59 Other: # Voids 2 Date of Last Bowel Movement 06/25/18 Narrative: GENERAL: Well-nourished, well-developed middle-age male patient in [facility]. SKIN: Warm and dry. No rash. HEENT: Normocephalic. Atraumatic. Pupils equal and round. No nystagmus. NECK: Supple. Trachea midline. CARDIOVASCULAR: Regular rate and rhythm. No murmur appreciated. RESPIRATORY: No accessory muscle use. Clear to auscultation. Breath sounds equal bilaterally. GASTROINTESTINAL: Abdomen soft, non-tender, nondistended. Normoactive bowel sounds x4. MUSCULOSKELETAL: No obvious deformities. Extremities without clubbing, cyanosis , or edema. NEUROLOGICAL: Awake and alert. No obvious cranial nerve deficits. Motor grossly within normal limits. Moving all extremities spontaneously. Normal speech. Results - Labs CBC & Chem 7: 06/25/18 11:20 06/25/18 11:20 Laboratory Results - last 24 hr 06/29/18 17:50 POC Glucose 114 H - Imaging Head MRI 06/25/18 00:00 CONCLUSION: 1. No acute findings in the brain. 2. 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 3. 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 Chest X-Ray 06/25/18 11:16 CONCLUSION: No active disease. Head CT 06/25/18 11:16 CONCLUSION: 1. Stable sellar mass. No acute intracranial abnormalities. . Lumbar Spine X-Ray 06/25/18 11:18 CONCLUSION: Slight loss of height of L5 vertebral body, compression deformity of indeterminate age. Lumbar Spine CT 06/25/18 12:15 CONCLUSION: 1. No acute fracture. 2. Minimal degenerative retrolisthesis of L5 on S1. 3. Broad-based posterior disc bulges or protrusions in the lower lumbar spine as above but without significant central canal stenosis. Multilevel lateral recess and foraminal encroachment. Assessment and Plan - Assessment (1) Dizziness Code(s): R42 - Dizziness and giddiness Status: Acute (2) Syncope Code(s): R55 - Syncope and collapse Status: Acute - Plan 58-year-old male with a history of chronic back pain and recent fall who presented to the emergency department on 06/25/2018 due to persistent dizziness, lightheadedness, syncope or near syncope. Frequent Syncope or near syncope Recent fall - reportedly work related Vertigo Mild L5-S1 degenerative retrolisthesis - Appreciate Neurology input. Neurology recommended vestibular rehab. - Continue daily PT, recommends outpatient vestibular rehab and walker - Continue working with PT. If he is improved, we can discharge him home with outpatient PT. - Obtaining outpatient vestibular rehab would be challenging. - Continue on meclizine 25mg q8h scheduled, zofran prn - Symptoms improving, ambulating with a walker without difficulty Chronic back pain - Exacerbated by recent fall. - Patient is supposed to follow up with pain management referred by his Workman's comp - Will continue [place] PRN and Morphine IM for breakthrough. - Added Lidoderm patch GERD Hypertension - Possibly related to pain. Will continue [place] and morphine for pain control. - Clonidine 0.1mg Q6hrs PRN for BP > 160/90 - Famotidine 20mg BID. Full code. SCDs. Discharge Planning: Patient's symptoms improving, possible discharge tomorrow.
[2018-06-30] MEDS: Famotidine 20 MG Tablet PO SCH ×2 (09:47→20:14)
[2018-06-30] MEDS: Lidocaine 5% Patch T-DERMAL SCH (09:48)
[2018-07-01] MEDS: Morphine Sulfate Inj 2 MG/ML Vial IM PRN (04:09)
[2018-07-01] MEDS: Famotidine 20 MG Tablet PO SCH (11:18)
--- NOTE | 2018-07-01 11:22 | P.DS ---
Date of admission: 06/25/18 15:01 Primary care physician: No Primary Care Physician Brief History from admission: Mr. Albarado is a 58-year-old male with a history of work-related fall in May 2018 who presents to the emergency department on 06/25/2018 due to persistent headache, dizziness, lightheadedness and multiple syncopal and near syncopal episodes. Patient has a history of chronic back pain but after his fall on May 26 he has been having more significant back pain. On May 26 he was carrying a heavy load of laundry and he fell backwards hitting his head. He has been referred to pain management doctor by his workman's comp. Due to his persistent dizziness and lightheadedness as well as syncopal episodes he decided to seek medical attention. At the time of this interview, patient complains of dizziness and lightheadedness even with slight movement especially when he sits up. He frequently requests pain medication. He takes Arlington 10/ 325 every 6 hours at home. He denies any chest pain, shortness of breath, fever or chills. Denies any changes in bowel or bladder habits. Upon arrival chest x-ray, head CT was unremarkable for any acute findings. Lumbar x-ray shows slight loss of height of L5 vertebral body. Past medical history: GERD, chronic back pain, recent fall Past surgical history: No significant past surgeries. Social history: Smokes 2 packs a day. He drinks about 2 beers a day but also sometimes drinks in the morning. Denies any illicit drug use. Family history: Mother with stroke, father has diabetes. DS: Diagnosis - Discharge Diagnosis (1) Dizziness Status: Acute (2) Syncope Status: Acute (3) Vertigo Status: Acute (4) Chronic back pain Status: Acute DS: Medications - Discharge Medications Prescriptions: hydrocodone-acetaminophen [Arlington] 1 tab PO Q6H PRN #12 tab PRN Reason: Pain meclizine 25 mg PO Q8H PRN #20 tab PRN Reason: dizziness/vertigo DS: Summary Hospital Course: Patient updated on day of discharge: Follow-up for vertigo. Patient sleeping upon my arrival. Upon awakening, he asked for his IM morphine. He reports his dizziness has improved. He is able to ambulate without difficulty. Discussed discharge today, the patient explains that he has no more pain medications and he is requesting at least a 3 day refill until he can get in with his pain management physician. He has no other medical complaints at this time. Hospital course: 58-year-old male with a history of chronic back pain and recent fall who presented to the emergency department on 06/25/2018 due to persistent dizziness, lightheadedness, syncope or near syncope. Vertigo/Dizziness with Frequent Syncope/Falls- reportedly work related per the patient. 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 Brain MRI reviewed, no acute findings, shows stable sellar mass extending into the suprasellar cistern not displacing the optic chiasm; left mastoid disease improved compared to prior MRI. Consulted neurology, suspect symptoms secondary to vertigo, recommended vestibular rehab. Continue on meclizine 25mg q8h scheduled, zofran prn. Cleared for discharge by Dr. Tolentino once symptoms improved. Continued daily PT, recommends outpatient vestibular rehab and walker. Outpatient PT unable to be arranged therefore patient kept in the hospital to work with PT daily. The patient significantly improved with Lasha maneuvers done by PT. He is ambulating with a walker. Symptoms mostly resolved. Case management provided the patient with a walker. PT cleared the patient for discharge. Chronic back pain: Exacerbated by recent fall. Patient is supposed to follow up with pain management referred by his Workman's comp. Given Arlington PRN and Morphine IM for breakthrough. Added Lidoderm patch. Pain at baseline. Given 3 day supply (12 tabs) of Arlington prn at discharge. Evaluated the patient on [facility], has not filled Arlington prescription since 05/29. - Time Spent with Patient Total time spent providing and/or coordinating discharge services: Greater than 30 minutes - Quality: VTE Deep Vein Thrombosis/Pulmonary Embolism Present on Admission: No Exam Vital signs: Vital Signs 06/30/18 12:00 06/30/18 16:00 06/30/18 19:04 Temperature 97.7 F 98.6 F 98.7 F Pulse Rate 77 70 69 Respiratory Rate 16 18 18 Blood Pressure 160/92 H 149/91 H 138/82 Pulse Oximetry 99 98 99 06/30/18 23:06 07/01/18 03:14 07/01/18 07:13 Temperature 97.7 F 98.5 F 97.7 F Pulse Rate 74 73 66 Respiratory Rate 18 18 16 Blood Pressure 156/89 H 129/79 145/87 H Pulse Oximetry 100 98 100 07/01/18 08:28 Temperature Pulse Rate Respiratory Rate 20 Blood Pressure Pulse Oximetry Narrative: GENERAL: Well-nourished, well-developed middle-age male patient in NAD. Seen ambulating the unit without difficulty. SKIN: Warm and dry. No rash. HEENT: Normocephalic. Atraumatic. Pupils equal and round. No nystagmus. CARDIOVASCULAR: Regular rate and rhythm. No murmur appreciated. RESPIRATORY: No accessory muscle use. Clear to auscultation. Breath sounds equal bilaterally. GASTROINTESTINAL: Abdomen soft, non-tender, nondistended. Normoactive bowel sounds x4. MUSCULOSKELETAL: No obvious deformities. Extremities without clubbing, cyanosis , or edema. NEUROLOGICAL: Awake and alert. No obvious cranial nerve deficits. Motor grossly within normal limits. Moving all extremities spontaneously. Normal speech. Results Procedures completed during hospitalization: None. Labs on day of discharge: Labs from last 24 hours 07/01/18 01:53 POC Glucose 142 H - Impressions ITS Impressions Head MRI 06/25/18 00:00 CONCLUSION: 1. No acute findings in the brain. 2. 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 3. 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 Chest X-Ray 06/25/18 11:16 CONCLUSION: No active disease. Head CT 06/25/18 11:16 CONCLUSION: 1. Stable sellar mass. No acute intracranial abnormalities. . Lumbar Spine X-Ray 06/25/18 11:18 CONCLUSION: Slight loss of height of L5 vertebral body, compression deformity of indeterminate age. Lumbar Spine CT 06/25/18 12:15 CONCLUSION: 1. No acute fracture. 2. Minimal degenerative retrolisthesis of L5 on S1. 3. Broad-based posterior disc bulges or protrusions in the lower lumbar spine as above but without significant central canal stenosis. Multilevel lateral recess and foraminal encroachment. Discharge Plan - Discharge Disposition Patient Disposition: 01 Discharge Home - Discharge Condition Condition: Stable - Discharge Order Discharge Orders: Discharge Order (Routine); Ordered 07/01/18 Ordered By: Bertha Rodas - Discharge Details Anticipated Discharge Date: 07/01/18 - Physicians Team Primary Care Provider: Primary Care Lori Arriaga Attending Provider: Kaden Whittington Other Providers: Babak Tolentino MD
[2018-07-01] MEDS: Lidocaine 5% Patch T-DERMAL SCH (11:25)
== END 2018-07-01 17:06 | disposition home or self-care (01) ==
LOC: NEPE 10:16 → NEPGCP 10:16 → NEDA 10:16 → NEPGCP 17:32
PROVIDERS: ADMIT Hospitalist; ATTEND Hospitalist
DX: K21.9 Gastro-esophageal reflux disease without esophagitis; Z83.3 Family history of diabetes mellitus; M54.5 Low back pain; Z82.3 Family history of stroke; F17.210 Nicotine dependence, cigarettes, uncomplicated; R55 Syncope and collapse; G89.29 Other chronic pain; R29.6 Repeated falls; R42 Dizziness and giddiness; R51 Headache; Z91.81 History of falling

== ENCOUNTER 2018-07-07 18:31 | Observation (INO) ==
[2018-07-07] MEDS ORDERED: Sod Chloride 0.9% Inj 1,000 ML IV.SIG ONE (20:11)
[2018-07-07] MEDS ORDERED: Morphine Inj 4 MG/ML Vial IV.PUSH ONE (20:50)
[2018-07-07 21:20] LABS: Prothrombin Time 10.5 sec (9.8-11.6)
--- NOTE | 2018-07-07 21:21 | CT ---
EXAM DATE: 07/07/2018 8:51 PM EDT AGE/SEX: 58 years / Male INDICATIONS: Dizziness with fall. Headaches. CLINICAL DATA: This is the patient's initial encounter. Patient reports that signs and symptoms have been present for 1 day and indicates a pain score of 5/10. MEDICAL/SURGICAL HISTORY: Vertigo. None. RADIATION DOSE: 38.45 CTDI (mGy) [place] [facility] [place] [facility] [place]/27/2018. . TECHNIQUE: CT of the head without contrast. Using automated exposure control and adjustment of the mA and/or kV according to patient size, radiation dose was kept as low as reasonably achievable to ob tain optimal diagnostic quality images. DICOM format image data is available electronically for revi ew and comparison. FINDINGS: Cerebrum: The ventricles are normal for age. No evidence of midline shift, mass lesion, hemorrhage or acute infarction. No extraaxial fluid collections are seen. Hyperdense round sellar mass measures 11 mm, similar to prior CT scans Posterior Fossa: The cerebellum and brainstem are intact. The 4th ventricle is midline. The cerebe llopontine angle is unremarkable. Extracranial: The visualized portion of the orbits is intact. Skull: The calvaria is intact. No evidence of skull fracture. CONCLUSION: 1. No acute findings in the brain. 2. Stable sellar mass. . Electronically signed by: Jaun Albright MD 07/07/2018 9:20 PM EDT
--- NOTE | 2018-07-07 21:22 | XR ---
EXAM DATE: 07/07/2018 8:58 PM EDT AGE/SEX: 58 years / Male INDICATIONS: Shortness of breath. CLINICAL DATA: This is the patient's initial encounter. Patient reports that signs and symptoms have been present for 1 day and indicates a pain score of 7/10. MEDICAL/SURGICAL HISTORY: . Diabetes mellitus type II. None. COMPARISON: [facility] – [place], [place]ST 1V SINGLE AP, 06/25/2018. . FINDINGS: A single AP view of the chest demonstrates the lungs to be symmetrically aerated without evidence of mass, infiltrate or effusion. The cardiomediastinal contours are unremarkable. Osseous structures a re intact. CONCLUSION: The lungs are clear. Electronically signed by: Jaun Albright MD 07/07/2018 9:20 PM EDT
[2018-07-07 21:23] LABS: Magnesium 2.1 mg/dL (1.5-2.5)
[2018-07-07 21:41] LABS: Bilirubin,Urine Negative (Negative); Clarity,Urine Clear (Clear); Color,Urine Straw (Yellw/Straw); Glucose,Urine (UA) Negative (Negative); Leukocyte Esterase,Urine Negative (Negative); Nitrite,Urine Negative (Negative); Specific Gravity,Urine 1.003 (1.002-1.035)
[2018-07-07 21:45] LABS: Baso # (Auto) 0.1 th/mm3 (0.0-0.2); Baso % (Auto) 1.3 % (0.0-2.0); Eos # (Auto) 0.2 th/mm3 (0.0-0.4); Eos % (Auto) 3.9 % (0.0-4.0); Hemoglobin 11.5 gm/dL (13.0-17.0); Lymph % (Auto) 40.3 % (9.0-44.0); Mean Corpuscular HGB Conc 34.8 % (32.0-36.0); Mean Corpuscular Volume 103.4 fL (80.0-100.0); Mean Platelet Volume 7.1 fL (7.0-11.0); Mono # (Auto) 0.4 th/mm3 (0.0-0.9); Mono % (Auto) 8.4 % (0.0-8.0); Neut # (Auto) 2.3 th/mm3 (1.8-7.7); Neut % (Auto) 46.1 % (16.0-70.0); Platelet Count 354 th/mm3 (150-450); Red Blood Count 3.19 mil/mm3 (4.50-5.90); White Blood Count 4.9 th/mm3 (4.0-11.0)
[2018-07-07 21:46] LABS: Amphetamine Screen,Urine Neg (Neg); Barbiturate Screen,Urine Neg (Neg); Cannabinoid Screen,Urine Neg (Neg); Cocaine Screen,Urine Neg (Neg)
--- NOTE | 2018-07-07 21:53 | CT ---
EXAM DATE: 07/07/2018 8:52 PM EDT AGE/SEX: 58 years / Male INDICATIONS: Dizziness with fall. Neck pain. CLINICAL DATA: This is the patient's initial encounter. Patient reports that signs and symptoms have been present for 1 day and indicates a pain score of 5/10. MEDICAL/SURGICAL HISTORY: Vertigo. None. RADIATION DOSE: 21.34 CTDI (mGy) COMPARISON: No prior exams available for comparison. TECHNIQUE: Contiguous axial images were obtained using helical multirow detector technique. The vol umetric data was post-processed with multiplanar reconstruction in oblique axial, sagittal, and coron al planes. Using automated exposure control and adjustment of the mA and/or kV according to patient s ize, radiation dose was kept as low as reasonably achievable to obtain optimal diagnostic quality candy ges. DICOM format image data is available electronically for review and comparison. FINDINGS: There is straightening of the cervical lordosis from C3 through C4. Vertebral body height is maintain ed. Moderate discogenic degenerative changes at C5-6 with interspace narrowing, sclerosis of the endp lates and small anterior osteophytes. The lateral masses are grossly intact without evidence of crissy d or perched facets. The atlantoaxial articulation is intact.. C2-3: No fracture seen. The neural foramina are patent. C3-4: No fracture seen. The neural foramina are patent. C4-5: No fracture seen. The neural foramina are patent. C5-6: No fracture seen. Moderate right-sided bony neural foraminal stenosis. C6-7: No fracture seen. The neural foramina are patent. C7-T1: No fracture seen. The neural foramina are patent. CONCLUSION: 1. No evidence of compression deformity or fracture. Straightening of the upper cervical lordosis. Electronically signed by: Jaun Albright MD 07/07/2018 9:52 PM EDT
[2018-07-07 22:01] LABS: Opiate Screen,Urine Neg (Neg)
--- NOTE | 2018-07-07 22:08 | ED ---
HPI General Chief Complaint: Dizziness Stated Complaint: Syncope Time Seen by Provider: 07/07/18 20:50 Source: patient Mode of arrival: EMS Limitations: no limitations History of Present Illness HPI Narrative: 58-year-old male presents to the emergency department for complaint of severe dizziness with syncope 2. Patient states that he was recently hospitalized for approximately 1 week and discharged from the hospital 1 week ago Monday. Patient states he was hospitalized for severe dizziness and had extensive workup with multiple imaging studies. Patient was treated with Antivert/meclizine. Patient states that he was doing well on meclizine but ran out of the meclizine was not able to refill the prescription for his medicine for vertigo. 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 Patient has history of hyperglycemia and thought perhaps his blood sugar was low although he was quite dizzy was able to get to a local [employer] and buy some juice but did not seem to improve and then was able to get to the train track where apparently he had an additional episode of syncope and reportedly a bystander pulled him off the train tracks and then called EMS and he was transported to the emergency room. Patient denies any new head pain or swelling has chronic neck and back pain that is not new states that he takes Lortab 2 tablets twice daily for chronic sciatica that is prescribed by Dr. Bal. And meclizine that was prescribed through the hospital but does not have a prescription for this at this time. Patient does admit him to drinking a beer today reportedly. Patient states that he does not note any new pain status post his syncopal episodes. Patient denies any known palpitations sweats nausea or shortness of breath prior to syncopal episodes but is very nauseated and has vomited multiple times subsequently. Patient was given medicine by paramedics for his nausea and vomiting. No report of hematemesis or coffee-ground emesis. MD complaint: dizziness Onset (ago): day(s) Timing: sudden onset Description: sense of movement, "room spinning", difficulty walking and near- syncope History of similar episodes: Yes History of trauma: Yes Severity: similar to previous episodes Relieving factors: remaining still Exacerbating factors: movement Related Data Previous Rx's Medication Instructions Recorded hydrocodone-acetaminophen [[place]] 1 tab PO Q6H PRN #12 tab 07/01/18 meclizine 25 mg PO Q8H PRN #20 tab 07/01/18 Allergies Allergy/AdvReac Type Severity Reaction Status Date / Time No Known Allergies Allergy Verified 07/07/18 18:46 Review of Systems ROS: all other systems reviewed are negative [facility] Medical History Medical History Hx of vertigo (Acute) Smoker (Acute) Chronic pain (Acute) Frequent falls (Acute) Surgical History Surgical History No pertinent past surgical history (Acute) Social History Social History Substance History: No History of Abuse Second Hand Smoke Exposure: Yes Smoking Status: Current every day smoker Tobacco Type: Cigarettes How Often Do You Have a Drink Containing Alcohol: 2 to 3 times a week Recent Travel in [facility] within the Last 8 Weeks: No Recent Out of Country Travel within the Last 8 Weeks: No Immunization History Tetanus Immunization: >5 Years Hx Influenza Vaccine This Season: Yes Exam Narrative Exam Narrative: GENERAL: Well-developed well-nourished male in no acute distress no respiratory distress SKIN: Focused skin assessment warm/dry. HEAD: Atraumatic. Normocephalic. No scalp soft tissue swelling abrasion ecchymosis laceration or bony abnormality. EYES: Pupils equal and round. No scleral icterus. No injection or drainage. ENT: No nasal bleeding or discharge. Mucous membranes pink and moist. NECK: Trachea midline. No JVD. No midline tenderness to direct palpation along the cervical spine no bony step-off. CARDIOVASCULAR: Regular rate and rhythm. No murmur appreciated. RESPIRATORY: No accessory muscle use. Clear to auscultation. Breath sounds equal bilaterally. GASTROINTESTINAL: Abdomen soft, non-tender, nondistended. Hepatic and splenic margins not palpable. MUSCULOSKELETAL: No obvious deformities. No clubbing. No cyanosis. No edema. NEUROLOGICAL: Awake and alert. No obvious cranial nerve deficits. Motor grossly within normal limits. Normal speech. PSYCHIATRIC: Appropriate mood and affect; insight and judgment normal. Course Initial Documented Vital Signs Temperature 98.1 F 07/07/18 18:49 Pulse Rate 81 07/07/18 18:49 Respiratory Rate 18 07/07/18 18:49 Blood Pressure 134/81 07/07/18 18:49 Pulse Oximetry 99 07/07/18 18:49 Last Documented Vital Signs Temperature 98.1 F 07/07/18 18:49 Pulse Rate 85 07/08/18 01:38 Respiratory Rate 18 07/08/18 01:38 Blood Pressure 138/100 H 07/08/18 01:38 Pulse Oximetry 97 07/08/18 01:38 Medical Decision Making MDM Narrative Medical decision making narrative: 58-year-old male with known history of vertigo and alcohol use presents to the emergency department by EMS transport after reportedly 2 syncopal episodes this afternoon since 1 PM. Patient states one time he was incontinent of urine. No prior history of seizure and did not traumatize his tongue. Patient still complains of dizziness no headache and complains of severe nausea and reports persistent chronic sciatica pain that is not new and not worse since Lortab. Lab values found to be grossly normal range CT brain noncontrast and cervical spine reveal no acute abnormality. EKG sinus rhythm no acute abnormality. Patient is an placed on monitor no arrhythmias noted patient been given dose of morphine and repeat dose of morphine Antivert Zofran now and as well Reglan additional dose of morphine and additional dose of Antivert. Patient remains symptomatic we will admit for observation for cardiac monitoring and to see if patient responds better after develops therapeutic level of meclizine. Medical Screen Exam Complete: Yes Emergency Medical Condition: Yes Differential Diagnosis Differential Diagnosis: Near syncope, syncope, arrhythmia, ACS, TIA, vertigo, alcohol intoxication, seizure Medical Records Medical records reviewed: Yes I reviewed the patient's medical records. Lab Data Lab results reviewed: Yes I reviewed the patient's lab results. Result diagrams: 07/07/18 20:38 07/07/18 20:38 Lab Results 07/07/18 07/07/18 07/07/18 Range/Units 20:38 20:38 20:38 WBC 4.9 (4.0-11.0) th/mm3 RBC 3.19 L (4.50-5.90) mil/mm3 Hgb 11.5 L (13.0-17.0) gm/dL Hct 33.0 L (39.0-51.0) % MCV 103.4 H (80.0-100.0) fL MCH 36.0 H (27.0-34.0) pg MCHC 34.8 (32.0-36.0) % RDW 14.0 (11.6-17.2) % Plt Count 354 D (150-450) th/mm3 MPV 7.1 (7.0-11.0) fL Neut % (Auto) 46.1 (16.0-70.0) % Lymph % (Auto) 40.3 (9.0-44.0) % [place] % (Auto) 8.4 H (0.0-8.0) % Eos % (Auto) 3.9 (0.0-4.0) % Baso % (Auto) 1.3 (0.0-2.0) % Neut # (Auto) 2.3 (1.8-7.7) th/mm3 Lymph # (Auto) 2.0 (1.0-4.8) th/mm3 [place] # (Auto) 0.4 (0.0-0.9) th/mm3 Eos # (Auto) 0.2 (0.0-0.4) th/mm3 Baso # (Auto) 0.1 (0.0-0.2) th/mm3 WBC Differential . Differential Comment Auto diff final PT 10.5 (9.8-11.6) sec INR 1.0 Ratio Sodium (136-145) meq/L Potassium (3.5-5.1) meq/L Chloride (98-107) meq/L Carbon Dioxide (21.0-32.0) meq/L Anion Gap (5-15) meq/L BUN (7-18) mg/dL Creatinine (0.60-1.30) mg/dL Estimated GFR (>89) mL/min POC Glucose (68-110) mg/dl Random Glucose (74-106) mg/dL Calcium (8.5-10.1) mg/dL Magnesium 2.1 (1.5-2.5) mg/dL Total Bilirubin (0.2-1.0) mg/dL AST (15-37) U/L ALT (12-78) U/L Alkaline Phosphatase (45-117) U/L Ammonia (11-32) mcmol/L Troponin I Less than 0.02 L (0.02-0.05) ng/mL Total Protein (6.4-8.2) g/dL Albumin (3.4-5.0) g/dL Urine Color (Yellw/Straw) Urine Clarity (Clear) Urine pH (5.0-8.5) Ur Specific [place] (1.002-1.035) Urine Protein (Neg-Trace) mg/dL Urine Glucose (UA) (Negative) mg/dL Urine Ketones (Negative) mg/dL Urine Occult Blood (Negative) Urine Nitrate (Negative) Urine Bilirubin (Negative) Urine Urobilinogen (Less than 2) mg/dL Ur Leukocyte Esterase (Negative) Urine RBC (0-3) /hpf Urine WBC (0-5) /hpf Urine Opiates Screen (Neg) Ur Barbiturates Screen (Neg) Ur Amphetamines Screen (Neg) U Benzodiazepines Scrn (Neg) Urine Cocaine Screen (Neg) U Cannabinoids Screen (Neg) Serum Alcohol (0-5) mg/dL 07/07/18 07/07/18 07/07/18 Range/Units 20:38 20:38 20:38 WBC (4.0-11.0) th/mm3 RBC (4.50-5.90) mil/mm3 Hgb (13.0-17.0) gm/dL Hct (39.0-51.0) % MCV (80.0-100.0) fL MCH (27.0-34.0) pg MCHC (32.0-36.0) % RDW (11.6-17.2) % Plt Count (150-450) th/mm3 MPV (7.0-11.0) fL Neut % (Auto) (16.0-70.0) % Lymph % (Auto) (9.0-44.0) % [place] % (Auto) (0.0-8.0) % Eos % (Auto) (0.0-4.0) % Baso % (Auto) (0.0-2.0) % Neut # (Auto) (1.8-7.7) th/mm3 Lymph # (Auto) (1.0-4.8) th/mm3 [place] # (Auto) (0.0-0.9) th/mm3 Eos # (Auto) (0.0-0.4) th/mm3 Baso # (Auto) (0.0-0.2) th/mm3 WBC Differential Differential Comment PT (9.8-11.6) sec INR Ratio Sodium 136 (136-145) meq/L Potassium 3.7 (3.5-5.1) meq/L Chloride 103 (98-107) meq/L Carbon Dioxide 21.4 (21.0-32.0) meq/L Anion Gap 12 (5-15) meq/L BUN 4 L (7-18) mg/dL Creatinine 0.68 (0.60-1.30) mg/dL Estimated GFR Greater than 89 (>89) mL/min POC Glucose (68-110) mg/dl Random Glucose 81 (74-106) mg/dL Calcium 7.8 L (8.5-10.1) mg/dL Magnesium (1.5-2.5) mg/dL Total Bilirubin 0.2 (0.2-1.0) mg/dL AST 29 (15-37) U/L ALT 33 (12-78) U/L Alkaline Phosphatase 100 (45-117) U/L Ammonia 19 (11-32) mcmol/L Troponin I (0.02-0.05) ng/mL Total Protein 6.5 (6.4-8.2) g/dL Albumin 3.1 L (3.4-5.0) g/dL Urine Color (Yellw/Straw) Urine Clarity (Clear) Urine pH (5.0-8.5) Ur Specific [place] (1.002-1.035) Urine Protein (Neg-Trace) mg/dL Urine Glucose (UA) (Negative) mg/dL Urine Ketones (Negative) mg/dL Urine Occult Blood (Negative) Urine Nitrate (Negative) Urine Bilirubin (Negative) Urine Urobilinogen (Less than 2) mg/dL Ur Leukocyte Esterase (Negative) Urine RBC (0-3) /hpf Urine WBC (0-5) /hpf Urine Opiates Screen (Neg) Ur Barbiturates Screen (Neg) Ur Amphetamines Screen (Neg) U Benzodiazepines Scrn (Neg) Urine Cocaine Screen (Neg) U Cannabinoids Screen (Neg) Serum Alcohol 137 H (0-5) mg/dL 07/07/18 07/07/18 07/07/18 Range/Units 21:24 21:24 23:04 WBC (4.0-11.0) th/mm3 RBC (4.50-5.90) mil/mm3 Hgb (13.0-17.0) gm/dL Hct (39.0-51.0) % MCV (80.0-100.0) fL MCH (27.0-34.0) pg MCHC (32.0-36.0) % RDW (11.6-17.2) % Plt Count (150-450) th/mm3 MPV (7.0-11.0) fL Neut % (Auto) (16.0-70.0) % Lymph % (Auto) (9.0-44.0) % [place] % (Auto) (0.0-8.0) % Eos % (Auto) (0.0-4.0) % Baso % (Auto) (0.0-2.0) % Neut # (Auto) (1.8-7.7) th/mm3 Lymph # (Auto) (1.0-4.8) th/mm3 [place] # (Auto) (0.0-0.9) th/mm3 Eos # (Auto) (0.0-0.4) th/mm3 Baso # (Auto) (0.0-0.2) th/mm3 WBC Differential Differential Comment PT (9.8-11.6) sec INR Ratio Sodium (136-145) meq/L Potassium (3.5-5.1) meq/L Chloride (98-107) meq/L Carbon Dioxide (21.0-32.0) meq/L Anion Gap (5-15) meq/L BUN (7-18) mg/dL Creatinine (0.60-1.30) mg/dL Estimated GFR (>89) mL/min POC Glucose 90 (68-110) mg/dl Random Glucose (74-106) mg/dL Calcium (8.5-10.1) mg/dL Magnesium (1.5-2.5) mg/dL Total Bilirubin (0.2-1.0) mg/dL AST (15-37) U/L ALT (12-78) U/L Alkaline Phosphatase (45-117) U/L Ammonia (11-32) mcmol/L Troponin I (0.02-0.05) ng/mL Total Protein (6.4-8.2) g/dL Albumin (3.4-5.0) g/dL Urine Color Straw (Yellw/Straw) Urine Clarity Clear (Clear) Urine pH 5.0 (5.0-8.5) Ur Specific [place] 1.003 (1.002-1.035) Urine Protein Negative (Neg-Trace) mg/dL Urine Glucose (UA) Negative (Negative) mg/dL Urine Ketones Negative (Negative) mg/dL Urine Occult Blood Negative (Negative) Urine Nitrate Negative (Negative) Urine Bilirubin Negative (Negative) Urine Urobilinogen Less than 2 (Less than 2) mg/dL Ur Leukocyte Esterase Negative (Negative) Urine RBC Less than 1 (0-3) /hpf Urine WBC 1 (0-5) /hpf Urine Opiates Screen Neg (Neg) Ur Barbiturates Screen Neg (Neg) Ur Amphetamines Screen Neg (Neg) U Benzodiazepines Scrn Neg (Neg) Urine Cocaine Screen Neg (Neg) U Cannabinoids Screen Neg (Neg) Serum Alcohol (0-5) mg/dL Imaging Data Radiologist's impression: Chest X-Ray 07/07/18 20:11 CONCLUSION: The lungs are clear. Head CT 07/07/18 20:11 CONCLUSION: 1. No acute findings in the brain. 2. Stable sellar mass. . Cervical Spine CT 07/07/18 20:12 CONCLUSION: 1. No evidence of compression deformity or fracture. Straightening of the upper cervical lordosis. ECG Data EKG Prior to Arrival: No Attestation: I personally reviewed and interpreted this ECG as follows: Prior ECG tracings: available for review Interpretation: EKG: Normal sinus rhythm rate 68 normal axis intervals no acute ST elevation or injury pattern noted Discharge Plan Discharge Disposition Patient Disposition: 30 Still Patient Discharge Condition Condition: Stable Discharge Details Diagnosis: Dizziness, Syncope Physicians Team ED Provider: Maegan See Primary Care Provider: Primary Care Lori Arriaga Attending Provider: Marta Lance Status ED Status: Admitted Observation Patient
[2018-07-07 23:38] LABS: Alanine Aminotransferase 33 U/L (12-78); Albumin 3.1 g/dL (3.4-5.0); Anion Gap 12 meq/L (5-15); Aspartate Aminotransferase 29 U/L (15-37); Blood Urea Nitrogen 4 mg/dL (7-18); Calcium 7.8 mg/dL (8.5-10.1); Carbon Dioxide 21.4 meq/L (21.0-32.0); Chloride 103 meq/L (98-107); Glomerular Filtration Rate Greater Than 89 mL/min (>89); Glucose,Random 81 mg/dL (74-106); Potassium 3.7 meq/L (3.5-5.1); Sodium 136 meq/L (136-145)
[2018-07-07 23:41] LABS: Alkaline Phosphatase 100 U/L (45-117); Total Protein 6.5 g/dL (6.4-8.2)
[2018-07-08] MEDS ORDERED: Morphine Inj 4 MG/ML Vial IV.PUSH ONE ×2 (02:01→08:42)
[2018-07-08] MEDS ORDERED: Haloperidol Inj 5 MG/ML Ampul IV.PUSH PRN (03:42)
[2018-07-08] MEDS ORDERED: LORazepam 1 MG Tablet PO PRN (03:42)
[2018-07-08] MEDS ORDERED: Sod Chloride 0.9% Inj 1,000 ML IV.CONT SCH (03:45)
--- NOTE | 2018-07-08 03:57 | P.HP ---
History of Present Illness Service: [facility] Primary Care Physician: No Primary Care Physician History of Present Illness: 58-year-old male with past medical history significant for alcohol abuse and chronic pain presents the emergency department for evaluation of severe dizziness and possible syncope 2. The patient was recently hospitalized 1 week ago and was discharged last Monday. The patient reports he was hospitalized for severe dizziness and had an extensive workup with multiple imaging studies. He was treated with meclizine. He was doing well on the meclizine but ran out of it and was unable to refill the prescription. 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 On his way home, he was at a bus stop when he had a possible syncopal episode. The patient reports he does not remember the episode but remembers being woken up by bystanders. He believed that his symptoms were related to hypoglycemia and went to the [employer] to buy candy. He then reports that he had an additional syncopal episode where he fell onto train tracks and had to be pulled off the train tracks by bystanders. He denies any chest pain or shortness of breath. No nausea/vomiting/diarrhea. No abdominal pain. No lateralizing signs/symptoms. No fever/chills. Review of Systems All other systems reviewed negative except as stated in HPI PMFSH - History History Provided By: Patient - Medical History Medical History: Medical History (Last Reviewed 07/08/18 @ 02:32 by Maegan See MD) Hx of vertigo Smoker Chronic pain Frequent falls - Surgical History Surgical History: Surgical History (Last Reviewed 07/08/18 @ 02:32 by Maegan See MD) No pertinent past surgical history - Family History Family History: Family History (Last Updated 07/08/18 @ 03:44 by Marta Lance MD) Other Family history normal - Tobacco History Second Hand Smoke Exposure: Yes Tobacco Use In Past 30 Days: Yes Smoking Status: Current every day smoker Tobacco Type: Cigarettes - Alcohol History How Often Do You Have a Drink Containing Alcohol: 2 to 3 times a week - Substance Use History Substance History: No History of Abuse - Travel History Recent Travel in the [place] Within the Last 8 Weeks: No Recent Travel Out of the Country Within the Last 8 Weeks: No - Immunization History Tetanus Immunization: >5 Years Hx Influenza Vaccine This Season: Yes Medications and Allergies Active Medications: Active Medications Sodium Chloride (Ns Flush) 2 ml IV.FLUSH PRN PRN PRN Reason: FLUSH AFTER USING IV ACCESS Allergies Allergy/AdvReac Type Severity Reaction Status Date / Time No Known Allergies Allergy Verified 07/07/18 18:46 Exam Vital signs: Vital Signs 07/07/18 18:49 07/07/18 19:14 07/07/18 23:35 Temperature 98.1 F Pulse Rate 81 85 71 Respiratory Rate 18 18 Blood Pressure 134/81 148/91 H 169/99 H Pulse Oximetry 99 100 98 07/08/18 01:38 Temperature Pulse Rate 85 Respiratory Rate 18 Blood Pressure 138/100 H Pulse Oximetry 97 Intake & Output 07/07/18 07/07/18 07/08/18 06:59 18:59 06:59 Weight 81.647 kg Narrative: Gen.: No acute distress Head: Normocephalic. Atraumatic. EENT: Pupils equal round and reactive to light. Nose without drainage. Airway intact. Throat without injection. Cardiovascular: Regular rate and rhythm. No murmurs, rubs or gallops. Respiratory: Lungs clear to auscultation bilaterally. No wheezes or rhonchi. Abdomen: Soft, nontender, nondistended. No peritoneal signs. Musculoskeletal: No gross deformities. No edema. Skin: No obvious rashes or erythema. Neuro: Sensory and motor grossly intact. Cranial nerves II through XII grossly intact. Results - Labs CBC & Chem 7: 07/07/18 20:38 07/07/18 20:38 Labs: Laboratory Results - last 24 hr 07/07/18 07/07/18 07/07/18 20:38 20:38 20:38 WBC 4.9 RBC 3.19 L Hgb 11.5 L Hct 33.0 L MCV 103.4 H MCH 36.0 H MCHC 34.8 RDW 14.0 Plt Count 354 D MPV 7.1 Neut % (Auto) 46.1 Lymph % (Auto) 40.3 [place] % (Auto) 8.4 H Eos % (Auto) 3.9 Baso % (Auto) 1.3 Neut # (Auto) 2.3 Lymph # (Auto) 2.0 [place] # (Auto) 0.4 Eos # (Auto) 0.2 Baso # (Auto) 0.1 WBC Differential . Differential Comment Auto diff final PT 10.5 INR 1.0 Sodium Potassium Chloride Carbon Dioxide Anion Gap BUN Creatinine Estimated GFR POC Glucose Random Glucose Calcium Magnesium 2.1 Total Bilirubin AST ALT Alkaline Phosphatase Ammonia Troponin I Less than 0.02 L Total Protein Albumin Urine Color Urine Clarity Urine pH Ur Specific [place] Urine Protein Urine Glucose (UA) Urine Ketones Urine Occult Blood Urine Nitrate Urine Bilirubin Urine Urobilinogen Ur Leukocyte Esterase Urine RBC Urine WBC Urine Opiates Screen Ur Barbiturates Screen Ur Amphetamines Screen U Benzodiazepines Scrn Urine Cocaine Screen U Cannabinoids Screen Serum Alcohol 07/07/18 07/07/18 07/07/18 20:38 20:38 20:38 WBC RBC Hgb Hct MCV MCH MCHC RDW Plt Count MPV Neut % (Auto) Lymph % (Auto) [place] % (Auto) Eos % (Auto) Baso % (Auto) Neut # (Auto) Lymph # (Auto) [place] # (Auto) Eos # (Auto) Baso # (Auto) WBC Differential Differential Comment PT INR Sodium 136 Potassium 3.7 Chloride 103 Carbon Dioxide 21.4 Anion Gap 12 BUN 4 L Creatinine 0.68 Estimated GFR Greater than 89 POC Glucose Random Glucose 81 Calcium 7.8 L Magnesium Total Bilirubin 0.2 AST 29 ALT 33 Alkaline Phosphatase 100 Ammonia 19 Troponin I Total Protein 6.5 Albumin 3.1 L Urine Color Urine Clarity Urine pH Ur Specific [place] Urine Protein Urine Glucose (UA) Urine Ketones Urine Occult Blood Urine Nitrate Urine Bilirubin Urine Urobilinogen Ur Leukocyte Esterase Urine RBC Urine WBC Urine Opiates Screen Ur Barbiturates Screen Ur Amphetamines Screen U Benzodiazepines Scrn Urine Cocaine Screen U Cannabinoids Screen Serum Alcohol 137 H 07/07/18 07/07/18 07/07/18 21:24 21:24 23:04 WBC RBC Hgb Hct MCV MCH MCHC RDW Plt Count MPV Neut % (Auto) Lymph % (Auto) [place] % (Auto) Eos % (Auto) Baso % (Auto) Neut # (Auto) Lymph # (Auto) [place] # (Auto) Eos # (Auto) Baso # (Auto) WBC Differential Differential Comment PT INR Sodium Potassium Chloride Carbon Dioxide Anion Gap BUN Creatinine Estimated GFR POC Glucose 90 Random Glucose Calcium Magnesium Total Bilirubin AST ALT Alkaline Phosphatase Ammonia Troponin I Total Protein Albumin Urine Color Straw Urine Clarity Clear Urine pH 5.0 Ur Specific [place] 1.003 Urine Protein Negative Urine Glucose (UA) Negative Urine Ketones Negative Urine Occult Blood Negative Urine Nitrate Negative Urine Bilirubin Negative Urine Urobilinogen Less than 2 Ur Leukocyte Esterase Negative Urine RBC Less than 1 Urine WBC 1 Urine Opiates Screen Neg Ur Barbiturates Screen Neg Ur Amphetamines Screen Neg U Benzodiazepines Scrn Neg Urine Cocaine Screen Neg U Cannabinoids Screen Neg Serum Alcohol - Imaging Impressions Chest X-Ray 07/07/18 20:11 CONCLUSION: The lungs are clear. Head CT 07/07/18 20:11 CONCLUSION: 1. No acute findings in the brain. 2. Stable sellar mass. . Cervical Spine CT 07/07/18 20:12 CONCLUSION: 1. No evidence of compression deformity or fracture. Straightening of the upper cervical lordosis. Caprini VTE Risk Assessment Caprini VTE Risk Assessment: No/Low Risk (score <= 1) Caprini Risk Assessment Model: Point Value = 1 Point Value = 2 Point Value = 3 Point Value = 5 Age 41-60 Minor surgery BMI > 25 kg/m2 Swollen legs Varicose veins or History of unexplained or recurrent spontaneous Oral contraceptives or hormone replacement Sepsis (< 1 month) Serious lung disease, including pneumonia (< 1 month) Abnormal pulmonary function Acute myocardial infarction Congestive heart failure (< 1 month) History of inflammatory bowel disease Medical patient at bed rest Age 61-74 Arthroscopic surgery Major open surgery (> 45 min) Laparoscopic surgery (> 45 min) Malignancy Confined to bed (> 72 hours) Immobilizing plaster cast Central venous access Age >= 75 History of VTE Family history of VTE Factor V Leiden Prothrombin [id number] Lupus anticoagulant Anticardiolipin antibodies Elevated serum homocysteine Heparin-induced thrombocytopenia Other congenital or acquired thrombophilia Stroke (< 1 month) Elective arthroplasty Hip, pelvis, or leg fracture Acute spinal cord injury (< 1 month) Prophylaxis Regimen: Total Risk Factor Score Risk Level Prophylaxis Regimen 0-1 Low Early ambulation 2 Moderate Order ONE of the following: *Sequential Compression Device (SCD) *Heparin 5000 units SQ BID 3-4 Higher Order ONE of the following medications: *Heparin 5000 units SQ TID *Enoxaparin/Lovenox 40 mg SQ daily (WT < 150 kg, CrCl > 30 mL/min) *Enoxaparin/Lovenox 30 mg SQ daily (WT < 150 kg, CrCl > 10-29 mL/min) *Enoxaparin/Lovenox 30 mg SQ BID (WT < 150 kg, CrCl > 30 mL/min) AND/OR *Sequential Compression Device (SCD) 5 or more Highest Order ONE of the following medications: *Heparin 5000 units SQ TID (Preferred with Epidurals) *Enoxaparin/Lovenox 40 mg SQ daily (WT < 150 kg, CrCl > 30 mL/min) *Enoxaparin/Lovenox 30 mg SQ daily (WT < 150 kg, CrCl > 10-29 mL/min) *Enoxaparin/Lovenox 30 mg SQ BID (WT < 150 kg, CrCl > 30 mL/min) AND *Sequential Compression Device (SCD) Assessment and Plan - Plan Assessment/plan: 1. 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 Alcohol abuse Patient reports drinking only 2-3 times weekly Alcohol level on arrival 137 Thiamine/multivitamins [facility] protocol Monitor for signs of withdrawal FEN Diabetic diet Electrolytes: Monitor and replete as needed NS at 100 cc/hr
[2018-07-08] MEDS ORDERED: Naloxone Inj 0.4 MG/ML Vial IV.PUSH PRN (08:40)
[2018-07-08] MEDS ORDERED: Morphine Inj 4 MG/ML Vial IV.PUSH PRN (08:40)
[2018-07-08] MEDS ORDERED: Acetaminophen 325 MG Tablet PO PRN (08:40)
--- NOTE | 2018-07-08 08:58 | P.PN ---
Subjective Interval history: Patient is seen sitting up in bed. He continues to complain of intermittent dizziness especially if he moves fast. Reports that the feeling of dizziness is of room spinning. No chest pain or shortness of breath. No change in vision or headache. No nausea vomiting or diarrhea. He is complaining that he is suffering from back pain, this is chronic and he normally controls it with [place]. Physical Exam Vital signs: Vital Signs 07/07/18 18:49 07/07/18 19:14 07/07/18 23:35 Temperature 98.1 F Pulse Rate 81 85 71 Respiratory Rate 18 18 18 Blood Pressure 134/81 148/91 H 169/99 H Pulse Oximetry 99 100 98 07/08/18 01:38 07/08/18 04:00 Temperature 97.7 F Pulse Rate 85 80 Respiratory Rate 18 21 Blood Pressure 138/100 H 163/81 H Pulse Oximetry 97 99 Intake & Output 07/07/18 07/08/18 07/08/18 18:59 06:59 18:59 Intake Total 240 / 240 Balance 240 / 240 Weight 81.647 kg Intake: Oral 240 / 240 Narrative: GENERAL: Well-nourished, well-developed adult male in no obvious distress. SKIN: Warm and dry. HEAD: Atraumatic. Normocephalic. CARDIOVASCULAR: Regular rate and rhythm. RESPIRATORY: No accessory muscle use. Clear to auscultation. Scattered rhonchi throughout. GASTROINTESTINAL: Abdomen soft, non-tender, non- distended. Positive bowel sounds. MUSCULOSKELETAL: Extremities without clubbing, cyanosis, or edema. No obvious deformities. NEUROLOGICAL: Awake and alert. No obvious cranial nerve deficits. Motor grossly within normal limits. Normal speech. PSYCHIATRIC: Appropriate mood and affect; insight and judgment good. Results - Labs CBC & Chem 7: 07/07/18 20:38 07/07/18 20:38 Laboratory Results - last 24 hr 07/07/18 07/07/18 07/07/18 20:38 20:38 20:38 WBC 4.9 RBC 3.19 L Hgb 11.5 L Hct 33.0 L MCV 103.4 H MCH 36.0 H MCHC 34.8 RDW 14.0 Plt Count 354 D MPV 7.1 Neut % (Auto) 46.1 Lymph % (Auto) 40.3 [place] % (Auto) 8.4 H Eos % (Auto) 3.9 Baso % (Auto) 1.3 Neut # (Auto) 2.3 Lymph # (Auto) 2.0 [place] # (Auto) 0.4 Eos # (Auto) 0.2 Baso # (Auto) 0.1 WBC Differential . Differential Comment Auto diff final PT 10.5 INR 1.0 Sodium Potassium Chloride Carbon Dioxide Anion Gap BUN Creatinine Estimated GFR POC Glucose Random Glucose Calcium Magnesium 2.1 Total Bilirubin AST ALT Alkaline Phosphatase Ammonia Troponin I Less than 0.02 L Total Protein Albumin Urine Color Urine Clarity Urine pH Ur Specific [place] Urine Protein Urine Glucose (UA) Urine Ketones Urine Occult Blood Urine Nitrate Urine Bilirubin Urine Urobilinogen Ur Leukocyte Esterase Urine RBC Urine WBC Urine Opiates Screen Ur Barbiturates Screen Ur Amphetamines Screen U Benzodiazepines Scrn Urine Cocaine Screen U Cannabinoids Screen Serum Alcohol 07/07/18 07/07/18 07/07/18 20:38 20:38 20:38 WBC RBC Hgb Hct MCV MCH MCHC RDW Plt Count MPV Neut % (Auto) Lymph % (Auto) [place] % (Auto) Eos % (Auto) Baso % (Auto) Neut # (Auto) Lymph # (Auto) [place] # (Auto) Eos # (Auto) Baso # (Auto) WBC Differential Differential Comment PT INR Sodium 136 Potassium 3.7 Chloride 103 Carbon Dioxide 21.4 Anion Gap 12 BUN 4 L Creatinine 0.68 Estimated GFR Greater than 89 POC Glucose Random Glucose 81 Calcium 7.8 L Magnesium Total Bilirubin 0.2 AST 29 ALT 33 Alkaline Phosphatase 100 Ammonia 19 Troponin I Total Protein 6.5 Albumin 3.1 L Urine Color Urine Clarity Urine pH Ur Specific [place] Urine Protein Urine Glucose (UA) Urine Ketones Urine Occult Blood Urine Nitrate Urine Bilirubin Urine Urobilinogen Ur Leukocyte Esterase Urine RBC Urine WBC Urine Opiates Screen Ur Barbiturates Screen Ur Amphetamines Screen U Benzodiazepines Scrn Urine Cocaine Screen U Cannabinoids Screen Serum Alcohol 137 H 07/07/18 07/07/18 07/07/18 21:24 21:24 23:04 WBC RBC Hgb Hct MCV MCH MCHC RDW Plt Count MPV Neut % (Auto) Lymph % (Auto) [place] % (Auto) Eos % (Auto) Baso % (Auto) Neut # (Auto) Lymph # (Auto) [place] # (Auto) Eos # (Auto) Baso # (Auto) WBC Differential Differential Comment PT INR Sodium Potassium Chloride Carbon Dioxide Anion Gap BUN Creatinine Estimated GFR POC Glucose 90 Random Glucose Calcium Magnesium Total Bilirubin AST ALT Alkaline Phosphatase Ammonia Troponin I Total Protein Albumin Urine Color Straw Urine Clarity Clear Urine pH 5.0 Ur Specific [place] 1.003 Urine Protein Negative Urine Glucose (UA) Negative Urine Ketones Negative Urine Occult Blood Negative Urine Nitrate Negative Urine Bilirubin Negative Urine Urobilinogen Less than 2 Ur Leukocyte Esterase Negative Urine RBC Less than 1 Urine WBC 1 Urine Opiates Screen Neg Ur Barbiturates Screen Neg Ur Amphetamines Screen Neg U Benzodiazepines Scrn Neg Urine Cocaine Screen Neg U Cannabinoids Screen Neg Serum Alcohol - Imaging Impressions Chest X-Ray 07/07/18 20:11 CONCLUSION: The lungs are clear. Head CT 07/07/18 20:11 CONCLUSION: 1. No acute findings in the brain. 2. Stable sellar mass. . Cervical Spine CT 07/07/18 20:12 CONCLUSION: 1. No evidence of compression deformity or fracture. Straightening of the upper cervical lordosis. Assessment and Plan - Plan 58-year-old male with a past medical history of EtOH use and chronic pain. Presented at the emergency room 07/07 via EMS for severe dizziness and possible syncope. Patient was recently hospitalized and discharged for similar. Found to have vestibular dysfunction and was released with meclizine which he ran out of. Vestibular dysfunction -Restart meclizine -PT consult ordered Tobacco abuse -Likely COPD; duo nebs ordered; nicotine patch ordered -Cessation counseled Chronic pain -Restart home [place], morphine for breakthrough DVT prophylaxis: SCDs Discussed with: Patient and nurse Discharge planning: Will clear for discharge once evaluated by PT and gait is stable. Patient to follow-up with ENT/PT as outpatient.
[2018-07-08 09:20] VITALS: RESP 18
[2018-07-08 13:11] VITALS: BP 174/96; PULSE 90; TEMP 98.3; O2SAT 100
--- NOTE | 2018-07-08 13:40 | P.DS ---
Date of admission: 07/08/18 02:29 Primary care physician: No Primary Care Physician Attending physician on discharge: Elliot Rowley Anticipated date of discharge: 07/08/18 Brief History from admission: 58-year-old male with past medical history significant for alcohol abuse and chronic pain presents the emergency department for evaluation of severe dizziness and possible syncope 2. The patient was recently hospitalized 1 week ago and was discharged last Monday. The patient reports he was hospitalized for severe dizziness and had an extensive workup with multiple imaging studies. He was treated with meclizine. He was doing well on the meclizine but ran out of it and was unable to refill the prescription. 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 On his way home, he was at a bus stop when he had a possible syncopal episode. The patient reports he does not remember the episode but remembers being woken up by bystanders. He believed that his symptoms were related to hypoglycemia and went to the [employer] store to buy candy. He then reports that he had an additional syncopal episode where he fell onto train tracks and had to be pulled off the train tracks by bystanders. He denies any chest pain or shortness of breath. No nausea/vomiting/diarrhea. No abdominal pain. No lateralizing signs/symptoms. No fever/chills. DS: Diagnosis - Discharge Diagnosis (1) Vertigo Status: Acute (2) Chronic back pain Status: Chronic DS: Medications - Discharge Medications Prescriptions: hydrocodone-acetaminophen 1 tab PO Q4H PRN #6 tab PRN Reason: Acute Pain meclizine 25 mg PO Q8H PRN 30 Days #90 tab PRN Reason: dizziness/vertigo DS: Summary Hospital Course: 58-year-old male with a past medical history of EtOH use and chronic pain. Presented at the emergency room 07/07 via EMS for severe dizziness and possible syncope. Patient was recently hospitalized and discharged for similar. Found to have vestibular dysfunction and was released with meclizine which he ran out of. Restarted meclizine. Patient evaluated by physical therapy who found that his gait is stable. Patient instructed on home [place] and encouraged to follow-up with ENT. He was also very concerned about his chronic pain which he controls with [employer]. Has not seen pain management recently and is out of medication -requesting refills from us. Review of the [employer] database indicates that he got a 3 day supply 1 week ago. Last pain medication supplied by pain management was filled 05/29/18 for 30 days. Will provide another 3 days at the most recent dose given by pain management to avoid withdrawal. Instructed patient that he will get no more pain medications after this and he must see pain management in the future. - Time Spent with Patient Total time spent providing and/or coordinating discharge services: Less than 30 minutes - Quality: VTE Deep Vein Thrombosis/Pulmonary Embolism Present on Admission: No Exam Vital signs: Vital Signs 07/07/18 18:49 07/07/18 19:14 07/07/18 23:35 Temperature 98.1 F Pulse Rate 81 85 71 Respiratory Rate 18 Blood Pressure 134/81 148/91 H 169/99 H Pulse Oximetry 99 100 98 07/08/18 01:38 07/08/18 04:00 07/08/18 08:00 Temperature 97.7 F 97.8 F Pulse Rate 85 80 75 Respiratory Rate 18 Blood Pressure 138/100 H 163/81 H 170/90 H Pulse Oximetry 97 99 99 07/08/18 12:00 Temperature 98.3 F Pulse Rate 90 Respiratory Rate 18 Blood Pressure 174/96 H Pulse Oximetry 100 Intake & Output 07/07/18 07/08/18 07/08/18 18:59 06:59 18:59 Intake Total 0 / 0 240 / 240 Balance 0 / 0 240 / 240 Weight 81.647 kg Intake: IV 0 / 0 Oral 240 / 240 Narrative: GENERAL: Well-nourished, well-developed adult male in no obvious distress. SKIN: Warm and dry. HEAD: Atraumatic. Normocephalic. CARDIOVASCULAR: Regular rate and rhythm. RESPIRATORY: No accessory muscle use. Clear to auscultation. Scattered rhonchi throughout. GASTROINTESTINAL: Abdomen soft, non-tender, non- distended. Positive bowel sounds. MUSCULOSKELETAL: Extremities without clubbing, cyanosis, or edema. No obvious deformities. NEUROLOGICAL: Awake and alert. No obvious cranial nerve deficits. Motor grossly within normal limits. Normal speech. PSYCHIATRIC: Appropriate mood and affect; insight and judgment good. Results Procedures completed during hospitalization: none Labs on day of discharge: Labs from last 24 hours 07/07/18 07/07/18 07/07/18 23:04 21:24 21:24 WBC RBC Hgb Hct MCV MCH MCHC RDW Plt Count MPV Neut % (Auto) Lymph % (Auto) [place] % (Auto) Eos % (Auto) Baso % (Auto) Neut # (Auto) Lymph # (Auto) [place] # (Auto) Eos # (Auto) Baso # (Auto) WBC Differential Differential Comment PT INR Sodium Potassium Chloride Carbon Dioxide Anion Gap BUN Creatinine Estimated GFR POC Glucose 90 Random Glucose Calcium Magnesium Total Bilirubin AST ALT Alkaline Phosphatase Ammonia Troponin I Total Protein Albumin Urine Color Straw Urine Clarity Clear Urine pH 5.0 Ur Specific [place] 1.003 Urine Protein Negative Urine Glucose (UA) Negative Urine Ketones Negative Urine Occult Blood Negative Urine Nitrate Negative Urine Bilirubin Negative Urine Urobilinogen Less than 2 Ur Leukocyte Esterase Negative Urine RBC Less than 1 Urine WBC 1 Urine Opiates Screen Neg Ur Barbiturates Screen Neg Ur Amphetamines Screen Neg U Benzodiazepines Scrn Neg Urine Cocaine Screen Neg U Cannabinoids Screen Neg Serum Alcohol 07/07/18 07/07/18 07/07/18 20:38 20:38 20:38 WBC RBC Hgb Hct MCV MCH MCHC RDW Plt Count MPV Neut % (Auto) Lymph % (Auto) [place] % (Auto) Eos % (Auto) Baso % (Auto) Neut # (Auto) Lymph # (Auto) [place] # (Auto) Eos # (Auto) Baso # (Auto) WBC Differential Differential Comment PT INR Sodium 136 Potassium 3.7 Chloride 103 Carbon Dioxide 21.4 Anion Gap 12 BUN 4 L Creatinine 0.68 Estimated GFR Greater than 89 POC Glucose Random Glucose 81 Calcium 7.8 L Magnesium Total Bilirubin 0.2 AST 29 ALT 33 Alkaline Phosphatase 100 Ammonia 19 Troponin I Total Protein 6.5 Albumin 3.1 L Urine Color Urine Clarity Urine pH Ur Specific [place] Urine Protein Urine Glucose (UA) Urine Ketones Urine Occult Blood Urine Nitrate Urine Bilirubin Urine Urobilinogen Ur Leukocyte Esterase Urine RBC Urine WBC Urine Opiates Screen Ur Barbiturates Screen Ur Amphetamines Screen U Benzodiazepines Scrn Urine Cocaine Screen U Cannabinoids Screen Serum Alcohol 137 H 07/07/18 07/07/18 07/07/18 20:38 20:38 20:38 WBC 4.9 RBC 3.19 L Hgb 11.5 L Hct 33.0 L MCV 103.4 H MCH 36.0 H MCHC 34.8 RDW 14.0 Plt Count 354 D MPV 7.1 Neut % (Auto) 46.1 Lymph % (Auto) 40.3 [place] % (Auto) 8.4 H Eos % (Auto) 3.9 Baso % (Auto) 1.3 Neut # (Auto) 2.3 Lymph # (Auto) 2.0 [place] # (Auto) 0.4 Eos # (Auto) 0.2 Baso # (Auto) 0.1 WBC Differential . Differential Comment Auto diff final PT 10.5 INR 1.0 Sodium Potassium Chloride Carbon Dioxide Anion Gap BUN Creatinine Estimated GFR POC Glucose Random Glucose Calcium Magnesium 2.1 Total Bilirubin AST ALT Alkaline Phosphatase Ammonia Troponin I Less than 0.02 L Total Protein Albumin Urine Color Urine Clarity Urine pH Ur Specific [place] Urine Protein Urine Glucose (UA) Urine Ketones Urine Occult Blood Urine Nitrate Urine Bilirubin Urine Urobilinogen Ur Leukocyte Esterase Urine RBC Urine WBC Urine Opiates Screen Ur Barbiturates Screen Ur Amphetamines Screen U Benzodiazepines Scrn Urine Cocaine Screen U Cannabinoids Screen Serum Alcohol - Impressions ITS Impressions Chest X-Ray 07/07/18 20:11 CONCLUSION: The lungs are clear. Head CT 07/07/18 20:11 CONCLUSION: 1. No acute findings in the brain. 2. Stable sellar mass. . Cervical Spine CT 07/07/18 20:12 CONCLUSION: 1. No evidence of compression deformity or fracture. Straightening of the upper cervical lordosis. Discharge Plan - Discharge Disposition Patient Disposition: 01 Discharge Home - Discharge Condition Condition: Stable - Discharge Order Discharge Orders: Discharge Order (Routine); Ordered 07/08/18 Ordered By: Khushbu Middleton - Physicians Team Primary Care Provider: Primary Care Bart,Lori Attending Provider: Elliot Rowley
--- NOTE | 2018-07-08 16:21 | ECG ---
Date Performed: 07/07/2018 Time Performed: 21:49:59 PTAGE: 58 years EKG: Sinus rhythm NORMAL ECG Since PREVIOUS TRACING , no significant change noted PREVIOUS TRACIN06/25/2018 10.43 DOCTOR: Jason Lawrence Interpretating Date/Time 07/08/2018 16:19:50
== END 2018-07-08 17:53 | disposition home or self-care (01) ==
LOC: NEDA 18:31 → NEPC 18:31 → NEPHCDU 18:31
PROVIDERS: ADMIT Hospitalist; ATTEND Hospitalist